=== PATIENT | male | born 1955 | race Caucasian/White ===

== ENCOUNTER → 2020-04-18 09:00 | Outpatient (BNVA) | payer MEDICARE, MEDICAID, SELFPAY | PROVIDERS: PCP Internal Medicine; Visit Provider Orthopaedic Surgery | DX: M75.41 Impingement syndrome of right shoulder (principal) | CPT/HCPCS: 20610; 99202; J1040 ==

== ENCOUNTER 2023-11-02 13:46 | Emergency (ER) | payer MEDICARE, MEDICAID, SELFPAY ==
--- NOTE | ~2023-11-02 | CT_ITS ---
EXAMINATION: CT CERVICAL SPINE WITHOUT CONTRAST CLINICAL INFORMATION: Fall COMPARISON: None available. TECHNIQUE: CT scan of cervical spine with reconstruction imaging performed at the acquisition workstation. This CT examination was performed using dose optimization techniques as appropriate, variously including the following: *Automated exposure control *Adjustment of mA and/or kV according to patient size (this includes techniques or standardized protocols for targeted exams where dose is matched to indication/reason for exam; i.e. extremities or head) *Use of iterative reconstruction technique DLP: 572 mGy-cm FINDINGS: Vertebral body height normal without fracture. Multilevel degenerative disc changes from C3-C4 through C7-T1 manifested by varying degrees of endplate osteophytes and disc space narrowing most prominent at the C5-C6 and C6-C7. There is multilevel facet arthrosis throughout the cervical spine severe at the right C3-C4 and right C5-C6 levels. There is fusion across this right C4-C5 facet These degenerative changes result in grade 1 anterolisthesis of C5 on C6. The surrounding soft tissues are normal. There is arterial calcification noted. CT/CT cervical spine wo IV con IMPRESSION: 1. No acute abnormality. 2. Multilevel spondylosis of the cervical spine. Fleischner guidelines were followed.
--- NOTE | ~2023-11-02 | CT_ITS ---
EXAMINATION: CT FACIAL BONES WITHOUT CONTRAST CLINICAL INFORMATION: Fall COMPARISON: None available. TECHNIQUE: CT scan facial bones is performed with reconstruction imaging performed at the acquisition workstation This CT examination was performed using dose optimization techniques as appropriate, variously including the following: *Automated exposure control *Adjustment of mA and/or kV according to patient size (this includes techniques or standardized protocols for targeted exams where dose is matched to indication/reason for exam; i.e. extremities or head) *Use of iterative reconstruction technique DLP: 577 mGy-cm FINDINGS: There is no fracture. There is mild mucosal thickening of the right maxillary sinus. Mastoid air cells clear. Arterial calcification noted. No lymphadenopathy. Spondylosis of the partially visualized cervical spine. See dedicated C-spine report for further description. Orbits normal. CT/CT facial bones wo IV con IMPRESSION: No acute intracranial process or discrete facial bone fracture.
--- NOTE | ~2023-11-02 | CT_ITS ---
EXAMINATION: CT HEAD WITHOUT CONTRAST CLINICAL INFORMATION: Fall COMPARISON: None available. TECHNIQUE: Contiguous axial imaging was performed from the skull base to vertex without intravenous administration of contrast. This CT examination was performed using dose optimization techniques as appropriate, variously including the following: *Automated exposure control *Adjustment of mA and/or kV according to patient size (this includes techniques or standardized protocols for targeted exams where dose is matched to indication/reason for exam; i.e. extremities or head) *Use of iterative reconstruction technique DLP: 896 mGy-cm FINDINGS: Soft tissue/scalp: Normal. Bone/skull: Normal. Sinuses: Minimal mucosal thickening of the right maxillary sinus. Mastoid air cells: Clear. There is no mass hemorrhage or cerebral edema. The ventricles and basal cisterns are normal. CT/CT head/brain wo IV con IMPRESSION: No acute intracranial pathology.
[2023-11-02 14:07] VITALS: BP 129/95; PULSE 91; RESP 20; TEMP 36.6; O2SAT 92; BMI 30.4
--- NOTE | 2023-11-02 14:12 | ED.GENADULT ---
HPI - General Adult General Chief complaint: Fall Stated complaint: Fall/Facial injuries takes aspirin Time Seen by Provider: 11/02/23 14:20 Source: patient Mode of arrival: ambulatory Limitations: no limitations History of Present Illness ED Provider: Jan MON narrative: Patient is a 68-year-old male with history of HTN, COPD, cardiac catheterization presenting to the emergency department with complaint of abrasions to forehead, scalp and bruising around right eye after fall on Friday night. States that he slipped on pasta sauce that was on the linoleum floor. Denies dizziness or lightheadedness. Denies loss of consciousness. Takes aspirin daily but is not anticoagulated. Reports baseline visual deficit to left eye, denies any blurred vision, double vision or other visual changes since the fall. Reports chronic neck pain, denies back pain. MD complaint: head injury Onset (ago): day(s) Location: head, face and eyes Severity: moderate Quality: aching Related Data Home Medications ?Medication ?Instructions ?Recorded ?Confirmed aspirin 81 mg tablet,delayed 81 mg PO DAILY 04/18/20 release budesonide-formoterol HFA 80 2 puff inhalation BID 04/18/20 mcg-4.5 mcg/actuation aerosol inhaler (Symbicort) fluticasone furoate 27.5 1 spray intranasal DAILY 04/18/20 mcg/actuation nasal spray,suspension (Flonase Sensimist) furosemide 10 mg/mL oral solution 20 mg PO QAM 04/18/20 ipratropium 20 mcg-albuterol 100 1 puff inhalation Q6H 04/18/20 mcg/actuation mist for inhalation (Combivent Respimat) lisinopril 5 mg tablet 5 mg PO DAILY 04/18/20 metformin 500 mg tablet 500 mg PO DAILY 04/18/20 sertraline 50 mg tablet (Zoloft) 50 mg PO DAILY 04/18/20 tizanidine 2 mg capsule 2 mg PO BEDTIME 04/18/20 Allergies Allergy/AdvReac Type Severity Reaction Status Date / Time No Known Allergies Allergy Verified 11/02/23 14:10 Review of Systems Review of Systems: As per HPI. Yes all other systems are reviewed and are negative Constitutional: Constitutional: Reports as per HPI [facility] Past Medical History Medical History (Updated 11/02/23 @ 16:21 by Tianna Montoya NP) History of umbilical hernia History of left heart catheterization COPD (chronic obstructive pulmonary disease) Surgical History (Updated 04/18/20 @ 09:13 by Frida Hardin PA-C) History of gastric bypass History of arthroscopy of knee H/O angioplasty Social History Social History (Updated 04/18/20 @ 09:14 by Frida Hardin PA-C) Alcohol intake: current Alcohol intake frequency: a few times a week Advance Directives: No Advance Directives Information Provided: Yes Current occupational status: retired Current occupation: rt handed Physical Exam ED Vital Signs: Vital Signs - 24 hr 11/02/23 14:07 11/02/23 16:34 Temperature 97.8 F 97.8 F Pulse Rate 91 91 Respiratory Rate 20 20 Blood Pressure 129/95 H 129/95 H Pulse Oximetry 92 92 Oxygen Delivery Method Room Air Room Air BMI result Body Mass Index 30.4 Vital signs have been reviewed and appear to be correct. Blood pressure normal. Heart rate normal. Respiratory rate normal. Temperature normal. Oxygen saturation normal. Const General: cooperative, healthy appearing and no acute distress Orientation/consciousness: oriented to person, oriented to place, oriented to time and patient oriented x3 Limitations: no limitations HENMT Other: Head: Yes No palpable skull fracture present, Yes normocephalic, Yes abrasion (multiple, see images), No Rosa's sign, Yes hematoma, No raccoon eyes and Yes periorbital ecchymosis (see photo) Ears: external ears normal, TM's normal bilaterally and EAC's normal General nose exam: Normal septum present and Abnormal external nose present nasal abrasion; no nasal deviation Face and sinus: Yes face symmetric Mouth: Normal oral and palatal mucosa present, lip normal, tongue normal, oropharynx normal and moist mucous membranes Teeth and gingiva: dentures Throat: Yes uvula midline Eyes Pupils: Equal, round and reactive pupils present EOM: EOMs intact bilaterally (no pain with EOMs) and No Nystagmus present Neck Neck: Yes normal visual inspection, Yes full ROM and Yes supple Chest Chest palpation & inspection: normal inspection of the chest and normal palpation of entire chest wall Resp Effort & Inspection: normal respiratory effort and able to speak in complete sentences Auscultation: clear to auscultation bilaterally Cardio Rate: regular rate Rhythm: regular rhythm Heart sounds: S1 normal heart sound present and S2 normal heart sound present GI Inspection: Yes normal to inspection and No abdominal wall ecchymosis Palpation (GI): Soft to palpation and nontender Auscultation: normoactive bowel sounds General: Yes no CVA tenderness Back/Spine/Pelvis Back: no CVA tenderness Cervical Spine: normal cervical lordosis, cervical ROM normal, No Cervical spine tenderness and No step off deformity Thoracic/Lumbar Spine: thoracic and lumbar spine normal to inspection, thoraco-lumbar ROM normal, No thoracic spinal tenderness and No lumbar spinal tenderness Pelvis: no pain with anterior-posterior compression and no pain with lateral compression Skin General skin exam: elasticity normal and turgor normal Neuro General: oriented to person, oriented to place, oriented to time, patient oriented x3, gait normal, tone normal, moves all extremities, Normal light touch and pain sensation, no focal motor deficits, CN's II-XI intact bilaterally and deep tendon reflexes 2+ bilaterally Cranial nerves: Yes Equal, round and reactive pupils present and No Nystagmus present Cognition (Neuro): normal cognition Motor exam (neuro): 5/5 motor strength present throughout, Pronator motor function not present, Normal motor muscle tone present throughout and Motor abnormalities not present Extrem General: Yes full ROM, Yes no pedal edema and Yes no calf tenderness Psych Mental Status: mental status grossly normal Affect: normal affect Thought process: Normal thought process present Course Course Course Narrative: RME: Done by MARCELLE Vasquez: 5-year-old male presents to ED for right facial ecchymosis and headache after fall on Friday while tripping in his kitchen. Patient denies any loss of consciousness. Physical exam positive for right orbital ecchymosis and frontal small hematoma. Patient is sent for imaging Medical Decision Making Medical Decision Making MDM Narrative: Patient is a 68-year-old male with history of HTN, COPD, cardiac catheterization presenting to the emergency department with complaint of abrasions to forehead, scalp and bruising around right eye after fall on Friday night. On exam patient is awake, A+Ox3, VS WNL, afebrile, normal neurological exam without focal deficits, physical exam findings as above. Given reported symptoms and physical exam findings, initial differential includes facial fractures versus contusions, orbital injury, ICH, skull fracture, cervical vertebral fracture or subluxation. IOPs 19OD, 19OS. CT head notable for no ICH or skull fracture. CT facial bones notable for no acute fracture. CT c-spine notable for no acute fracture or subluxation. My interpretation is in agreement with the radiologist's interpretation. Tdap is UTD. Wounds to face and scalp scabbed over. Discussed with patient to gently pat dry after showering, not rub. Can apply thin layer of Neosporin to abrasions. Follow up with PCP. Return precautions discussed at bedside. Patient verbalized understanding of and agreement with plan. Differential Diagnosis Differential Diagnoses: The differential diagnosis associated with the presentation includes As per MDM. Admission/Observation Consideration of admission/observation: Escalation of care including admission/observation considered Patient would have been admitted to the hospital had their work up had any findings where hospital admission was appropriate and their clinical presentation warranted hospital admission. Independent Interpretation I performed an independent interpretation of an: CT Scan Interpretation: CT head notable for no ICH or skull fracture. CT facial bones notable for no acute fracture. CT c-spine notable for no acute fracture or subluxation. Radiology Impression Discussion of test interpretation with radiology: I have reviewed the radiologist's reading. Radiologist Impression: CT/CT facial bones wo IV con IMPRESSION: No acute intracranial process or discrete facial bone fracture. CT/CT facial bones wo IV con IMPRESSION: No acute intracranial process or discrete facial bone fracture. CT/CT cervical spine wo IV con IMPRESSION: 1. No acute abnormality. 2. Multilevel spondylosis of the cervical spine. External Record Review External record reviewed: Inpatient record, Office record and Outpatient record Discharge Plan Discharge Clinical Impression: Contusion of eye, right, Abrasion of face, Abrasion of scalp, Fall Patient Disposition: Home, Self-Care Instructions: Fall Prevention for Older Adults (ED), Abrasion (ED) Additional Instructions: You have been evaluated in the emergency department today for injuries to your face and head after a fall. Your CT scans did not show signs of bleeding in your brain or fractures in your face or cervical spine. We recommend you take Tylenol 650 mg every 6 hours as needed for pain. You can apply a thin layer of Neopsporin or bacitracin to your abrasions. Please schedule an appointment with for follow-up with your primary care provider as soon as possible. Return to the emergency department if you experience worsening or uncontrolled pain, vision changes, recurrent vomiting, difficulty with normal activities, abnormal behavior, difficulty walking, numbness, weakness, or any other concerning symptoms. Interventions: ED Discharge Assessment Last Done: 11/02/23 16:34 Discharge Date/Time: 11/02/23 16:34 Print Language: Bahraini
[2023-11-02 16:34] VITALS: BP 129/95; PULSE 91; RESP 20; TEMP 36.6; O2SAT 92
== END 2023-11-02 16:34 | disposition home or self-care (01) ==
PROVIDERS: Emergency Provider Emergency Medicine; PCP Physician Assistant Medical
DX: S00.11XA Contusion of right eyelid and periocular area, initial encounter (principal); S00.01XA Abrasion of scalp, initial encounter; S00.81XA Abrasion of other part of head, initial encounter; R51.9 Headache, unspecified; X58.XXXA Exposure to other specified factors, initial encounter; W01.0XXA Fall on same level from slipping, tripping and stumbling without subsequent striking against object, initial encounter; Y93.89 Activity, other specified; Y92.89 Other specified places as the place of occurrence of the external cause; Y99.8 Other external cause status
CPT/HCPCS: 70450; 70486; 72125; 99283

== ENCOUNTER 2024-01-16 10:50 | Outpatient (AMB) | payer MEDICARE, MEDICAID, SELFPAY ==
--- NOTE | 2024-01-16 10:52 | A.SPINEOV_ITS ---
Intake Visit Reasons: spinal fracture Intake Note: Mr. Carr is here today c/o back pain making it difficult to walk. Debit Agent Required: No Allergies No Known Allergies Allergy (Verified 01/16/24 10:56) Assessment & Plan Assessment & Plan (1) Compression fracture of thoracic vertebra with routine healing: Code(s): S22.000D - Wedge compression fracture of unspecified thoracic vertebra, subsequent encounter for fracture with routine healing Category: Medical Plan Dear colleague Thank you for referring Best Carr to the office today with a chief complaint of improving thoracic pain. HPI: This 68-year-old male suffered a T9 compression fracture and transverse process fractures after a fall 5 months ago. Initially he had severe pain but over time the pain has significantly improved. Standing time is limited to 12- 15 minutes. He denies numbness weakness. It sounds like he was started on anti osteoporotic medication. He states he never had a bone density scan. PMH: COPD, hypertension, type 2 diabetes, right shoulder pain, vasculopathy Medications: Aspirin, Symbicort, furosemide, ipratropium, lisinopril, metformin, sertraline, tizanidine Allergies: NKDA Social history: 7 cigarettes a day Physical Exam: Pleasant male. He is not in obvious agony. There is no pain on palpation. Axial loading is negative. No neurological deficits Radiological Studies: MRI done at [place] shows a T9 compression fracture with approximately 20% height loss and transverse process fractures Impression/Plan: This patient suffered a traumatic T9 compression fracture and transverse process fractures with routine healing. It would be worthwhile to ge t a bone density scan although the trauma was pretty significant. The bone density scan should determine if he needs medication for osteoporosis. I discharged him from further follow-up. Thank you for allowing me to participate in your patients care. total time spent was forty-five minutes in counseling ,coordination of plan, personal review of imaging, surgical decision making and subsequent plan Raj Judge MD, PhD [facility] Trained Neurosurgeon Director, [facility] Coding Level of Care Code New Pt Level 4 (54472) Diagnoses Compression fracture of thoracic vertebra with routine healing S22.000D
== END 2024-01-16 11:48 | disposition home or self-care (01) ==
PROVIDERS: PCP Physician Assistant Medical; Visit Provider Neurological Surgery
DX: S22.000D Wedge compression fracture of unspecified thoracic vertebra, subsequent encounter for fracture with routine healing (principal)
CPT/HCPCS: 99204

== ENCOUNTER → 2024-01-16 10:50 | Outpatient (BNVA) | payer MEDICARE, MEDICAID, SELFPAY | PROVIDERS: PCP Physician Assistant Medical; Visit Provider Neurological Surgery | DX: S22.000D Wedge compression fracture of unspecified thoracic vertebra, subsequent encounter for fracture with routine healing (principal) | CPT/HCPCS: 99202 ==

== ENCOUNTER 2024-03-13 16:02 | Emergency (ER) | payer MEDICARE, MEDICAID, SELFPAY ==
[2024-03-13] VITALS (9 sets, daily range): BP systolic 140–174; BP diastolic 86–93; PULSE 93–122; RESP 16–20; TEMP 36.2–36.9; O2SAT 86–93; BMI 31.4
--- NOTE | ~2024-03-13 | CT_ITS ---
EXAMINATION: CT CERVICAL SPINE WITHOUT CONTRAST CLINICAL INFORMATION: Neck pain. Fall. COMPARISON: CT cervical spine dated November 02, 2023. TECHNIQUE: Noncontrast computed tomography of the cervical spine was performed. This CT examination was performed using dose optimization techniques as appropriate, variously including the following: *Automated exposure control *Adjustment of mA and/or kV according to patient size (this includes techniques or standardized protocols for targeted exams where dose is matched to indication/reason for exam; i.e. extremities or head) *Use of iterative reconstruction technique DLP: 541 mGy-cm FINDINGS: The prevertebral soft tissue is normal in appearance. There is grade 1 anterolisthesis of C2 in relation to C3. There is grade 1 anterolisthesis of C3 in relation to C4. There is grade 1 anterolisthesis of C4 in relation to C5. There is grade 1 retrolisthesis of C5 in relation to C6. Alignment is unchanged when compared with examination dated November 02, 2023. The posterior elements are anatomically aligned. There is significant facet arthropathy throughout the upper greater than lower cervical spine. The atlantooccipital articulations are intact. The C1-C2 relationship is anatomic. The dens is intact. Vertebral body heights are preserved. There is significant degenerative disc disease at C5-6 and to a lesser extent C6-7. There is no acute cervical spine fracture. Lung apices are clear. The thyroid gland is normal in appearance. CT/CT cervical spine wo IV con IMPRESSION: No acute osseous cervical spine abnormality. Multilevel spondylosis. Fleischner guidelines were followed. Electronically signed by: Chris López DO 03/13/2024 06:43 PM [facility] [place]
--- NOTE | ~2024-03-13 | XR_ITS ---
EXAMINATION: CHEST AND BILATERAL SHOULDERS CLINICAL INFORMATION: Cough, shortness of breath and bilateral shoulder pain after fall COMPARISON: None available. TECHNIQUE: PA and lateral chest, 4 views each shoulder FINDINGS: Chest: There is mild elevation of the right hemidiaphragm and a small right present. Heart size is normal. The question of a hiatal hernia. No evidence of CHF. There is bibasilar atelectasis. There is a wedge compression fracture of the lower thoracic vertebral body. The bony thorax otherwise is unremarkable. Right shoulder: Some minimal degenerative changes are seen at the glenohumeral joint. No fractures or dislocations. Left shoulder: Some minimal degenerative changes are seen at the glenohumeral joint. No fractures or dislocations. XR/XR chest 2V IMPRESSION: 1. No acute intrathoracic disease. 2. No acute osseous injury in either shoulder. 3. Incidental note made of a wedge compression fracture of the lower thoracic vertebral body. Electronically signed by: Chaka Menendez MD 03/13/2024 05:29 PM [facility]
--- NOTE | ~2024-03-13 | CT_ITS ---
EXAMINATION: CT FACIAL BONES WITHOUT CONTRAST CLINICAL INFORMATION: Fall. Head trauma. COMPARISON: CT facial bones dated November 02, 2023. TECHNIQUE: Noncontrast CT of the maxillofacial bones was performed. This CT examination was performed using dose optimization techniques as appropriate, variously including the following: *Automated exposure control *Adjustment of mA and/or kV according to patient size (this includes techniques or standardized protocols for targeted exams where dose is matched to indication/reason for exam; i.e. extremities or head) *Use of iterative reconstruction technique DLP: 467 mGy-cm FINDINGS: There is no facial bone fracture. There is a small mucosal retention cyst along the lateral wall of the right maxillary sinus. Remaining paranasal sinuses are well-aerated. The orbits are symmetric and within normal limits. The visualized brain demonstrates no acute abnormality. The visualized calvarium is intact. There is a small right frontal scalp hematoma. There is right periorbital soft tissue swelling. CT/CT facial bones wo IV con IMPRESSION: No acute facial bone fracture. Small right frontal scalp hematoma. Right periorbital soft tissue swelling. Electronically signed by: Chris López DO 03/13/2024 06:58 PM EST
--- NOTE | ~2024-03-13 | XR_ITS ---
EXAMINATION: CHEST AND BILATERAL SHOULDERS CLINICAL INFORMATION: Cough, shortness of breath and bilateral shoulder pain after fall COMPARISON: None available. TECHNIQUE: PA and lateral chest, 4 views each shoulder FINDINGS: Chest: There is mild elevation of the right hemidiaphragm and a small right present. Heart size is normal. The question of a hiatal hernia. No evidence of CHF. There is bibasilar atelectasis. There is a wedge compression fracture of the lower thoracic vertebral body. The bony thorax otherwise is unremarkable. Right shoulder: Some minimal degenerative changes are seen at the glenohumeral joint. No fractures or dislocations. Left shoulder: Some minimal degenerative changes are seen at the glenohumeral joint. No fractures or dislocations. XR/XR shoulder LT min 2V IMPRESSION: 1. No acute intrathoracic disease. 2. No acute osseous injury in either shoulder. 3. Incidental note made of a wedge compression fracture of the lower thoracic vertebral body. Electronically signed by: Chaka Menendez MD 03/13/2024 05:29 PM [facility]
--- NOTE | ~2024-03-13 | XR_ITS ---
EXAMINATION: CHEST AND BILATERAL SHOULDERS CLINICAL INFORMATION: Cough, shortness of breath and bilateral shoulder pain after fall COMPARISON: None available. TECHNIQUE: PA and lateral chest, 4 views each shoulder FINDINGS: Chest: There is mild elevation of the right hemidiaphragm and a small right present. Heart size is normal. The question of a hiatal hernia. No evidence of CHF. There is bibasilar atelectasis. There is a wedge compression fracture of the lower thoracic vertebral body. The bony thorax otherwise is unremarkable. Right shoulder: Some minimal degenerative changes are seen at the glenohumeral joint. No fractures or dislocations. Left shoulder: Some minimal degenerative changes are seen at the glenohumeral joint. No fractures or dislocations. XR/XR shoulder RT min 2V IMPRESSION: 1. No acute intrathoracic disease. 2. No acute osseous injury in either shoulder. 3. Incidental note made of a wedge compression fracture of the lower thoracic vertebral body. Electronically signed by: Chaka Menendez MD 03/13/2024 05:29 PM [facility]
--- NOTE | ~2024-03-13 | CT_ITS ---
EXAMINATION: CT HEAD WITHOUT CONTRAST CLINICAL INFORMATION: Fall. Head strike. COMPARISON: CT head dated November 02, 2023. TECHNIQUE: Contiguous axial imaging was performed from the skull base to vertex without intravenous administration of contrast. This CT examination was performed using dose optimization techniques as appropriate, variously including the following: *Automated exposure control *Adjustment of mA and/or kV according to patient size (this includes techniques or standardized protocols for targeted exams where dose is matched to indication/reason for exam; i.e. extremities or head) *Use of iterative reconstruction technique DLP: 836 mGy-cm FINDINGS: There is no acute intracranial hemorrhage. There is no evidence of acute/subacute cerebral or cerebellar infarction. There is no midline shift or mass effect. No extra-axial fluid collection. The ventricles are normal in size. The orbits are symmetric and within normal limits. The calvarium is intact. The visualized paranasal sinuses are well aerated. The mastoid air cells are clear. There is a right frontal scalp hematoma. There is right periorbital soft tissue swelling. CT/CT head/brain wo IV con IMPRESSION: No acute intracranial pathology. There is a right frontal scalp hematoma. There is right periorbital soft tissue swelling. Electronically signed by: Chris óLpez DO 03/13/2024 06:36 PM EST
--- NOTE | 2024-03-13 16:06 | ED_ITS ---
HPI - SOB/Dyspnea General Chief Complaint: Fall Stated Complaint: sob, o2 sat 85%, fell 03/10 left shoulder pain Time Seen by Provider: 03/13/24 17:14 Source: patient Mode of arrival: EMS Limitations: no limitations History of Present Illness ED Provider: atilio MON Narrative: Patient is 68 years old with your COPD on home oxygen went outside to mariah the youssef 4 days ago fell on the concrete steps hitting his forehead to the ground no loss of consciousness complaining of pain in bilateral shoulder patient does have rotator cuff tear on the right side had hard time in getting up comes here as still having the pain in the left shoulder moving his shoulder pretty well no nausea no vomiting Related Data Home Medications ?Medication ?Instructions ?Recorded ?Confirmed aspirin 81 mg tablet,delayed 81 mg PO DAILY 04/18/20 release budesonide-formoterol HFA 80 2 puff inhalation BID 04/18/20 mcg-4.5 mcg/actuation aerosol inhaler (Symbicort) fluticasone furoate 27.5 1 spray intranasal DAILY 04/18/20 mcg/actuation nasal spray,suspension (Flonase Sensimist) furosemide 10 mg/mL oral solution 20 mg PO QAM 04/18/20 ipratropium 20 mcg-albuterol 100 1 puff inhalation Q6H 04/18/20 mcg/actuation mist for inhalation (Combivent Respimat) lisinopril 5 mg tablet 5 mg PO DAILY 04/18/20 metformin 500 mg tablet 500 mg PO DAILY 04/18/20 sertraline 50 mg tablet (Zoloft) 50 mg PO DAILY 04/18/20 tizanidine 2 mg capsule 2 mg PO BEDTIME 04/18/20 Previous Rx's ?Medication ?Instructions ?Recorded prednisone 20 mg tablet 40 mg (2 x 20 mg) PO DAILY #10 tabs 03/13/24 Allergies Allergy/AdvReac Type Severity Reaction Status Date / Time No Known Allergies Allergy Verified 03/13/24 16:12 Review of Systems 2 Review of Systems: Yes all other systems are reviewed and are negative PMFSH Past Medical History Medical History History of umbilical hernia History of left heart catheterization COPD (chronic obstructive pulmonary disease) Surgical History History of gastric bypass History of arthroscopy of knee H/O angioplasty Social History Social History Alcohol intake: current Alcohol intake frequency: a few times a week Smoked in Last 30 Days: Yes Advance Directives: No Advance Directives Information Provided: No Do you have a plan to hurt others: No Plan Current occupational status: retired Current occupation: rt handed Physical Exam 2 Vital Signs: Vital Signs: Last Vital Signs Temp 98.4 F 03/13/24 20:39 Pulse 99 03/13/24 20:39 Resp 20 03/13/24 20:39 BP 140/86 H 03/13/24 20:39 Pulse Ox 90 L 03/13/24 20:39 O2 Del Method Room Air 03/13/24 20:39 O2 Flow Rate 2 03/13/24 19:14 BMI result Body Mass Index 31.4 Appearance: Alert. Oriented X3. No acute distress. Eyes: PERRLA, No Nystagmus ecchymosis right eye ENT: Pharynx normal. Oral Mucosa moist Neck: Normal inspection. Neck supple. CVS: Normal heart rate and rhythm. Pulses normal. Respiratory: No respiratory distress. Equal air entry bilateral, no wheezing/rales/rhonchi Abdomen: Soft and nontender. Bowel sounds are present, no mass palpable, no CVA tenderness Skin: Skin warm and dry. Normal skin color. Normal skin turgor. Extremities: No lower extremity edema. No calf tenderness left rotator cuff tendinitis Neuro: Oriented X 3. No motor deficit. No sensory deficit.No cerebellar signs , cranial nerves II-XII intact Course Course Course Narrative: This is a Rapid Medical Exam performed in triage by Jayleen Pena PA-C. Full HPI, ROS and PE to be performed by primary ED provider. 68yo M w/pmhx COPD, CAD, presenting to the ED c/o low O2 at home 85% on RA this morning w/ associated SOB. Also reports fall Friday around midnight on concrete steps (5 steps) due to thinking his animals were being attacked, mechanical fall, denies sx prior to fall, +head strike, No LOC. Takes 81 ASA. Admits to BARRY, neck & back pain & b/l shoulder pain. States has been having more frequent falls recently & increased stressors at home PE: HR bouncing ?A.fib, satting 90% on RA, + right periorbital ecchymosis and forehead abrasion. Bilateral shoulder tenderness. Plan: EKG, labs, CXR, CT , viral testing Medications Administered Discontinued Medications Generic Name Dose Route Start Last Admin Trade Name Vinay PRN Reason Stop Dose Admin Albuterol Sulfate 5 mg 03/13/24 19:25 03/13/24 20:13 Albuterol Sulfate (0.083%) 2.5 Mg/3 Ml Vial.Neb INHALE 03/13/24 19:26 5 mg ONCE ONE Administration Albuterol/Ipratropium 3 ml 03/13/24 16:41 03/13/24 16:44 Albuterol/Iprat 2.5/0.5mg 3 Ml Ampul.Neb INHALE 03/13/24 16:42 3 ml ONCE ONE Administration Dexamethasone Sodium Phosphate 10 mg 03/13/24 20:29 03/13/24 20:34 Dexamethasone Sod Phosphate 10 Mg/Ml Vial IVPUSH 03/13/24 20:30 10 mg ONCE ONE Administration Medical Decision Making Lab Data [facility] Lab Attestation statement: I reviewed the patient's lab results. 03/13/24 17:11 03/13/24 17:11 Labs: Lab Results 03/13/24 03/13/24 Range/Units 16:53 17:11 WBC 8.4 (4.8-10.8) X10*3/uL RBC 5.08 (4.60-5.80) X10*6/uL Hgb 17.0 (14.0-18.0) g/dl Hct 51.0 (42.0-52.0) % MCV 100.4 H (80.0-98.0) fL MCH 33.5 H (27.0-33.0) pg MCHC 33.3 (31.0-36.0) g/dl RDW 14.3 (11.0-16.0) % Plt Count 156 L (160-400) X10*3/uL MPV 9.9 (9.4-12.4) fL Immature Gran % (Auto) 0.4 (0.0-0.4) % Neut % (Auto) 67.2 (45-73) % Lymph % (Auto) 20.8 (20-40) % Sharp % (Auto) 7.7 (2-11) % Eos % (Auto) 3.1 (0-4) % Baso % (Auto) 0.8 (0-2) % Lymph # (Auto) 1.7 (1.2-4.9) X10*3/uL Sharp # (Auto) 0.6 (0.1-1.2) X10*3/uL Eos # (Auto) 0.3 (0.0-0.4) X10*3/uL Baso # (Auto) 0.1 (0.0-0.2) X10*3/uL Abs Immat Gran (auto) 0.03 (0.00-0.03) X10*3/uL Absolute Neuts (auto) 5.6 (2.0-8.3) x10*3/uL Absolute Nucleated RBC 0.000 (0.0-0.012) X10*3/uL Nucleated RBC % (auto) 0.0 (0.0-0.2) /100WBC PT 10.7 L (10.9-12.4) SEC INR 0.9 (0.9-1.1) Sodium 142 (135-145) mmol/L Potassium 4.2 (3.3-5.1) mmol/L Chloride 99 (96-108) mmol/L Carbon Dioxide 35 H (22-29) mmol/L Anion Gap 12 (12-20) BUN 8 L (9-16) mg/dL Creatinine 0.65 (0.5-1.4) mg/dL Estim Creat Clear Calc 124.9 Estimated GFR > 60 Random Glucose 145 H (60-115) mg/dL Calcium 9.2 (8.4-10.2) mg/dL Magnesium 1.9 (1.6-2.6) mg/dL Total Bilirubin 0.7 (0.0-1.0) mg/dL Direct Bilirubin 0.2 (0.0-0.5) mg/dL AST 20 (5-37) U/L ALT 14 (0-40) U/L Alkaline Phosphatase 88 (39-117) U/L Troponin I High Sens 6.3 (<3.5-35.0) ng/L B-Natriuretic Peptide 29 (<100) pg/mL Total Protein 6.2 L (6.5-8.0) g/dL Albumin 3.6 (3.5-5.0) g/dL Influenza Type A (PCR) NEGATIVE (Negative) Influenza Type B (PCR) NEGATIVE (Negative) RSV RNA Qual (PCR) NEGATIVE (Negative) SARS-CoV-2 RNA (RT-PCR) NEGATIVE (Negative) Independent Interpretation I performed an independent interpretation of an: CT Scan Radiology Impression Discussion of test interpretation with radiology: I have reviewed the radiologist's reading. Radiologist Impression: negative Discharge Plan Discharge Clinical Impression: Bilateral shoulder pain, Fall Patient Disposition: Home, Self-Care Instructions: Fall Prevention (ED), Shoulder Pain (ED) Additional Instructions: Continue your oxygen and breathing treatment as advised for COPD Your CT scan of the head and neck and face is negative for acute Follow with Orthopedics for rotator cuff pain Prescriptions: New prednisone 20 mg tablet 40 mg PO DAILY Qty: 10 0RF No Action lisinopril 5 mg tablet 5 mg PO DAILY metformin 500 mg tablet 500 mg PO DAILY sertraline [Zoloft] 50 mg tablet 50 mg PO DAILY Flonase Sensimist 27.5 mcg/actuation spray,suspension 1 spray intranasal DAILY Rx Instructions: into each nostril furosemide 10 mg/mL solution 20 mg PO QAM tizanidine 2 mg capsule 2 mg PO BEDTIME aspirin 81 mg tablet,delayed release (DR/EC) 81 mg PO DAILY budesonide-formoterol [Symbicort] 80-4.5 mcg/actuation HFA aerosol inhaler 2 puff inhalation BID Combivent Respimat 20-100 mcg/actuation mist 1 puff inhalation Q6H Interventions: ED Discharge Assessment Last Done: 03/13/24 20:39 Discharge Date/Time: 03/13/24 20:40 Print Language: Hong Konger
--- NOTE | 2024-03-13 16:10 | ECG_ITS ---
Test Reason : SOB Blood Pressure : / mmHG Vent. Rate : 101 BPM Atrial Rate : 101 BPM P-R Int : 166 ms QRS Dur : 096 ms QT Int : 350 ms P-R-T Axes : 049 059 056 degrees QTc Int : 453 ms Sinus tachycardia with Premature atrial complexes Otherwise normal ECG No previous ECGs available Referred By: Jayleen Pena Electronically Signed By:PHILIPP QUINN MD
[2024-03-13] MEDS: Albuterol/Iprat 2.5/0.5MG 3 ML AMPUL.NEB INHALE (16:44)
--- NOTE | 2024-03-13 16:59 | PC.NURSE ---
pt to ED from home. Reports that a few days ago he fell down about 5 steps at home bc a youssef was attacking his cat. He has ecchymosis to his right eye. Pt decided to come to the ED today bc of unbearable pain. He has a hx of shoulder surgery and has pain in bilat shoulders. Smoker- recently cut down from 40 cigarettes a day to 4. Hx of COPD. labs and ekg done, RT set up rx for pt.
[2024-03-13 17:17] LABS: MANUAL DIFF FLAG NO
[2024-03-13 17:18] LABS: Basophils Absolute Auto 0.1 X10*3/uL (0.0-0.2); Basophils Percent Auto 0.8 % (0-2); Eosinophils Absolute Auto 0.3 X10*3/uL (0.0-0.4); Eosinophils Percent Auto 3.1 % (0-4); Imm Gran Abs Auto 0.03 X10*3/uL (0.00-0.03); Imm Gran Pct Auto 0.4 % (0.0-0.4); Lymphocytes Absolute Auto 1.7 X10*3/uL (1.2-4.9); Lymphocytes Percent Auto 20.8 % (20-40); Mean Corpuscular HGB Conc 33.3 g/dl (31.0-36.0); Mean Corpuscular Hemoglobin 33.5 pg (27.0-33.0); Mean Corpuscular Volume 100.4 fL (80.0-98.0); Mean Platelet Volume 9.9 fL (9.4-12.4); Monocytes Absolute Auto 0.6 X10*3/uL (0.1-1.2); Monocytes Percent Auto 7.7 % (2-11); Neutrophils Absolute Auto 5.6 x10*3/uL (2.0-8.3); Neutrophils Percent Auto 67.2 % (45-73); Platelet Count 156 X10*3/uL (160-400); Red Blood Count 5.08 X10*6/uL (4.60-5.80); Red Cell Distribution Width 14.3 % (11.0-16.0); White Blood Count 8.4 X10*3/uL (4.8-10.8)
[2024-03-13 17:25] LABS: INTERNATIONAL NORM RATIO 0.9 (0.9-1.1); Prothrombin Time 10.7 SEC (10.9-12.4)
[2024-03-13 17:39] LABS: Alanine Aminotransferase 14 U/L (0-40); Albumin Level 3.6 g/dL (3.5-5.0); Alkaline Phosphatase 88 U/L (39-117); Anion Gap 12 (12-20); Aspartate Amino Transferase 20 U/L (5-37); Bilirubin Direct 0.2 mg/dL (0.0-0.5); Bilirubin Total 0.7 mg/dL (0.0-1.0); Blood Urea Nitrogen 8 mg/dL (9-16); Calcium 9.2 mg/dL (8.4-10.2); Carbon Dioxide 35 mmol/L (22-29); Chloride 99 mmol/L (96-108); Creatinine Clr Calc Pharmacy 124.9; Estimated Glomerular Filt Rate > 60; Glucose Random 145 mg/dL (60-115); Magnesium 1.9 mg/dL (1.6-2.6); Potassium 4.2 mmol/L (3.3-5.1); Sodium 142 mmol/L (135-145); Total Protein 6.2 g/dL (6.5-8.0)
[2024-03-13 17:41] LABS: B Type Natriuretic Peptide 29 pg/mL (<100)
[2024-03-13 17:42] LABS: Influenza A PCR NEGATIVE (Negative); Influenza B PCR NEGATIVE (Negative); Resp Syncy Virus RNA Qual PCR NEGATIVE (Negative); SARS COV2 PCR INHOUSE NEGATIVE (Negative)
[2024-03-13 17:46] LABS: Troponin-I High Sensitivity 6.3 ng/L (<3.5-35.0)
--- NOTE | 2024-03-13 19:01 | PC.NURSE ---
report received from Eun Us RN, assume care of pt at this time
--- NOTE | 2024-03-13 19:45 | PC.NURSE ---
Pt is 89-90% on room air, states he does not use O2 at home, only for his neb tx. He does have O2 at home.
[2024-03-13] MEDS: Albuterol Sulfate (0.083%) 2.5 MG/3 ML VIAL.NEB 5 MG INHALE (20:13)
[2024-03-13] MEDS: dexAMETHasone sod phosphate 10 MG/ML VIAL IVPUSH (20:34)
== END 2024-03-13 20:40 | disposition home or self-care (01) ==
PROVIDERS: Physician Assistant; Emergency Provider Internal Medicine; PCP Physician Assistant Medical
DX: M25.511 Pain in right shoulder (principal); M25.512 Pain in left shoulder; R06.02 Shortness of breath; S00.11XA Contusion of right eyelid and periocular area, initial encounter; S00.81XA Abrasion of other part of head, initial encounter; W10.8XXA Fall (on) (from) other stairs and steps, initial encounter; Z03.818 Encounter for observation for suspected exposure to other biological agents ruled out; J44.9 Chronic obstructive pulmonary disease, unspecified; Z99.81 Dependence on supplemental oxygen; Z91.81 History of falling; Y93.89 Activity, other specified; Y92.9 Unspecified place or not applicable; Y99.9 Unspecified external cause status
CPT/HCPCS: 0241U; 70450; 70486; 71046; 72125; 73030; 80048; 80076; 83735; 83880; 84484; 85025; 85610; 87040; 93005; 94640; 99284; 99285; J1100

== ENCOUNTER → 2024-03-13 16:10 | Outpatient (BNV) | payer MEDICARE, MEDICAID, SELFPAY | PROVIDERS: Emergency Provider Internal Medicine; PCP Physician Assistant Medical; Visit Provider Internal Medicine Cardiovascular Disease | DX: R06.02 Shortness of breath (principal); R00.0 Tachycardia, unspecified | CPT/HCPCS: 93010 ==

== ENCOUNTER 2024-04-22 13:18 | Outpatient (AMB) | payer MEDICARE, MEDICAID, SELFPAY ==
--- NOTE | 2024-04-22 13:15 | A.OFFVIS_ITS ---
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 Former patient at [facility]. Patient states he has pain all over his body. 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 He had been seen by [facility] in the past and was actually treated by my former partner Dr. Diane back in 2019. It appears that he was lost to follow-up by [facility] and due to some confusion is no longer allowed to return there. In addition there was some issues with his insurance as [employer] was no longer accepted by [facility]. It appears that he no longer has a primary care doctor or any medical care of any sort. He reports that he has been smoking for over 40 years and at the current time he is down to 2 cigarettes a day. He is a diabetic. In addition he does drink about 6 beers daily. He has a prior history of COPD and polycythemia. He endorses that he can walk about 3-4 blocks and shortness of breath is the biggest complaint that he has at that point. He does have occasional leg cramping but that is not until further distances and he reports it is left more so than right. He now p resents to us for vascular evaluation [facility] Medical History History of umbilical hernia History of left heart catheterization COPD (chronic obstructive pulmonary disease) Surgical History History of gastric bypass History of arthroscopy of knee H/O angioplasty Social History Alcohol intake: current Alcohol intake frequency: a few times a week Current occupational status: retired Current occupation: rt handed Review of Systems Const All systems reviewed & are unremarkable except as noted in HPI and below Reports no additional complaints ENT Reports Normal hearing present Card Denies chest pain, Denies chest pain at rest, Denies chest pain with activity and Denies pedal edema Resp Denies cough GI Denies abdominal pain Musc Denies abnormal gait, Denies muscle cramps and Denies radiating pain into limb Skin/Breast Denies skin ulcer and Denies wounds Neuro Reports Normal hearing present and Denies abnormal gait Psych Reports no additional complaints Physical Exam Const General: cooperative, healthy appearing and comfortable Orientation/consciousness: oriented to person, oriented to place and oriented to time HEENT Head: Yes normal to inspection Neck Neck: Yes normal visual inspection Carotids: no bruits Chest Chest palpation & inspection: normal inspection of the chest Resp Effort & Inspection: normal respiratory effort and able to speak in complete sentences Auscultation: clear to auscultation bilaterally, no crackles, no rales, no rhonchi and no wheezes Cardio Other: Bilateral DP signals Rate: regular rate Rhythm: regular rhythm Heart sounds: S1 normal heart sound present and S2 normal heart sound present Bruits: no carotid bruits Peripheral pulses: Peripheral pulses 2+ throughout GI Inspection: Yes normal to inspection Skin Wounds: no wounds Hair: normal Neuro General: oriented to person, oriented to place and oriented to time Cranial nerves: Yes CN's II-XII intact bilaterally and Yes Normal hearing present Cognition (Neuro): normal cognition Motor exam (neuro): 5/5 motor strength present throughout Extrem Other: venous exam: No significant superficial varicosities or spider telangiectasias, minimal edema General: No clubbing, No cyanosis and No edema Psych Appearance: grossly normal Mental Status: mental status grossly normal Speech and movement: Normal speech and movement present Results Reviewed Results Reviewed: Noninvasive arterial testing dated August of 2022 demonstrates ORI on the right of 0.85 and on the left of 0.7. Study demonstrates multilevel disease high-grade stenosis in left common femoral and right SFA moderate stenosis of left proximal SFA. There is concern of inflow disease as well. Written report reviewed only as this is a study from [facility] Assessment & Plan Assessment & Plan (1) PAD (peripheral artery disease): Comment: 2019 left common iliac and left SFA angioplasty and stenting. Code(s): I73.9 - Peripheral vascular disease, unspecified Category: Medical Plan: In short patient has an element of PA D. At the current time it does appear to be stable. I did review the pathophysiology of peripheral vascular disease with the patient. In addition we did discuss routine conservative measures including a healthy diet and the importance of exercise and ambulation. We did discuss risk factor modification. I have taken the liberty of ordering noninvasive arterial testing and the patient will follow up with us after testing. Thank you for allowing us to participate in this patient's care. If there are any questions or concerns please do not hesitate to contact us. (2) Diabetes: Code(s): E11.9 - Type 2 diabetes mellitus without complications Category: Medical Qualifiers: Diabetes mellitus type: type 2 Diabetes mellitus prison insulin use: unspecified prison insulin use status Diabetes mellitus complication status: with other specified complication Qualified Code(s): E11.69 - Type 2 diabetes mellitus with other specified complication Plan: Patient is a diabetic. It is unclear how well controlled this is as he does not have a primary care monitoring this right now. He does have medications but it appears that he is self medicating and adjusting dosages by himself. He is in the process of obtaining a new primary care doctor and does have some sort of intake meeting that he reports will happen in May. I did recommend that he remain compliant with his medications at the current time. We also did have an in-depth discussion about risk factor modification. Thank you for allowing us to assist in his care. 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
--- OUTSIDE RECORDS SUMMARY | 2024-04-22 14:24 | XMS_ITS ---
Author Organization [facility] Address [address] [facility] [address] [place] [address] Care Team Providers Care Mirror Finishing Machine Operator Name Role Phone Wilianteetee Connor Primary Care Provider Unavail able SHARMIN GALLOWAY Unavailable [phone] Allergies No Known Allergies REASON FOR VISIT diabetic check, callus Medications Medication SIG (Take, Route, Frequency, Duration) Notes Start Date End Date Status Lisinopril 5 MG 1 tablet Orally Once a day Active Albuterol Sulfate (5 MG/ML) 0.5% as directed Inhalation Activ e metFORMIN HCl 500 MG 1 tablet with a reg l Orally Once a day Active Furosemide 20 MG 1 tablet Orally Once a day prn Active Metoprolol Succinate ER 25 MG 1 tablet Orally Once a day Active oxyCODONE HCl 5 MG 1 tablet as needed Orally every 6 hrs Active ProAir HFA 108 (90 Base) MCG/ACT 2 puff as needed Inhalation every 6 hrs Not-Takin g Atorvastatin Calcium 40 MG 1 tablet Orally Once a day Active Ammonium Lactate 12 % 1 application Externally once a day for 90 days 08/16/2020 Not-Taking Diclofenac Sodium 1 % 1 gram as directed Externally Twice a day for 90 days 08/16/2020 Not-Taking Symbicort 160-4.5 MCG/ACT 2 puffs Inhala tion Twice a day Not-Taking Ammonium Lactate 12 % 1 application to e ach foot Externally once a day for 90 days 08/29/2021 Not-Taking Metoprolol Tartrate 25 MG 0.5 tablet wit h food Orally daily Not-Taking diazePAM 5 MG 1 tablet as needed Orally 1 tab every 8 hr prn prn Not-Taking Ammonium Lactate 12 % 1 application Externally daily Not-Taking Aspirin 81 MG 1 tablet Orally Once a day Active Vitamin D 25 MCG (1000 UT) 1 tablet Orally Once a day Not-Taking Iron 325 (65 Fe) MG 1 tablet Orally Once a day Not-Taking Viagra 100 MG 1 tablet as needed Orally prn Active Multivitamin - 1 tablet Orally Once a day Active Sertraline HCl 25 MG 1 tablet Orally Onc e a day Active Nasal [place] 0.05 % 2 sprays in each nostril as needed Nasally Twice a day Active tiZANidine HCl 2 MG 1 tablet as needed Orally Three times a day prn Active Combivent Respimat 20-100 MCG/ACT 1 puff as needed Inhalation every 4 hrs Active Umeclidinium [place] 62.5 MCG/INH 1 puff Inhalation Once a day Active Vital Signs Weight 221.5 lbs 08/08/2023 Height 5ft 10in in 08/08/2023 BMI 31.78 kg/m2 08/08/2023 Heart Rate 96 /min 08/08/2023 Temperature 97.4 degrees Fahrenheit 08/08/19 24 Respiratory Rate 20 /min 08/08/2023 Encounters Encounter Location Date Provider Diagnosis [facility] [address] [facility] [address] [place] [address] 08/08/2023 SHARMIN GALLOWAY Type 2 diabetes mellitus with other circulatory complications E11.59 ; Foreign body in left foot, initial encounter S90.852A and Type 2 diabetes mellitus with other diabetic neurological complication E11.49 Assessments Encounter Date Diagnosis (ICD Code) Assessment Notes Treatment Notes Treatment Clinical Notes Section Notes 08/08/2023 Type 2 diabetes mellitus with other circulatory complications (ICD-10 - E11.59) Discussed with patient regarding proper glucose control, exercise, and diet. Explained to patient proper shoe gear, and importance of daily foot checks. I reviewed neuropathy and why it occurs in diabetics. I educated the patient on proper blood sugar control and the importance of an HgBA1c of less than 7.0%. I reviewed the signs and symptoms of neuropathy with the patient. This patient is s/p bilateral angioplasties and follows with vascular surgery twice a year. 08/08/2023 Foreign body in left foot, initial encounter (ICD-10 - S90.852A) We discussed an incision and exploration in the area of the left foot sore . Patient agreed. As described above, an incision and removal of left foot foreign body was performed. Patient tolerated well. Post-procedure instructions were given to the patient.They are to remove the initial band-aid after the procedure. We discussed soft tissue injuries can take 4-6 weeks to heal. If he has continued pain, at that point I would recommend an ultrasound to determine if he has any more fragments. 08/08/2023 Type 2 diabetes mellitus with other diabetic neurological complication (ICD-10 - E11.49) Plan Of Treatment Treatment Notes Assessment Notes Foreign body in left foot, i nitial encounter We discussed an incision and exploration in the area of the left foot sore . Patient agreed. As described above, an incision and removal of left foot foreign body was performed. Patient tolerated well. Post-procedure instructions were given to the patient.They are to remove the initial band-aid after the procedure. We discussed soft tissue injuries can take 4-6 weeks to heal. If he has continued pain, at that point I would recommend an ultrasound to determine if he has any more fragments. Next Appt Details Follow Up: prn, Reason: Progress Notes * Best CARR PDOB:[birth year] (67 yo M)Acc No.[id number]:08/08/2023 Progress Notes Patient:?Jonathan CARRlisa Hicks Provider:?Sharmin Galloway DPM :1955???Age:67 Y???Sex:Male David e:08/08/2023 Phone: Address: [address], [place], [id number] Pcp:Connor Infante Subjective: * Chief Complaints: * ???Diabetic check, callus * HPI: ???Constitutional:? This 67 y/o male returns to my office for his diabetic foot exam and a concern about calluses on the left foot. He does not recall any injury that caused the sores. He admits that he does walk around barefoot, even when outside. He is concerned because his son had gangrene and ended up losing both of his feet. He states that his feet are sore. He also was seen by vascular surgery. They are recommending stents in both legs due to worsening blood flow. He states the right leg was 0.4 and the left leg was 0.2. He has no other foot complaints this visit. His last Hgba1c was 5.9. His last visit with his PCP care team for diabetes management was 06/24/23. * ROS:?GENERAL: Pt denies nausea, fever, vomiting, chills, or shortness of breath. Pt in NAD. ALLERGY: patient denies any new allergy HEME/ONC: patient denies any bleeding or clotting disorders CARDIOLOGY: pt denies chest pain, palpitations LUNGS: pt denies shortness of breath, has an occasional cough (smoker's cough) ABDOMEN: patient denies any bloating, abdominal pain, or swelling MUSCULOSKELETAL: See HPI, otherwise no joint pain or swelling, back pain, or muscle pain. SKIN: see HPI, otherwise no lesions, rash or itching NEURO: No persistent headache, weakness or numbness PSYCH: patient denies any current anxiety or depression The remainder of the review of systems is noncontributory. * Medical History:? * Surgical History:?gastric by pass colonoscopy cardiac catheterization right knee surgery left angioplasty right aneurysm repair behind the knee * Hospitalization/Major Diagno stic Procedure:?gastric bypass right knee surgery COPD Flare Up 10/05/2022 * Family History:?Father: dece ased 36 yrs, heart attack.?Mother: , alzheimer's.?Siblings: brother 50 y/o OD on Vioxx.?Children: son- diabetes both legs amputated.? * Social History:?Tobacco: yes Alcohol: yes, 18 beers a week and 200ml burbon. * Medications:?TakingoxyCODONE HCl 5 MG Tablet 1 tablet as needed Orally every 6 hrs Atorvastatin Calcium 40 MG Tablet 1 tablet Orally Once a day metFORMIN HCl 500 MG Tablet 1 tablet with a meal Orally Once a day Furosemide 20 MG Tablet 1 tablet Orally Once a day , Notes to Pharmacist: prnLisinopril 5 MG Tablet 1 tablet Orally Once a day Albuterol Sulfate (5 MG/ML) 0.5% Nebulization Solution as directed Inhalation Metoprolol Succinate ER 25 MG Tablet Extended Release 24 Hour 1 tablet Orally Once a day Umeclidinium [place] 62.5 MCG/INH Aerosol Powder Breath Activated 1 puff Inhalation Once a day tiZANidine HCl 2 MG Tablet 1 tablet as needed Orally Three times a day , Notes to Pharmacist: prnCombivent Respimat 20-100 MCG/ACT Aerosol Solution 1 puff as needed Inhalation every 4 hrs Sertraline HCl 25 MG Tablet 1 tablet Orally Once a day Nasal [place] 0.05 % Solution 2 sprays in each nostril as needed Nasally Twice a day Aspirin 81 MG Tablet Delayed Release 1 tablet Orally Once a day Viagra 100 MG Tablet 1 tablet as needed Orally prn Multivitamin - Tablet 1 tablet Orally Once a day Taking oxyCODONE HCl 5 MG Tablet 1 tablet as needed Orally every 6 hrs Taking Atorvastatin Calcium 40 MG Tablet 1 tablet Orally Once a day Taking metFORMIN HCl 500 MG Tablet 1 tablet with a meal Orally Once a day Taking Furosemide 20 MG Tablet 1 tablet Orally Once a day , Notes to Pharmacist: prnTaking Lisinopril 5 MG Tablet 1 tablet Orally Once a day Taking Albuterol Sulfate (5 MG/ML) 0.5% Nebulization Solution as directed Inhalation Taking Metoprolol Succinate ER 25 MG Tablet Extended Release 24 Hour 1 tablet Orally Once a day Taking Umeclidinium [place] 62.5 MCG/INH Aerosol Powder Breath Activated 1 puff Inhalation Once a day Taking tiZANidine HCl 2 MG Tablet 1 tablet as needed Orally Three times a day , Notes to Pharmacist: prnTaking Combivent Respimat 20-100 MCG/ACT Aerosol Solution 1 puff as needed Inhalation every 4 hrs Taking Sertraline HCl 25 MG Tablet 1 tablet Orally Once a day Taking Nasal [place] 0.05 % Solution 2 sprays in each nostril as needed Nasally Twice a day Taking Aspirin 81 MG Tablet Delayed Release 1 tablet Orally Once a day Taking Viagra 100 MG Tablet 1 tablet as needed Orally prn Taking Multivitamin - Tablet 1 tablet Orally Once a day Not-TakingVitamin D 25 MCG (1000 UT) Tablet 1 tablet Orally Once a day Iron 325 (65 Fe) MG Tablet 1 tablet Orally Once a day diazePAM 5 MG Tablet 1 tablet as needed Orally 1 tab every 8 hr prn , Notes to Pharmacist: prnAmmonium Lactate 12 % Lotion 1 application Externally daily Ammonium Lactate 12 % Cream 1 application to each foot Externally once a day Metoprolol Tartrate 25 MG Tablet 0.5 tablet with food Orally daily Symbicort 160-4.5 MCG/ACT Aerosol 2 puffs Inhalation Twice a day ProAir HFA 108 (90 Base) MCG/ACT Aerosol Solution 2 puff as needed Inhalation every 6 hrs Ammonium Lactate 12 % Cream 1 application Externally once a day Diclofenac Sodium 1 % Gel 1 gram as directed Externally Twice a day Medication List reviewed and reconciled with the patientNot-Taking Vitamin D 25 MCG (1000 UT) Tablet 1 tablet Orally Once a day Not-Taking Iron 325 (65 Fe) MG Tablet 1 tablet Orally Once a day Not-Taking diazePAM 5 MG Tablet 1 tablet as needed Orally 1 tab every 8 hr prn , Notes to Pharmacist: prnNot-Taking Ammonium Lactate 12 % Lotion 1 application Externally daily Not- Taking Ammonium Lactate 12 % Cream 1 application to each foot Externally once a day Not-Taking Metoprolol Tartrate 25 MG Tablet 0.5 tablet with food Orally daily Not-Taking Symbicort 160-4.5 MCG/ACT Aerosol 2 puffs Inhalation Twice a day Not-Taking ProAir HFA 108 (90 Base) MCG/ACT Aerosol Solution 2 puff as needed Inhalation every 6 hrs Not-Taking Ammonium Lactate 12 % Cream 1 application Externally once a day Not-Taking Diclofenac Sodium 1 % Gel 1 gram as directed Externally Twice a day Medication List reviewed and reconciled with the patient * Allergies:?N.K.D.A.no[Allerg ies Verified] Objective: * Vitals:?Wt:221.5lbs, Ht: 5ft 10in, BMI:31.78Index, HR:96/min, Temp:97.4F, RR:20/min, Ht-cm: 177.8, Wt-k.47 kg. * Examination: ???General Examination: ???GENERAL: Patient appears well nourished, with NAD. ?VASCULAR: Dorsalis pedis pulses are 0/4 bilaterally and Posterior tibial pulses are 1/4 right,0./4 monophasic on doppler left, biphasic on Doppler right. Capillary filling time within normal limits the digits. No pallor on elevation or rubor on dependency. No hair growth. Varicosities of the legs bilaterally with trace edema. Denies rest pain or claudication pain. Each foot temperature is within normal limits. ?NEUROLOGICAL: Sharp/dull sensation intact bilaterally, protective sensation diminished 7/10 with 5.07 Lerona Caitlin bilaterally, vibratory sensation with tuning fork diminished to the tibial tuberosity bilaterally, position sense intact bilaterally to the tibial tuberosity. ?ORTHOPEDIC: Good muscle strength 4+/5 of all flexors and extensors. Dorsi flexion of ankle ,0 degrees, plantar flexion WNL. No muscle atrophy. No pain on palpation of the anterior talofibular ligament and slight tenderness along the posterior fibular ligament, no tenderness of the distal peroneal tendons along the lateral malleolus, no pain on eversion of the foot. ?DERMATOLOGICAL: Hyperkeratotic lesion plantar left hallux and plantar submetatarsal 1 with hardened black center and tenderness on palpation. Hyperkeratotic skin of the plantar heels bilaterally. 4mm thickened elongated dystrophic discolored toenails of all ten toes with subungual debris and tenderness on palpation. ?BIOMECHANICS: STJ ROM WNL, MTJ ROM WNL, 1st MPJ ROM limited. On weight bearing, functional hallux limitus ?SHOES: sneakers. Assessment: * Assessment: 1.?Foreign body in left foot , initial encounter - S90.852A (Primary)?2.?Type 2 diabetes mellitus with other circulatory complications - E11.59?3.?Type 2 diabetes mellitus with other diabetic neurological complication - E11.49? Plan: * Treatment: 2.?Type 2 diabetes mellitus with other circulatory complications? Clinical Notes: Discussed with patient regarding proper glucose control, exercise, and diet. Explained to patient proper shoe gear, and importance of daily foot checks. I reviewed neuropathy and why it occurs in diabetics. I educated the patient on proper blood sugar control and the importance of an HgBA1c of less than 7.0%. I reviewed the signs and symptoms of neuropathy with the patient. This patient is s/p bilateral angioplasties and follows with vascular surgery twice a year.?? * Procedures:?Procedure: The patient's left foot was prepped with chlorhexadine solution and sterile draping was applied. Using a #15 blade, all hyperkeratotic skin was debrided from the areas. Then I made a 1.0cm incision directly overlying the plantar left hallux and a scant amount of pus was drained from the foot. The area was deepened to subcutaneous tissue, a piece of metal size 2mm x2 was found at this time. The area was irrigated with sterile saline, cleansed, all bleeding was controlled with pressure. Due to the scant purulent drainage, the area was left open to secondarily close. A dressing was applied to the left foot consisting of bacitracin, and a band-aid. Pt tolerated the procedure well. ? * Procedure Codes:? REMOV AL OF FOREIGN BODY, Modifiers: LT * Follow Up:?prn * Billing Information: * Visit Code:? 58446 Office Visit, Est Pt., Level 3. Modifiers: 25 * Procedure Codes:? REMOVAL OF FOREIGN BODY. Modifiers: LT * Sign off status: Completed true * Provider:?Sharmin Galloway DPM Date:? 08/08/2023 Generated for Yenny dawson/Singh/Chuckitting on:?04/22/2024 02:24 PM EST History and Physical Notes * HPI (History of Present Illness) Category Sub-Category Detail Notes Category Not es Constitutional This 67 y/o m kathrine returns to my office for his diabetic foot exam and a concern about calluses on the left foot. He does not recall any injury that caused the sores. He admits that he does walk around barefoot, even when outside. He is concerned because his son had gangrene and ended up losing both of his feet. He states that his feet are sore. He also was seen by vascular surgery. They are recommending stents in both legs due to worsening blood flow. He states the right leg was 0.4 and the left leg was 0.2. He has no other foot complaints this visit. His last Hgba1c was 5.9. His last visit with his PCP care team for diabetes management was 06/24/23. Examination Category Sub-Category Detail Notes Category Not es General Examination GENERAL: Patient appears well nourished, with NAD. VASCULAR: Dorsalis pedis pulses are 0/4 bilaterally and Posterior tibial pulses are 1/4 right,0./4 monophasic on doppler left, biphasic on Doppler right. Capillary filling time within normal limits the digits. No pallor on elevation or rubor on dependency. No hair growth. Varicosities of the legs bilaterally with trace edema. Denies rest pain or claudication pain. Each foot temperature is within normal limits. NEUROLOGICAL: Sharp/dull sensation intact bilaterally, protective sensation diminished 7/10 with 5.07 Lerona Caitlin bilaterally, vibratory sensation with tuning fork diminished to the tibial tuberosity bilaterally, position sense intact bilaterally to the tibial tuberosity. ORTHOPEDIC: Good muscle strength 4+/5 of all flexors and extensors. Dorsi flexion of ankle ,0 degrees, plantar flexion WNL. No muscle atrophy. No pain on palpation of the anterior talofibular ligament and slight tenderness along the posterior fibular ligament, no tenderness of the distal peroneal tendons along the lateral malleolus, no pain on eversion of the foot. DERMATOLOGICAL: Hyperkeratotic lesion plantar left hallux and plantar submetatarsal 1 with hardened black center and tenderness on palpation. Hyperkeratotic skin of the plantar heels bilaterally. 4mm thickened elongated dystrophic discolored toenails of all ten toes with subungual debris and tenderness on palpation. BIOMECHANICS: STJ ROM WNL, MTJ ROM WNL, 1st MPJ ROM limited. On weight bearing, functional hallux limitus SHOES: sneakers
--- OUTSIDE RECORDS SUMMARY | 2024-04-22 14:24 | XMS_ITS ---
Author Organization [facility] Address [address] [address] Care Team Providers Care Ophthalmologist Retina Specialist Name Role Phone WilianteeteeConnor Primary Care Provider Unavail able STAN ESCOBEDO Unavailable [phone] REASON FOR VISIT letter of medical necessity Encounters Encounter Location Date Provider Diagnosis [facility] [address] [address] 11/11/2022 STAN ESCOBEDO Plan Of Treatment No Information Progress Notes * Best CARR PDOB:[birth year] (67 yo M)Acc No.[id number]:11/11/2022 Patient:?Best Carr :1955???Age:67 Y???Sex:Male Phone: Address:[address] [place] [address] * true * Date:? Generated for Yenny dawson/Singh/eTransmitting on:?04/22/2024 02:24 PM EST
--- OUTSIDE RECORDS SUMMARY | 2024-04-22 14:24 | XMS_ITS ---
Author Organization [facility] Address [address] [facility] [address] [place] [address] Care Team Providers Care Knot Borer Name Role Phone WilianteeteeConnor Primary Care Provider Unavail able SHARMIN GALLOWAY Unavailable [phone] Allergies No Known Allergies REASON FOR VISIT diabetic check, also c/o 4-5 sores. Rt worst Medications Medication SIG (Take, Route, Frequency, Duration) Notes Start Date End Date Status Metoprolol Tartrate 25 MG 0.5 tablet wit h food Orally daily Not-Taking Symbicort 160-4.5 MCG/ACT 2 puffs Inhala tion Twice a day Not-Taking ProAir HFA 108 (90 Base) MCG/ACT 2 puff as needed Inhalation every 6 hrs Not-Takin g Ammonium Lactate 12 % 1 application Externally once a day for 90 days 08/16/2020 Not-Taking Diclofenac Sodium 1 % 1 gram as directed Externally Twice a day for 90 days 08/16/2020 Not-Taking Ammonium Lactate 12 % 1 application Externally daily Not-Taking Ammonium Lactate 12 % 1 application to e ach foot Externally once a day for 90 days 08/29/2021 Not-Taking diazePAM 5 MG 1 tablet as needed Orally 1 tab every 8 hr prn prn Not-Taking Multivitamin - 1 tablet Orally Once a day Active Iron 325 (65 Fe) MG 1 tablet Orally Once a day Not-Taking Combivent Respimat 20-100 MCG/ACT 1 puff as needed Inhalation every 4 hrs Active Sertraline HCl 25 MG 1 tablet Orally Onc e a day Active Nasal Nemacolin 0.05 % 2 sprays in each nostril as needed Nasally Twice a day Active Aspirin 81 MG 1 tablet Orally Once a day Active Viagra 100 MG 1 tablet as needed Orally prn Active Metoprolol Succinate ER 25 MG 1 tablet Orally Once a day Active Umeclidinium [place] 62.5 MCG/INH 1 puff Inhalation Once a day Active tiZANidine HCl 2 MG 1 tablet as needed Orally Three times a day prn Active Lisinopril 5 MG 1 tablet Orally Once a day Active Albuterol Sulfate (5 MG/ML) 0.5% as directed Inhalation Activ e Furosemide 20 MG 1 tablet Orally Once a day prn Active Vitamin D 25 MCG (1000 UT) 1 tablet Orally Once a day Not-Taking Atorvastatin Calcium 40 MG 1 tablet Orally Once a day Active metFORMIN HCl 500 MG 1 tablet with a reg l Orally Once a day Active Vital Signs Weight 223.7 lbs 03/07/2023 Height 5ft 10in in 03/07/2023 BMI 32.09 kg/m2 03/07/2023 Heart Rate 92 /min 03/07/2023 Temperature 96.7 degrees Fahrenheit 03/07/20 Respiratory Rate 20 /min 03/07/2023 Encounters Encounter Location Date Provider Diagnosis [facility] [address] [facility] [address] [place] [address] 03/07/2023 SHARMIN GALLOWAY Type 2 diabetes mellitus with other circulatory complications E11.59 ; Foreign body in left foot, initial encounter S90.852A and Type 2 diabetes mellitus with other diabetic neurological complication E11.49 Assessments Encounter Date Diagnosis (ICD Code) Assessment Notes Treatment Notes Treatment Clinical Notes Section Notes 03/07/2023 Type 2 diabetes mellitus with other circulatory [...] follows with vascular surgery twice a year. 03/07/2023 Foreign body in left foot, initial encounter [...] determine if he has any more fragments. 03/07/2023 Type 2 diabetes mellitus with other diabetic [...] Best CARR PDOB:[birth year] (67 yo M)Acc No.[id number]:03/07/2023 Progress Notes Patient:?CARR, Best Hicks Provider:?Sharmin Galloway DPM :1955???Age:67 Y???Sex:Male David e:03/07/2023 Phone: Address: [address], [place], [id number] Pcp:Connor Infante Subjective: * Chief Complaints: * ???diabetic check, also c/o 4-5 sores. Rt worst * HPI: ???Constitutional:? This 67 y/o male returns to my office for his diabetic foot exam and a concern about black sores on the left foot. He does not recall any injury that caused the sores. He admits that he does walk around barefoot, even when outside. He is concerned because his son had gangrene and ended up losing both of his feet. He states that his feet are sore. He has no other foot complaints this visit. His last Hgba1c was 6.3. His last visit with his PCP care team for diabetes management was 08/23/22. * ROS:?GENERAL: Pt denies nausea, fever, vomiting, [...] beers a week and 200ml burbon. * Medications:?TakingAtorvasta tin Calcium 40 MG Tablet 1 tablet Orally [...] 1 tablet Orally Once a day Umeclidinium [place] 62.5 MCG/INH Aerosol Powder Breath Activated 1 puff Inhalation Once a day tiZANidine HCl 2 MG Tablet 1 tablet as needed Orally Three times a day , Notes to Pharmacist: prnCombivent Respimat 20-100 MCG/ACT Aerosol Solution 1 puff as needed Inhalation every 4 hrs Sertraline HCl 25 MG Tablet 1 tablet Orally Once a day Nasal Nemacolin 0.05 % Solution 2 sprays in each nostril as needed Nasally Twice a day Aspirin 81 MG Tablet Delayed Release 1 tablet Orally Once a day Viagra 100 MG Tablet 1 tablet as needed Orally prn Multivitamin - Tablet 1 tablet Orally Once a day Taking Atorvastatin Calcium 40 MG Tablet 1 [...] tablet Orally Once a day Taking Umeclidinium [place] 62.5 MCG/INH Aerosol Powder Breath Activated 1 puff Inhalation Once a day Taking tiZANidine HCl 2 MG Tablet 1 tablet as needed Orally Three times a day , Notes to Pharmacist: prnTaking Combivent Respimat 20-100 MCG/ACT Aerosol Solution 1 puff as needed Inhalation every 4 hrs Taking Sertraline HCl 25 MG Tablet 1 tablet Orally Once a day Taking Nasal Nemacolin 0.05 % Solution 2 sprays in each [...] patient * Allergies:?N.K.D.A.no[Allerg ies Verified] Objective: * Vitals:?Wt:223.7lbs, Ht: 5ft 10in, BMI:32.09Index, HR:92/min, Temp:96.7F, RR:20/min, Ht-cm: 177.8, Wt-k.47 kg. * Examination: ???General Examination: ???GENERAL: Patient appears well nourished, with NAD. ?VASCULAR: Dorsalis pedis pulses are 0/4 bilaterally and Posterior tibial pulses are 1/4 bilaterally, biphasic on Doppler. Capillary filling time within normal limits the digits. No pallor on elevation or rubor on dependency. No hair growth. Varicosities of the legs bilaterally with trace edema. Denies rest pain or claudication pain. Each foot temperature is within normal limits. ?NEUROLOGICAL: Sharp/dull sensation intact bilaterally, protective sensation diminished 7/10 with 5.07 Lincoln Caitlin bilaterally, vibratory sensation with tuning fork [...] eversion of the foot. ?DERMATOLOGICAL: Hyperkeratotic lesion medial left hallux and plantar submetatarsal 1 with [...] made a 1.0cm incision directly overlying the area and a scant amount of pus was drained from the foot. The area was deepened to subcutaneous tissue, a piece of gravel size 2mm x2 was found at this [...] Up:?prn * Billing Information: * Visit Code:? 15478 Office Visit, Est Pt., Level 3. Modifiers: 25 * Procedure Codes:? REMOVAL OF FOREIGN BODY. Modifiers: LT * Sign off status: Completed true * Provider:Jose Galloway DPM Date:? 03/07/2023 Generated for Yenny dawson/Singh/Huong on:?04/22/2024 02:24 PM EST History and Physical Notes * HPI (History of Present Illness) Category Sub-Category Detail Notes Category Not es Constitutional This 67 y/o m kathrine returns to my office for his diabetic foot exam and a concern about black sores on the left foot. He does not recall any injury that caused the sores. He admits that he does walk around barefoot, even when outside. He is concerned because his son had gangrene and ended up losing both of his feet. He states that his feet are sore. He has no other foot complaints this visit. His last Hgba1c was 6.3. His last visit with his PCP care team for diabetes management was 08/23/22. Examination Category Sub-Category Detail Notes Category Not es General Examination GENERAL: Patient appears well nourished, with NAD. VASCULAR: Dorsalis pedis pulses are 0/4 bilaterally and Posterior tibial pulses are 1/4 bilaterally, biphasic on Doppler. Capillary filling time within normal limits the digits. No pallor on elevation or rubor on dependency. No hair growth. Varicosities of the legs bilaterally with trace edema. Denies rest pain or claudication pain. Each foot temperature is within normal limits. NEUROLOGICAL: Sharp/dull sensation intact bilaterally, protective sensation diminished 7/10 with 5.07 Lincoln Caitlin bilaterally, vibratory sensation with tuning fork [...] eversion of the foot. DERMATOLOGICAL: Hyperkeratotic lesion medial left hallux and plantar submetatarsal 1 with [...]
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
--- OUTSIDE RECORDS SUMMARY | 2024-04-22 14:25 | XMS_ITS | Patient Health Record ---
Author Organization [facility] Address [address] [facility] [address] [place] [address] Care Team Providers Care Dye Beck Reel Operator Name Role Phone Connor Infante Primary Care Provider Unavail able STAN ESCOBEDO Unavailable [phone] Allergies No Known Allergies Reason For Referral No Information Medications Medication SIG (Take, Route, Frequency, Duration) Notes Start Date End Date Status Nasal [place] 0.05 % 2 sprays in each nostril as needed Nasally Twice a day Active Aspirin 81 MG 1 tablet Orally Once a day Active Sertraline HCl 25 MG 1 tablet Orally Onc e a day Active Lisinopril 5 MG 1 tablet Orally Once a day Active Albuterol Sulfate (5 MG/ML) 0.5% as directed Inhalation Activ e metFORMIN HCl 500 MG 1 tablet with a reg l Orally Once a day Active Diclofenac Sodium 1 % 1 gram as directed Externally Twice a day for 90 days 08/16/2020 Not-Taking Furosemide 20 MG 1 tablet Orally Once a day prn Active tiZANidine HCl 2 MG 1 tablet as needed Orally Three times a day prn Active Combivent Respimat 20-100 MCG/ACT 1 puff as needed Inhalation every 4 hrs Active Metoprolol Succinate ER 25 MG 1 tablet Orally Once a day Active Umeclidinium [place] 62.5 MCG/INH 1 puff Inhalation Once a day Active ProAir HFA 108 (90 Base) MCG/ACT 2 puff as needed Inhalation every 6 hrs Not-Takin g Atorvastatin Calcium 40 MG 1 tablet Orally Once a day Active Ammonium Lactate 12 % 1 application Externally once a day for 90 days 08/16/2020 Not-Taking Symbicort 160-4.5 MCG/ACT 2 puffs Inhala tion Twice a day Not-Taking oxyCODONE HCl 5 MG 1 tablet as needed Orally every 6 hrs Active Vitamin D 25 MCG (1000 UT) 1 tablet Orally Once a day Not-Taking Iron 325 (65 Fe) MG 1 tablet Orally Once a day Not-Taking Viagra 100 MG 1 tablet as needed Orally prn Active Multivitamin - 1 tablet Orally Once a day Active Ammonium Lactate 12 % 1 application to e ach foot Externally once a day for 90 days 08/29/2021 Not-Taking Metoprolol Tartrate 25 MG 0.5 tablet wit h food Orally daily Not-Taking diazePAM 5 MG 1 tablet as needed Orally 1 tab every 8 hr prn prn Not-Taking Ammonium Lactate 12 % 1 application Externally daily Not-Taking Problems Problem Type SNOMED Code ICD Code Onset Dates Problem Status W/U Status Risk Notes Problem 45644043 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.49) Active confirmed Problem 11278089 Type 2 diabetes mellitus with other circulatory complications (E11.59) Active confirmed Problem Polyneuropathy due to type 2 diabetes mellitus (291416280) Type 2 diabetes mellitus with diabetic polyneuropathy, 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) Active confirmed Vital Signs Heart Rate 96 /min 08/08/2023 Temperature 97.4 degrees Fahrenheit 08/08/2023 Respiratory Rate 20 /min 08/08/2023 Height 5ft 10in in 08/08/2023 Weight 221.5 lbs 08/08/2023 BMI 31.78 kg/m2 08/08/2023 Encounters Encounter Location Date Provider Diagnosis [facility] [address] [address] [place] [address] 08/08/2023 STAN ESCOBEDO Type 2 diabetes mellitus with other circulatory [...] complication (ICD-10 - E11.49) Plan Of Treatment Pending Test Test Name Order Date X ray : Foot, left 3v 05/23/2022 Insurance Providers Payer Name Payer Address Payer Phone Subscriber Number Group Number Insured Name Patient Relationship to Insured Coverage Start Date Coverage End Date [employer] Medicare Adv-[id number] [address] [address] [place] [address] [id number] Best Carr Self - patient is the insured Medical (General) History Medical History History ICD Code CAD hypertension PVD hyperlipidemia obesity diabetes mellitus 2 with neurological co mplications diabetes mellitus 2 with renal manifesta tions hernia erythrocytosis emphysema COPD depression sleep apnea CKD Type 2 diabetes mellitus with other diab etic kidney complication E11.29 PVD (peripheral vascular disease) I73.9 Diaphragmatic hernia without obstruction or gangrene K44.9 Obstructive sleep apnea (adult) (pediatr ic) G47.33 Chronic obstructive pulmonary disease, u nspecified J44.9 Centrilobular emphysema J43.2 Chronic obstructive pulmonary disease, u nspecified J44.9 Other specified systemic involvement of connective tissue M35.8 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 J41.8 Obesity, unspecified E66.9 Nicotine dependence, unspecified, uncomp licated F17.200 Atelectasis J98.11 Contact with and (suspected) exposure to asbestos Z77.090 Atherosclerotic heart diseas e of [place] coronary artery without angina pectoris I25.10 Secondary polycythemia D75.1 Proteinuria, unspecified R80.9 Diabetes mellitus type 2 with neurologic al manifestations E11.49 Chronic kidney disease, stage 1 N18.1 Sebaceous cyst L72.3 Sleep apnea, unspecified G47.30 Umbilical hernia without obstruction or gangrene K42.9 Essential hypertension I10 Hyperlipidemia, unspecified E78.5 Major depressive disorder, single episod e, unspecified F32.9 Chronic obstructive pulmonary disease, u nspecified J44.9 Dorsalgia, unspecified M54.9 Other chronic pain G89.29 Polyp of colon K63.5 Type 2 diabetes mellitus without complic ations E11.9 left angioplasty COVID vaccinated X 2 ([place]) and 3 jaziel ters ([place]) Surgical History Surgery Date(Month/Year) gastric bypass colonoscopy cardiac catheterization right knee surgery left angioplasty right aneurysm repair behind the knee Hospitalization History Reason Date(Month/Year) right knee surgery gastric bypass COPD Flare Up 10/05/2022
== END 2024-04-22 13:57 | disposition home or self-care (01) ==
PROVIDERS: PCP Physician Assistant Medical; Visit Provider Surgery Vascular Surgery
DX: I73.9 Peripheral vascular disease, unspecified (principal); E11.69 Type 2 diabetes mellitus with other specified complication
CPT/HCPCS: 99214

== ENCOUNTER → 2024-04-22 13:18 | Outpatient (BNVA) | payer MEDICARE, MEDICAID, SELFPAY | PROVIDERS: PCP Physician Assistant Medical; Visit Provider Surgery Vascular Surgery | DX: E11.69 Type 2 diabetes mellitus with other specified complication (principal); E11.51 Type 2 diabetes mellitus with diabetic peripheral angiopathy without gangrene | CPT/HCPCS: 99212 ==

== ENCOUNTER 2024-05-03 11:22 | Outpatient (AMB) | payer MEDICARE, MEDICAID, SELFPAY ==
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
--- OUTSIDE RECORDS SUMMARY | 2024-05-03 13:25 | XMS_ITS ---
Author Organization [facility] Address [address] [place] [address] Care Team Providers Care Asbestos Hazard Abatement Worker Name Role Phone Connor Infante Primary Care Provider Unavail able STAN ESCOBEDO [phone] REASON FOR VISIT Rx Refill Medications Medication SIG (Take, Route, Frequency, Duration) Notes Start Date End Date Status Eucerin Intensive Repair - as directed E xternally once daily for 90 days 04/23/2024 Active Encounters Encounter Location Date Provider Diagnosis [facility] [address] [address] 04/22/2024 STAN ESCOBEDO Plan Of Treatment Medication Medication Name Sig Start Date Stop Date Notes Eucerin Intensive Repair - as directed E xternally once daily for 90 days 04/23/2024 Progress Notes * Best DICKERSON PDOB:[birth year] (68 yo M)Acc No.[id number]:04/22/2024 Patient:?Best DICKERSON :1955???Age:68 Y???Sex:Male Phone: Address:[address], [place] [address] * Refills? Start Eucerin Intensive Repair Ointment, -, Externally, 100, as directed, once daily, 90 days, Refills=1 * true * Date:? Generated for Yenny dawson/Singh/eTransmitting on:?05/03/2024 01:24 PM EST
--- OUTSIDE RECORDS SUMMARY | 2024-05-03 13:25 | XMS_ITS | Patient Health Record ---
Author Organization [facility] Address [address] [facility] [address] [place] [address] Care Team Providers Care Pasta Maker Name Role Phone Connor Infante Primary Care Provider Unavail able STAN ESCOBEDO Unavailable [phone] Allergies No Known Allergies Reason For Referral No Information Medications Medication SIG (Take, Route, Frequency, Duration) Notes Start Date End Date Status Nasal [place] 0.05 % 2 sprays in each nostril [...] tablet Orally Once a day Active Umeclidinium [place] 62.5 MCG/INH 1 puff Inhalation Once a day Active ProAir HFA 108 (90 Base) MCG/ACT 2 puff as needed Inhalation every 6 hrs Not-Takin g Atorvastatin Calcium 40 MG 1 tablet Orally Once a day Active Ammonium Lactate 12 % 1 application Externally once a day for 90 days 08/16/2020 Not-Taking Symbicort 160-4.5 MCG/ACT 2 puffs Inhala tion Twice a day Not-Taking Eucerin Intensive Repair - as directed Externally once daily for 90 days 04/23/2024 Active oxyCODONE HCl 5 MG 1 tablet [...] Problem Status W/U Status Risk Notes Problem 63112077 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.49) Active confirmed Problem 89436975 Type 2 diabetes mellitus with other circulatory complications (E11.59) Active confirmed Problem Polyneuropathy due to type 2 diabetes mellitus (292254829) Type 2 diabetes mellitus with diabetic polyneuropathy, 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) Active confirmed Vital Signs Heart Rate 96 /min 08/08/2023 Temperature 97.4 degrees Fahrenheit 08/08/2023 Respiratory Rate 20 /min 08/08/2023 Height 5ft 10in in 08/08/2023 Weight 221.5 lbs 08/08/2023 BMI 31.78 kg/m2 08/08/2023 Encounters Encounter Location Date Provider Diagnosis [facility] [address] [address] 08/08/2023 STAN ESCOBEDO Type 2 diabetes mellitus with other circulatory complications E11.59 ; Foreign body in left foot, initial encounter S90.852A and Type 2 diabetes mellitus with other diabetic neurological complication E11.49 [facility] [address] [address] 04/22/2024 STAN ESCOBEDO Assessments Encounter Date Diagnosis (ICD Code) Assessment [...] Date Coverage End Date [employer] Medicare Adv-[id number] [address] [address] [place] [phone] [id number] Best Carr Self - patient is the [...] asbestos 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
--- OUTSIDE RECORDS SUMMARY | 2024-05-03 13:25 | XMS_ITS ---
Author Organization [facility] Address [address] [facility] [address] [place] [address] Care Team Providers Care Corrugated Sheet Material Sheeter Name Role Phone WilianteeteeConnor Primary Care Provider Unavail able SHARMIN GALLOWAY Unavailable [phone] Allergies No Known Allergies REASON FOR VISIT [...] Orally Onc e a day Active Nasal [place] 0.05 % 2 sprays in each nostril as needed Nasally Twice a day Active Aspirin 81 MG 1 tablet Orally Once a day Active Viagra 100 MG 1 tablet as needed Orally prn Active Metoprolol Succinate ER 25 MG 1 tablet Orally Once a day Active Umeclidinium [place] 62.5 MCG/INH 1 puff Inhalation Once a [...] 03/07/2023 Encounters Encounter Location Date Provider Diagnosis [facility] [address] [facility] [address] [place] [address] 03/07/2023 SHARMIN GALLOWAY Type 2 diabetes mellitus [...] Y???Sex:Male David e:03/07/2025 Phone: Address: [address], [place], [id number] Pcp:Connor Infante Subjective: * Chief Complaints: * [...] 1 tablet Orally Once a day Umeclidinium [place] 62.5 MCG/INH Aerosol Powder Breath Activated 1 puff Inhalation Once a day tiZANidine HCl 2 MG Tablet 1 tablet as needed Orally Three times a day , Notes to Pharmacist: prnCombivent Respimat 20-100 MCG/ACT Aerosol Solution 1 puff as needed Inhalation every 4 hrs Sertraline HCl 25 MG Tablet 1 tablet Orally Once a day Nasal [place] 0.05 % Solution 2 sprays in each [...] tablet Orally Once a day Taking Umeclidinium [place] 62.5 MCG/INH Aerosol Powder Breath Activated 1 puff Inhalation Once a day Taking tiZANidine HCl 2 MG Tablet 1 tablet as needed Orally Three times a day , Notes to Pharmacist: prnTaking Combivent Respimat 20-100 MCG/ACT Aerosol Solution 1 puff as needed Inhalation every 4 hrs Taking Sertraline HCl 25 MG Tablet 1 tablet Orally Once a day Taking Nasal [place] 0.05 % Solution 2 sprays in each [...] bilaterally, protective sensation diminished 7/10 with 5.07 [place] Caitlin bilaterally, vibratory sensation with tuning fork [...] Up:?prn * Billing Information: * Visit Code:? 73612 Office Visit, Est Pt., Level 3. Modifiers: 25 * Procedure Codes:? REMOVAL OF FOREIGN BODY. Modifiers: LT * Sign off status: Completed true * Provider:Jose Galloway DPM Date:? 03/07/2023 Generated for Yenny dawson/Singh/Huong on:?05/03/2024 01:25 PM EST History and Physical Notes * [...] bilaterally, protective sensation diminished 7/10 with 5.07 [place] Caitlin bilaterally, vibratory sensation with tuning fork [...]
--- OUTSIDE RECORDS SUMMARY | 2024-05-03 13:25 | XMS_ITS ---
Author Organization [facility] Address [address] [facility] [address] [place] [address] Care Team Providers Care Supervisor Of Guidance And Testing Name Role Phone Wilianteetee Connor Primary Care Provider Unavail able SHARMIN GALLOWAY Unavailable [phone] Allergies No Known Allergies REASON FOR VISIT [...] Orally Onc e a day Active Nasal [place] 0.05 % 2 sprays in each nostril as needed Nasally Twice a day Active tiZANidine HCl 2 MG 1 tablet as needed Orally Three times a day prn Active Combivent Respimat 20-100 MCG/ACT 1 puff as needed Inhalation every 4 hrs Active Umeclidinium [place] 62.5 MCG/INH 1 puff Inhalation Once a day Active Vital Signs Weight 221.5 lbs 08/08/2023 Height 5ft 10in in 08/08/2023 BMI 31.78 kg/m2 08/08/2023 Heart Rate 96 /min 08/08/2023 Temperature 97.4 degrees Fahrenheit 08/08/19 24 Respiratory Rate 20 /min 08/08/2023 Encounters Encounter Location Date Provider Diagnosis [facility] [address] [facility] [address] [place] [address] 08/08/2023 SHARMIN GALLOWAY Type 2 diabetes mellitus [...] Y???Sex:Male David e:08/08/2023 Phone: Address: [address], [place], [id number] Pcp:Connor Infante Subjective: * Chief Complaints: [...] 1 tablet Orally Once a day Umeclidinium [place] 62.5 MCG/INH Aerosol Powder Breath Activated 1 puff Inhalation Once a day tiZANidine HCl 2 MG Tablet 1 tablet as needed Orally Three times a day , Notes to Pharmacist: prnCombivent Respimat 20-100 MCG/ACT Aerosol Solution 1 puff as needed Inhalation every 4 hrs Sertraline HCl 25 MG Tablet 1 tablet Orally Once a day Nasal [place] 0.05 % Solution 2 sprays in each [...] tablet Orally Once a day Taking Umeclidinium [place] 62.5 MCG/INH Aerosol Powder Breath Activated 1 puff Inhalation Once a day Taking tiZANidine HCl 2 MG Tablet 1 tablet as needed Orally Three times a day , Notes to Pharmacist: prnTaking Combivent Respimat 20-100 MCG/ACT Aerosol Solution 1 puff as needed Inhalation every 4 hrs Taking Sertraline HCl 25 MG Tablet 1 tablet Orally Once a day Taking Nasal [place] 0.05 % Solution 2 sprays in each [...] bilaterally, protective sensation diminished 7/10 with 5.07 [place] Caitlin bilaterally, vibratory sensation with tuning fork [...] Up:?prn * Billing Information: * Visit Code:? 39165 Office Visit, Est Pt., Level 3. Modifiers: 25 * Procedure Codes:? REMOVAL OF FOREIGN BODY. Modifiers: LT * Sign off status: Completed true * Provider:?Sharmin Galloway DPM Date:? 08/08/2023 Generated for Yenny dawson/Singh/Chuckitting on:?05/03/2024 01:25 PM EST History and Physical [...] bilaterally, protective sensation diminished 7/10 with 5.07 [place] Caitlin bilaterally, vibratory sensation with tuning fork [...]
== END 2024-05-03 12:10 | disposition home or self-care (01) ==
PROVIDERS: PCP Physician Assistant Medical; Visit Provider Physician Assistant
DX: S22.000D Wedge compression fracture of unspecified thoracic vertebra, subsequent encounter for fracture with routine healing (principal)
CPT/HCPCS: 99213

== ENCOUNTER → 2024-05-03 11:22 | Outpatient (BNVA) | payer MEDICARE, MEDICAID, SELFPAY | PROVIDERS: PCP Physician Assistant Medical; Visit Provider Physician Assistant | DX: S22.000D Wedge compression fracture of unspecified thoracic vertebra, subsequent encounter for fracture with routine healing (principal) | CPT/HCPCS: 99212 ==

== ENCOUNTER 2024-05-11 13:08 | Outpatient (REF) | payer MEDICARE, MEDICAID, SELFPAY ==
--- NOTE | ~2024-05-11 | US_ITS ---
CLINICAL HISTORY: I73.9 - Peripheral vascular disease, unspecified Bilateral lower extremity arterial duplex ultrasound with spectral waveform analysis: Bilateral lower extremity Segmental ankle-brachial indices and pressure volume recordings : Comparison: None. Pulsed Doppler Findings: Right leg: Right common femoral peak systolic velocity is 120 centimeters/second. Right profunda artery peak systolic velocity is 160 centimeters/second. Right proximal femoral artery 60 centimeters/second. Right mid femoral artery 38 centimeters/second. Right distal femoral artery 69 centimeters/second. Right popliteal artery 53 centimeters/second. Distal right popliteal artery 26 centimeters/second. Right posterior tibial peak systolic velocity is 26 centimeters/second. Right mid posterior tibial artery 37 centimeters/second. Right dorsal pedis artery 13 centimeters/second. Continuous wave Doppler pressure volume recordings of right lower leg above the ankle: Right posterior tibial ankle-brachial index 0.7. Right anterior tibial brachial index 0.6. Abnormal waveforms are suspicious for proximal occlusions or high-grade stenosis of both anterior and posterior tibial arteries. Left leg: Left common femoral artery 200 centimeters/second. Left profunda artery 34 centimeters/second. Left proximal femoral artery 173 centimeters/second. Left mid femoral artery 104 centimeters/second. Occlusion of distal left femoral artery. Collateral reconstitution of left popliteal artery with peak systolic velocity of 44 centimeters/second. Left posterior tibial artery 26 centimeters/second. Occlusion of left anterior tibial artery and collateral reconstitution of dorsal pedis artery, peak systolic velocity 11.0 centimeters/second. Continuous wave Doppler pressure volume recordings in the left lower leg: Left posterior tibial ankle-brachial index 0.73. Left anterior tibial ankle-brachial index 0.66. Abnormal waveforms are consistent with stenosis or high-grade occlusions of both anterior and posterior tibial arteries proximal to the ankle. Impression: 1. Complete occlusion of right distal superficial femoral adductor canal or popliteal artery with segmental collateral reconstitution of left lower leg arteries. These findings are consistent with claudication. 2. Complete occlusion or high-grade stenosis of distal popliteal or left distal femoral adductor canal with collateral reconstitution segmentally filling left lower leg. These findings are consistent with a clinical presentation of claudication. FYI for greater sensitivity and diagnostic information findings can be supplemented by performing the exam after exercise augmentation. This document has been electronically signed by: Eugenio Patton MD on 05/12/2024 15:53:15
--- OUTSIDE RECORDS SUMMARY | 2024-05-11 14:53 | XMS_ITS | Data Portability ---
Author Organization [place] [facility] Address [address] [address] Assessment Encounter Date Assessment Date Assessment LastModified [...] surgery if there is scarring or stenosis. [email or web address] Not available 12/10/2023 16:50:24 Plan of Treatment [...] Recorded Time Foreign body in right ear [id number] 36369 Active 2022 Foreign body in right ear, initial encounte r; Note: Date Diagnose d: 04/26/2022 1:47 PM (T16.1XX A) Not Available [employer] 02:28:14 Epidermal burn of nose 25504602 Active 2023 ARYA QUINTANILLA, PA-[address], [address] , [facility] - [facility] 4 16:28:50 Problem Notes None recorded. [...] ion aerosol inhaler active Medicatio n ID: [id number] Br and Name: albuterol sulfate S end [...] Updated DateTime 12/10/2023 177.8 cm 30.7 kg/m2 94170.77 g Lesly Segal [place] - [facility] 12/10/2023 15:17:17 Social History None recorded. Functional Status None recorded. Mental Status None recorded. Family History Nothing Reported. Medical History No medical history recorded. Past Encounters Encounter ID Performer Location Encounter Start Date Encounter Closed Date Diagnosis/Indication Diagnosis SNOMED-CT Code Diagnosis ICD10 Code Diagnosis Note [id number] MERRY IVEY MD [facility] [address] [address] 12/10/2023 15:08:38 12/15/2023 07:53:41 Epidermal burn of nose 23080019 T20.14XA Health Concerns Section Related Observation LastModified by Organization Detai ls LastModified Time None Recorded Concern Status LastModified by Organization Details LastModified Time None Recorded Advance Directives Directive None Recorded Payers Encounter Date Sequence Insurance Name Policy Number Policy Penaloza Covered Member ID Penaloza Member ID Guarantor Name 12/10/2023 1 [facility] (MEDICARE REPLACEMENT/A DVANTAGE - PPO) [id number] Best Carr [id number] Best Carr 12/10/2023 2 [place] [facility] Best Fabiola Carr [id number] Best Carr Notes Date Note Type Note [...] and uses oxygen daily. MERRY HILL MD [address] [place] [address], [address], [facility] - [facility] 12/10/2023 17:00:32
--- OUTSIDE RECORDS SUMMARY | 2024-05-11 14:54 | XMS_ITS ---
Author Organization [facility] Address [address] [facility] [address] [place] [address] Care Team Providers Care Milk Hauler Name Role Phone WilianteeteeConnor Primary Care Provider Unavail able SHARMIN GALLOWAY Unavailable [phone] Allergies No Known Allergies REASON FOR VISIT [...] Orally Onc e a day Active Nasal [place] 0.05 % 2 sprays in each nostril as needed Nasally Twice a day Active Aspirin 81 MG 1 tablet Orally Once a day Active Viagra 100 MG 1 tablet as needed Orally prn Active Metoprolol Succinate ER 25 MG 1 tablet Orally Once a day Active Umeclidinium [place] 62.5 MCG/INH 1 puff Inhalation Once a [...] 03/07/2023 Encounters Encounter Location Date Provider Diagnosis [facility] [address] [facility] [address] [place] [address] 03/07/2023 SHARMIN GALLOWAY Type 2 diabetes mellitus [...] Y???Sex:Male David e:03/07/2025 Phone: Address: [address], [place], [id number] Pcp:Connor Infante Subjective: * Chief Complaints: * [...] 1 tablet Orally Once a day Umeclidinium [place] 62.5 MCG/INH Aerosol Powder Breath Activated 1 puff Inhalation Once a day tiZANidine HCl 2 MG Tablet 1 tablet as needed Orally Three times a day , Notes to Pharmacist: prnCombivent Respimat 20-100 MCG/ACT Aerosol Solution 1 puff as needed Inhalation every 4 hrs Sertraline HCl 25 MG Tablet 1 tablet Orally Once a day Nasal [place] 0.05 % Solution 2 sprays in each [...] tablet Orally Once a day Taking Umeclidinium [place] 62.5 MCG/INH Aerosol Powder Breath Activated 1 puff Inhalation Once a day Taking tiZANidine HCl 2 MG Tablet 1 tablet as needed Orally Three times a day , Notes to Pharmacist: prnTaking Combivent Respimat 20-100 MCG/ACT Aerosol Solution 1 puff as needed Inhalation every 4 hrs Taking Sertraline HCl 25 MG Tablet 1 tablet Orally Once a day Taking Nasal [place] 0.05 % Solution 2 sprays in each [...] bilaterally, protective sensation diminished 7/10 with 5.07 [place] Caitlin bilaterally, vibratory sensation with tuning fork [...] Up:?prn * Billing Information: * Visit Code:? 09191 Office Visit, Est Pt., Level 3. Modifiers: 25 * Procedure Codes:? REMOVAL OF FOREIGN BODY. Modifiers: LT * Sign off status: Completed true * Provider:Jose Galloway DPM Date:? 03/07/2023 Generated for Yenny dawson/Singh/Huong on:?05/11/2024 02:53 PM EST History and Physical Notes * [...] bilaterally, protective sensation diminished 7/10 with 5.07 [place] Caitlin bilaterally, vibratory sensation with tuning fork [...]
--- OUTSIDE RECORDS SUMMARY | 2024-05-11 14:54 | XMS_ITS ---
Author Organization [facility] Address [address] [place] [address] Care Team Providers Care Tin Flopper Name Role Phone Connor Infante Primary Care Provider Unavail able STAN ESCOBEDO [phone] REASON FOR VISIT Rx Refill Medications Medication SIG (Take, Route, Frequency, Duration) Notes Start Date End Date Status Eucerin Intensive Repair - as directed E xternally once daily for 90 days 04/23/2024 Active Encounters Encounter Location Date Provider Diagnosis [facility] [address] [address] 04/22/2024 STAN ESCOBEDO Plan Of Treatment Medication Medication Name Sig Start Date Stop Date Notes Eucerin Intensive Repair - as directed E xternally once daily for 90 days 04/23/2024 Progress Notes * Best DICKERSON PDOB:[birth year] (68 yo M)Acc No.[id number]:04/22/2024 Patient:?Best DICKERSON :1955???Age:68 Y???Sex:Male Phone: Address:[address], [place] [address] * Refills? Start Eucerin Intensive Repair Ointment, -, Externally, 100, as directed, once daily, 90 days, Refills=1 * true * Date:? Generated for Yenny dawson/Singh/eTransmitting on:?05/11/2024 02:53 PM EST
--- OUTSIDE RECORDS SUMMARY | 2024-05-11 14:54 | XMS_ITS | Patient Health Record ---
Author Organization [facility] Address [address] [facility] [address] [place] [address] Care Team Providers Care Middle School Tutor Name Role Phone Connor Infante Primary Care Provider Unavail able STAN ESCOBEDO Unavailable [phone] Allergies No Known Allergies Reason For Referral No Information Medications Medication SIG (Take, Route, Frequency, Duration) Notes Start Date End Date Status Nasal [place] 0.05 % 2 sprays in each nostril [...] tablet Orally Once a day Active Umeclidinium [place] 62.5 MCG/INH 1 puff Inhalation Once a [...] Problem Status W/U Status Risk Notes Problem 69612054 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.49) Active confirmed Problem 71291486 Type 2 diabetes mellitus with other circulatory complications (E11.59) Active confirmed Problem Polyneuropathy due to type 2 diabetes mellitus (294891060) Type 2 diabetes mellitus with diabetic polyneuropathy, 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) Active confirmed Vital Signs Heart Rate 96 /min 08/08/2023 Temperature 97.4 degrees Fahrenheit 08/08/2023 Respiratory Rate 20 /min 08/08/2023 Height 5ft 10in in 08/08/2023 Weight 221.5 lbs 08/08/2023 BMI 31.78 kg/m2 08/08/2023 Encounters Encounter Location Date Provider Diagnosis [facility] [address] [address] 08/08/2023 STAN ESCOBEDO Type 2 diabetes mellitus with other circulatory complications E11.59 ; Foreign body in left foot, initial encounter S90.852A and Type 2 diabetes mellitus with other diabetic neurological complication E11.49 [facility] [address] [address] 04/22/2024 STAN ESCOBEDO Assessments Encounter Date Diagnosis [...] Date Coverage End Date [employer] Medicare Adv-[id number] [address] [address] [place] [address] [phone] [id number] Best Carr Self - patient is the [...] asbestos Z77.090 Atherosclerotic heart diseas e of [place] coronary artery without angina pectoris I25.10 Secondary [...] E11.9 left angioplasty COVID vaccinated X 2 ([employer]) and 3 jaziel ters ([employer]) Surgical History Surgery Date(Month/Year) gastric bypass colonoscopy cardiac catheterization right knee surgery left angioplasty right aneurysm repair behind the knee Hospitalization History Reason Date(Month/Year) right knee surgery gastric bypass COPD Flare Up 10/05/2022
--- OUTSIDE RECORDS SUMMARY | 2024-05-11 14:54 | XMS_ITS | Clinical Summary ---
Author Organization [facility] Address [address] [place] [address] Phone Care Team Providers Care Personal Lines Underwriter Name Role Phone Connor Fletcher Primary Care Provider [phone] Allergies No known active allergies Medications Medication Sig Dispensed Refills Start Date End Date Status albuterol HFA (PROAIR HFA ; PROVENTIL HFA ; VENTOLIN HFA) 90 mcg/actuation inhaler INHALE 2 PUFFS INTO THE LUNGS EVERY 4 HOURS NEEDED FOR COUGH OR WHEEZING 07/17/2022 Active aspirin 81 mg EC tablet Take 1 Tablet by mouth daily. 5 days a week Active azithromycin (ZITHROMAX) 250 mg tablet TAKE 1 TABLET BY MOUTH 3 TIMES A WEEK. 11/24/2023 Active calcitonin salmon (MIACALCIN) 200 unit/actuation nasal spray USE 1 SPRAY ALTERNATING NOSTILS ONCE DAILY 12/29/2023 Active clotrimazole (LOTRIMIN) 1 % cream Apply to affected area twice daily as needed 10/29/2022 Active ipratropium-alb uteroL (Combivent Respimat) 20-100 mcg/actuation inhaler INHALE 1 PUFF INTO THE LUNGS FOUR TIMES A DAY 11/24/2023 Active ferrous sulfate (IRON ORAL) Take by mouth. Active fluticasone propionate (FLONASE) 50 mcg/actuation nasal spray 2 Sprays by Nasal route daily. 02/17/2023 Active furosemide (LASIX) 20 mg tablet Take 1 Tablet by mouth daily. 05/02/2023 Active ipratropium-alb uteroL (DUONEB) 0.5-2.5 mg/3 mL nebulizer solution INHALE 3 ML INTO THE LUNGS FOUR TIMES A DAY NEEDED FOR SHORTNESS OF BREATH OR WHEEZING 07/16/2023 Active lisinopriL (PRINIVIL,ZESTR IL) 2.5 mg tablet Take 1 Tablet by mouth daily. 05/02/2023 Active metFORMIN (GLUCOPHAGE) 500 mg tablet TAKE ONE TABLET BY MOUTH TWICE A DAY WITH MEALS 12/04/2023 Active metoprolol succinate (TOPROL-XL) 25 mg 24 hr tablet Take 2 Tablets by mouth daily. 11/12/2023 Active nicotine (NICODERM CQ) 14 mg/[address] 1 Patch onto the skin every 24 hours. 05/02/2023 Active MEN'S MULTI-VITAMIN ORAL Take 1 Tab by mouth daily. 07/26/2015 Active ONETOUCH DELICA LANCETS [facility] [place] USE 1 LANCET TWICE DAILY TO TEST BLOOD SUGAR 04/09/2012 Active Oxygen Therapy, Adult Inhale into the lungs. 3 liters at HS and PRN with activity. Active sertraline (ZOLOFT) 25 mg tablet TAKE ONE TABLET BY MOUTH EVERY DAY 01/06/2024 Active sildenafiL (VIAGRA) 100 mg tablet TAKE ONE TABLET BY MOUTH NEEDED 60 MINUTES BEFORE INTERCOURSE. MAX 100 MGS IN 24 HOURS 08/25/2023 Active tiZANidine (ZANAFLEX) 2 mg tablet TAKE ONE TABLET BY MOUTH EVERY 8 HOURS NEEDED 11/20/2022 Active triamcinolone (NASACORT) 55 mcg nasal inhaler INHALE ONE PUFF VIA NASAL ROUTE DAILY 07/24/2022 Active fluticasone-ume clidinium-vilan terol (Trelegy Ellipta) 100-62.5-25 mcg inhaler INHALE 1 PUFF INTO THE LUNGS DAILY AT THE SAME TIME EACH DAY. RINSE MOUTH AFTER ADMINISTRATION TO AVOID FUNGAL INFECTION DUE TO USE OF INHALED STEROID 07/10/2023 Active blood-glucose meter (OneTouch Ultra2 Meter) [facility] [place] Other route 4 (four) times a day. DX E11.9 1 each 02/26/2024 Active OneTouch Ultra Test test strip USE A NEW STRIP 4 TIMES A DAY TO TEST BLOOD SUGAR 400 strip 1 04/07/2024 Active predniSONE (DELTASONE) 10 mg tablet TAKE 4 TABLETS BY MOUTH DAILY FOR 3 DAYS,THEN 2 TABLETS DAILY FOR 4 DAYS. 20 tablet 04/06/2024 Active atorvastatin (LIPITOR) 40 mg tablet TAKE ONE TABLET BY MOUTH EVERY DAY 90 tablet 3 04/07/2024 Active diazePAM (VALIUM) 5 mg tablet TAKE ONE TABLET BY MOUTH EVERY 8 HOURS NEEDED FOR ANXIETY. 60 tablet 04/27/2024 Active oxyCODONE (ROXICODONE) 5 mg immediate release tablet 1 TO 2 TABLETS BY MOUTH EVERY 6 HOURS NEEDED FOR PAIN 56 tablet 04/27/2024 Active diazePAM (VALIUM) 5 mg tablet Take 1 Tablet by mouth every 8 hours as needed for Anxiety. 11/17/2023 04/27/19 25 Discontinued oxyCODONE (ROXICODONE) 5 mg immediate release tablet Take 1-2 Tablets by mouth every 6 hours as needed for Pain. 11/17/2023 04/27/19 25 Discontinued Active Problems Problem Noted Date Diagnosed Date Shortness of breath 09/29/2023 Overview (02/10/2024): Last Assessment & Plan: Mostly from a COPD. Lungs sounds quite crackling at the lower third of the lung field. Will check BNP. Will repeat echocardiogram. 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 Smoker 12/11/2016 Overview (02/10/2024): Reformed approx 2017 CAD (coronary artery disease) 01/24/2016 Overview (02/10/2024): Cath in 2016 Erythrocytosis 10/20/2015 Microalbuminuria 04/26/2015 Diabetes mellitus type 2 with neurological manif estations 03/20/2015 CKD (chronic kidney disease) stage 1, GFR 90 ml/min or greater 05/10/2014 Type 2 diabetes, controlled, with renal manifest ation 12/14/2012 Overview (02/10/2024): Microalbumin 218 on 09/30/2012 Sebaceous cyst 07/31/2012 Sleep apnea 01/06/2012 Overview (02/10/2024): Did not want to use CPAP so ended up with oxygen concentrator at night , usually 3 liter Umbilical hernia 11/12/2011 Chronic back pain 02/13/2010 Colonic polyp 02/13/2010 Depression 02/13/2010 COPD (chronic obstructive pulmonary disease) Overview (02/10/2024): Uses oxygen prn with exertion Hyperlipidemia 02/13/2010 Hypertension 02/13/2010 Encounters Date Type Department Care Team Description 05/04/2024 Telephone Thoracic Surgery - [place] [address] [facility] [address] [place] [phone] Rosie Metz PA 03/30/2024 Telephone [facility] Hematology Oncology [address] [place] [address] Maribeth Negron MD 03/23/2024 Telephone Orthopedic Surgery - [place] [address] [facility] [address] [place] [phone] Berta Duran MA Surgery 03/23/2024 Telephone [facility] Hematology Oncology [address] [place] [address] Maribeth Negron MD 03/05/2024 Telephone Lung Screening Program - [place] [address] [facility] [address] [place] [phone] Tiki Momin MA Results (Annual Lung Screening- LR0) 03/02/2024 3:00 PM EST - 03/02/2024 11:59 PM EST Hospital Encounter [facility] CT Scan [address] [place] [address] Screening for lung cancer Discharge Disposition: Home or Self Care from Last 3 Months Immunizations Name Administration Dates Next Due COVID-19 (Pfizer/Comirnaty) 12yo and older 01/09/2024,03/17/2023 Influenza trivalent, 0.5mL ( Fluad) 65yo and older 01/09/2024,01/28/2023,12/30/2021,02/02,01/30/2020,12/02/2018 Influenza trivalent, 0.5mL, preservative free (Fluarix; FluLaval; Fluzone) ages 6mo and older (Afluria) 3 years and older 12/24/2017,12/30/2016,01/03/2016,01/09,12/31/2012,01/20/2012,01/21/2011 Influenza, Unspecified 02/02/2021,2019,01/30/2020,12/02,12/24/2017,12/30/2016,02/04/2014 Pfizer (ages 12 & older) Biv alent, COVID-19 02/23/2022 Pfizer SARS-CoV-2 COVID-19, mRNA, LNP-S, preservative free 03/03/2021 Pneumococcal conjugate 13 va lent (Prevnar 13, PCV13) 2mo and older 12/14/2018,12/02/2018 Pneumococcal polysaccharide 23 valent (Pneumovax 23) 2yo and older 01/13/2020,08/09/2016,02/06/2012,01/19 RSV, bivalent, protein subun it RSVpreF, 0.5mL, Preservative Free (ABRYSVO) 60yo and older or 32 through 36 wks of 12/27/2022 RSV, bivalent, protein subun it RSVpreF, 0.5mL, Preservative Free (Arexvy) 60yo and older 12/27/2022 Td Tetanus diptheria (Tdvax) 7yo and older 10/29/2022 Tdap Tetanus diptheria acell ular pertussis (Boostrix; Adacel) 7yo and older 07/01/2012 Zoster Live 01/27/2014 Zoster recombinant (Shingrix ) 19yo and older 04/02/2022,02/02/2020 Surgical History Surgery Date Site/Laterality Comments COLONOSCOPY 2010 PROCEDURE: HISTORICAL COLONOSCOPY; COMMENT: couple of polyps removed KNEE SURGERY PROCEDURE: HISTORICAL KNEE SURGERY; COMMENT: medial meniscus CARDIAC CATHETERIZATION PROCEDURE: HISTORICAL CARDIAC CATH OTHER SURGICAL HISTORY 08/08/2016 PROCEDURE: ME GASTRIC RSTCV W/O BYP VERTICAL-BANDED GASTROPLY; COMMENT: Sleeve gastrectomy; Dr. Franco COLONOSCOPY 2012 PROCEDURE: HISTORICAL COLONOSCOPY; COMMENT: hospital based colonoscopy, normal ESOPHAGOGASTRODUODENOSCOPY 2012 PROCEDURE: ME EGD TRANSORAL BIOPSY SINGLE/MULTIPLE; COMMENT: normal COLONOSCOPY 01/23/2018 PROCEDURE: HISTORICAL COLONOSCOPY; COMMENT: 2x tubular adenoma, 3 year follow-up recommended COLONOSCOPY 06/19/2021 PROCEDURE: HISTORICAL COLONOSCOPY; COMMENT: dr. swan, normal ANGIOPLASTY PROCEDURE: HISTORICAL ANGIOPLASTY; COMMENT: b/l legs popliteal artery - homero borja OTHER SURGICAL HISTORY PROCEDURE: SKIN CYST; COMMENT: right shoulder dr. hernández Medical History Medical History Date Comments Heart disease, unspecified DX:He art disease, unspecified Unspecified essential hypertension DX:Unspecified essential hypertension Morbid obesity ([facility]) DX:Morb id obesity ([facility]) Diabetes mellitus ([facility]) 11/14/2011 DX:D iabetes mellitus (HCC) Diabetes mellitus ([facility]) DX:D iabetes mellitus ([facility]); COMMENT: new dx 10/30 COPD (chronic obstructive pu lmonary disease) ([facility]/HCC) 02/13/2010 DX:COPD (chronic obstructive pulmonary disease) ([facility]) Type 2 diabetes, controlled, with renal manifestation ([facility]) 12/14/2012 DX:Type 2 diabetes, cont rolled, with renal manifestation ([facility]); COMMENT: Microalbumin 218 on 09/30/2012 Hypertension 02/13/2010 DX:Hypertension Diabetes mellitus type 2 wit h neurological manifestations ([facility]) 03/20/2015 DX:Diabetes uriha itus type 2 with neurological manifestations ([facility]) Hyperlipidemia DX:Hyperlipidemi a Family History Medical History Relation Name Comments Arthritis Mother Blindness Neg Hx Cataracts Neg Hx Glaucoma Neg Hx Macular degeneration Neg Hx Strabismus Neg Hx Relation Name Status Comments Brother 1 cad Brother 2 Alive crohns diease Brother 3 Alive htn, hyperlipid emia Father 36 (Age 36) mi Mother Alive alzheimers Social History Tobacco Use Types Packs/Day Years Used Date Smoking Tobacco: Some Days Cigarettes Last attempted to quit: 05/20/2016 Smokeless Tobacco: Never Alcohol Use Standard Drinks/Week Comments Yes 1.7 (1 standard drink = 0.6 oz p ure alcohol) Sex and Gender Information Value Date Recorded Sex Assigned at Not on file Gender Identity Not on file Sexual Orientation Not on file Job Start Date Occupation Industry Not on file Not on file Not on file Obstetrics History Last Filed Vital Signs Vital Sign Reading Time Taken Comments Blood Pressure 129/78 02/11/2024 12:57 PM EDT Pulse 69 02/11/2024 12:57 PM EDT Temperature - - Respiratory Rate - - Oxygen Saturation - - Inhaled Oxygen Concentration - - Weight 96.2 kg (212 lb) 02/11/2024 12:56 PM EDT Height 177.8 cm (5' 10 ) 02/11/2024 12:56 PM EDT Body Mass Index 30.42 02/11/2024 12:56 PM EDT Plan of Treatment Upcoming Encounters Date Type Department Care Team (Late st Contact Info) Description 05/19/2024 2:15 PM EST [facility] [address] [phone] Courtney Anna MD [address] [address] 06/07/2024 11:30 AM EST Appointment [facility] CT Scan [address] [place] [address] 08/11/2024 12:30 PM EDT Office Visit Adult Medicine [address] [phone] Connor Fletcher PA [address] [place] [address] Health Maintenance Due Date Last Done Comments Diabetes: Annual Retina Eye Exam 10/20/1965 Depression Screening 03/30/2022 Falls Risk Assessment 03/30/2022 Medicare Annual Wellness Visit 03/30/2022 Social Influencers of Health Screening 03/30/2022 Diabetes: Annual Foot Exam 08/07/2024 08/08/2023 Diabetes: Blood Sugar Control Test (HGBA1C) 08/10/2024 02/10/2024, 08/14/2023, 08/14/2023 Diabetes: Annual Urine Albumin-Creatinine Ratio (uACR) 08/13/2024 08/14/2023 Diabetes: Annual GFR (Glomerular Filtration Rate) 02/09/2025 02/10/2024, 08/14/2023, 08/14/2023, Additional history exists Hypertension/CHF/CAD Annual BMP Blood Test 02/09/2025 02/10/2024, 08/14/2023, 08/14/2023, Additional history exists Colorectal Cancer Screening: Colonoscopy 06/19/2026 06/19/2021 Cholesterol Screening (Lipid Panel) 02/09/2029 02/10/2024, 08/14/2023, 08/14/2023 DTaP,Tdap,and Td Vaccines (3 - Td or Tdap) 10/29/2032 10/29/2022, 07/01/2012 Hepatitis C Screening Completed 01/03/2013 Pneumococcal Vaccine: 65+ Years Completed 01/13/2020, 12/14/2018, 12/02/2018, Additional history exists Zoster Vaccines Completed 04/02/2022, 01/19, 01/27/2014 RSV Immunization Patients 60+ Years Old Completed 12/27/2022, 12/27/2022 Abdominal Aortic Aneurysm (AAA) Screen Completed 07/02/2023, 12/07/2018 COVID-19 Vaccine Completed 01/09/2024, , 02/23/2022, Additional history exists Influenza Vaccine Completed 01/09/2024, , 12/30/2021, Additional history exists HIB Vaccines Aged Out No longer eligi ble based on patient's age to complete this topic HPV Vaccines Aged Out No longer eligi ble based on patient's age to complete this topic Hepatitis A Vaccines Aged Out No long er eligible based on patient's age to complete this topic Hepatitis B Vaccines Aged Out No long er eligible based on patient's age to complete this topic IPV Vaccines Aged Out No longer eligi ble based on patient's age to complete this topic MMR Vaccines Aged Out No longer eligi ble based on patient's age to complete this topic Meningococcal ACWY Vaccine Aged Out N o longer eligible based on patient's age to complete this topic RSV Immunization Patients Under 20 months Aged Out No longer eligible based on patient's age to complete this topic Varicella Vaccines Aged Out No longer eligible based on patient's age to complete this topic Procedures Procedure Name Priority Date/Time Associated Diagnosis Comments CT LUNG SCREENING Routine 03/02/2024 4:1 0 PM EST Screening for lung cancer URINE ALBUMIN CREATININE RATIO Routine 08/14/2023 ANNUAL BMP BLOOD TEST Routine 08/14/2023 HEMOGLOBIN A1C Routine 08/14/2023 LIPID PANEL Routine 08/14/2023 DIABETES FOOT EXAM Routine 08/08/2023 ABDOMINAL AORTIC ANEURYSM SCRREN Routine 07/02/2023 COLONOSCOPY Routine 06/19/2021 HEPATITIS C SCREENING Routine 01/03/2013 from Last 3 Months or Most Recently Relevant to Health Maintenance Results * CT Lung Screening (03/02/2024 4:10 PM EST) Anatomical Region Laterality Modality Chest Computed Tomogra phy 03/03/2024 1:54 PM EST Impressions 03/03/2024 2:27 PM EST Basilar predominant nodular and consolidative opacities with upstream mucous plugging compatible with an infectious/inflammatory process. ??New compared to prior. ??Lung RADS 0-incomplete, findings suggest inflammation or infection. ??Recommend repeat exam in 1-3 months. New T10 compression fracture resulting in approximately 40% height loss. Severe coronary artery calcifications. -------- FINAL REPORT -------- Dictated By: LFOR SABA Dictated Date: 03/03/2024 13:54 ET Assigned Physician: FLOR SABA Reviewed and Electronically Signed By: FLOR SABA Signed Date: 03/03/2024 14:27 ET Workstation ID: [id number] Transcribed By: Self Edit Transcribed Date: 03/03/2024 13:54 ET Narrative 03/03/2024 2:27 PM EST PROCEDURE: Chest CT INDICATION: Lung cancer screening, former smoker, 110 pack year smoking history TECHNIQUE: Chest CT without contrast. Multi planar reformats were created and interpreted. The examination was performed utilizing dose reduction techniques. ??Total DLP 159 COMPARISON: ??02/27/2023 and 10/07/2023 FINDINGS: LUNGS/PLEURA: Central airways are patent. ??Emphysema. ??Diffuse bronchial wall thickening with regions of nodular consolidation in the lower lobes bilaterally with upstream mucous plugging. ??Patchy groundglass and consolidative opacities are seen throughout the lung bases, likely infectious/inflammatory. ??No pleural effusion or pneumothorax. MEDIASTINUM: Thyroid gland is normal. ??No mediastinal or hilar lymphadenopathy. ??Small hiatal hernia. ??Cardiac chambers are normal in size. ??Trace pericardial effusion. ??Severe coronary artery calcifications. CHEST WALL: No axillary lymphadenopathy or superficial hematoma. UPPER ABDOMEN:Sleeve gastrectomy. BONES: T10 compression fracture resulting in approximately 40% height loss, new compared to prior exams. ??No retropulsion of bone towards the spinal canal. ??Degenerative changes seen throughout the bones. Ciera Cerda MD IMG CT PROCEDURES * Urine Albumin Creatinine Ratio (08/14/2023) [facility] Urine Albumin Creatinine Ratio Abstracted Historical Provider [facility] Annual BMP Blood Test (08/14/2023) [facility] Annual BMP Blood Test Abstracted Historical Provider [facility] E * Hemoglobin A1c (08/14/2023) [facility] Hemoglobin A1C 6.1 6.5 % Blood Venous blood specimen / Unknown Historical Provider LAB BLOOD ORDERAB LES * (ABNORMAL) Lipid panel (08/14/2023) [facility] LDL/HDL Ratio 2 0 - 4 Triglycerides 204(A) 0 - 150 mg/dL Cholesterol 175 0 - 200 mg/dL HDL 74 40 mg/dL LDL Cholesterol 61 0 - 100 mg/dL Blood Venous blood specimen / Unknown Historical Provider LAB BLOOD ORDERAB LES * Diabetes Foot Exam (08/08/2023) Pathologist [facility] Diabetes: Annual Foot Exam Abstracted Historical Provider [facility] E * Abdominal Aortic Aneurysm Screen (07/02/2023) Pathologist [facility] Abdominal Aortic Aneurysm (AAA) Screening Abstracted Anatomical Region Laterality Modality Other Historical Provider [facility] * Colonoscopy (06/19/2021) Pathologist [facility] Colonoscopy Abstracted, no interpretation Anatomical Region Laterality Modality Other Historical Provider [facility] * Hepatitis C Screening (01/03/2013) Pathologist [facility] Hepatitis C Screening Abstracted Historical Provider [facility] from Last 3 Months or Most Recently Relevant to Health Maintenance Care Teams Personal Lines Underwriter Relationship Specialty Start Date End Date Connor Fletcher PA [address] [place] [id number] PCP - General Internal Medicine 12/13/19
--- OUTSIDE RECORDS SUMMARY | 2024-05-11 14:54 | XMS_ITS | Encounter Summary ---
Author Organization [facility] Address [address] [place] [address] Care Team Providers Care Rodding Machine Tender Name Role Phone Connor Fletcher Primary Care Provider [phone] Reason for Visit * Reason Onset Date Comments Surgery 03/23/2024 Encounter Details Date Type Department Care Team (Late st Contact Info) Description 03/23/2024 Telephone Orthopedic Surgery - [place] [address] [facility] [address] [place] [phone] Berta Duran MA Surgery Social History Tobacco Use Types Packs/Day Years [...] file Not on file Not on file documented as of this encounter Progress Notes * Berta Duran MA - 03/23/2024 12:22 PM EST Hello- Patient called me stating he received an email or a text saying that we have openings/cancellation for surgery, that patient would need to call to schedule. Patient went on to try and tell me the story and situation surrounding a no trespass that was issued regarding a statement that he made to someone in this office, as he was angry he stated Aletha from security spoke with him. I asked the patient several times, to NOT tell me the story, I do not want to be involved. Patient continued to try to go on to tell me, the situation surrounding the No Trespass, than asked how he could obtain medical records from his MRI/CT Scans. I advised patient to call medical records at the [facility] to request those records. Patient would like to know status as to him scheduling surgery with us. I advised patient I would notify leadership of his telephone call, but until I am advised differently, surgery cannot be scheduled with us. This call was placed on speaker with other co-workers in my office witnessing this call Thank You- Berta documented in this encounter Plan of Treatment Upcoming Encounters Date Type Department Care Team (Late st Contact Info) Description 05/19/2024 2:15 PM EST [facility] [address] [phone] Courtney Anna MD [address] [address] 06/07/2024 11:30 AM EST Appointment [facility] CT Scan [address] [place] [address] 08/11/2024 12:30 PM EDT Office Visit Adult Medicine [address] [phone] Connor Fletcher PA [address] [place] [phone] documented as of this encounter Visit Diagnoses Not on filedocumented in this encounter Care Teams Rodding Machine Tender Relationship Specialty Start Date End Date Connor Fletcher PA [address] [place] [phone] PCP - General Internal Medicine 12/13/19 documented as of this encounter
--- OUTSIDE RECORDS SUMMARY | 2024-05-11 14:54 | XMS_ITS | Encounter Summary ---
Author Organization [facility] Address [address] [place] [address] Care Team Providers Care Geothermal System Installer Name Role Phone Connor Fletcher Primary Care Provider [phone] Reason for Referral * Consultation (Routine) - Pending Review Specialty Diagnoses / Procedures Referred By Alissa dave Referred To Contact Thoracic Surgery Diagnoses Smoker Rosie Metz PA 299 [facility], [address] [address] Ciera Cerda MD [address] [address] Referral ID Status Reason Start Date Expiration Date Visits Requested Visits Authorized [id number] Pending Review Specialty Services Required 05/04/2024 05/04/2025 1 1 Encounter Details Date Type Department Care Team ([facility] st Contact Info) Description 05/04/2024 Telephone Thoracic Surgery - [place] [address] [address] Rosie Metz PA 299 [facility], [address] [address] Social History Tobacco Use Types Packs/Day Years [...] as of this encounter Progress Notes * MARCELLE Christian - 05/04/2024 1:15 PM EST Images from the original note were not included. Patient called the office and spoke to Max. Calderon note as below: Patient was discharged and trespassed from [facility]. You had ordered a [address] based off his lastCT scan. The patient would like a referral to [place] to get his CT scan done there if you can callthe patient and straighten everything out that'll be perfect Will send a referral to [facility] Lung Screening Program per patient request with LDCT due in May 2024. documented in this encounter Plan of Treatment Upcoming Encounters Date Type Department Care Team (Late st Contact Info) Description 05/19/2024 2:15 PM EST Office Visit Pulmonol - [place] 175 [facility] [address] [place] [id number] Courtney Anna MD 175 [facility] [address] [place] [address] 06/07/2024 11:30 AM EST Appointment [facility] CT Scan [address] [place] [address] 08/11/2024 12:30 PM EDT Office Visit Adult Medicine [facility] [address] [place] [address] Connor Fletcher PA [address] [place] [address] Scheduled Referrals Name Type Priority Associated Diagnoses Order Schedule Ambulatory referral to Lung Screening Program Outpatient Referral Routine Smoker 1 Occurrences starting 05/04/2024 until 05/04/2025 documented as of this encounter Visit Diagnoses Diagnosis Smoker- Primary Tobacco use disorder documented in this encounter Care Teams Geothermal System Installer Relationship Specialty Start Date End Date Connor Fletcher PA [address] [place] [address] PCP - General Internal Medicine 12/13/19 documented as of this encounter
--- OUTSIDE RECORDS SUMMARY | 2024-05-11 14:54 | XMS_ITS ---
Author Organization [facility] Address [address] [facility] [address] [place] [address] Care Team Providers Care Back Stayer Name Role Phone Wilianteetee Connor Primary Care Provider Unavail able SHARMIN GALLOWAY Unavailable [phone] Allergies No Known Allergies REASON FOR VISIT [...] Orally Onc e a day Active Nasal [place] 0.05 % 2 sprays in each nostril as needed Nasally Twice a day Active tiZANidine HCl 2 MG 1 tablet as needed Orally Three times a day prn Active Combivent Respimat 20-100 MCG/ACT 1 puff as needed Inhalation every 4 hrs Active Umeclidinium [place] 62.5 MCG/INH 1 puff Inhalation Once a day Active Vital Signs Weight 221.5 lbs 08/08/2023 Height 5ft 10in in 08/08/2023 BMI 31.78 kg/m2 08/08/2023 Heart Rate 96 /min 08/08/2023 Temperature 97.4 degrees Fahrenheit 08/08/19 24 Respiratory Rate 20 /min 08/08/2023 Encounters Encounter Location Date Provider Diagnosis [facility] [address] [facility] [address] [place] [address] 08/08/2023 SHARMIN GALLOWAY Type 2 diabetes mellitus [...] Y???Sex:Male David e:[birth year]08/2025 Phone: Address: [address], [place], [place] Pcp:Connor Infante Subjective: * Chief Complaints: [...] 1 tablet Orally Once a day Umeclidinium [place] 62.5 MCG/INH Aerosol Powder Breath Activated 1 puff Inhalation Once a day tiZANidine HCl 2 MG Tablet 1 tablet as needed Orally Three times a day , Notes to Pharmacist: prnCombivent Respimat 20-100 MCG/ACT Aerosol Solution 1 puff as needed Inhalation every 4 hrs Sertraline HCl 25 MG Tablet 1 tablet Orally Once a day Nasal [place] 0.05 % Solution 2 sprays in each [...] tablet Orally Once a day Taking Umeclidinium [place] 62.5 MCG/INH Aerosol Powder Breath Activated 1 puff Inhalation Once a day Taking tiZANidine HCl 2 MG Tablet 1 tablet as needed Orally Three times a day , Notes to Pharmacist: prnTaking Combivent Respimat 20-100 MCG/ACT Aerosol Solution 1 puff as needed Inhalation every 4 hrs Taking Sertraline HCl 25 MG Tablet 1 tablet Orally Once a day Taking Nasal [place] 0.05 % Solution 2 sprays in each [...] bilaterally, protective sensation diminished 7/10 with 5.07 [place] Caitlin bilaterally, vibratory sensation with tuning fork [...] Up:?prn * Billing Information: * Visit Code:? 70628 Office Visit, Est Pt., Level 3. Modifiers: 25 * Procedure Codes:? REMOVAL OF FOREIGN BODY. Modifiers: LT * Sign off status: Completed true * Provider:?Sharmin Galloway DPM Date:? 08/08/2023 Generated for Yenny dawson/Singh/Chuckitting on:?05/11/2024 02:53 PM EST History and Physical [...] bilaterally, protective sensation diminished 7/10 with 5.07 [place] Caitlin bilaterally, vibratory sensation with tuning fork [...]
== END 2024-05-11 13:09 | disposition home or self-care (01) ==
LOC: HO.US 13:08
PROVIDERS: Visit Provider Surgery Vascular Surgery
DX: I73.9 Peripheral vascular disease, unspecified (principal); I70.92 Chronic total occlusion of artery of the extremities
CPT/HCPCS: 76706; 93922; 93925

== ENCOUNTER → 2024-05-11 13:11 | Outpatient (BNV) | payer MEDICARE, MEDICAID, SELFPAY | PROVIDERS: Visit Provider Radiology Diagnostic Radiology | DX: I73.9 Peripheral vascular disease, unspecified (principal) | CPT/HCPCS: 76706 ==

== ENCOUNTER 2024-05-20 15:13 | Outpatient (AMB) | payer MEDICARE, MEDICAID, SELFPAY ==
--- NOTE | 2024-05-20 15:12 | A.OFFVIS_ITS ---
Intake Visit Reasons: follow up Arterial US 05/12/2024 Intake Note: follow up Arterial US 05/11/24, pt states Left LE is worse than the Right LE. Accompanied by: Self / Same As Patient Allergies No Known Allergies Allergy (Verified 05/20/24 15:20) HPI HPI follow up Arterial US 05/12/2024: Details: Very pleasant 68-year-old gentleman presents for 4 follow-up regarding peripheral vascular disease. He has undergone noninvasive arterial testing. He has had prior endovascular intervention back in 2019. He reports he is smoking about 2 cigarettes a day and is a diabetic. In addition he does drink about 6 beers daily. Has a known history of COPD and polycythemia. He now presents for follow-up with noninvasive arterial testing. [facility] Medical History History of umbilical hernia History of left heart catheterization COPD (chronic obstructive pulmonary disease) Surgical History History of gastric bypass History of arthroscopy of knee H/O angioplasty Social History Alcohol intake: current Alcohol intake frequency: a few times a week Current occupational status: retired Current occupation: rt handed Review of Systems Const All systems reviewed & are unremarkable except as noted in HPI and below Reports no additional complaints ENT Reports Normal hearing present Card Denies chest pain, Denies chest pain at rest, Denies chest pain with activity and Denies pedal edema Resp Denies cough GI Denies abdominal pain Musc Denies abnormal gait, Denies muscle cramps and Denies radiating pain into limb Skin/Breast Denies skin ulcer and Denies wounds Neuro Reports Normal hearing present and Denies abnormal gait Psych Reports no additional complaints Physical Exam Const General: cooperative, healthy appearing and comfortable Orientation/consciousness: oriented to person, oriented to place and oriented to time HEENT Head: Yes normal to inspection Neck Neck: Yes normal visual inspection Carotids: no bruits Chest Chest palpation & inspection: normal inspection of the chest Resp Effort & Inspection: normal respiratory effort and able to speak in complete sentences Auscultation: clear to auscultation bilaterally, no crackles, no rales, no rhonchi and no wheezes Cardio Other: Bilateral DP signals Rate: regular rate Rhythm: regular rhythm Heart sounds: S1 normal heart sound present and S2 normal heart sound present Bruits: no carotid bruits GI Inspection: Yes normal to inspection Skin Wounds: no wounds Hair: normal Neuro General: oriented to person, oriented to place and oriented to time Cranial nerves: Yes CN's II-XII intact bilaterally and Yes Normal hearing present Cognition (Neuro): normal cognition Motor exam (neuro): 5/5 motor strength present throughout Extrem Other: venous exam: No significant superficial varicosities or spider telangiectasias, minimal edema General: No clubbing, No cyanosis and No edema Psych Appearance: grossly normal Mental Status: mental status grossly normal Speech and movement: Normal speech and movement present Results Reviewed Results Reviewed: Noninvasive arterial testing dated 05/11/2024 demonstrates bilateral SFA occlusion right ORI of 0.6 left of 0.66. Written report and images were reviewed. Assessment & Plan Assessment & Plan (1) PAD (peripheral artery disease): Comment: 2019 left common iliac and left SFA angioplasty and stenting. Code(s): I73.9 - Peripheral vascular disease, unspecified Category: Medical Plan: Patient notes leg pain when walking distances. I have discussed the pathophysiology of peripheral vascular disease with the patient. I have also discussed risk factor modification. I have reviewed the patient's arterial testing which reveals left SFA disease with an ORI of 0.66. the patient would benefit from a left leg endovascular peripheral angiogram with possible angioplasty, stent, and/or atherectomy. This has been discussed in detail with the patient along with risks, benefits, and complications. This includes but is not limited to bleeding, infection, heart attack, need for emergent surgical repair, limb ischemia, blood vessel damage, bleeding, puncture, kidney injury, bruising, allergic reaction, and skin reaction. The patient demonstrates a clear understanding. We will schedule for the next appropriate time. Thank you for allowing us to assist in this patient's care. Coding Level of Care Code Est Pt Level 4 (22100) Complex EM visit Add On G2211 Diagnoses PAD (peripheral artery disease) I73.9
--- OUTSIDE RECORDS SUMMARY | 2024-05-20 19:02 | XMS_ITS ---
Author Organization [facility] Address [address] [place] [address] Care Team Providers Care Plate Developer Name Role Phone Connor Infante Primary Care Provider Unavail able STAN ESCOBEDO [phone] REASON FOR VISIT Rx Refill Medications Medication SIG (Take, Route, Frequency, Duration) Notes Start Date End Date Status Eucerin Intensive Repair - as directed E xternally once daily for 90 days 04/23/2024 Active Encounters Encounter Location Date Provider Diagnosis [facility] [address] [address] 04/22/2024 STAN ESCOBEDO Plan Of Treatment Medication Medication Name Sig Start Date Stop Date Notes Eucerin Intensive Repair - as directed E xternally once daily for 90 days 04/23/2024 Progress Notes * Best DICKERSON PDOB:[birth year] (68 yo M)Acc No.[id number]:04/22/2024 Patient:?Best DICKERSON :1955???Age:68 Y???Sex:Male Phone: Address:[address], [place] [address] * Refills? Start Eucerin Intensive Repair Ointment, -, Externally, 100, as directed, once daily, 90 days, Refills=1 * true * Date:? Generated for Yenny dawson/Singh/eTransmitting on:?05/20/2024 07:02 PM EST
--- OUTSIDE RECORDS SUMMARY | 2024-05-20 19:02 | XMS_ITS ---
Author Organization [facility] Address [address] [facility] [address] [place] [address] Care Team Providers Care Knitting Machine Fixer Name Role Phone Wilianteetee Connor Primary Care Provider Unavail able SHARMIN GALLOWAY Unavailable [phone] Allergies No Known Allergies REASON FOR VISIT [...] Orally Onc e a day Active Nasal [place] 0.05 % 2 sprays in each nostril as needed Nasally Twice a day Active tiZANidine HCl 2 MG 1 tablet as needed Orally Three times a day prn Active Combivent Respimat 20-100 MCG/ACT 1 puff as needed Inhalation every 4 hrs Active Umeclidinium [place] 62.5 MCG/INH 1 puff Inhalation Once a day Active Vital Signs Weight 221.5 lbs 08/08/2023 Height 5ft 10in in 08/08/2023 BMI 31.78 kg/m2 08/08/2023 Heart Rate 96 /min 08/08/2023 Temperature 97.4 degrees Fahrenheit 08/08/19 24 Respiratory Rate 20 /min 08/08/2023 Encounters Encounter Location Date Provider Diagnosis [facility] [address] [facility] [address] [place] [address] 08/08/2023 SHARMIN GALLOWAY Type 2 diabetes mellitus [...] Y???Sex:Male David e:08/08/2025 Phone: Address: [address], [place], [place] Pcp:Connor Infante Subjective: * Chief Complaints: [...] 1 tablet Orally Once a day Umeclidinium [place] 62.5 MCG/INH Aerosol Powder Breath Activated 1 puff Inhalation Once a day tiZANidine HCl 2 MG Tablet 1 tablet as needed Orally Three times a day , Notes to Pharmacist: prnCombivent Respimat 20-100 MCG/ACT Aerosol Solution 1 puff as needed Inhalation every 4 hrs Sertraline HCl 25 MG Tablet 1 tablet Orally Once a day Nasal [place] 0.05 % Solution 2 sprays in each [...] tablet Orally Once a day Taking Umeclidinium [place] 62.5 MCG/INH Aerosol Powder Breath Activated 1 puff Inhalation Once a day Taking tiZANidine HCl 2 MG Tablet 1 tablet as needed Orally Three times a day , Notes to Pharmacist: prnTaking Combivent Respimat 20-100 MCG/ACT Aerosol Solution 1 puff as needed Inhalation every 4 hrs Taking Sertraline HCl 25 MG Tablet 1 tablet Orally Once a day Taking Nasal [place] 0.05 % Solution 2 sprays in each [...] bilaterally, protective sensation diminished 7/10 with 5.07 [place] Caitlin bilaterally, vibratory sensation with tuning fork [...] Up:?prn * Billing Information: * Visit Code:? 95128 Office Visit, Est Pt., Level 3. Modifiers: 25 * Procedure Codes:? REMOVAL OF FOREIGN BODY. Modifiers: LT * Sign off status: Completed true * Provider:?Sharmin Galloway DPM Date:? 08/08/2023 Generated for Yenny dawson/Singh/Chuckitting on:?05/20/2024 07:02 PM EST History and Physical Notes * [...] bilaterally, protective sensation diminished 7/10 with 5.07 [place] Caitlin bilaterally, vibratory sensation with tuning fork [...]
--- OUTSIDE RECORDS SUMMARY | 2024-05-20 19:02 | XMS_ITS ---
Author Organization [facility] Address [address] [facility] [address] [place] [address] Care Team Providers Care Sap Bw Developer Name Role Phone WilianteeteeConnor Primary Care Provider Unavail able SHARMIN GALLOWAY Unavailable [phone] Allergies No Known Allergies REASON FOR VISIT [...] Orally Onc e a day Active Nasal [place] 0.05 % 2 sprays in each nostril as needed Nasally Twice a day Active Aspirin 81 MG 1 tablet Orally Once a day Active Viagra 100 MG 1 tablet as needed Orally prn Active Metoprolol Succinate ER 25 MG 1 tablet Orally Once a day Active Umeclidinium [place] 62.5 MCG/INH 1 puff Inhalation Once a [...] 03/07/2023 Encounters Encounter Location Date Provider Diagnosis [facility] [address] [facility] [address] [place] [address] 03/07/2023 SHARMIN GALLOWAY Type 2 diabetes mellitus [...] Y???Sex:Male David e:03/07/2025 Phone: Address: [address], [place], [phone] Pcp:Connor Infante Subjective: * Chief Complaints: * [...] 1 tablet Orally Once a day Umeclidinium [place] 62.5 MCG/INH Aerosol Powder Breath Activated 1 puff Inhalation Once a day tiZANidine HCl 2 MG Tablet 1 tablet as needed Orally Three times a day , Notes to Pharmacist: prnCombivent Respimat 20-100 MCG/ACT Aerosol Solution 1 puff as needed Inhalation every 4 hrs Sertraline HCl 25 MG Tablet 1 tablet Orally Once a day Nasal [place] 0.05 % Solution 2 sprays in each [...] tablet Orally Once a day Taking Umeclidinium [place] 62.5 MCG/INH Aerosol Powder Breath Activated 1 puff Inhalation Once a day Taking tiZANidine HCl 2 MG Tablet 1 tablet as needed Orally Three times a day , Notes to Pharmacist: prnTaking Combivent Respimat 20-100 MCG/ACT Aerosol Solution 1 puff as needed Inhalation every 4 hrs Taking Sertraline HCl 25 MG Tablet 1 tablet Orally Once a day Taking Nasal [place] 0.05 % Solution 2 sprays in each [...] bilaterally, protective sensation diminished 7/10 with 5.07 [place] Caitlin bilaterally, vibratory sensation with tuning fork [...] Up:?prn * Billing Information: * Visit Code:? 56266 Office Visit, Est Pt., Level 3. Modifiers: 25 * Procedure Codes:? REMOVAL OF FOREIGN BODY. Modifiers: LT * Sign off status: Completed true * Provider:Jose Galloway DPM Date:? 03/07/2023 Generated for Yenny dawson/Singh/Huong on:?05/20/2024 07:01 PM EST History and Physical Notes * [...] bilaterally, protective sensation diminished 7/10 with 5.07 [place] Caitlin bilaterally, vibratory sensation with tuning fork [...]
--- OUTSIDE RECORDS SUMMARY | 2024-05-20 19:02 | XMS_ITS | Data Portability ---
Author Organization [place] [facility] Address [address] [address] Assessment Encounter Date Assessment Date Assessment LastModified [...] surgery if there is scarring or stenosis. [email or web address] Not available 12/10/2023 16:50:24 Plan of Treatment [...] Recorded Time Foreign body in right ear [id number] 87453 Active 2022 Foreign body in right ear, initial encounte r; Note: Date Diagnose d: 04/26/2022 1:47 PM (T16.1XX A) Not Available [employer] 02:28:14 Epidermal burn of nose [id number] Active 2023 ARYA QUINTANILLA, PA-[address], [address] , [facility] - [facility] 4 16:28:50 Problem Notes None recorded. [...] ion aerosol inhaler active Medicatio n ID: [id number] Br and Name: albuterol sulfate S end [...] Updated DateTime 12/10/2023 177.8 cm 30.7 kg/m2 78285.77 g Lesly Segal [place] - [facility] 12/10/2023 15:17:17 Social History None recorded. Functional Status None recorded. Mental Status None recorded. Family History Nothing Reported. Medical History No medical history recorded. Past Encounters Encounter ID Performer Location Encounter Start Date Encounter Closed Date Diagnosis/Indication Diagnosis SNOMED-CT Code Diagnosis ICD10 Code Diagnosis Note [id number] MERRY IVEY MD [facility] [address] [address] 12/10/2023 15:08:38 12/15/2023 07:53:41 Epidermal burn of nose 20267741 T20.14XA Health Concerns Section Related Observation LastModified by Organization Detai ls LastModified Time None Recorded Concern Status LastModified by Organization Details LastModified Time None Recorded Advance Directives Directive None Recorded Payers Encounter Date Sequence Insurance Name Policy Number Policy Penaloza Covered Member ID Penaloza Member ID Guarantor Name 12/10/2023 1 [facility] (MEDICARE REPLACEMENT/A DVANTAGE - PPO) [id number] Best Carr [id number] Best Carr 12/10/2023 2 [place] [facility] Best Fabiola Carr [id number] Best Carr Notes Date Note Type Note [...] and uses oxygen daily. MERRY HILL MD [address] [place] [address], [address], [facility] - [facility] 12/10/2023 17:00:32
--- OUTSIDE RECORDS SUMMARY | 2024-05-20 19:03 | XMS_ITS | Encounter Summary ---
Author Organization [facility] Address [address] [place] [address] Care Team Providers Care Farm Manager Name Role Phone Connor Fletcher Primary Care Provider [phone] Reason for Visit * Reason Onset Date Comments Appointment 05/20/2024 1st Notification Encounter Details Date Type Department Care Team ([facility] st Contact Info) Description 05/20/2024 Telephone Lung Screening Program - [place] [address] [place] [address] Chloé Singh MA Appointment (1st Notification) Social History Tobacco Use Types Packs/Day Years [...] as of this encounter Progress Notes * Chloé Singh MA - 05/20/2024 12:09 PM EST Best Carr was contacted by the Lung Cancer Screening Program today to confirm the appointmentof their Lung Cancer Screening. The patient is currently scheduled to have their screening on FridayJune 072024, at [facility]. Patient has severed all connection with the hospital. And is going to [facility]. Will cancel the the CT . And with draw from the LCSP program For all screenings scheduled during the week, the patient will check in at Patient Registration on the first floor of the [facility]. For screenings that take place on the weekend or after 5pm, check-in directly in Radiology. The patient was given the Lung Cancer Screening Program phone number, , to contact if they have any additional questions, concerns or need to reschedule. Patients are encouraged to call our office and reschedule if they are exhibiting any cold-like symptoms, have recently been treated for Pneumonia or Influenza (the flu) or have had another CT of their Chest since their last screening. * Chloé Singh MA - 05/20/2024 11:57 AM EST Best Carr was contacted by the Lung Cancer Screening Program today to confirm the appointmentof their Lung Cancer Screening. The patient is currently scheduled to have their screening on , Friday at at [facility]. For all screenings scheduled during the week, the patient will check in at Patient Registration on the first floor of the [facility]. For screenings that take place on the weekend or after 5pm, check-in directly in Radiology. The patient was given the Lung Cancer Screening Program phone number, , to contact if they have any additional questions, concerns or need to reschedule. Patients are encouraged to call our office and reschedule if they are exhibiting any cold-like symptoms, have recently been treated for Pneumonia or Influenza (the flu) or have had another CT of their Chest since their last screening. documented in this encounter Plan of Treatment Upcoming Encounters Date Type Department Care Team (Late st Contact Info) Description 08/11/2024 12:30 PM EDT Office Visit Adult Medicine [facility] [address] [place] [address] Connor Fletcher PA [address] [place] [address] documented as of this encounter Visit Diagnoses Not on filedocumented in this encounter Care Teams Farm Manager Relationship Specialty Start Date End Date Connor Fletcher PA [address] [place] [address] PCP - General Internal Medicine 12/13/19 documented as of this encounter
--- OUTSIDE RECORDS SUMMARY | 2024-05-20 19:03 | XMS_ITS | Clinical Summary ---
Author Organization [facility] Address [address] [place] [address] Phone Care Team Providers Care Bar Tender Name Role Phone Connor Fletcher Primary Care Provider [phone] [phone] Allergies No known active allergies Medications Medication Sig Dispensed Refills Start Date End Date Status albuterol HFA (PROAIR HFA ; PROVENTIL HFA ; VENTOLIN HFA) 90 mcg/actuation inhaler INHALE 2 PUFFS INTO THE LUNGS EVERY 4 HOURS NEEDED FOR COUGH OR WHEEZING 07/17/2022 Active aspirin 81 mg EC tablet Take 1 Tablet by mouth daily. 5 days a week Active calcitonin salmon (MIACALCIN) 200 unit/actuation nasal [...] mouth daily. 07/26/2015 Active ONETOUCH [place] LANCETS [facility] [place] 1 LANCET TWICE DAILY TO TEST [...] PUFF VIA NASAL ROUTE DAILY 07/24/2022 Active blood-glucose meter (LIKECHARITYTouch Ultra2 Meter) [facility] [place] Other route 4 (four) times a day. DX E11.9 1 each 02/26/2024 Active LIKECHARITYTouch Ultra Test test strip USE A NEW [...] NEEDED FOR PAIN 56 tablet 04/27/2024 Active azithromycin (ZITHROMAX) 250 mg tablet TAKE 1 TABLET BY MOUTH 3 TIMES A WEEK. 12 tablet 3 05/14/2024 Active Trelegy Ellipta 100-62.5-25 mcg inhaler INHALE 1 PUFF INTO THE LUNGS DAILY AT THE SAME TIME EACH DAY. RINSE MOUTH AFTER ADMINISTRATION TO AVOID FUNGAL INFECTION DUE TO USE OF INHALED STEROID 180 each 3 05/17/2024 Active azithromycin (ZITHROMAX) 250 mg tablet TAKE 1 TABLET BY MOUTH 3 TIMES A WEEK. 11/24/2023 05/14/19 25 Discontinued diazePAM (VALIUM) 5 mg tablet Take 1 Tablet by mouth every 8 hours as needed for Anxiety. 11/17/2023 04/27/19 25 Discontinued oxyCODONE (ROXICODONE) 5 mg immediate release tablet Take 1-2 Tablets by mouth every 6 hours as needed for Pain. 11/17/2023 04/27/19 25 Discontinued fluticasone-ume clidinium-vilan terol (Trelegy Ellipta) 100-62.5-25 mcg inhaler INHALE 1 PUFF INTO THE LUNGS DAILY AT THE SAME TIME EACH DAY. RINSE MOUTH AFTER ADMINISTRATION TO AVOID FUNGAL INFECTION DUE TO USE OF INHALED STEROID 07/10/2023 05/17/19 25 Discontinued Active Problems Problem Noted Date [...] Encounters Date Type Department Care Team Description 05/20/2024 Telephone Lung Screening Program - [place] [address] [phone] Chloé Singh MA Appointment (1st Notification) 05/19/2024 Telephone Pulmonology - [place] [address] [address] Keon Borja MA 05/04/2024 Telephone Thoracic Surgery [facility] 299 [facility] [address] [place] [address] Rosie Metz PA 03/30/2024 Telephone [facility] Hematology Oncology [address] [place] [address] Maribeth Negron MD 03/23/2024 Telephone Orthopedic Surgery [facility] [address] [facility] [address] [place] [phone] Berta Duran MA Surgery 03/23/2024 Telephone [facility] Hematology Oncology [address] [place] [address] Maribeth Negron MD 03/05/2024 Telephone Lung Screening Program - [place] 299 [facility] [address] [place] [phone] Tiki Momin MA Results (Annual Lung Screening- LR0) 03/02/2024 3:00 PM EST - 03/02/2024 11:59 PM EST Hospital Encounter [facility] CT Scan [address] [place] [address] Screening for lung cancer Discharge Disposition: Home [...] Surgical History Surgery Date Site/Laterality Comments COLONOSCOPY 2009 PROCEDURE: HISTORICAL COLONOSCOPY; COMMENT: couple of polyps removed KNEE SURGERY PROCEDURE: HISTORICAL KNEE SURGERY; COMMENT: medial meniscus CARDIAC CATHETERIZATION PROCEDURE: HISTORICAL CARDIAC CATH OTHER SURGICAL HISTORY 08/08/2016 PROCEDURE: NH GASTRIC RSTCV W/O BYP VERTICAL-BANDED GASTROPLY; COMMENT: Sleeve gastrectomy; Dr. Franco COLONOSCOPY 2012 PROCEDURE: HISTORICAL COLONOSCOPY; COMMENT: hospital based colonoscopy, normal ESOPHAGOGASTRODUODENOSCOPY 2012 PROCEDURE: NH EGD TRANSORAL BIOPSY SINGLE/MULTIPLE; COMMENT: normal COLONOSCOPY [...] essential hypertension DX:Unspecified essential hypertension Morbid obesity (CMS/HCC) DX:Morb id obesity (HCC) Diabetes mellitus (CMS/HCC) 11/14/2011 DX:D iabetes mellitus (HCC) Diabetes mellitus (CMS/HCC) DX:D iabetes mellitus (HCC); COMMENT: new dx 10/30 COPD (chronic obstructive pu lmonary disease) (CMS/HCC) 02/13/2010 DX:COPD (chronic obstructive pulmonary disease) ([facility]) Type 2 diabetes, controlled, with renal manifestation (CMS/[facility]) 12/14/2012 DX:Type 2 diabetes, cont rolled, with renal manifestation (HCC); COMMENT: Microalbumin 218 on 09/30/2012 Hypertension 02/13/2010 DX:Hypertension Diabetes mellitus type 2 wit h neurological manifestations (CMS/HCC) 03/20/2015 DX:Diabetes uriah itus type 2 with neurological manifestations (HCC) Hyperlipidemia DX:Hyperlipidemi a Family History Medical History [...] 12:30 PM EDT Office Visit Adult Medicine [facility] [address] [place] [address] Connor Fletcher PA [address] [place] [address] Health Maintenance Due Date Last Done Comments [...] calcifications. -------- FINAL REPORT -------- Dictated By: FLOR SABA Dictated Date: 03/03/2024 13:54 ET Assigned Physician: FLOR SABA Reviewed and Electronically Signed By: FLOR SABA Signed Date: 03/03/2024 14:27 ET Workstation ID: [id number] Transcribed By: Self Edit Transcribed Date: 03/03/2024 [...] Urine Albumin Creatinine Ratio (08/14/2023) [facility] Urine Albumin Creatinine Ratio Abstracted Historical Provider [facility] HALLEY E * Annual BMP Blood Test (08/14/2023) [facility] Annual BMP Blood Test Abstracted Historical Provider MD RUDY ROWLEY E * Hemoglobin A1c (08/14/2023) [facility] [...] ORDERAB LES * Diabetes Foot Exam (08/08/2023) [facility] Diabetes: Annual Foot Exam Abstracted Historical Provider [facility] * Abdominal Aortic Aneurysm Screen (07/02/2023) [facility] Abdominal Aortic Aneurysm (AAA) Screening Abstracted Anatomical Region Laterality Modality Other Historical Provider [facility] * Colonoscopy (06/19/2021) [facility] Colonoscopy Abstracted, no interpretation Anatomical Region Laterality Modality Other [facility] Provider [facility] * Hepatitis C Screening (01/03/2013) [facility] Hepatitis C Screening Abstracted [facility] Provider [facility] from Last 3 Months or Most Recently Relevant to Health Maintenance Care Teams Bar Tender Relationship Specialty Start Date End Date Connor Fletcher PA [address] [place] [address] PCP - General Internal Medicine 12/13/19
--- OUTSIDE RECORDS SUMMARY | 2024-05-20 19:03 | XMS_ITS | Patient Health Record ---
Author Organization [facility] Address [address] [facility] [address] [place] [address] Care Team Providers Care Fish Bailer Name Role Phone Connor Infante Primary Care Provider Unavail able STAN ESCOBEDO Unavailable [phone] Allergies No Known Allergies Reason For Referral No Information Medications Medication SIG (Take, Route, Frequency, Duration) Notes Start Date End Date Status Nasal [place] 0.05 % 2 sprays in each nostril [...] tablet Orally Once a day Active Umeclidinium [place] 62.5 MCG/INH 1 puff Inhalation Once a [...] Problem Status W/U Status Risk Notes Problem 13830848 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.49) Active confirmed Problem 44612613 Type 2 diabetes mellitus with other circulatory complications (E11.59) Active confirmed Problem Polyneuropathy due to type 2 diabetes mellitus (801688262) Type 2 diabetes mellitus with diabetic polyneuropathy, 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) Active confirmed Vital Signs Heart Rate 96 /min 08/08/2023 Temperature 97.4 degrees Fahrenheit 08/08/2023 Respiratory Rate 20 /min 08/08/2023 Height 5ft 10in in 08/08/2023 Weight 221.5 lbs 08/08/2023 BMI 31.78 kg/m2 08/08/2023 Encounters Encounter Location Date Provider Diagnosis [facility] [address] [address] 08/08/2023 STAN ESCOBEDO Type 2 diabetes mellitus with other circulatory complications E11.59 ; Foreign body in left foot, initial encounter S90.852A and Type 2 diabetes mellitus with other diabetic neurological complication E11.49 [facility] [address] [address] 04/22/2024 STAN ESCOBEDO Assessments Encounter Date Diagnosis [...] Date Coverage End Date [employer] Medicare Adv-[id number] [address] [address] [place] [address] [id number] Best Carr Self - patient is the [...] asbestos Z77.090 Atherosclerotic heart diseas e of [place] coronary artery without angina pectoris I25.10 Secondary [...] E11.9 left angioplasty COVID vaccinated X 2 ([employer]) and 3 jaziel ters ([employer]) Surgical History Surgery Date(Month/Year) gastric bypass colonoscopy cardiac catheterization right knee surgery left angioplasty right aneurysm repair behind the knee Hospitalization History Reason Date(Month/Year) right knee surgery gastric bypass COPD Flare Up 10/05/2022
--- OUTSIDE RECORDS SUMMARY | 2024-05-20 19:03 | XMS_ITS | Encounter Summary ---
Author Organization [facility] Address [address] [place] [address] Care Team Providers Care Laborer Syrup Machine Name Role Phone Connor Fletcher Primary Care Provider [phone] [phone] Reason for Referral * Consultation (Routine) - Pending Review Specialty Diagnoses / Procedures Referred By Alissa dave Referred To Contact Thoracic Surgery Diagnoses Smoker Rosie Metz PA 299 [facility], [address] [address] Ciera Cerda MD [address] [address] Referral ID Status Reason Start Date Expiration Date Visits Requested Visits Authorized [id number] Pending Review Specialty Services Required 05/04/2024 05/04/2025 1 1 Encounter Details Date Type Department Care Team ([facility] Contact Info) Description 05/04/2024 Telephone Thoracic Surgery - [place] [address] [address] Rosie Metz PA 299 [facility], [address] [address] Social History Tobacco Use Types Packs/Day Years [...] below: Patient was discharged and trespassed from [place]. You had ordered a [address] based off his lastCT scan. The patient would like a referral to [place] to get his CT scan done there if you can callthe patient and straighten everything out that'll be perfect Will send a referral to [facility] Lung Scre[place] Program per patient request with LDCT due in May 2024. documented in this encounter Plan of Treatment Upcoming Encounters Date Type Department Care Team (Late st Contact Info) Description 08/11/2024 12:30 PM EDT Office Visit Adult Medicine [address] [address] Connor Fletcher PA [address] [place] [address] Scheduled Referrals Name Type Priority Associated Diagnoses Order Schedule Ambulatory referral to Lung Screening Program Outpatient Referral Routine Smoker 1 Occurrences starting 05/04/2024 until 05/04/2025 documented as of this encounter Visit Diagnoses Diagnosis Smoker- Primary Tobacco use disorder documented in this encounter Care Teams Laborer Syrup Machine Relationship Specialty Start Date End Date Connor Fletcher PA [address] [place] [address] PCP - General Internal Medicine 12/13/19 documented as of this encounter
--- OUTSIDE RECORDS SUMMARY | 2024-05-20 19:03 | XMS_ITS | Encounter Summary ---
Author Organization [facility] [place] [address] Care Team Providers Care Prefabricator Name Role Phone Connor Fletcher Primary Care Provider [phone] -[phone] Encounter Details Date Type Department Care Team (Late Contact Info) Description 05/19/2024 Telephone Pulmonology - [place] 299 [facility] [address] [place] [phone] Keon Diane MA Social History Tobacco Use Types Packs/Day Years [...] as of this encounter Progress Notes * Keon Diane MA - 05/19/2024 10:30 AM EST Rx Authorization Request for Trelegy faxed to [facility]. documented in this encounter Plan of Treatment Upcoming Encounters Date Type Department Care Team (Late Contact Info) Description 08/11/2024 12:30 PM EDT Office Visit Adult Medicine [address] [phone] Connor Fletcher PA [address] [place] [address] documented as of this encounter Visit Diagnoses Not on filedocumented in this encounter Care Teams Prefabricator Relationship Specialty Start Date End Date Connor Fletcher PA [address] [place] [address] PCP - General Internal Medicine 12/13/19 documented as of this encounter
== END 2024-05-20 15:47 | disposition home or self-care (01) ==
PROVIDERS: Visit Provider Surgery Vascular Surgery
DX: I73.9 Peripheral vascular disease, unspecified (principal)
CPT/HCPCS: 99214; G2211

== ENCOUNTER → 2024-05-20 15:13 | Outpatient (BNVA) | payer MEDICARE, MEDICAID, SELFPAY | PROVIDERS: Visit Provider Surgery Vascular Surgery | DX: E11.51 Type 2 diabetes mellitus with diabetic peripheral angiopathy without gangrene (principal); F17.210 Nicotine dependence, cigarettes, uncomplicated | CPT/HCPCS: 99212 ==

== ENCOUNTER 2024-05-24 08:05 | Day surgery (SDC) | payer MEDICARE, MEDICAID, SELFPAY ==
[2024-05-24] VITALS (18 sets, daily range): BP systolic 133–194; BP diastolic 69–107; PULSE 75–102; RESP 13–27; TEMP 36.2–36.5; O2SAT 88–95; BMI 29.4
--- OUTSIDE RECORDS SUMMARY | 2024-05-24 08:08 | XMS_ITS | Encounter Summary ---
Author Organization [facility] Address [address] [place] [address] Care Team Providers Care Kiln Tender Name Role Phone Connor Fletcher Primary Care Provider [phone] Reason for Referral * Consultation (Routine) - Pending Review Specialty Diagnoses / Procedures Referred By Alissa dave Referred To Contact Thoracic Surgery Diagnoses Smoker Rosie Metz PA 299 [facility], [address] [address] Ciera Cerda MD [address] [address] Referral ID Status Reason Start Date Expiration Date Visits Requested Visits Authorized [id number] Pending Review Specialty Services Required 05/04/2024 05/04/2025 1 1 Encounter Details Date Type Department Care Team ([facility] Contact Info) Description 05/04/2024 Telephone Thoracic Surgery - [place] [address] [address] Rosie Metz PA 299 [facility], [address] [address] Social History Tobacco Use Types Packs/Day Years [...] below: Patient was discharged and trespassed from [place] [facility]. You had ordered a [address] based off his lastCT scan. The patient would like a referral to [place] to get his CT scan done there if you can callthe patient and straighten everything out that'll be perfect Will send a referral to [facility] Lung Screening Program per patient request with LDCT due in May 2024. documented in this encounter Plan of Treatment Upcoming Encounters Date Type Department Care Team (Late st Contact Info) Description 08/11/2024 12:30 PM EDT Office Visit Adult Medicine [address] [address] Connor Fletcher PA [address] [place] [address] Scheduled Referrals Name Type Priority Associated Diagnoses Order Schedule Ambulatory referral to Lung Screening Program Outpatient Referral Routine Smoker 1 Occurrences starting 05/04/2024 until 05/04/2025 documented as of this encounter Visit Diagnoses Diagnosis Smoker- Primary Tobacco use disorder documented in this encounter Care Teams Kiln Tender Relationship Specialty Start Date End Date Connor Fletcher PA [address] [place] [address] PCP - General Internal Medicine 12/13/19 documented as of this encounter
--- OUTSIDE RECORDS SUMMARY | 2024-05-24 08:08 | XMS_ITS | Encounter Summary ---
Author Organization [facility] Address [address] [place] [address] Care Team Providers Care Mottler Machine Feeder Name Role Phone Connor Fletcher Primary Care Provider [phone] [phone] Reason for Visit * Reason Onset Date Comments Appointment 05/20/2024 1st Notification Encounter Details Date Type Department Care Team ([facility] st Contact Info) Description 05/20/2024 Telephone Lung Screening Program - [place] [address] [facility] [address] [place] [address] Chloé Singh MA Appointment (1st Notification) Social [...] have their screening on FridayJune 072024, at [facility]. Patient has severed all connection with the hospital. And is going to [facility]. Will cancel the the CT . And with draw from the LCSP program For all screenings scheduled during the week, the patient will check in at [facility]. For screenings that take place on [...] their screening on , Friday at at [facility]. For all screenings scheduled during the week, the patient will check in at [facility] Registration [facility]. For screenings that take place on [...] 12:30 PM EDT Office Visit Adult Medicine [facility] [address] [place] [address] Connor Fletcher PA [address] [place] [address] documented as of this encounter Visit Diagnoses Not on filedocumented in this encounter Care Teams Mottler Machine Feeder Relationship Specialty Start Date End Date Connor Fletcher PA [address] [place] [address] PCP - General Internal Medicine 12/13/19 documented as of this encounter
--- OUTSIDE RECORDS SUMMARY | 2024-05-24 08:08 | XMS_ITS | Clinical Summary ---
Author Organization [facility] Address [address] [place] [address] Phone Care Team Providers Care Director Of Clinical Applications Name Role Phone Connor Fletcher Primary Care Provider [phone] Allergies No known active allergies Medications Medication [...] mouth daily. 07/26/2015 Active ONETOUCH [place]ICA LANCETS [facility] [place] 1 LANCET TWICE DAILY TO TEST [...] NASAL ROUTE DAILY 07/24/2022 Active blood-glucose meter ([employer] BiomedicalTouch Ultra2 Meter) [facility] by Other route 4 (four) times a day. DX E11.9 1 each 02/26/2024 Active [employer] Ultra Test test strip USE A NEW [...] Description 05/20/2024 Telephone Lung Screening Program - [place] [address] [phone] Chloé Singh [place] Appointment (1st Notification) 05/19/2024 Telephone Pulmonology - [place] [address] [phone] Keon Borja MA 05/04/2024 Telephone Thoracic Surgery [facility] 299 [facility] [address] [place] [address] Rosie Metz PA 03/30/2024 Telephone [facility] Hematology Oncology [address] [place] [phone] Maribeth Negron MD 03/23/2024 Telephone Orthopedic Surgery [facility] [address] [facility] [address] [place] [phone] Berta Duran MA Surgery 03/23/2024 Telephone [facility] Hematology Oncology [address] [place] [address] Maribeth Negron MD 03/05/2024 Telephone Lung Screening Program - [place] 299 [facility] [address] [place] [phone] Tiki Momin MA Results (Annual Lung Screening- LR0) 03/02/2024 3:00 PM EST - 03/02/2024 11:59 PM EST Hospital Encounter [facility] CT Scan [address] [place] [address] Screening for lung cancer Discharge [...] CARDIAC CATH OTHER SURGICAL HISTORY 08/08/2016 PROCEDURE: MO GASTRIC RSTCV W/O BYP VERTICAL-BANDED GASTROPLY; COMMENT: Sleeve gastrectomy; Dr. Franco COLONOSCOPY 2012 PROCEDURE: HISTORICAL COLONOSCOPY; COMMENT: hospital based colonoscopy, normal ESOPHAGOGASTRODUODENOSCOPY 2012 PROCEDURE: MO EGD TRANSORAL BIOPSY SINGLE/MULTIPLE; COMMENT: normal COLONOSCOPY [...] (CMS/HCC) 02/13/2010 DX:COPD (chronic obstructive pulmonary disease) ([facility]) Type 2 diabetes, controlled, with renal manifestation (CMS/[facility]) 12/14/2012 DX:Type 2 diabetes, cont rolled, [...] 12:30 PM EDT Office Visit Adult Medicine [facility] [address] [place] [address] Connor Fletcher PA [address] [place] [address] Health Maintenance Due Date Last Done Comments [...] Signed Date: 03/03/2024 14:27 ET Workstation ID: [id number] Transcribed By: Self Edit Transcribed Date: 03/03/2024 [...] PROCEDURES * Urine Albumin Creatinine Ratio (08/14/2023) [facility] Urine Albumin Creatinine Ratio Abstracted Historical Provider [facility] HALLEY E * Annual BMP Blood Test (08/14/2023) [facility] Annual BMP Blood Test Abstracted Historical Provider MD RUDY ROWLEY E * Hemoglobin A1c (08/14/2023) [facility] Hemoglobin A1C 6.1 6.5 % Blood Venous blood specimen / Unknown Historical Provider LAB BLOOD ORDERAB LES * (ABNORMAL) Lipid panel (08/14/2023) [facility] LDL/HDL Ratio 2 0 - 4 Triglycerides 204(A) 0 - 150 mg/dL Cholesterol 175 0 - 200 mg/dL HDL 74 40 mg/dL LDL Cholesterol 61 0 - 100 mg/dL Blood Venous blood specimen / Unknown Historical Provider LAB BLOOD ORDERAB LES * Diabetes Foot Exam (08/08/2023) [facility] Diabetes: Annual Foot Exam Abstracted Historical Provider [facility] * Abdominal Aortic Aneurysm Screen (07/02/2023) [facility] Abdominal Aortic Aneurysm (AAA) Screening Abstracted Anatomical Region Laterality Modality Other Historical Provider [facility] * Colonoscopy (06/19/2021) [facility] Colonoscopy Abstracted, no interpretation Anatomical Region Laterality Modality Other [facility] Provider [facility] * Hepatitis C Screening (01/03/2013) [facility] Hepatitis C Screening Abstracted [facility] Provider [facility] from Last 3 Months or Most Recently Relevant to Health Maintenance Care Teams Director Of Clinical Applications Relationship Specialty Start Date End Date Connor Fletcher PA [address] [place] [id number] PCP - General Internal Medicine 12/13/19
--- OUTSIDE RECORDS SUMMARY | 2024-05-24 08:08 | XMS_ITS | Encounter Summary ---
Author Organization [facility] [place] [address] Care Team Providers Care Call Or Contact Centre Operator Name Role Phone Connor Fletcher Primary Care Provider [phone] Encounter Details Date Type Department Care Team (Late Contact Info) Description 05/19/2024 Telephone Pulmonology - [place] 299 [facility] [address] [place] [phone] Keon Diane MA Social History Tobacco Use [...] 12:30 PM EDT Office Visit Adult Medicine [address] [phone] Connor Fletcher PA [address] [place] [address] documented as of this encounter Visit Diagnoses Not on filedocumented in this encounter Care Teams Call Or Contact Centre Operator Relationship Specialty Start Date End Date Connor Fletcher PA [address] [place] [address] PCP - General Internal Medicine 12/13/19 documented as of this encounter
[2024-05-24 08:42] LABS: MANUAL DIFF FLAG NO
[2024-05-24] MEDS: 0.9 % Sodium Chloride 1,000 ML 100 ML IVCONT (08:44)
[2024-05-24 08:45] LABS: Basophils Absolute Auto 0.1 X10*3/uL (0.0-0.2); Basophils Percent Auto 0.6 % (0-2); Eosinophils Absolute Auto 0.1 X10*3/uL (0.0-0.4); Eosinophils Percent Auto 1.8 % (0-4); Hematocrit 54.5 % (42.0-52.0); Hemoglobin 18.4 g/dl (14.0-18.0); Imm Gran Abs Auto 0.02 X10*3/uL (0.00-0.03); Imm Gran Pct Auto 0.3 % (0.0-0.4); Lymphocytes Absolute Auto 1.9 X10*3/uL (1.2-4.9); Lymphocytes Percent Auto 24.2 % (20-40); Mean Corpuscular HGB Conc 33.8 g/dl (31.0-36.0); Mean Corpuscular Hemoglobin 32.7 pg (27.0-33.0); Mean Corpuscular Volume 96.8 fL (80.0-98.0); Mean Platelet Volume 10.3 fL (9.4-12.4); Monocytes Absolute Auto 0.6 X10*3/uL (0.1-1.2); Monocytes Percent Auto 7.6 % (2-11); Neutrophils Absolute Auto 5.2 x10*3/uL (2.0-8.3); Neutrophils Percent Auto 65.5 % (45-73); Platelet Count 121 X10*3/uL (160-400); Red Blood Count 5.63 X10*6/uL (4.60-5.80); Red Cell Distribution Width 14.9 % (11.0-16.0); White Blood Count 7.9 X10*3/uL (4.8-10.8)
[2024-05-24 08:45] LABS: Glucose, Whole Blood 114 mg/dL (60-115)
[2024-05-24 08:57] LABS: Anion Gap 16 (12-20); Blood Urea Nitrogen 10 mg/dL (9-16); Calcium 8.8 mg/dL (8.4-10.2); Carbon Dioxide 29 mmol/L (22-29); Chloride 100 mmol/L (96-108); Creatinine Clr Calc Pharmacy 129.1; Estimated Glomerular Filt Rate > 60; Glucose Random 108 mg/dL (60-115); Potassium 3.7 mmol/L (3.3-5.1); Sodium 141 mmol/L (135-145)
--- NOTE | 2024-05-24 10:05 | PC.NURSE ---
Elida Alvarez RN to verify that Dr. Canas has marked patient on left side
[2024-05-24] MEDS: Midazolam HCl 2 MG/2 ML VIAL 0.5 MG IVPUSH (10:30)
[2024-05-24] MEDS: fentaNYL citrate/PF 100 MCG/2 ML VIAL 25 MCG IVPUSH (10:32)
[2024-05-24] MEDS: Heparin Sodium,Porcine 10,000 UNIT/10 ML VIAL 5000 UNIT IVPUSH (10:43)
--- NOTE | 2024-05-24 11:19 | P.OP_ITS ---
Operative Note Operative Note Date of Service: 05/24/24 Narrative: Angiogram report from [facility] Preoperative diagnosis: Atherosclerosis of left lower extremity with activity limiting claudication Postoperative diagnosis: Same Procedure: 1. Ultrasound-guided right common femoral access 2. Aortogram with left lower extremity runoff 3. Right common iliac plasty Surgeon:Reyes Canas M.D., FACS, RPVI [employer]aker Ship:None Anesthesia: Local with moderate conscious sedation. Total intraservice moderate sedation time was 45 minutes. I monitored the patient's level of consciousness and physiologic status continuously throughout the procedure. Specimens:none Drains:none Estimated blood loss: Less than 10 ml Implant: None Indications: 73-year-old gentleman with history of peripheral vascular disease and prior endovascular intervention in 2019 presents for severe activity limiting claudication left greater than right. He now presents for endovascular intervention. The patient has signed the informed consent after reviewing risks, complications, benefits, and alternatives previously discussed with the patient. The patient was given the opportunity to ask any additional questions or voice any concerns. All questions were answered to the patient's sa tisfaction. Procedure in detail: Patient was brought to the angiography suite prior to which a time-out was called for patient identification and site verification. Bilateral groins were prepped and draped in the standard surgical fashion. Under ultrasound guidance right common femoral was punctured with micro puncture needle and wire. Subsequently a precision 5 [place] sheath was then placed. Bentson wire was advanced to the level of the aorta. 5 [place] Flush catheter was brought up and parked at the level of the renal arteries. Aortogram was then undertaken. Catheter was brought down to the level of the iliac bifurcation. Iliacs were subsequently imaged. It was difficult to traverse to the contralateral side. We had to place a Glidewire Advantage in through the 5 [place] sheath we had to plasty the common iliac with a 4 x 20 balloon. Two subsequent insufflations had to be undertaken of this. Of note prior to plasty we administered 5000 units of systemic heparin. In the plasty was undertaken after 5 minutes of circulation time. Once this was accomplished we brought the catheter over to the contralateral side and we were able to advance a Glidewire Advantage. We then used a Navicross in the contralateral common femoral to do the runoff. It was recognized he had a total occlusion at the common femoral. We then just performed a runoff study. Catheter wire sheath was brought back to the ipsilateral side. Right common femoral was then imaged. StarClose closure device was then deployed. Patient tolerated the procedure well returned to recovery with stable vitals. Interpretation of films: 1. Ultrasound demonstrates appropriate femoral access site. Vessel was patent with minimal stenosis. Needle entry was visualized. Image of ultrasound was saved. 2. Aortogram demonstrates appropriate caliber aorta. Minimal disease. Appropriate take-off of the renals. 3. Iliac images demonstrate significant disease at the bifurcation in particular the right common femoral had a high-grade stenosis. 4. Left Leg Common femoral artery: Total occlusion at the common femoral Profundus Femoris: No significant disease Superficial femoral artery: Moderate disease with 2 focal areas of significant stenosis Popliteal artery (p1,p2,p3): No significant disease Anterior tibial artery: Patent to foot Peroneal artery: Patent to foot Posterior tibial artery: Patent to foot Dorsalis pedis/plantar arch: Incomplete arch difficult to visualize Conclusion: 1. Successful diagnostic angiogram. Successful right common iliac plasty. Should intervention be indicated he will require left common femoral endarterectomy. 2. Anticoagulation status: Aspirin and Plavix for 6 months This note is constructed using voice recognition software. While every effort has been made to ensure accuracy, receiving clerk errors may have been included. Thank you for allowing me to participate in the care of your patient. Yours sincerely, Reyes Canas MD, FACS, R.P.V.I.
[2024-05-24] MEDS: oxyCODONE HCl Immed Release 5 MG TABLET PO (12:28)
[2024-05-24] MEDS: Acetaminophen 325 MG TABLET 650 MG PO (12:28)
[2024-05-25 14:38] LABS: ACT 186 Celite s (79-173)
== END 2024-05-24 13:50 | disposition home or self-care (01) ==
PROVIDERS: Visit Provider Surgery Vascular Surgery
DX: E11.51 Type 2 diabetes mellitus with diabetic peripheral angiopathy without gangrene (principal); I70.219 Atherosclerosis of native arteries of extremities with intermittent claudication, unspecified extremity; J44.9 Chronic obstructive pulmonary disease, unspecified; D75.1 Secondary polycythemia; Z79.84 Long term (current) use of oral hypoglycemic drugs; Z98.890 Other specified postprocedural states; F10.90 Alcohol use, unspecified, uncomplicated; F17.210 Nicotine dependence, cigarettes, uncomplicated; Z98.84 Bariatric surgery status
CPT/HCPCS: 36415; 37220; 76937; 80048; 82947; 85025; 85347; 99152; 99153; C1760; C1769; C1887; C1894; J1644; J2250; J3010; Q9967

== ENCOUNTER 2024-05-31 13:32 | Outpatient (AMB) | payer MEDICARE, MEDICAID, SELFPAY ==
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
[2024-05-31 13:40] VITALS: BP 142/90; PULSE 102; TEMP 36.3; O2SAT 90; BMI 29.4
== END 2024-05-31 14:46 | disposition home or self-care (01) ==
PROVIDERS: PCP Physician Assistant Medical; Visit Provider Physician Assistant
DX: J43.9 Emphysema, unspecified (principal); E11.69 Type 2 diabetes mellitus with other specified complication; F10.90 Alcohol use, unspecified, uncomplicated; I73.9 Peripheral vascular disease, unspecified; H47.20 Unspecified optic atrophy; M19.011 Primary osteoarthritis, right shoulder

== ENCOUNTER → 2024-05-31 13:32 | Outpatient (BNVA) | payer MEDICARE, MEDICAID, SELFPAY | PROVIDERS: PCP Physician Assistant Medical; Visit Provider Physician Assistant | DX: J43.9 Emphysema, unspecified (principal); E11.69 Type 2 diabetes mellitus with other specified complication; F10.90 Alcohol use, unspecified, uncomplicated; I73.9 Peripheral vascular disease, unspecified; H47.20 Unspecified optic atrophy | CPT/HCPCS: 83036; 90471; 96127; 99202 ==

== ENCOUNTER 2024-06-14 12:29 | Emergency (ER) | payer MEDICARE, MEDICAID, SELFPAY ==
--- NOTE | ~2024-06-14 | XR_ITS ---
EXAMINATION: XR CHEST CLINICAL INFORMATION: dyspnea COMPARISON: 03/13/2024. TECHNIQUE: 2 views of the chest were obtained. FINDINGS: The cardiac, hilar, and mediastinal contours are normal. Aorta is tortuous and calcified. The lungs are diffusely hyperaerated, however grossly clear bilaterally. There is no pneumothorax or pleural effusion. There is no focal osseous or soft tissue abnormality. There is mild chronic wedging of a lower thoracic vertebral body. XR/XR chest 2V IMPRESSION: COPD. No superimposed active disease. Electronically signed by: Chandler James MD 06/14/2024 01:50 PM EST
[2024-06-14 12:39] VITALS: BP 147/93; PULSE 98; RESP 18; TEMP 36.9; O2SAT 90; BMI 29.4
--- NOTE | 2024-06-14 12:40 | ECG_ITS ---
Test Reason : DYSPNEA Blood Pressure : */* mmHG Vent. Rate : 106 BPM Atrial Rate : 106 BPM P-R Int : 146 ms QRS Dur : 84 ms QT Int : 344 ms P-R-T Axes : 65 69 63 degrees QTcB Int : 456 ms Artifact in tracing n Sinus tachycardia with occasional Premature ventricular complexes Otherwise normal ECG When compared with ECG of 13-Mar-2024 16:41, Premature ventricular complexes are now Present Referred By: Shruthi Ferguson Electronically Signed By: WILFREDO BRUNSON
--- NOTE | 2024-06-14 12:42 | ED.SOB ---
HPI - SOB/Dyspnea General Chief Complaint: Dyspnea Stated Complaint: low oxgen diff breathing Time Seen by Provider: 06/14/24 14:33 Related Data Home Medications ?Medication ?Instructions ?Recorded ?Confirmed aspirin 81 mg tablet,delayed 81 mg PO DAILY 04/18/20 05/31/24 release budesonide-formoterol HFA 80 2 puff inhalation BID 04/18/20 05/31/24 mcg-4.5 mcg/actuation aerosol inhaler (Symbicort) fluticasone furoate 27.5 1 spray intranasal DAILY 04/18/20 05/31/24 mcg/actuation nasal spray,suspension (Flonase Sensimist) furosemide 10 mg/mL oral solution 20 mg PO QAM 04/18/20 05/31/24 ipratropium 20 mcg-albuterol 100 1 puff inhalation Q6H 04/18/20 05/31/24 mcg/actuation mist for inhalation (Combivent Respimat) metformin 500 mg tablet 500 mg PO DAILY 04/18/20 05/31/24 atorvastatin 40 mg tablet 40 mg PO DAILY 04/22/24 05/31/24 blood sugar diagnostic (OneTouch 04/22/24 05/31/24 Ultra Test strips) calcitonin (salmon) 200 1 spray intranasal (ALT) DAILY 04/22/24 05/31/24 unit/actuation nasal spray clotrimazole 1 % topical cream 1 appl topical BID 04/22/24 05/31/24 (Lotrimin AF (clotrimazole)) fluticasone fur. 100 mcg-umeclid 1 inh inhalation DAILY 04/22/24 05/31/24 62.5 mcg-vilant 25 mcg inhalat.powder (Trelegy Ellipta) ipratropium 0.5 mg-albuterol 3 mg 3 ml inhalation Q4H PRN Shortness 04/22/24 05/31/24 (2.5 mg base)/3 mL nebulization Of Breath soln lisinopril 5 mg tablet 2.5 mg PO DAILY 04/22/24 05/31/24 nicotine 14 mg/24 hr daily 1 patch transdermal Q24H 04/22/24 05/31/24 transdermal patch sertraline 50 mg tablet (Zoloft) 25 mg PO DAILY 01/02/25 02/10/25 sildenafil 100 mg tablet 100 mg PO DAILY PRN Erectile 04/22/24 05/31/24 Dysfunction tizanidine 2 mg capsule 2 mg PO Q8H 04/22/24 05/31/24 triamcinolone acetonide 55 mcg 1 spray intranasal DAILY 04/22/24 05/31/24 nasal spray aerosol metoprolol succinate 25 mg 50 mg PO DAILY 05/20/24 05/31/24 tablet,extended release 24 hr Previous Rx's ?Medication ?Instructions ?Recorded clopidogrel 75 mg tablet 75 mg PO DAILY #90 tabs 05/24/24 diazepam 5 mg tablet 5 mg PO BID PRN Anxiety 30 days 05/31/24 #60 tabs oxycodone 5 mg tablet 5 mg PO Q4H PRN pain 7 days #42 05/31/24 tabs azithromycin 250 mg tablet 250 mg PO DAILY 4 days #4 tabs 06/14/24 prednisone 20 mg tablet 60 mg (3 x 20 mg) PO DAILY #12 tabs 06/14/24 Allergies Allergy/AdvReac Type Severity Reaction Status Date / Time No Known Allergies Allergy Verified 06/14/24 12:45 [facility] Past Medical History Medical History Erectile dysfunction Diabetes Hypertension History of umbilical hernia History of left heart catheterization COPD (chronic obstructive pulmonary disease) Surgical History History of gastric bypass History of arthroscopy of knee H/O angioplasty Social History Social History Housing: Apartment Are you a primary physician primary care sports medicine to a significant other at home: No Do you presently have visiting nurse or other home services: No Alcohol intake: current Alcohol intake frequency: a few times a week Patient Tobacco Use Status: Current everyday Tobacco user Tobacco use type: Cigarette e-Cigarette/Vaping Use: Never Used Advance Directives: No Advance Directives Information Provided: Yes service: No Current occupational status: retired Current occupation: rt handed Cognitive needs: No Hearing needs: No Vision needs: No Physical Exam Vital Signs: Vital Signs: Last Vital Signs Temp 98.3 F 06/14/24 16:04 Pulse 95 06/14/24 16:04 Resp 18 06/14/24 16:04 BP 148/69 H 06/14/24 16:04 Pulse Ox 93 06/14/24 16:04 O2 Del Method Room Air 06/14/24 16:04 O2 Flow Rate 3 06/14/24 14:47 BMI result Body Mass Index 29.4 Course Course Course Narrative: This is a Rapid Medical Examination (RME) performed by Lane Ferguson PA-C in triage. Full HPI, ROS, assessment and treatment plan per primary provider in the Main ED. 68 yo male hx of COPD, PAD, etoh use disorder, OA here for eval of dyspnea/ SOB x5-7 days. took suafed around 0300 this morning. using nebulizer at home. no known sick contacts. also endorses 7lb wt loss in the last week. +no increased effort of breathing, no tripoding, lung sounds diminished w/ scattered wheezes. patient placed on 2L NC in waiting room Plan: labs, ekg, cxr, viral swabs Medications Administered Discontinued Medications Generic Name Dose Route Start Last Admin Trade Name Freq PRN Reason Stop Dose Admin Azithromycin 500 mg 06/14/24 15:31 06/14/24 15:41 Azithromycin 500 Mg Tablet PO 06/14/24 15:32 500 mg ONCE ONE Administration Albuterol Sulfate 2.5 mg/ 0 mg 06/14/24 14:45 06/14/24 15:04 Albuterol/Ipratropium 3 ml INHALE 06/14/24 14:46 5 dose ONCE ONE Administration Methylprednisolone Sodium Succinate 125 mg 06/14/24 14:59 06/14/24 15:00 Methylprednisolone Sod Succ 125 Mg/2 Ml Vial IVPUSH 06/14/24 15:00 125 mg ONCE ONE Administration Medical Decision Making Lab Data 06/14/24 13:06 06/14/24 13:06 Labs: Lab Results 06/14/24 06/14/24 06/14/24 Range/Units 13:00 13:06 13:19 WBC 5.8 (4.8-10.8) X10*3/uL RBC 5.57 (4.60-5.80) X10*6/uL Hgb 18.2 H (14.0-18.0) g/dl Hct 55.5 H (42.0-52.0) % MCV 99.6 H (80.0-98.0) fL MCH 32.7 (27.0-33.0) pg MCHC 32.8 (31.0-36.0) g/dl RDW 15.5 (11.0-16.0) % Plt Count 103 L (160-400) X10*3/uL MPV 10.5 (9.4-12.4) fL Immature Gran % (Auto) 0.3 (0.0-0.4) % Neut % (Auto) 75.0 H (45-73) % Lymph % (Auto) 13.6 L (20-40) % [place] % (Auto) 10.0 (2-11) % Eos % (Auto) 0.9 (0-4) % Baso % (Auto) 0.2 (0-2) % Lymph # (Auto) 0.8 L (1.2-4.9) X10*3/uL [place] # (Auto) 0.6 (0.1-1.2) X10*3/uL Eos # (Auto) 0.1 (0.0-0.4) X10*3/uL Baso # (Auto) 0.0 (0.0-0.2) X10*3/uL Abs Immat Gran (auto) 0.02 (0.00-0.03) X10*3/uL Absolute Neuts (auto) 4.3 (2.0-8.3) x10*3/uL Absolute Nucleated RBC 0.000 (0.0-0.012) X10*3/uL Nucleated RBC % (auto) 0.0 (0.0-0.2) /100WBC PT 11.2 (10.9-12.4) SEC INR 1.0 (0.9-1.1) VBG pH 7.41 (7.32-7.43) VBG pCO2 55 mmHg VBG pO2 39 mmHg VBG HCO3 36 H (22-26) mmol/L VBG O2 Saturation 62.0 % VBG Base Excess 9.1 mmol/L Sodium 141 (135-145) mmol/L Potassium 4.0 (3.3-5.1) mmol/L Chloride 99 (96-108) mmol/L Carbon Dioxide 31 H (22-29) mmol/L Anion Gap 15 (12-20) BUN 8 L (9-16) mg/dL Creatinine 0.68 (0.5-1.4) mg/dL Estim Creat Clear Calc 115.8 Estimated GFR > 60 Random Glucose 124 H (60-115) mg/dL Calcium 9.0 (8.4-10.2) mg/dL Magnesium 1.9 (1.6-2.6) mg/dL Total Bilirubin 0.8 (0.0-1.0) mg/dL AST 23 (5-37) U/L ALT 12 (0-40) U/L Alkaline Phosphatase 90 (39-117) U/L Troponin I High Sens 5.7 (<3.5-35.0) ng/L B-Natriuretic Peptide 33 (<100) pg/mL Total Protein 7.0 (6.5-8.0) g/dL Albumin 3.8 (3.5-5.0) g/dL Influenza Type A (PCR) NEGATIVE (Negative) Influenza Type B (PCR) NEGATIVE (Negative) RSV RNA Qual (PCR) NEGATIVE (Negative) SARS-CoV-2 RNA (RT-PCR) NEGATIVE (Negative) Discharge Plan Discharge Clinical Impression: Acute exacerbation of chronic obstructive airways disease Patient Disposition: Home, Self-Care Instructions: COPD (Chronic Obstructive Pulmonary Disease) (ED) Additional Instructions: Follow-up with your primary care physician, we sent a prescription for you prednisone and azithromycin to the pharmacy. Try not to smoke. Return if you worse. You could start the azithromycin and tomorrow we already gave you 1 dose in the emergency department Prescriptions: New prednisone 20 mg tablet 60 mg PO DAILY Qty: 12 0RF azithromycin 250 mg tablet 250 mg PO DAILY 4 Days Qty: 4 0RF Rx Instructions: start on day 2 of therapy No Action clopidogrel 75 mg tablet 75 mg PO DAILY Qty: 90 1RF metformin 500 mg tablet 500 mg PO DAILY Flonase Sensimist 27.5 mcg/actuation spray,suspension 1 spray intranasal DAILY Rx Instructions: into each nostril furosemide 10 mg/mL solution 20 mg PO QAM aspirin 81 mg tablet,delayed release (DR/EC) 81 mg PO DAILY budesonide-formoterol [Symbicort] 80-4.5 mcg/actuation HFA aerosol inhaler 2 puff inhalation BID Combivent Respimat 20-100 mcg/actuation mist 1 puff inhalation Q6H lisinopril 5 mg tablet 2.5 mg PO DAILY tizanidine 2 mg capsule 2 mg PO Q8H sertraline [Zoloft] 50 mg tablet 25 mg PO DAILY oxycodone 5 mg tablet 5 mg PO Q4H PRN (Reason: pain) 7 Days Qty: 42 0RF Rx Instructions: Partial Fill upon patient request. diazepam 5 mg tablet 5 mg PO BID PRN (Reason: Anxiety) 30 Days Qty: 60 1RF nicotine 14 mg/24 hr patch 24 hour 1 patch transdermal Q24H clotrimazole [Lotrimin AF (clotrimazole)] 1 % cream 1 appl topical BID triamcinolone acetonide 55 mcg aerosol,spray 1 spray intranasal DAILY Rx Instructions: administer into each nostril sildenafil 100 mg tablet 100 mg PO DAILY PRN (Reason: Erectile Dysfunction) Rx Instructions: administer 30 minutes to 4 hours before activity ipratropium-albuterol 0.5 mg-3 mg(2.5 mg base)/3 mL solution for nebulization 3 ml inhalation Q4H PRN (Reason: Shortness Of Breath) Trelegy Ellipta 100-62.5-25 mcg blister with device 1 inh inhalation DAILY atorvastatin 40 mg tablet 40 mg PO DAILY calcitonin (salmon) 200 unit/actuation spray,non-aerosol 1 spray intranasal (ALT) DAILY (DME) OneTouch Ultra Test Strip See Rx Instructions .Route Rx Instructions: As directed metoprolol succinate 25 mg tablet extended release 24 hr 50 mg PO DAILY Referrals: Wyatt Alejandre PA-C [Primary Care Provider] - 2 days Interventions: ED Discharge Assessment Last Done: 06/14/24 16:04 Discharge Date/Time: 06/14/24 16:04 Print Language: Mongolian
[2024-06-14 13:14] LABS: MANUAL DIFF FLAG NO
[2024-06-14 13:18] LABS: Basophils Percent Auto 0.2 % (0-2); Eosinophils Absolute Auto 0.1 X10*3/uL (0.0-0.4); Eosinophils Percent Auto 0.9 % (0-4); Hemoglobin 18.2 g/dl (14.0-18.0); Imm Gran Abs Auto 0.02 X10*3/uL (0.00-0.03); Imm Gran Pct Auto 0.3 % (0.0-0.4); Lymphocytes Absolute Auto 0.8 X10*3/uL (1.2-4.9); Lymphocytes Percent Auto 13.6 % (20-40); Mean Corpuscular HGB Conc 32.8 g/dl (31.0-36.0); Mean Corpuscular Hemoglobin 32.7 pg (27.0-33.0); Mean Corpuscular Volume 99.6 fL (80.0-98.0); Mean Platelet Volume 10.5 fL (9.4-12.4); Monocytes Absolute Auto 0.6 X10*3/uL (0.1-1.2); Neutrophils Absolute Auto 4.3 x10*3/uL (2.0-8.3); Platelet Count 103 X10*3/uL (160-400); Red Blood Count 5.57 X10*6/uL (4.60-5.80); Red Cell Distribution Width 15.5 % (11.0-16.0); White Blood Count 5.8 X10*3/uL (4.8-10.8)
[2024-06-14 13:19] LABS: Hematocrit 55.5 % (42.0-52.0)
[2024-06-14 13:22] LABS: Venous Blood Gas Refer to POC result
[2024-06-14 13:23] LABS: VBG Base Excess 9.1 mmol/L; VBG HCO3 36 mmol/L (22-26); VBG pCO2 55 mmHg; VBG pH 7.41 (7.32-7.43); VBG pO2 39 mmHg
[2024-06-14 13:27] LABS: Prothrombin Time 11.2 SEC (10.9-12.4)
[2024-06-14 13:32] LABS: Alanine Aminotransferase 12 U/L (0-40); Albumin Level 3.8 g/dL (3.5-5.0); Alkaline Phosphatase 90 U/L (39-117); Anion Gap 15 (12-20); Aspartate Amino Transferase 23 U/L (5-37); Bilirubin Total 0.8 mg/dL (0.0-1.0); Blood Urea Nitrogen 8 mg/dL (9-16); Carbon Dioxide 31 mmol/L (22-29); Chloride 99 mmol/L (96-108); Creatinine Clr Calc Pharmacy 115.8; Estimated Glomerular Filt Rate > 60; Glucose Random 124 mg/dL (60-115); Magnesium 1.9 mg/dL (1.6-2.6); Sodium 141 mmol/L (135-145)
[2024-06-14 13:37] LABS: B Type Natriuretic Peptide 33 pg/mL (<100); Troponin-I High Sensitivity 5.7 ng/L (<3.5-35.0)
[2024-06-14 14:28] LABS: Influenza A PCR NEGATIVE (Negative); Influenza B PCR NEGATIVE (Negative); Resp Syncy Virus RNA Qual PCR NEGATIVE (Negative); SARS COV2 PCR INHOUSE NEGATIVE (Negative)
--- NOTE | 2024-06-14 14:39 | ED_ITS ---
HPI - SOB/Dyspnea General Chief Complaint: Dyspnea Stated Complaint: low oxgen diff breathing Time Seen by Provider: 06/14/24 14:33 Source: patient Mode of arrival: ambulatory Limitations: no limitations History of Present Illness HPI Narrative: This is a 68 years old male with a history of COPD presented to emergency department complaining of shortness of breath, his oxygen saturation was about 88% at home this morning. He has as history of heavy smoking right now is down to 2 cigarettes a day. Denies any fever or chills. MD elicited complaint: shortness of breath and cough Pertinent past history: COPD Onset (ago): day(s) (2) Context: recent illness Timing: constant Severity: moderate Exacerbating factors: exertion Relieving factors: oxygen Known history of: COPD Associated symptoms: denies other symptoms Treatment prior to arrival: none Related Data Home Medications ?Medication ?Instructions ?Recorded ?Confirmed aspirin 81 mg tablet,delayed 81 mg PO DAILY 04/18/20 05/31/24 release budesonide-formoterol HFA 80 2 puff inhalation BID 04/18/20 05/31/24 mcg-4.5 mcg/actuation aerosol inhaler (Symbicort) fluticasone furoate 27.5 1 spray intranasal DAILY 04/18/20 05/31/24 mcg/actuation nasal spray,suspension (Flonase Sensimist) furosemide 10 mg/mL oral solution 20 mg PO QAM 04/18/20 05/31/24 ipratropium 20 mcg-albuterol 100 1 puff inhalation Q6H 04/18/20 05/31/24 mcg/actuation mist for inhalation (Combivent Respimat) metformin 500 mg tablet 500 mg PO DAILY 04/18/20 05/31/24 atorvastatin 40 mg tablet 40 mg PO DAILY 04/22/24 05/31/24 blood sugar diagnostic (OneTouch 04/22/24 05/31/24 Ultra Test strips) calcitonin (salmon) 200 1 spray intranasal (ALT) DAILY 04/22/24 05/31/24 unit/actuation nasal spray clotrimazole 1 % topical cream 1 appl topical BID 04/22/24 05/31/24 (Lotrimin AF (clotrimazole)) fluticasone fur. 100 mcg-umeclid 1 inh inhalation DAILY 04/22/24 05/31/24 62.5 mcg-vilant 25 mcg inhalat.powder (Trelegy Ellipta) ipratropium 0.5 mg-albuterol 3 mg 3 ml inhalation Q4H PRN Shortness 04/22/24 05/31/24 (2.5 mg base)/3 mL nebulization Of Breath soln lisinopril 5 mg tablet 2.5 mg PO DAILY 04/22/24 05/31/24 nicotine 14 mg/24 hr daily 1 patch transdermal Q24H 04/22/24 05/31/24 transdermal patch sertraline 50 mg tablet (Zoloft) 25 mg PO DAILY 04/22/24 05/31/24 sildenafil 100 mg tablet 100 mg PO DAILY PRN Erectile 04/22/24 05/31/24 Dysfunction tizanidine 2 mg capsule 2 mg PO Q8H 04/22/24 05/31/24 triamcinolone acetonide 55 mcg 1 spray intranasal DAILY 04/22/24 05/31/24 nasal spray aerosol metoprolol succinate 25 mg 50 mg PO DAILY 05/20/24 05/31/24 tablet,extended release 24 hr Previous Rx's ?Medication ?Instructions ?Recorded clopidogrel 75 mg tablet 75 mg PO DAILY #90 tabs 05/24/24 diazepam 5 mg tablet 5 mg PO BID PRN Anxiety 30 days 05/31/24 #60 tabs oxycodone 5 mg tablet 5 mg PO Q4H PRN pain 7 days #42 05/31/24 tabs azithromycin 250 mg tablet 250 mg PO DAILY 4 days #4 tabs 06/14/24 prednisone 20 mg tablet 60 mg (3 x 20 mg) PO DAILY #12 tabs 06/14/24 Allergies Allergy/AdvReac Type Severity Reaction Status Date / Time No Known Allergies Allergy Verified 06/14/24 12:45 Review of Systems 2 Cardiovascular: Cardiovascular: Reports no additional cardiovascular complaints and Reports dyspnea Respiratory: Respiratory: Reports dyspnea [facility] Past Medical History Attestation statement: The following information was validated with the patient. [facility] Narrative: COPD diabetes which he has been well controlled Medical History Erectile dysfunction Diabetes Hypertension History of umbilical hernia History of left heart catheterization COPD (chronic obstructive pulmonary disease) Surgical History History of gastric bypass History of arthroscopy of knee H/O angioplasty Social History Social History Housing: Apartment Are you a primary child care centre director to a significant other at home: No Do you presently have visiting nurse or other home services: No Alcohol intake: current Alcohol intake frequency: a few times a week Patient Tobacco Use Status: Current everyday Tobacco user Tobacco use type: Cigarette e-Cigarette/Vaping Use: Never Used Advance Directives: No Advance Directives Information Provided: Yes service: No Current occupational status: retired Current occupation: rt handed Cognitive needs: No Hearing needs: No Vision needs: No Physical Exam 2 Vital Signs: Vital Signs: Last Vital Signs Temp 98.8 F 06/14/24 14:47 Pulse 95 06/14/24 15:04 Resp 18 06/14/24 15:04 BP 153/98 H 06/14/24 14:47 Pulse Ox 95 06/14/24 14:47 O2 Del Method Nasal Cannula 06/14/24 14:47 O2 Flow Rate 3 06/14/24 14:47 BMI result Body Mass Index 29.4 Not acute distress Const: General: cooperative Nutritional Appearance: well nourished O rientation/consciousness: patient oriented x3 Limitations: no limitations HEENT: Head: Yes normal to inspection General nose exam: Normal external nose present Face and sinus: Yes normal facial exam Mouth: Normal oral and palatal mucosa present Neck: Neck: Yes normal visual inspection Chest: Chest palpation & inspection: normal inspection of the chest Resp: Auscultation: rhonchi and wheezes Cardio: Palpation: normal PMI Rate: regular rate Rhythm: regular rhythm GI: Inspection: Yes normal to inspection Auscultation: normal bowel sounds Neuro: General: patient oriented x3 Course Reevaluation(s) Reevaluation #1: He is feeling much better now, he wants to go home, he does have oxygen at home that he use as needed. We will discharge home on prednisone also we will give him azithromycin which he has been shown by the literature to have anti inflammatory activity in the patient with a COPD exacerbation and helping the COPD exacerbation Time: 15:33 Medications Administered Discontinued Medications Generic Name Dose Route Start Last Admin Trade Name Freq PRN Reason Stop Dose Admin Azithromycin 500 mg 06/14/24 15:31 06/14/24 15:41 Azithromycin 500 Mg Tablet PO 06/14/24 15:32 500 mg ONCE ONE Administration Albuterol Sulfate 2.5 mg/ 0 mg 06/14/24 14:45 06/14/24 15:04 Albuterol/Ipratropium 3 ml INHALE 06/14/24 14:46 5 dose ONCE ONE Administration Methylprednisolone Sodium Succinate 125 mg 06/14/24 14:59 06/14/24 15:00 Methylprednisolone Sod Succ 125 Mg/2 Ml Vial IVPUSH 06/14/24 15:00 125 mg ONCE ONE Administration Medical Decision Making Medical Decision Making MDM Narrative: Patient presented with shortness of breath history of COPD we will obtain chest x-ray labs administer IV Solu-Medrol @3:45 PM feels better requesting discharge ,has 02 at home Differential Diagnosis Differential Diagnoses: The differential diagnosis associated with the presentation includes COPD exacerbation/pneumonia Lab Data [facility] Lab Attestation statement: I reviewed the patient's lab results. 06/14/24 13:06 06/14/24 13:06 Labs: Lab Results 06/14/24 06/14/24 06/14/24 Range/Units 13:00 13:06 13:19 WBC 5.8 (4.8-10.8) X10*3/uL RBC 5.57 (4.60-5.80) X10*6/uL Hgb 18.2 H (14.0-18.0) g/dl Hct 55.5 H (42.0-52.0) % MCV 99.6 H (80.0-98.0) fL MCH 32.7 (27.0-33.0) pg MCHC 32.8 (31.0-36.0) g/dl RDW 15.5 (11.0-16.0) % Plt Count 103 L (160-400) X10*3/uL MPV 10.5 (9.4-12.4) fL Immature Gran % (Auto) 0.3 (0.0-0.4) % Neut % (Auto) 75.0 H (45-73) % Lymph % (Auto) 13.6 L (20-40) % [place] % (Auto) 10.0 (2-11) % Eos % (Auto) 0.9 (0-4) % Baso % (Auto) 0.2 (0-2) % Lymph # (Auto) 0.8 L (1.2-4.9) X10*3/uL [place] # (Auto) 0.6 (0.1-1.2) X10*3/uL Eos # (Auto) 0.1 (0.0-0.4) X10*3/uL Baso # (Auto) 0.0 (0.0-0.2) X10*3/uL Abs Immat Gran (auto) 0.02 (0.00-0.03) X10*3/uL Absolute Neuts (auto) 4.3 (2.0-8.3) x10*3/uL Absolute Nucleated RBC 0.000 (0.0-0.012) X10*3/uL Nucleated RBC % (auto) 0.0 (0.0-0.2) /100WBC PT 11.2 (10.9-12.4) SEC INR 1.0 (0.9-1.1) VBG pH 7.41 (7.32-7.43) VBG pCO2 55 mmHg VBG pO2 39 mmHg VBG HCO3 36 H (22-26) mmol/L VBG O2 Saturation 62.0 % VBG Base Excess 9.1 mmol/L Sodium 141 (135-145) mmol/L Potassium 4.0 (3.3-5.1) mmol/L Chloride 99 (96-108) mmol/L Carbon Dioxide 31 H (22-29) mmol/L Anion Gap 15 (12-20) BUN 8 L (9-16) mg/dL Creatinine 0.68 (0.5-1.4) mg/dL Estim Creat Clear Calc 115.8 Estimated GFR > 60 Random Glucose 124 H (60-115) mg/dL Calcium 9.0 (8.4-10.2) mg/dL Magnesium 1.9 (1.6-2.6) mg/dL Total Bilirubin 0.8 (0.0-1.0) mg/dL AST 23 (5-37) U/L ALT 12 (0-40) U/L Alkaline Phosphatase 90 (39-117) U/L Troponin I High Sens 5.7 (<3.5-35.0) ng/L B-Natriuretic Peptide 33 (<100) pg/mL Total Protein 7.0 (6.5-8.0) g/dL Albumin 3.8 (3.5-5.0) g/dL Influenza Type A (PCR) NEGATIVE (Negative) Influenza Type B (PCR) NEGATIVE (Negative) RSV RNA Qual (PCR) NEGATIVE (Negative) SARS-CoV-2 RNA (RT-PCR) NEGATIVE (Negative) Independent Interpretation I performed an independent interpretation of an: Plain X-Ray Radiology Impression Discussion of test interpretation with radiology: I have reviewed the radiologist's reading. Radiologist Impression: FINDINGS: The cardiac, hilar, and mediastinal contours are normal. Aorta is tortuous and calcified. The lungs are diffusely hyperaerated, however grossly clear bilaterally. There is no pneumothorax or pleural effusion. There is no focal osseous or soft tissue abnormality. There is mild chronic wedging of a lower thoracic vertebral body. XR/XR chest 2V IMPRESSION: COPD. No superimposed active disease. Electronically signed by: Chandler James MD 06/14/2024 01:50 PM [facility] [place], [place] Prescription Management I considered prescription management with: Antibiotic and Other (prednisone) Chronic Conditions Patient?s care impacted by: Other (COPD) Discharge Plan Discharge Clinical Impression: Acute exacerbation of chronic obstructive airways disease Patient Disposition: Home, Self-Care Instructions: COPD (Chronic Obstructive Pulmonary Disease) (ED) Additional Instructions: Follow-up with your primary care physician, we sent a prescription for you prednisone and azithromycin to the pharmacy. Try not to smoke. Return if you worse. You could start the azithromycin and tomorrow we already gave you 1 dose in the emergency department Prescriptions: New prednisone 20 mg tablet 60 mg PO DAILY Qty: 12 0RF azithromycin 250 mg tablet 250 mg PO DAILY 4 Days Qty: 4 0RF Rx Instructions: start on day 2 of therapy No Action clopidogrel 75 mg tablet 75 mg PO DAILY Qty: 90 1RF metformin 500 mg tablet 500 mg PO DAILY Flonase Sensimist 27.5 mcg/actuation spray,suspension 1 spray intranasal DAILY Rx Instructions: into each nostril furosemide 10 mg/mL solution 20 mg PO QAM aspirin 81 mg tablet,delayed release (DR/EC) 81 mg PO DAILY budesonide-formoterol [Symbicort] 80-4.5 mcg/actuation HFA aerosol inhaler 2 puff inhalation BID Combivent Respimat 20-100 mcg/actuation mist 1 puff inhalation Q6H lisinopril 5 mg tablet 2.5 mg PO DAILY tizanidine 2 mg capsule 2 mg PO Q8H sertraline [Zoloft] 50 mg tablet 25 mg PO DAILY oxycodone 5 mg tablet 5 mg PO Q4H PRN (Reason: pain) 7 Days Qty: 42 0RF Rx Instructions: Partial Fill upon patient request. diazepam 5 mg tablet 5 mg PO BID PRN (Reason: Anxiety) 30 Days Qty: 60 1RF nicotine 14 mg/24 hr patch 24 hour 1 patch transdermal Q24H clotrimazole [Lotrimin AF (clotrimazole)] 1 % cream 1 appl topical BID triamcinolone acetonide 55 mcg aerosol,spray 1 spray intranasal DAILY Rx Instructions: administer into each nostril sildenafil 100 mg tablet 100 mg PO DAILY PRN (Reason: Erectile Dysfunction) Rx Instructions: administer 30 minutes to 4 hours before activity ipratropium-albuterol 0.5 mg-3 mg(2.5 mg base)/3 mL solution for nebulization 3 ml inhalation Q4H PRN (Reason: Shortness Of Breath) Trelegy Ellipta 100-62.5-25 mcg blister with device 1 inh inhalation DAILY atorvastatin 40 mg tablet 40 mg PO DAILY calcitonin (salmon) 200 unit/actuation spray,non-aerosol 1 spray intranasal (ALT) DAILY (DME) OneTouch Ultra Test Strip See Rx Instructions .Route Rx Instructions: As directed metoprolol succinate 25 mg tablet extended release 24 hr 50 mg PO DAILY Referrals: Wyatt Alejandre PA-C [Primary Care Provider] - 2 days Print Language: Ethiopian
[2024-06-14 14:47] VITALS: BP 153/98; PULSE 95; RESP 17; TEMP 37.1; O2SAT 95
[2024-06-14] MEDS: methylPREDNISolone Sod Succ 125 MG/2 ML VIAL IVPUSH (15:00)
[2024-06-14 15:04] VITALS: PULSE 95; RESP 18; O2SAT 95
[2024-06-14] MEDS: Albuterol Sulfate 2.5 MG, Albuterol/Iprat 2.5/0.5MG 3 ML 3 ML INHALE (15:04)
[2024-06-14] MEDS: Azithromycin 500 MG TABLET PO (15:41)
--- NOTE | 2024-06-14 15:50 | PC.NURSE ---
Patient stated I need to leave before 4:50pm today because I do not drive at night. I cannot drive in the dark. I feel better, so I'd like to go home . notified, plan to give oral antibiotics and discharge. 92-93% on room air.
[2024-06-14 16:04] VITALS: BP 148/69; PULSE 95; RESP 18; TEMP 36.8; O2SAT 93
--- OUTSIDE RECORDS SUMMARY | 2024-06-14 16:48 | XMS_ITS | Data Portability ---
Author Organization [place] - [facility], Allergy Address [address] [address] Assessment Encounter Date Assessment Date Assessment LastModified [...] surgery if there is scarring or stenosis. [id number] Not available 12/10/2023 16:50:24 Plan of Treatment [...] Recorded Time Foreign body in right ear [id number] Active 2022 Foreign body in right ear, initial encounte r; Note: Date Diagnose d: 04/26/2022 1:47 PM (T16.1XX A) Not Available [employer] 02:28:14 Epidermal burn of nose [id number] Active 2023 ARYA QUINTANILLA, PA-[address], [address] , [facility] - Ear Nose Throat [...] ion aerosol inhaler active Medicatio n ID: [id number] Br and Name: albuterol sulfate S end [...] Updated DateTime 12/10/2023 177.8 cm 30.7 kg/m2 63027.77 g Lesly Segal [place] - [facility] 12/10/2023 15:17:17 Social History None recorded. Functional Status None recorded. Mental Status None recorded. Family History Nothing Reported. Medical History No medical history recorded. Past Encounters Encounter ID Performer Location Encounter Start Date Encounter Closed Date Diagnosis/Indication Diagnosis SNOMED-CT Code Diagnosis ICD10 Code Diagnosis Note [id number] MERRY IVEY MD [facility] [address] [address] 12/10/2023 15:08:38 12/15/2023 07:53:41 Epidermal burn of nose 80710953 T20.14XA Health Concerns Section Related Observation LastModified by Organization Detai ls LastModified Time None Recorded Concern Status LastModified by Organization Details LastModified Time None Recorded Advance Directives Directive None Recorded Payers Encounter Date Sequence Insurance Name Policy Number Policy Penaloza Covered Member ID Penaloza Member ID Guarantor Name 12/10/2023 1 [facility] (MEDICARE REPLACEMENT/A DVANTAGE - PPO) [id number] Best Carr [id number] Best Carr 12/10/2023 2 [place]ICAID-[place]: [facility] Best Fabiola Carr [id number] Best Carr Notes Date Note Type Note [...] and uses oxygen daily. MERRY HILL MD [address] [place] [address], [id number], [facility] - [facility] 12/10/2023 17:00:32
--- OUTSIDE RECORDS SUMMARY | 2024-06-14 16:48 | XMS_ITS ---
Author Organization [facility] Address [address] [facility] [address] [place] [address] Care Team Providers Care Print Developer Name Role Phone WilianteeteeConnor Primary Care Provider Unavail able SHARMIN GALLOWAY Unavailable [phone] Allergies No Known Allergies REASON FOR VISIT [...] Orally Onc e a day Active Nasal Comfrey 0.05 % 2 sprays in each nostril as needed Nasally Twice a day Active Aspirin 81 MG 1 tablet Orally Once a day Active Viagra 100 MG 1 tablet as needed Orally prn Active Metoprolol Succinate ER 25 MG 1 tablet Orally Once a day Active Umeclidinium Cameron 62.5 MCG/INH 1 puff Inhalation Once a [...] Orally Once a day Active Vital Signs Temperature 96.7 degrees Fahrenheit 03/07/20 Heart Rate 92 /min 03/07/2023 Respiratory Rate 20 /min 03/07/2023 Height 5ft 10in in 03/07/2023 Weight 223.7 lbs 03/07/2023 BMI 32.09 kg/m2 03/07/2023 Encounters Encounter Location Date Provider Diagnosis [facility] [address] [facility] [address] [place] [address] 03/07/2023 SHARMIN GALLOWAY Type 2 diabetes mellitus [...] Y???Sex:Male David e:03/07/2025 Phone: Address: [address], [place], [id number] Pcp:Connor Infante Subjective: * Chief Complaints: * [...] 1 tablet Orally Once a day Umeclidinium Cameron 62.5 MCG/INH Aerosol Powder Breath Activated 1 puff Inhalation Once a day tiZANidine HCl 2 MG Tablet 1 tablet as needed Orally Three times a day , Notes to Pharmacist: prnCombivent Respimat 20-100 MCG/ACT Aerosol Solution 1 puff as needed Inhalation every 4 hrs Sertraline HCl 25 MG Tablet 1 tablet Orally Once a day Nasal Comfrey 0.05 % Solution 2 sprays in each [...] tablet Orally Once a day Taking Umeclidinium Cameron 62.5 MCG/INH Aerosol Powder Breath Activated 1 puff Inhalation Once a day Taking tiZANidine HCl 2 MG Tablet 1 tablet as needed Orally Three times a day , Notes to Pharmacist: prnTaking Combivent Respimat 20-100 MCG/ACT Aerosol Solution 1 puff as needed Inhalation every 4 hrs Taking Sertraline HCl 25 MG Tablet 1 tablet Orally Once a day Taking Nasal Comfrey 0.05 % Solution 2 sprays in each [...] bilaterally, protective sensation diminished 7/10 with 5.07 Roz[place] Caitlin bilaterally, vibratory sensation with tuning fork [...] Up:?prn * Billing Information: * Visit Code:? 27151 Office Visit, Est Pt., Level 3. Modifiers: 25 * Procedure Codes:? REMOVAL OF FOREIGN BODY. Modifiers: LT * Sign off status: Completed true * Provider:Jose Galloway DPM Date:? 03/07/2023 Generated for Yenny dawson/Singh/Huong on:?06/14/2024 04:48 PM EST History and Physical Notes * [...] bilaterally, protective sensation diminished 7/10 with 5.07 Rozet Caitlin bilaterally, vibratory sensation with tuning fork [...]
--- OUTSIDE RECORDS SUMMARY | 2024-06-14 16:49 | XMS_ITS ---
Author Organization [facility] Address [address] [place] [address] Care Team Providers Care Rice Milling Supervisor Name Role Phone Connor Infante Primary Care Provider Unavail able STAN ESCOBEDO [phone] REASON FOR VISIT Rx Refill Medications Medication SIG (Take, Route, Frequency, Duration) Notes Start Date End Date Status Eucerin Intensive Repair - as directed E xternally once daily for 90 days 04/23/2024 Active Encounters Encounter Location Date Provider Diagnosis [facility] [address] [address] 04/22/2024 STAN ESCOBEDO Plan Of Treatment Medication Medication Name Sig Start Date Stop Date Notes Eucerin Intensive Repair - as directed E xternally once daily for 90 days 04/23/2024 Progress Notes * Best DICKERSON PDOB:[birth year] (68 yo M)Acc No.[id number]:04/22/2024 Patient:?Best DICKERSON :1955???Age:68 Y???Sex:Male Phone: Address:[address], [place] [address] * Refills? Start Eucerin Intensive Repair Ointment, -, Externally, 100, as directed, once daily, 90 days, Refills=1 * true * Date:? Generated for Yenny dawson/Singh/eTransmitting on:?06/14/2024 04:48 PM EST
--- OUTSIDE RECORDS SUMMARY | 2024-06-14 16:49 | XMS_ITS ---
Author Organization [facility] Address [address] [place] [address] Care Team Providers Care Sales Branch Manager Name Role Phone Wilianteetee Connor Primary Care Provider Unavail able SHARMIN GALLOWAY Unavailable [phone] Allergies No Known Allergies REASON FOR VISIT [...] Orally Onc e a day Active Nasal [place] 0.05 % 2 sprays in each nostril as needed Nasally Twice a day Active tiZANidine HCl 2 MG 1 tablet as needed Orally Three times a day prn Active Combivent Respimat 20-100 MCG/ACT 1 puff as needed Inhalation every 4 hrs Active Umeclidinium [place] 62.5 MCG/INH 1 puff Inhalation Once a day Active Vital Signs Temperature 97.4 degrees Fahrenheit 08/08/19 Heart Rate 96 /min 08/08/2023 Respiratory Rate 20 /min 08/08/2023 Height 5ft 10in in 08/08/2023 Weight 221.5 lbs 08/08/2023 BMI 31.78 kg/m2 08/08/2023 Encounters Encounter Location Date Provider Diagnosis [facility] [address] [facility] [address] [place] [address] 08/08/2023 SHARMIN GALLOWAY Type 2 diabetes mellitus [...] Y???Sex:Male David e:08/08/2023 Phone: Address: [address], [place], [id number] Pcp:Connor Infante Subjective: * Chief Complaints: [...] 1 tablet Orally Once a day Umeclidinium [place] 62.5 MCG/INH Aerosol Powder Breath Activated 1 puff Inhalation Once a day tiZANidine HCl 2 MG Tablet 1 tablet as needed Orally Three times a day , Notes to Pharmacist: prnCombivent Respimat 20-100 MCG/ACT Aerosol Solution 1 puff as needed Inhalation every 4 hrs Sertraline HCl 25 MG Tablet 1 tablet Orally Once a day Nasal [place] 0.05 % Solution 2 sprays in each [...] tablet Orally Once a day Taking Umeclidinium [place] 62.5 MCG/INH Aerosol Powder Breath Activated 1 puff Inhalation Once a day Taking tiZANidine HCl 2 MG Tablet 1 tablet as needed Orally Three times a day , Notes to Pharmacist: prnTaking Combivent Respimat 20-100 MCG/ACT Aerosol Solution 1 puff as needed Inhalation every 4 hrs Taking Sertraline HCl 25 MG Tablet 1 tablet Orally Once a day Taking Nasal [place] 0.05 % Solution 2 sprays in each [...] bilaterally, protective sensation diminished 7/10 with 5.07 [place] Caitlin bilaterally, vibratory sensation with tuning fork [...] Up:?prn * Billing Information: * Visit Code:? 67166 Office Visit, Est Pt., Level 3. Modifiers: 25 * Procedure Codes:? REMOVAL OF FOREIGN BODY. Modifiers: LT * Sign off status: Completed true * Provider:?Sharmin Galloway DPM Date:? 08/08/2023 Generated for Yenny dawson/Singh/Chuckitting on:?06/14/2024 04:49 PM EST History and Physical Notes * [...] bilaterally, protective sensation diminished 7/10 with 5.07 [place] Caitlin bilaterally, vibratory sensation with tuning fork [...]
--- OUTSIDE RECORDS SUMMARY | 2024-06-14 16:50 | XMS_ITS | Encounter Summary ---
Author Organization [facility] Address [address] [place] [address] Care Team Providers Care Manufacturing Advisor Name Role Phone Connor Fletcher Primary Care Provider [phone] Reason for Visit * Reason Onset Date Comments Appointment 05/20/2024 1st Notification Encounter Details Date Type Department Care Team (Late st Contact Info) Description 05/20/2024 Telephone Lung Screening Program - [place] [address] [place] [address] Chloé Singh MA Appointment (1st Notification) Social History Tobacco Use Types Packs/Day Years Used Date Smoking Tobacco: Some Days Cigarettes Last attempted to quit: 05/20/2016 Smokeless Tobacco: Never Alcohol Use Standard Drinks/Week Comments Yes 1.7 (1 standard drink = 0.6 oz p ure alcohol) Sex and Gender Information Value Date Recorded Sex Assigned at Not on file Legal Sex Male 1:20 PM EST Gender Identity Not on file Sexual Orientation Not on file documented as of this encounter Progress Notes * Chloé Singh MA - 05/20/2024 12:09 PM EST Best Carr was contacted by the Lung Cancer Screening Program today to confirm the appointmentof their Lung Cancer Screening. The patient is currently scheduled to have their screening on FridayJune 072024, at [facility]. Patient has severed all connection with the hospital. And is going to [facility]. Will cancel the the CT . And with draw from the [facility] program For all screenings scheduled during the week, the patient will check in [facility]. For screenings that take place on [...] their screening on , Friday at at [facility]. For all screenings scheduled during the week, the patient will check in at [facility] For screenings that take place on [...] Team (Late st Contact Info) Description 08/11/2024 1:30 PM EDT Office Visit Adult Medicine [facility] [address] [place] [address] Cononr Fletcher PA [address] [place] [address] documented as of this encounter Visit Diagnoses Not on filedocumented in this encounter Care Teams Manufacturing Advisor Relationship Specialty Start Date End Date Connor Fletcher PA [address] [place] [address] PCP - General Internal Medicine 12/13/19 documented as of this encounter
--- OUTSIDE RECORDS SUMMARY | 2024-06-14 16:50 | XMS_ITS | Encounter Summary ---
Author Organization [facility] [place] [address] Care Team Providers Care It Project Lead Name Role Phone Connor Fletcher Primary Care Provider [phone] Reason for Visit * Reason Onset Date Comments Fitting for DME 06/01/2024 Faxed form from [employer] Encounter Details Date Type Department Care Team (Late st Contact Info) Description 06/01/2024 Telephone Adult Medicine [address] [phone] Pratibha Shore LPN Fitting for DME (Faxed form from [employer]) Social History Tobacco Use Types Packs/Day Years [...] as of this encounter Progress Notes * Pratibha Shore LPN - 06/03/2024 8:18 AM EST Forms signed and faxed to [employer] @ [phone] * Pratibha Shore LPN - 06/01/2024 1:13 PM EST For diabetic shoes Form to Dr Waters to sign documented in this encounter Plan of Treatment Upcoming Encounters Date Type Department Care Team (Late st Contact Info) Description 08/11/2024 1:30 PM EDT Office Visit Adult Medicine [facility] [address] [place] [address] Connor Fletcher PA [address] [place] [address] documented as of this encounter Visit Diagnoses Not on filedocumented in this encounter Care Teams It Project Lead Relationship Specialty Start Date End Date Connor Fletcher PA [address] [place] [address] PCP - General Internal Medicine 12/13/19 documented as of this encounter
--- OUTSIDE RECORDS SUMMARY | 2024-06-14 16:50 | XMS_ITS | Clinical Summary ---
Author Organization [facility] Address [address] [place] [address] Phone Care Team Providers Care Staff Cytotechnologist Name Role Phone Connor Fletcher Primary Care Provider [phone] [phone] Allergies No known active allergies Medications albuterol HFA (PROAIR HFA ; PROVENTIL HFA ; VENTOLIN HFA) 90 mcg/actuation inhaler INHALE 2 PUFFS INTO THE LUNGS EVERY 4 HOURS NEEDED FOR COUGH OR WHEEZING 07/18/19 23 Active aspirin 81 mg EC tablet Take 1 Tablet by mouth daily. 5 days a week Active calcitonin salmon (MIACALCIN) 200 unit/actuatio n nasal spray USE 1 SPRAY ALTERNATING NOSTILS ONCE DAILY 12/29/19 24 Active clotrimazole (LOTRIMIN) 1 % cream Apply to affected area twice daily as needed 10/30/19 23 Active ipratropium-a lbuteroL (Combivent Respimat) 20-100 mcg/actuation inhaler INHALE 1 PUFF INTO THE LUNGS FOUR TIMES A DAY 11/24/19 24 Active ferrous sulfate (IRON ORAL) Take by mouth. Activ e fluticasone propionate (FLONASE) 50 mcg/actuation nasal spray 2 Sprays by Nasal route daily. 02/18/20 23 Active furosemide (LASIX) 20 mg tablet Take 1 Tablet by mouth daily. 05/02/19 24 Active ipratropium-a lbuteroL (DUONEB) 0.5-2.5 mg/3 mL nebulizer solution INHALE 3 ML INTO THE LUNGS FOUR TIMES A DAY NEEDED FOR SHORTNESS OF BREATH OR WHEEZING 07/16/19 24 Active lisinopriL (PRINIVIL,ZES TRIL) 2.5 mg tablet Take 1 Tablet by mouth daily. 05/02/19 24 Active metFORMIN (GLUCOPHAGE) 500 mg tablet TAKE ONE TABLET BY MOUTH TWICE A DAY WITH MEALS 12/04/19 24 Active metoprolol succinate (TOPROL-XL) 25 mg 24 hr tablet Take 2 Tablets by mouth daily. 11/12/19 24 Active nicotine (NICODERM CQ) 14 mg/[address] 1 Patch onto the skin every 24 hours. 05/02/19 24 Active MEN'S MULTI-VITAMIN ORAL Take 1 Tab by mouth daily. 07/26/19 16 Active ONETOUCH DELICA LANCETS [facility] USE 1 LANCET TWICE DAILY TO TEST BLOOD SUGAR 04/09/20 12 Active Oxygen Therapy, Adult Inhale into the lungs. 3 liters at HS and PRN with activity. Active sertraline (ZOLOFT) 25 mg tablet TAKE ONE TABLET BY MOUTH EVERY DAY 01/06/20 24 Active sildenafiL (VIAGRA) 100 mg tablet TAKE ONE TABLET BY MOUTH NEEDED 60 MINUTES BEFORE INTERCOURSE. MAX 100 MGS IN 24 HOURS 08/25/19 24 Active tiZANidine (ZANAFLEX) 2 mg tablet TAKE ONE TABLET BY MOUTH EVERY 8 HOURS NEEDED 11/21/19 23 Active triamcinolone (NASACORT) 55 mcg nasal inhaler INHALE ONE PUFF VIA NASAL ROUTE DAILY 07/25/19 23 Active blood-glucose meter (OneTouch Ultra2 Meter) [facility] by Other route 4 (four) times a day. DX E11.9 1 each 02/26/20 24 Active OneTouch Ultra Test test strip USE A NEW STRIP 4 TIMES A DAY TO TEST BLOOD SUGAR 400 strip 1 04/07/20 24 Active predniSONE (DELTASONE) 10 mg tablet TAKE 4 TABLETS BY MOUTH DAILY FOR 3 DAYS,THEN 2 TABLETS DAILY FOR 4 DAYS. 20 tablet 04/06/20 24 Active atorvastatin (LIPITOR) 40 mg tablet TAKE ONE TABLET BY MOUTH EVERY DAY 90 tablet 3 04/07/20 24 Active diazePAM (VALIUM) 5 mg tablet TAKE ONE TABLET BY MOUTH EVERY 8 HOURS NEEDED FOR ANXIETY. 60 tablet 04/27/19 25 Active oxyCODONE (ROXICODONE) 5 mg immediate release tablet 1 TO 2 TABLETS BY MOUTH EVERY 6 HOURS NEEDED FOR PAIN 56 tablet 04/27/19 25 Active azithromycin (ZITHROMAX) 250 mg tablet TAKE 1 TABLET BY MOUTH 3 TIMES A WEEK. 12 tablet 3 05/14/19 25 Active Trelegy Ellipta 100-62.5-25 mcg inhaler INHALE 1 PUFF INTO THE LUNGS DAILY AT THE SAME TIME EACH DAY. RINSE MOUTH AFTER ADMINISTRATION TO AVOID FUNGAL INFECTION DUE TO USE OF INHALED STEROID 180 each 3 05/17/19 25 Active fluticasone-u meclidinium-v ilanterol (Trelegy Ellipta) 100-62.5-25 mcg inhaler INHALE 1 PUFF INTO THE LUNGS DAILY AT THE SAME TIME EACH DAY. RINSE MOUTH AFTER ADMINISTRATION TO AVOID FUNGAL INFECTION DUE TO USE OF INHALED STEROID 07/10/19 24 2024 Discontinued Active Problems Problem Noted Date Diagnosed [...] Encounters Date Type Department Care Team Description 06/01/2024 Telephone Adult Medicine [address] [address] Pratibha Shore LPN Fitting for DME (Faxed form from [employer]) 05/20/2024 Telephone Lung Screening Program - [place] [address] [address] Chloé Singh MA Appointment (1st Notification) 05/19/2024 Telephone Pulmonology [facility] [address] [address] Keon Borja MA 05/04/2024 Telephone Thoracic Surgery [facility] [address] [facility] [address] [place] [address] Rosie Metz PA 03/30/2024 Telephone [facility] Hematology Oncology [address] [place] [phone] Maribeth Negron MD 03/23/2024 Telephone Orthopedic Surgery [facility] [address] [facility] [address] [place] [phone] Berta Duran MA Surgery 03/23/2024 Telephone [facility] Hematology Oncology [address] [place] [address] Maribeth Negron MD from Last 3 Months Immunizations Name Administration [...] CARDIAC CATH OTHER SURGICAL HISTORY 08/08/2016 PROCEDURE: ND GASTRIC RSTCV W/O BYP VERTICAL-BANDED GASTROPLY; COMMENT: Sleeve gastrectomy; Dr. Franco COLONOSCOPY 2012 PROCEDURE: HISTORICAL COLONOSCOPY; COMMENT: hospital based colonoscopy, normal ESOPHAGOGASTRODUODENOSCOPY 2012 PROCEDURE: ND EGD TRANSORAL BIOPSY SINGLE/MULTIPLE; COMMENT: normal COLONOSCOPY [...] essential hypertension DX:Unspecified essential hypertension Morbid obesity ([facility]) DX:Morb id obesity ([facility]) Diabetes mellitus ([facility]) 11/14/2011 DX:D iabetes mellitus ([facility]) Diabetes mellitus ([facility]) DX:D iabetes mellitus ([facility]); COMMENT: new dx 10/30 COPD (chronic obstructive pu lmonary disease) ([facility]) 02/13/2010 DX:COPD (chronic obstructive pulmonary disease) ([facility]) Type 2 diabetes, controlled, with renal manifestation ([facility]) 12/14/2012 DX:Type 2 diabetes, cont rolled, with renal manifestation ([facility]); COMMENT: Microalbumin 218 on 09/30/2012 Hypertension 02/13/2010 DX:Hypertension Diabetes mellitus type 2 wit h neurological manifestations ([facility]) 03/20/2015 DX:Diabetes uriah itus type 2 with neurological manifestations ([facility]) Hyperlipidemia DX:Hyperlipidemi a Family History Medical History [...] on file Sexual Orientation Not on file Obstetrics History Last Filed [...] 1:30 PM EDT Office Visit Adult Medicine [facility] [address] [place] [address] Connor Fletcher PA [address] [place] [address] Health Maintenance Due Date Last Done Comments [...] Hepatitis C Screening Completed 01/03/2013 Pneumococcal Vaccine: 50+ Years Completed 01/13/2020, 12/14/2018, 12/02/2018, Additional history [...] patient's age to complete this topic Meningococcal B Vacine Aged Out No lo nger eligible based on patient's age to complete this topic RSV Immunization Patients Under 20 months Aged Out No longer eligible based on patient's age to complete this topic Varicella Vaccines Aged Out No longer eligible based on patient's age to complete this topic Procedures Procedure Name Priority Date/Time Associated Diagnosis Comments HM URINE ALBUMIN CREATININE RATIO Routine 08/14/2023 ANNUAL BMP BLOOD TEST Routine 08/14/2023 HEMOGLOBIN A1C Routine 08/14/2023 LIPID PANEL Routine 08/14/2023 DIABETES FOOT EXAM Routine 08/08/2023 ABDOMINAL AORTIC ANEURYSM SCRREN Routine 07/02/2023 COLONOSCOPY Routine 06/19/2021 HEPATITIS C SCREENING Routine 01/03/2013 from Last 3 Months or Most Recently Relevant to Health Maintenance Results * Urine Albumin Creatinine Ratio (08/14/2023) [facility] Urine Albumin Creatinine Ratio Abstracted Result [facility] HEALTH MAINTENANCE Final Result * Annual BMP Blood Test (08/14/2023) [facility] Annual BMP Blood Test Abstracted Result [facility] HEALTH MAINTENANCE Final Result * Hemoglobin A1c (08/14/2023) [facility] Hemoglobin A1C 6.1 <=6.5 % Blood Venous blood specimen / Unknown Result [facility] LAB BLOOD ORDERABLES Diamante l Result * (ABNORMAL) Lipid panel (08/14/2023) [facility] LDL/HDL Ratio 2 0 - 4 Triglycerides 204(A) 0 - 150 mg/dL Cholesterol 175 0 - 200 mg/dL HDL 74 >=40 mg/dL LDL Cholesterol 61 0 - 100 mg/dL Blood Venous blood specimen / Unknown Result [facility] Provider LAB BLOOD ORDERABLES Diamante l Result * Diabetes Foot Exam (08/08/2023) [facility] Diabetes: Annual Foot Exam Abstracted Result [facility] HEALTH MAINTENANCE Final Result * Abdominal Aortic Aneurysm Screen (07/02/2023) Abdominal Aortic Aneurysm (AAA) Screening Abstracted Anatomical Region Laterality Modality Other Historical Provider HEALTH MAINTENANCE Final Result * Colonoscopy (06/19/2021) Colonoscopy Abstracted, no interpretation Anatomical Region Laterality Modality Other [facility] Provider HEALTH MAINTENANCE Final Result * Hepatitis C Screening (01/03/2013) Hepatitis C Screening Abstracted [facility] Provider HEALTH MAINTENANCE Final Result from Last 3 Months or Most Recently Relevant to Health Maintenance Insurance MEDICAID - [place] [employer] MEDICARE Care Teams Staff Cytotechnologist Relationship Specialty Start Date End Date Connor Fletcher PA [address] [place] [address] PCP - General Internal Medicine 12/13/19
--- OUTSIDE RECORDS SUMMARY | 2024-06-14 16:50 | XMS_ITS | Encounter Summary ---
Author Organization [facility] Address [address] [place] [address] Care Team Providers Care Coater Operator Name Role Phone Connor Fletcher Primary Care Provider [phone] Encounter Details Date Type Department Care Team (Late Contact Info) Description 05/19/2024 Telephone Pulmonology - [place] [address] [facility] [address] [place] [phone] Keon Diane MA Social History Tobacco Use [...] Care Team (Late Contact Info) Description 08/11/2024 1:30 PM EDT Office Visit Adult Medicine [address] [phone] Connor Fletcher PA [address] [place] [address] documented as of this encounter Visit Diagnoses Not on filedocumented in this encounter Care Teams Coater Operator Relationship Specialty Start Date End Date Connor Fletcher PA [address] [place] [address] PCP - General Internal Medicine 12/13/19 documented as of this encounter
== END 2024-06-14 16:04 | disposition home or self-care (01) ==
PROVIDERS: Physician Assistant Medical; Emergency Provider Emergency Medicine; PCP Physician Assistant
DX: J44.1 Chronic obstructive pulmonary disease with (acute) exacerbation (principal); R06.02 Shortness of breath; R00.0 Tachycardia, unspecified; Z87.891 Personal history of nicotine dependence; Z79.899 Other long term (current) drug therapy; Z03.818 Encounter for observation for suspected exposure to other biological agents ruled out
CPT/HCPCS: 0241U; 71046; 80053; 82803; 83735; 83880; 84484; 85025; 85610; 93005; 94640; 96374; 99284; J2919

== ENCOUNTER → 2024-06-14 12:40 | Outpatient (BNV) | payer MEDICARE, MEDICAID, SELFPAY | PROVIDERS: PCP Physician Assistant; Visit Provider Radiology Diagnostic Radiology | DX: R06.09 Other forms of dyspnea (principal) | CPT/HCPCS: 71046 ==

== ENCOUNTER → 2024-06-14 12:40 | Outpatient (BNV) | payer MEDICARE, MEDICAID, SELFPAY | PROVIDERS: Emergency Provider Emergency Medicine; PCP Physician Assistant; Visit Provider Internal Medicine | DX: R00.0 Tachycardia, unspecified (principal); R06.09 Other forms of dyspnea | CPT/HCPCS: 93010 ==

== ENCOUNTER 2024-06-17 10:32 | Outpatient (AMB) | payer MEDICARE, MEDICAID, SELFPAY ==
--- NOTE | 2024-06-17 10:33 | A.OFFVIS_ITS ---
Vital Signs 06/17/24 10:35 Height 5 ft 10 in Weight 205 lb BMI 29.4 Intake Visit Reasons: 2 week follow up angio Intake Note: 2 week follow up Left Angio 05/24/24, diagnosic angio Accompanied by: Self / Same As Patient Allergies No Known Allergies Allergy (Verified 06/17/24 10:38) HPI HPI 2 week follow up angio: Details: Very pleasant 68-year-old gentleman presents for follow-up status post angiogram with endovascular intervention. On 05/24/2024 he underwent right common iliac plasty. He reports he is doing fairly well from that. He now presents for routine postprocedure follow-up. He does state that he is ambulating somewhat better. He is being maintained on aspirin Plavix and statin REPLACED BY [facility] Medical History (Updated 06/17/24 @ 16:05 by Reyes Canas MD) PAD (peripheral artery disease) Nicotine dependence, cigarettes, uncomplicated Erectile dysfunction Diabetes Hypertension History of umbilical hernia History of left heart catheterization COPD (chronic obstructive pulmonary disease) Surgical History (Updated 06/17/24 @ 14:10 by Maggy Gardner PA-C) History of gastric bypass (~2016) History of arthroscopy of knee H/O angioplasty Social History Housing: Apartment Are you a primary director of managed care to a significant other at home: No Do you presently have visiting nurse or other home services: No Alcohol intake: current Alcohol intake frequency: a few times a week Patient Tobacco Use Status: Current everyday Tobacco user Tobacco use type: Cigarette e-Cigarette/Vaping Use: Never Used service: No Current occupational status: retired Current occupation: rt handed Cognitive needs: No Hearing needs: No Vision needs: No Review of Systems Const All systems reviewed & are unremarkable except as noted in HPI and below Reports no additional complaints ENT Reports Normal hearing present Card Denies chest pain, Denies chest pain at rest, Denies chest pain with activity and Denies pedal edema Resp Denies cough GI Denies abdominal pain Musc Denies abnormal gait, Denies muscle cramps and Denies radiating pain into limb Skin/Breast Denies skin ulcer and Denies wounds Neuro Reports Normal hearing present and Denies abnormal gait Psych Reports no additional complaints Physical Exam Vital Signs: BMI result Body Mass Index 29.4 Const General: cooperative, healthy appearing and comfortable Orientation/consciousness: oriented to person, oriented to place and oriented to time HEENT Head: Yes normal to inspection Neck Neck: Yes normal visual inspection Carotids: no bruits Chest Chest palpation & inspection: normal inspection of the chest Resp Effort & Inspection: normal respiratory effort and able to speak in complete sentences Auscultation: clear to auscultation bilaterally, no crackles, no rales, no rhonchi and no wheezes Cardio Other: Bilateral DP signals Rate: regular rate Rhythm: regular rhythm Heart sounds: S1 normal heart sound present and S2 normal heart sound present Bruits: no carotid bruits Peripheral pulses: Peripheral pulses 2+ throughout GI Inspection: Yes normal to inspection Skin Wounds: no wounds Hair: normal Neuro General: oriented to person, oriented to place and oriented to time Cranial nerves: Yes CN's II-XII intact bilaterally and Yes Normal hearing present Cognition (Neuro): normal cognition Motor exam (neuro): 5/5 motor strength present throughout Extrem Other: venous exam: No significant superficial varicosities or spider telangiectasias, minimal edema General: No clubbing, No cyanosis and No edema Psych Appearance: grossly normal Mental Status: mental status grossly normal Speech and movement: Normal speech and movement present Assessment & Plan Assessment & Plan (1) PAD (peripheral artery disease): Comment: 2019 left common iliac and left SFA angioplasty and stenting.- [facility] 05/24/2024 - right common iliac plasty Code(s): I73.9 - Peripheral vascular disease, unspecified Category: Medical Plan: In short patient has done well with endovascular intervention. Should further treatment be required he will require left common femoral endarterectomy. At the current time we will manage this conservatively and see how he is doing in 3 months.. I did review the pathophysiology of peripheral vascular disease with the patient. In addition we did discuss routine conservative measures including a healthy diet and the importance of exercise and ambulation. We did discuss risk factor modification. The patient will continue to to follow-up with surveillance follow-up in approximately 3 months. Thank you for allowing us to participate in this patient's care. If there are any questions or concerns please do not hesitate to contact us. Orders: Orders US arterial duplex LE BI 3 Months I73.9 - Peripheral vascular disease, unspecified Coding Level of Care Code Est Pt Level 4 (97662) Complex EM visit Add On G2211 Diagnoses PAD (peripheral artery disease) I73.9
[2024-06-17 10:35] VITALS: BMI 29.4
--- OUTSIDE RECORDS SUMMARY | 2024-06-17 12:24 | XMS_ITS | Encounter Summary ---
Author Organization [facility] [place] [address] Care Team Providers Care Private Watchman Name Role Phone Connor Fletcher Primary Care Provider [phone] [phone] Encounter Details Date Type Department Care Team (Late Contact Info) Description 05/19/2024 Telephone Pulmonology - [place] [address] [facility] [address] [place] [phone] Keon Diane MA Social History Tobacco Use [...] 1:30 PM EDT Office Visit Adult Medicine [address] [phone] Connor Fletcher PA [address] [place] [address] documented as of this encounter Visit Diagnoses Not on filedocumented in this encounter Care Teams Private Watchman Relationship Specialty Start Date End Date Connor Fletcher PA [address] [place] [address] PCP - General Internal Medicine 12/13/19 documented as of this encounter
--- OUTSIDE RECORDS SUMMARY | 2024-06-17 12:24 | XMS_ITS ---
Author Organization [facility] Address [address] [place] [address] Care Team Providers Care Radiology Scheduler Name Role Phone Connor Infante Primary Care Provider Unavail able STAN ESCOBEDO [phone] REASON FOR VISIT Rx Refill Medications Medication SIG (Take, Route, Frequency, Duration) Notes Start Date End Date Status Eucerin Intensive Repair - as directed E xternally once daily for 90 days 04/23/2024 Active Encounters Encounter Location Date Provider Diagnosis [facility] [address] [address] 04/22/2024 STAN ESCOBEDO Plan Of Treatment Medication Medication Name Sig Start Date Stop Date Notes Eucerin Intensive Repair - as directed E xternally once daily for 90 days 04/23/2024 Progress Notes * Best DICKERSON PDOB:[birth year] (68 yo M)Acc No.[id number]:04/22/2024 Patient:?Best DICKERSON :1955???Age:68 Y???Sex:Male Phone: Address:[address], [place] [address] * Refills? Start Eucerin Intensive Repair Ointment, -, Externally, 100, as directed, once daily, 90 days, Refills=1 * true * Date:? Generated for Yenny dawson/Singh/eTransmitting on:?06/17/2024 12:23 PM EST
--- OUTSIDE RECORDS SUMMARY | 2024-06-17 12:24 | XMS_ITS ---
Author Organization [facility] Address [address] [facility] [address] [place] [address] Care Team Providers Care Event Sales Manager Name Role Phone WilianteeteeConnor Primary Care Provider Unavail able SHARMIN GALLOWAY Unavailable [phone] Allergies No Known Allergies REASON FOR VISIT [...] Orally Onc e a day Active Nasal Sidney 0.05 % 2 sprays in each nostril as needed Nasally Twice a day Active Aspirin 81 MG 1 tablet Orally Once a day Active Viagra 100 MG 1 tablet as needed Orally prn Active Metoprolol Succinate ER 25 MG 1 tablet Orally Once a day Active Umeclidinium [place] 62.5 MCG/INH 1 puff Inhalation Once a [...] 03/07/2023 Encounters Encounter Location Date Provider Diagnosis [facility] [address] [facility] [address] [place] [address] 03/07/2023 SHARMIN GALLOWAY Type 2 diabetes mellitus [...] Y???Sex:Male David e:03/07/2023 Phone: Address: [address], [place], [id number] Pcp:Connor Infante Subjective: * Chief Complaints: * [...] 1 tablet Orally Once a day Umeclidinium [place] 62.5 MCG/INH Aerosol Powder Breath Activated 1 puff Inhalation Once a day tiZANidine HCl 2 MG Tablet 1 tablet as needed Orally Three times a day , Notes to Pharmacist: prnCombivent Respimat 20-100 MCG/ACT Aerosol Solution 1 puff as needed Inhalation every 4 hrs Sertraline HCl 25 MG Tablet 1 tablet Orally Once a day Nasal Sidney 0.05 % Solution 2 sprays in each [...] tablet Orally Once a day Taking Umeclidinium [place] 62.5 MCG/INH Aerosol Powder Breath Activated 1 puff Inhalation Once a day Taking tiZANidine HCl 2 MG Tablet 1 tablet as needed Orally Three times a day , Notes to Pharmacist: prnTaking Combivent Respimat 20-100 MCG/ACT Aerosol Solution 1 puff as needed Inhalation every 4 hrs Taking Sertraline HCl 25 MG Tablet 1 tablet Orally Once a day Taking Nasal Sidney 0.05 % Solution 2 sprays in each [...] bilaterally, protective sensation diminished 7/10 with 5.07 [place] Caitlin bilaterally, vibratory sensation with tuning fork [...] Up:?prn * Billing Information: * Visit Code:? 79065 Office Visit, Est Pt., Level 3. Modifiers: 25 * Procedure Codes:? REMOVAL OF FOREIGN BODY. Modifiers: LT * Sign off status: Completed true * Provider:Jose Galloway DPM Date:? 03/07/2023 Generated for Yenny dawson/Singh/Huong on:?06/17/2024 12:23 PM EST History and Physical Notes * [...] bilaterally, protective sensation diminished 7/10 with 5.07 [place] Caitlin bilaterally, vibratory sensation with tuning fork [...]
--- OUTSIDE RECORDS SUMMARY | 2024-06-17 12:24 | XMS_ITS | Encounter Summary ---
Author Organization [facility] [place] [address] Care Team Providers Care Manager Privacy Name Role Phone Connor Fletcher Primary Care Provider [phone] Reason for Visit * Reason Onset Date Comments Fitting for DME 06/01/2024 Faxed form from [employer] Encounter Details Date Type Department Care Team (Late st Contact Info) Description 06/01/2024 Telephone Adult Medicine [address] [phone] Pratibha Shore LPN Fitting for DME (Faxed form from [employer]) Social History Tobacco Use Types Packs/Day Years [...] AM EST Forms signed and faxed to [employer] @ [phone] * Pratibha Shore LPN - 06/01/2024 1:13 PM EST For diabetic shoes Form to Dr Waters to sign documented in this encounter Plan of Treatment Upcoming Encounters Date Type Department Care Team (Late st Contact Info) Description 08/11/2024 1:30 PM EDT Office Visit Adult Medicine [facility] [address] [place] [address] Connor Fletcher PA [address] [place] [address] documented as of this encounter Visit Diagnoses Not on filedocumented in this encounter Care Teams Manager Privacy Relationship Specialty Start Date End Date Connor Fletcher PA [address] [place] [address] PCP - General Internal Medicine 12/13/19 documented as of this encounter
--- OUTSIDE RECORDS SUMMARY | 2024-06-17 12:24 | XMS_ITS | Encounter Summary ---
Author Organization [facility] Address [address] [place] [address] Care Team Providers Care Storeroom Keeper Name Role Phone Connor Fletcher Primary Care Provider [phone] Reason for Visit * Reason Onset Date Comments Appointment 05/20/2024 1st Notification Encounter Details Date Type Department Care Team (Late st Contact Info) Description 05/20/2024 Telephone Lung Screening Program - [place] [address] [place] [address] Chloé Singh MA Appointment (1st Notification) Social [...] have their screening on FridayJune 072024, at [facility]. Patient has severed all connection with the hospital. And is going to [facility]. Will cancel the the CT . And with draw from the [facility] program For all screenings scheduled during the week, the patient will check in at Patient Registration on the first floor of the [facility]. For screenings that take place on [...] their screening on , Friday at at [facility]. For all screenings scheduled during the week, the patient will check in at Patient Registration on the first floor of the [facility]. For screenings that take place on [...] 1:30 PM EDT Office Visit Adult Medicine [facility] [address] [place] [address] Connor Fletcher PA [address] [place] [address] documented as of this encounter Visit Diagnoses Not on filedocumented in this encounter Care Teams Storeroom Keeper Relationship Specialty Start Date End Date Connor Fletcher PA [address] [place] [address] PCP - General Internal Medicine 12/13/19 documented as of this encounter
--- OUTSIDE RECORDS SUMMARY | 2024-06-17 12:24 | XMS_ITS | Clinical Summary ---
Author Organization [facility] Address [address] [place] [address] Phone Care Team Providers Care Director Of Consumer Marketing Name Role Phone Connor Fletcher Primary Care Provider [phone] [phone] Allergies No known active allergies Medications albuterol [...] daily. 07/26/19 16 Active ONETOUCH DELICA LANCETS [facility] USE 1 LANCET TWICE DAILY TO TEST [...] 23 Active blood-glucose meter (OneTouch Ultra2 Meter) [facility] by Other route 4 (four) times a day. DX E11.9 1 each 02/26/20 24 Active OneTouch Ultra Test test strip USE A NEW STRIP 4 TIMES A DAY TO TEST BLOOD SUGAR 400 strip 1 04/07/20 24 Active atorvastatin (LIPITOR) 40 mg tablet [...] STEROID 180 each 3 05/17/19 25 Active predniSONE (DELTASONE) 10 mg tablet TAKE 4 TABLETS BY MOUTH DAILY FOR 3 DAYS,THEN 2 TABLETS DAILY FOR 4 DAYS. 20 tablet 06/16/19 25 Active predniSONE (DELTASONE) 10 mg tablet TAKE 4 TABLETS BY MOUTH DAILY FOR 3 DAYS,THEN 2 TABLETS DAILY FOR 4 DAYS. 20 tablet 04/06/20 24 2024 Discontinued Active Problems Problem Noted [...] Care Team Description 06/01/2024 Telephone Adult Medicine [address] [address] Pratibha Shore LPN Fitting for DME (Faxed form from [employer]) 05/20/2024 Telephone Lung Screening Program - [place] [address] [phone] Chloé Singh [place] Appointment (1st Notification) 05/19/2024 Telephone Pulmonology [facility] [address] [address] Keon Borja MA 05/04/2024 Telephone Thoracic Surgery [facility] [address] [facility] [address] [place] [address] Rosie Metz PA 03/30/2024 Telephone [facility] Hematology Oncology [address] [place] [address] Maribeth Negron MD 03/23/2024 Telephone Orthopedic Surgery [facility] [address] [facility] [address] [place] [phone] Berta Duran MA Surgery 03/23/2024 Telephone [facility] Hematology Oncology [address] [place] [address] Maribeth Negron MD from Last 3 Months [...] CARDIAC CATH OTHER SURGICAL HISTORY 08/08/2016 PROCEDURE: [facility] GASTRIC RSTCV W/O BYP VERTICAL-BANDED GASTROPLY; COMMENT: Sleeve gastrectomy; Dr. Franco COLONOSCOPY 2012 PROCEDURE: HISTORICAL COLONOSCOPY; COMMENT: hospital based colonoscopy, normal ESOPHAGOGASTRODUODENOSCOPY 2012 PROCEDURE: [facility] EGD TRANSORAL BIOPSY SINGLE/MULTIPLE; COMMENT: normal COLONOSCOPY [...] essential hypertension DX:Unspecified essential hypertension Morbid obesity ([facility]/HCC) DX:Morb id obesity (HCC) Diabetes mellitus ([facility]/HCC) 11/14/2011 DX:D iabetes mellitus (HCC) Diabetes mellitus ([facility]) DX:D iabetes mellitus ([facility]); COMMENT: new dx 10/30 COPD (chronic obstructive pu lmonary disease) ([facility]/HCC) 02/13/2010 DX:COPD (chronic obstructive pulmonary disease) ([facility]) Type 2 diabetes, controlled, with renal manifestation ([facility]/HCC) 12/14/2012 DX:Type 2 diabetes, cont rolled, with renal manifestation ([facility]); COMMENT: Microalbumin 218 on 09/30/2012 Hypertension 02/13/2010 DX:Hypertension Diabetes mellitus type 2 wit h neurological manifestations ([facility]) 03/20/2015 DX:Diabetes uriah itus type 2 with neurological manifestations ([facility]) Hyperlipidemia DX:Hyperlipidemi a Family History Medical History [...] 1:30 PM EDT Office Visit Adult Medicine [facility] [address] [place] [address] Connor Fletcher PA [address] [place] [address] Health Maintenance Due Date Last Done Comments [...] HM URINE ALBUMIN CREATININE RATIO Routine 08/14/2023 HM ANNUAL BMP BLOOD TEST Routine 08/14/2023 HEMOGLOBIN A1C Routine 08/14/2023 LIPID PANEL Routine 08/14/2023 DIABETES FOOT EXAM Routine 08/08/2023 ABDOMINAL AORTIC ANEURYSM SCRREN Routine 07/02/2023 COLONOSCOPY Routine 06/19/2021 HEPATITIS C SCREENING Routine 01/03/2013 from Last 3 Months or Most Recently Relevant to Health Maintenance Results * Urine Albumin Creatinine Ratio (08/14/2023) [facility] Urine Albumin Creatinine Ratio Abstracted Result [facility] HEALTH MAINTENANCE Final Result * Annual BMP Blood Test (08/14/2023) [facility] Annual BMP Blood Test Abstracted Result [facility] HEALTH MAINTENANCE Final Result * Hemoglobin A1c (08/14/2023) [facility] Hemoglobin A1C 6.1 <=6.5 % Blood Venous blood specimen / Unknown Result [facility] Provider LAB BLOOD ORDERABLES Diamante l Result * (ABNORMAL) Lipid panel (08/14/2023) [facility] LDL/HDL Ratio 2 0 - 4 Triglycerides 204(A) 0 - 150 mg/dL Cholesterol 175 0 - 200 mg/dL HDL 74 >=40 mg/dL LDL Cholesterol 61 0 - 100 mg/dL Blood Venous blood specimen / Unknown Result [facility] Provider LAB BLOOD ORDERABLES Diamante l Result * Diabetes Foot Exam (08/08/2023) [facility] Diabetes: Annual Foot Exam Abstracted [facility] Provider HEALTH MAINTENANCE Final Result * Abdominal Aortic Aneurysm Screen (07/02/2023) [facility] Abdominal Aortic Aneurysm (AAA) Screening Abstracted Anatomical Region Laterality Modality Other Historical Provider HEALTH MAINTENANCE Final Result * Colonoscopy (06/19/2021) Colonoscopy Abstracted, no interpretation Anatomical Region Laterality Modality Other Historical Provider HEALTH MAINTENANCE Final Result * Hepatitis C Screening (01/03/2013) Hepatitis C Screening Abstracted Historical Provider HEALTH MAINTENANCE Final Result from Last 3 Months or Most Recently Relevant to Health Maintenance Insurance MEDICAID - [place] [employer] MEDICARE Care Teams Director Of Consumer Marketing Relationship Specialty Start Date End Date Connor Fletcher PA [address] [place] [address] PCP - General Internal Medicine 12/13/19
== END 2024-06-17 10:55 | disposition home or self-care (01) ==
PROVIDERS: Visit Provider Surgery Vascular Surgery
DX: I73.9 Peripheral vascular disease, unspecified (principal)
CPT/HCPCS: 99214; G2211

== ENCOUNTER → 2024-06-17 10:32 | Outpatient (BNVA) | payer MEDICARE, MEDICAID, SELFPAY | PROVIDERS: Visit Provider Surgery Vascular Surgery | DX: I73.9 Peripheral vascular disease, unspecified (principal) | CPT/HCPCS: 99212 ==

== ENCOUNTER 2024-06-29 09:48 | Outpatient (AMB) | payer MEDICARE, MEDICAID, SELFPAY ==
--- NOTE | 2024-06-29 09:52 | A.OFFPC_ITS ---
Vital Signs 06/29/24 09:54 Height 5 ft 10 in Weight 203 lb 4.259 oz BMI 29.2 BP 140/80 H Blood Pressure Location Lt brachial Position Sitting Pulse 85 Pulse Source Pulse Oximeter Pulse Oximetry (%) 94 Oxygen Delivery Method Room Air Intake Visit Reasons: Cataract Surgery LT. Eye Intake Note: Patient is a new patient here to establish care for DMII, HTN. Transferring care from [facility]. Medical records have been requested today. Radiological Equipment Specialist Required: No Accompanied by: Self / Same As Patient Allergies No Known Allergies Allergy (Verified 06/29/24 10:04) Medication List - Last Reconciled 06/29/24 by Wyatt Alejandre PA-C aspirin 81 mg PO DAILY atorvastatin 40 mg PO DAILY azithromycin 250 mg PO DAILY 4 days blood sugar diagnostic (Virtual Computer Ultra Test strips) As directed budesonide-formoterol 80-4.5 mcg/actuation (Symbicort) 2 puffs inhalation BID calcitonin (salmon) 200 unit/actuation 1 spray intranasal (ALT) DAILY clopidogrel 75 mg PO DAILY clotrimazole 1% (Lotrimin AF (clotrimazole)) 1 appl topical BID diazepam 5 mg PO BID PRN 30 days fluticasone furoate 27.5 mcg/actuation (Flonase Sensimist) 1 spray intranasal DAILY reglnxxypbw-uusmwqmxz-crejnjfp 100-62.5-25 mcg (Trelegy Ellipta) 1 inh inhalation DAILY furosemide 20 mg PO QAM ipratropium-albuterol 0.5 mg-3 mg(2.5 mg base)/3 mL 3 mL inhalation Q4H PRN ipratropium-albuterol 20-100 mcg/actuation (Combivent Respimat) 1 puff inhalation Q6H lisinopril 2.5 mg PO DAILY metformin 500 mg PO DAILY metoprolol succinate ER 50 mg PO DAILY nicotine 1 patch transdermal Q24H oxycodone 5 mg PO Q4H PRN 7 days prednisone 60 mg (3 x 20 mg) PO DAILY sertraline (Zoloft) 25 mg PO DAILY sildenafil 100 mg PO DAILY PRN tizanidine 2 mg PO Q8H triamcinolone acetonide 1 spray intranasal DAILY Tobacco use date assessed: 05/31/24 Fall risk assessment: 2 + Falls in past year Last assessed Fall Risk: 06/29/24 Dental Screening Dental Screen Date: 05/31/24 Did you have a dental visit in the last 12 months?: No Did you have a dental problem in the last 6 months where you did not have access to dental care?: No Was dental information given to patient?: Patient has dentist HPI Cataract Surgery LT. Eye HPI Details Patient is a 68-year-old male here today for a preop visit. He is due for left eye cataract removal surgery at [facility] ( Dr. Reyna) Patient has a past medical history significant for COPD, tobacco use disorder, type 2 diabetes, hypertension, hyperlipidemia. Patient does not a past medical history of MT, Congestive heart failure or CVA. Patient is currently on aspirin though does not take any anticoagulation therapy. Most recent labs appear stable and EKG showing PVCs though otherwise normal. COPD: Continues with maintenance inhalers , still has rhonchi on pulmonary exam today. He reports he feels fine without any fevers or chills. He will use his Mucinex and anti histamine to try to bring up mucus. Unfortunately continues to smoke and has struggled with smoking cessation. [facility] Medical History (Updated 06/29/24 @ 10:07 by Wyatt Alejandre PA-C) PAD (peripheral artery disease) Nicotine dependence, cigarettes, uncomplicated Erectile dysfunction Diabetes Hypertension History of umbilical hernia History of left heart catheterization COPD (chronic obstructive pulmonary disease) Surgical History History of gastric bypass (~2017) History of arthroscopy of knee H/O angioplasty Social History Housing: Apartment Are you a primary intensive care specialist to a significant other at home: No Do you presently have visiting nurse or other home services: No Alcohol intake: current Alcohol intake frequency: a few times a week Patient Tobacco Use Status: Current everyday Tobacco user Tobacco use type: Cigarette Cigarettes Per Day: 2 e-Cigarette/Vaping Use: Never Used Second Hand Smoke Exposure: No service: No Current occupational status: retired Current occupation: rt handed Cognitive needs: No Hearing needs: No Vision needs: No Questionnaire Thrive Questionnaire Date Thrive assessed: 05/31/24 I am a: Patient What is your living situation today?: I have a steady place to live Within the past 12 months, did the food you bought not last and you didn't have the money to get more?: Sometimes True Within the past 12 months, did you worry whether your food would run out before you got money to buy more?: Never true Do you have trouble paying for medicines?: No Do you have trouble getting transportation to medical appointments?: No Do you have trouble paying your heating and electricity bill?: I choose not to answer this question Do you have trouble taking care of your child, family member or friend?: No Do you have trouble with day-to-day activities such as bathing, preparing meals, shopping, managing finances, etc.?: No Are you currently unemployed and looking for a job?: No Are you interested in more education?: No Please select the resources that you would like help with: Care for elder or disabled Currently or been in a relationship where the following occur: I choose not to answer THRIVE Score: 1 ASHTYN-7 AMB Questionnaire ASHTYN-7 Date ASHTYN - 7 assessed: 05/31/24 Source: Developed by Drs. Doug Hernandez, Liss Singh, Quan Murray and colleagues, with an educational heidy from [employer]. Review of Systems Const Denies headache(s) Eyes Denies loss of vision ENT Denies vertigo, Denies dizziness, Denies headache(s) and Denies sore throat Card Denies chest pain, Denies leg edema and Denies lightheadedness Resp Reports chest congestion, Reports cough, Denies hemoptysis and Denies wheezing GI Denies abdominal pain, Denies melena, Denies constipation, Denies diarrhea and Denies vomiting Denies dysuria, Denies urinary frequency and Denies urinary urgency Musc Denies arthralgias, Denies joint swelling, Denies numbness and Denies tingling Neuro Denies Abnormal speech present, Denies behavioral changes, Denies vertigo, Denies dizziness, Denies headache(s), Denies loss of vision, Denies memory loss, Denies numbness and Denies tingling Psych Denies anxiety, Denies behavioral changes, Denies depression, Denies memory loss and Denies panic attacks Bharathi/Lymph Denies easy bleeding and Denies easy bruising Aller/Immun Denies wheezing Physical exam (Primary Care) Vital Signs: Last Vital Signs Pulse 85 06/29/24 09:54 BP 140/80 H 06/29/24 09:54 Pulse Ox 94 06/29/24 09:54 Oxygen Delivery Method Room Air 06/29/24 09:54 BMI result Body Mass Index 29.2 Tobacco/Smoking Status: Tobacco use Status Tobacco use date assessed 05/31/24 06/29/24 09:54 Patient Tobacco Use Status Current everyday Tobacco 06/29/24 09:54 Tobacco use type Cigarette 06/29/24 09:54 e-Cigarette/Vaping Use Never Used 06/29/24 09:54 Thrive Assessment: Date of Thrive Assessment Date Thrive assessed 05/31/24 06/29/24 09:54 Currently or been in a relationship where the following occur: I choose not to answer Const General: healthy appearing, no acute distress, alert and awake Nutritional Appearance: well nourished Orientation/consciousness: oriented to person, oriented to place and oriented to time HENMT Ears: TM's normal bilaterally General nose exam: Normal nasal mucous membranes and turbinates present Eyes Conjunctivae: conjunctivae normal Sclerae: sclerae normal Pupils: Equal, round and reactive pupils present Neck Neck: Yes no lymphadenopathy and Yes no JVD Thyroid: Thyroid normal Carotids: no bruits Resp Effort & Inspection: normal respiratory effort and not tachypneic Auscultation: no crackles, rales, rhonchi and no wheezes Cardio Rate: regular rate Rhythm: regular rhythm Heart sounds: no murmurs and normal S1 and S2 GI Palpation (GI): Soft to palpation, nontender, no hepatomegaly and no splenomegaly Auscultation: normal bowel sounds Skin General skin exam: no rashes or lesions noted and dry skin Neuro General: oriented to person, oriented to place and oriented to time Cranial nerves: Yes Equal, round and reactive pupils present Speech: No Abnormal speech present Gait exam (Neuro): Normal gait present Motor exam (neuro): no tremor noted Extrem Right upper extremity: full ROM Left upper extremity: full ROM Right lower extremity: full ROM; no edema Left lower extremity: full ROM; no edema Psych Mental Status: mental status grossly normal Speech and movement: Normal speech and movement present Affect: normal affect Attitude: cooperative Thought process: Normal thought process present Coding Level of Care Code Est Pt Level 4 (33218) Diagnoses Pre-op evaluation Z01.818 Senile cataract of left eye, unspecified age-related cataract type H25.9 Cataract type: age-related Age-related cataract type: unspecified Pulmonary emphysema, unspecified emphysema type J43.9 COPD type: emphysema Emphysema type: unspecified Nicotine dependence, cigarettes, uncomplicated F17.210 Assessment & Plan Assessment & Plan (1) Pre-op evaluation: Code(s): Z01.818 - Encounter for other preprocedural examination Category: Medical Plan: Patient's most recent labs, vitals and recent EKG stable. Patient is medically clear for elective cataract removal. (2) Left cataract: Code(s): H26.9 - Unspecified cataract Category: Medical Qualifiers: Cataract type: age-related Age-related cataract type: unspecified Qualified Code(s): H25.9 - Unspecified age-related cataract Plan: As above (3) COPD (chronic obstructive pulmonary disease): Code(s): J44.9 - Chronic obstructive pulmonary disease, unspecified Category: Medical Qualifiers: COPD type: emphysema Emphysema type: unspecified Qualified Code(s): J43.9 - Emphysema, unspecified Plan: Patient continues his maintenance inhalers and rescue inhalers. Does have a bit of rhonchi today in office though reports he feels okay. Did get chest x-ray last month which was clear. Unfortunately still smokes a few cigarettes per day and has struggled with completely quitting smoking. (4) Nicotine dependence, cigarettes, uncomplicated: Code(s): F17.210 - Nicotine dependence, cigarettes, uncomplicated Category: Medical Plan: As above. Patient offered nicotine replacement though declines my offers. He continues to smoke 1 or 2 cigarettes per day. Medications: New albuterol sulfate 90 mcg/actuation 1 inh inhalation QID 90 days 3 ea 3RF shortness of breath or wheezing J43.9 - Emphysema, unspecified
[2024-06-29 09:54] VITALS: BP 140/80; PULSE 85; O2SAT 94; BMI 29.2
--- OUTSIDE RECORDS SUMMARY | 2024-06-29 11:11 | XMS_ITS ---
Author Organization [facility] Address [address] [place] [address] Care Team Providers Care It Corporate Recruiter Name Role Phone W[place]etee Connor Primary Care Provider Unavail able SHARMIN GALLOWAY Unavailable [phone] Allergies No Known Allergies REASON FOR VISIT callus on left foot and diabetic check Medications Medication SIG (Take, Route, Frequency, Duration) Notes Start Date End Date Status Metoprolol Succinate ER 25 MG 1 tablet Orally Once a day Active Umeclidinium [place] 62.5 MCG/INH 1 puff Inhalation Once a day Active Furosemide 20 MG 1 tablet Orally Once a day prn Active Lisinopril 5 MG 1 tablet Orally Once a day Active Albuterol Sulfate (5 MG/ML) 0.5% as directed Inhalation Activ e oxyCODONE HCl 5 MG 1 tablet as needed Orally every 6 hrs Active Atorvastatin Calcium 40 MG 1 tablet Orally Once a day Active metFORMIN HCl 500 MG 1 tablet with a reg l Orally Once a day Active Ammonium Lactate 12 % 1 application Externally once a day for 90 days 08/16/2020 Not-Taking Diclofenac Sodium 1 % 1 gram as directed Externally Twice a day for 90 days 08/16/2020 Not-Taking ProAir HFA 108 (90 Base) MCG/ACT 2 puff as needed Inhalation every 6 hrs Not-Takin g Metoprolol Tartrate 25 MG 0.5 tablet wit h food Orally daily Not-Taking Symbicort 160-4.5 MCG/ACT 2 puffs Inhala tion Twice a day Not-Taking Ammonium Lactate 12 % 1 application Externally daily Not-Taking Ammonium Lactate 12 % 1 application to e ach foot Externally once a day for 90 days 08/29/2021 Not-Taking Iron 325 (65 Fe) MG 1 tablet Orally Once a day Not-Taking diazePAM 5 MG 1 tablet as needed Orally 1 tab every 8 hr prn prn Not-Taking Multivitamin - 1 tablet Orally Once a day Active Eucerin Intensive Repair - as directed Externally once daily for 90 days 04/23/2024 Active Vitamin D 25 MCG (1000 UT) 1 tablet Orally Once a day Not-Taking Sertraline HCl 25 MG 1 tablet Orally Onc e a day Active Nasal [place] 0.05 % 2 sprays in each nostril as needed Nasally Twice a day Active Aspirin 81 MG 1 tablet Orally Once a day Active Combivent Respimat 20-100 MCG/ACT 1 puff as needed Inhalation every 4 hrs Active Viagra 100 MG 1 tablet as needed Orally prn Active tiZANidine HCl 2 MG 1 tablet as needed Orally Three times a day prn Active Vital Signs Height 5ft 10in in 06/23/2024 Weight 204.6 lbs 06/23/2024 BMI 29.35 kg/m2 06/23/2024 Encounters Encounter Location Date Provider Diagnosis [facility] [address] [facility] [place] [address] 06/23/2024 SHARMIN GALLOWAY Type 2 diabetes mellitus with other circulatory complications E11.59 ; Type 2 diabetes mellitus with other diabetic neurological complication E11.49 and Foot callus L84 Assessments Encounter Date Diagnosis (ICD Code) Assessment Notes Treatment Notes Treatment Clinical Notes Section Notes 06/23/2024 Type 2 diabetes mellitus with other circulatory [...] follows with vascular surgery twice a year. 06/23/2024 Type 2 diabetes mellitus with other diabetic neurological complication (ICD-10 - E11.49) 06/23/2024 Foot callus (ICD-10 - L84) We discussed he has calluses on the left foot and bilateral heel fissures. We discussed the blood flow will contribute to the dry skin on the feet. He states the left side seems to be improving since the last angioplasty. I stressed the importance of keeping his skin moisturized. He states he recently started applying lotion to his feet again. I recommended he apply lotion daily, especially in the winter months. He has no open lesions of the feet today. Plan Of Treatment Treatment Notes Assessment Notes Foot callus We discussed he has calluses on the left foot and bilateral heel fissures. We discussed the blood flow will contribute to the dry skin on the feet. He states the left side seems to be improving since the last angioplasty. I stressed the importance of keeping his skin moisturized. He states he recently started applying lotion to his feet again. I recommended he apply lotion daily, especially in the winter months. He has no open lesions of the feet today. Progress Notes * Best CARR PDOB:[birth year] (68 yo M)Acc No.[id number]:06/23/2024 Progress Note Patient:?Best CARR Provider:?Sharmin Galloway DPM :1955???Age:68 Y???Sex:Male David e:06/23/2024 Phone: Address: [address], [place], [phone] Pcp:Connor Infante Subjective: * Chief Complaints: * ???Callus on left foot and d iabetic check * HPI: ???Constitutional:?This 68 y/o male returns to my office for his diabetic foot exam and a concern about calluses on the left foot. He does not recall any injury that caused the sores. He admits that he does walk around barefoot, even when outside. He had a left leg angioplasty last week. He is concerned because his son had gangrene and ended up losing both of his feet. He states that his feet are sore. They are recommending stents in both legs due to worsening blood flow. He also is being worked up for lung cancer. He has no other foot complaints this visit. His last Hgba1c was 5.9. His last visit with his PCP care team for diabetes management was two months ago. * ROS:?GENERAL: Pt denies nausea, fever, vomiting, [...] bypass right knee surgery COPD Flare Up 10/05/2022ngioplasty 05/2024 * Family History:?Father: dece ased 36 yrs, [...] 1 tablet Orally Once a day Umeclidinium Montverde 62.5 MCG/INH Aerosol Powder Breath Activated 1 puff Inhalation Once a day tiZANidine HCl 2 MG Tablet 1 tablet as needed Orally Three times a day , Notes to Pharmacist: prnCombivent Respimat 20-100 MCG/ACT Aerosol Solution 1 puff as needed Inhalation every 4 hrs Sertraline HCl 25 MG Tablet 1 tablet Orally Once a day Nasal [place] 0.05 % Solution 2 sprays in each nostril as needed Nasally Twice a day Aspirin 81 MG Tablet Delayed Release 1 tablet Orally Once a day Viagra 100 MG Tablet 1 tablet as needed Orally prn Multivitamin - Tablet 1 tablet Orally Once a day Eucerin Intensive Repair - Ointment as directed Externally once daily Taking oxyCODONE HCl 5 MG Tablet 1 [...] tablet Orally Once a day Taking Umeclidinium Montverde 62.5 MCG/INH Aerosol Powder Breath Activated 1 puff Inhalation Once a day Taking tiZANidine HCl 2 MG Tablet 1 tablet as needed Orally Three times a day , Notes to Pharmacist: prnTaking Combivent Respimat 20-100 MCG/ACT Aerosol Solution 1 puff as needed Inhalation every 4 hrs Taking Sertraline HCl 25 MG Tablet 1 tablet Orally Once a day Taking Nasal [place] 0.05 % Solution 2 sprays in each nostril as needed Nasally Twice a day Taking Aspirin 81 MG Tablet Delayed Release 1 tablet Orally Once a day Taking Viagra 100 MG Tablet 1 tablet as needed Orally prn Taking Multivitamin - Tablet 1 tablet Orally Once a day Taking Eucerin Intensive Repair - Ointment as directed Externally once daily Not-TakingVitamin D 25 MCG (1000 UT) Tablet [...] 12 % Lotion 1 application Externally daily Not-Taking Ammonium Lactate 12 % Cream 1 [...] patient * Allergies:?N.K.D.A.no[Allerg ies Verified] Objective: * Vitals:?Wt:204.6lbs, Ht: 5ft 10in, BMI:29.35Index, Ht-cm: 177.8, Wt-k.81 kg. * Examination: ???General Examination: ???GENERAL: Patient appears well nourished, with NAD. VASCULAR: Dorsalis pedis pulses are 0/4 bilaterally and Posterior tibial pulses are 0/4 right,0/4 monophasic on doppler left, biphasic on Doppler right. Capillary filling time within normal limits the digits. No pallor on elevation or rubor on dependency. No hair growth. Varicosities of the legs bilaterally with trace edema. Denies rest pain or claudication pain. Each foot temperature is within normal limits. NEUROLOGICAL: Sharp/dull sensation intact bilaterally, protective sensation diminished 7/10 with 5.07 [place] Caitlin bilaterally, vibratory sensation with tuning fork [...] Hyperkeratotic lesion plantar left hallux and plantar lateral left foot. tenderness on palpation. Hyperkeratotic skin of the plantar heels bilaterally. 4mm thickened elongated dystrophic discolored toenails of all ten toes with subungual debris and tenderness on palpation. BIOMECHANICS: STJ ROM WNL, MTJ ROM WNL, 1st MPJ ROM limited. On weight bearing, functional hallux limitus SHOES: diabetic sneakers. Assessment: * Assessment: 1.?Type 2 diabetes mellitus with other circulatory complications - E11.59???2.?Type 2 diabetes mellitus with other diabetic neurological complication - E11.49???3.?Foot callus - L84??? Plan: * Treatment: 2.?Foot callus? Notes: We discussed he has calluses on the left foot and bilateral heel fissures. We discussed the blood flow will contribute to the dry skin on the feet. He states the left side seems to be improving since the last angioplasty. I stressed the importance of keeping his skin moisturized. He states he recently started applying lotion to his feet again. I recommended he apply lotion daily, especially in the winter months. He has no open lesions of the feet today. ?? * Procedure Codes:? * Billing Information: * Visit Code:? 15090 Office Visit, Est Pt., Level 3. * Procedure Codes:? * Sign off status: Completed true * Provider:?Sharmin Galloway DPM Date:? 06/23/2024 Generated for Yenny dawson/Singh/Chuckitting on:?06/29/2024 11:11 AM EDT History and Physical Notes * HPI (History of Present Illness) Category Sub-Category Detail Notes Category Not es Constitutional This 68 y/o m kathrine returns to my office for his diabetic foot exam and a concern about calluses on the left foot. He does not recall any injury that caused the sores. He admits that he does walk around barefoot, even when outside. He had a left leg angioplasty last week. He is concerned because his son had gangrene and ended up losing both of his feet. He states that his feet are sore. They are recommending stents in both legs due to worsening blood flow. He also is being worked up for lung cancer. He has no other foot complaints this visit. His last Hgba1c was 5.9. His last visit with his PCP care team for diabetes management was two months ago. Examination Category Sub-Category Detail Notes Category Not es General Examination GENERAL: Patient appears well nourished, with NAD. VASCULAR: Dorsalis pedis pulses are 0/4 bilaterally and Posterior tibial pulses are 0/4 right,0/4 monophasic on doppler left, biphasic on Doppler right. Capillary filling time within normal limits the digits. No pallor on elevation or rubor on dependency. No hair growth. Varicosities of the legs bilaterally with trace edema. Denies rest pain or claudication pain. Each foot temperature is within normal limits. NEUROLOGICAL: Sharp/dull sensation intact bilaterally, protective sensation diminished 7/10 with 5.07 [place] Caitlin bilaterally, vibratory sensation with tuning fork [...] Hyperkeratotic lesion plantar left hallux and plantar lateral left foot. tenderness on palpation. Hyperkeratotic skin of the plantar heels bilaterally. 4mm thickened elongated dystrophic discolored toenails of all ten toes with subungual debris and tenderness on palpation. BIOMECHANICS: STJ ROM WNL, MTJ ROM WNL, 1st MPJ ROM limited. On weight bearing, functional hallux limitus SHOES: diabetic sneakers
--- OUTSIDE RECORDS SUMMARY | 2024-06-29 11:11 | XMS_ITS | Encounter Summary ---
Author Organization [facility] Address [address] [place] [address] Care Team Providers Care Armature Bander Name Role Phone Connor Fletcher Primary Care Provider [phone] Reason for Visit * Reason Onset Date Comments PREDNISONE 06/18/2024 Encounter Details Date Type Department Care Team ([facility] st Contact Info) Description 06/18/2024 Telephone Pulmonolgy - [place] [address] [place] [phone] Courtney Anna MD [address] [place], [place] [phone] PREDNISONE Social History Tobacco Use Types Packs/Day Years [...] on file documented as of this encounter Ordered Prescriptions Prescription Sig Dispense Quantity Refills Last Filled Start Date End Date predniSONE (DELTASONE) 10 mg tablet 4 tab po qd x 3 days and 2 tab po qd x 4 days prn for copd exacerbation 20 each 06/21/2024 documented in this encounter Progress Notes * Keon Diane MA - 06/21/2024 11:55 AM EST Please send prednisone * Navya Zamora - 06/18/2024 4:12 PM EST Patient called to request any updates on Provider sending patient a Rx for prednisone 10 mg. Pleasecall patient at earliest convenient. Please advice as patient stated that he has been feeling worst. Please call patient at [phone] documented in this encounter Plan of Treatment Upcoming Encounters Date Type Department Care Team (Late st Contact Info) Description 08/11/2024 1:30 PM EDT Office Visit Adult Medicine [facility] [address] [place] [phone] Connor Fletcher PA [address] [place] [phone] documented as of this encounter Visit Diagnoses Diagnosis Centrilobular emphysema (CMS/HCC)- Primary documented in this encounter Care Teams Armature Bander Relationship Specialty Start Date End Date Connor Fletcher PA [address] [place] [phone] PCP - General Internal Medicine 12/13/19 documented as of this encounter
--- OUTSIDE RECORDS SUMMARY | 2024-06-29 11:11 | XMS_ITS | Patient Health Record ---
Author Organization [facility] Address [address] [facility] [address] [place] [address] Care Team Providers Care Pathology Specialist Name Role Phone Connor Infante Primary Care Provider Unavail able STAN ESCOBEDO Unavailable [phone] Allergies No Known Allergies Reason For Referral No Information Medications Medication SIG (Take, Route, Frequency, Duration) Notes Start Date End Date Status Metoprolol Tartrate 25 MG 0.5 tablet wit h food Orally daily Not-Taking oxyCODONE HCl 5 MG 1 tablet as needed Orally every 6 hrs Active Symbicort 160-4.5 MCG/ACT 2 puffs Inhala tion Twice a day Not-Taking Atorvastatin Calcium 40 MG 1 tablet Orally Once a day Active metFORMIN HCl 500 MG 1 tablet with a reg l Orally Once a day Active Iron 325 (65 Fe) MG 1 tablet Orally Once a day Not-Taking diazePAM 5 MG 1 tablet as needed Orally 1 tab every 8 hr prn prn Not-Taking Ammonium Lactate 12 % 1 application Externally daily Not-Taking Ammonium Lactate 12 % 1 application to e ach foot Externally once a day for 90 days 08/29/2021 Not-Taking Viagra 100 MG 1 tablet as needed Orally prn Active Multivitamin - 1 tablet Orally Once a day Active Eucerin Intensive Repair - as directed Externally once daily for 90 days 04/23/2024 Active Vitamin D 25 MCG (1000 UT) 1 tablet Orally Once a day Not-Taking ProAir HFA 108 (90 Base) MCG/ACT 2 puff as needed Inhalation every 6 hrs Not-Takin g Sertraline HCl 25 MG 1 tablet Orally Onc e a day Active Nasal [place] 0.05 % 2 sprays in each nostril as needed Nasally Twice a day Active Aspirin 81 MG 1 tablet Orally Once a day Active Metoprolol Succinate ER 25 MG 1 tablet Orally Once a day Active Umeclidinium [place] 62.5 MCG/INH 1 puff Inhalation Once a day Active tiZANidine HCl 2 MG 1 tablet as needed Orally Three times a day prn Active Combivent Respimat 20-100 MCG/ACT 1 puff as needed Inhalation every 4 hrs Active Ammonium Lactate 12 % 1 application Externally once a day for 90 days 08/16/2020 Not-Taking Furosemide 20 MG 1 tablet Orally Once a day prn Active Diclofenac Sodium 1 % 1 gram as directed Externally Twice a day for 90 days 08/16/2020 Not-Taking Lisinopril 5 MG 1 tablet Orally Once a day Active Albuterol Sulfate (5 MG/ML) 0.5% as directed Inhalation Activ e Problems Problem Type SNOMED Code ICD Code Onset Dates Problem Status W/U Status Risk Notes Problem 08111331 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.49) Active confirmed Problem 74663099 Type 2 diabetes mellitus with other circulatory complications (E11.59) Active confirmed Problem Polyneuropathy due to type 2 diabetes mellitus (248730087) Type 2 diabetes mellitus with diabetic polyneuropathy, 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) Active confirmed Vital Signs Heart Rate 96 /min 08/08/2023 Temperature 97.4 degrees Fahrenheit 08/08/2023 Respiratory Rate 20 /min 08/08/2023 Height 5ft 10in in 06/23/2024 Weight 204.6 lbs 06/23/2024 BMI 29.35 kg/m2 06/23/2024 Encounters Encounter Location Date Provider Diagnosis [facility] [address] [address] 08/08/2023 STAN ESCOBEDO Type 2 diabetes mellitus with other circulatory complications E11.59 ; Foreign body in left foot, initial encounter S90.852A and Type 2 diabetes mellitus with other diabetic neurological complication E11.49 [facility] [address] [address] 06/23/2024 STAN ESCOBEDO Type 2 diabetes mellitus with other circulatory complications E11.59 ; Type 2 diabetes mellitus with other diabetic neurological complication E11.49 and Foot callus L84 [facility] [address] [address] 04/22/2024 STAN ESCOBEDO Assessments Encounter Date Diagnosis [...] determine if he has any more fragments. 06/23/2024 Type 2 diabetes mellitus with other diabetic neurological complication (ICD-10 - E11.49) 08/08/2023 Type 2 diabetes mellitus with other [...] of the feet today. Plan Of Treatment Pending Test Test Name Order Date X ray : Foot, left 3v 05/23/2022 Insurance Providers Payer Name Payer Address Payer Phone Subscriber Number Group Number Insured Name Patient Relationship to Insured Coverage Start Date Coverage End Date [employer] Medicare Adv-[id number] [address] [address] [place] [address] [id number] Carr Best Self - patient is the insured Medical [...] asbestos Z77.090 Atherosclerotic heart diseas e of [place] coronary artery without angina pectoris I25.10 Secondary [...] E11.9 left angioplasty COVID vaccinated X 2 ([place]) and 3 jaziel ters (Pfizer) Surgical History Surgery Date(Month/Year) gastric bypass colonoscopy cardiac catheterization right knee surgery left angioplasty right aneurysm repair behind the knee Hospitalization History Reason Date(Month/Year) angioplasty 05/2024 COPD Flare Up 10/05/2022 gastric bypass right knee surgery
--- OUTSIDE RECORDS SUMMARY | 2024-06-29 11:11 | XMS_ITS | Encounter Summary ---
Author Organization [facility] [place] [address] Care Team Providers Care Reshipping Clerk Name Role Phone Connor Fletcher Primary Care Provider [phone] Reason for Visit * Reason Onset Date Comments Fitting for DME 06/01/2024 Faxed form from [employer] Encounter Details Date Type Department Care Team (Late st Contact Info) Description 06/01/2024 Telephone Adult Medicine [address] [phone] Pratibha Shore LPN Fitting for DME (Faxed form from [employer]) Social History Tobacco Use Types Packs/Day Years [...] AM EST Forms signed and faxed to [employer] @ [phone] * Pratibha Shore LPN - 06/01/2024 1:13 PM EST For diabetic shoes Form to Dr Waters to sign documented in this encounter Plan of Treatment Upcoming Encounters Date Type Department Care Team (Late st Contact Info) Description 08/11/2024 1:30 PM EDT Office Visit Adult Medicine [facility] [address] [place] [address] Connor Fletcher PA [address] [place] [address] documented as of this encounter Visit Diagnoses Not on filedocumented in this encounter Care Teams Reshipping Clerk Relationship Specialty Start Date End Date Connor Fletcher PA [address] [place] [address] PCP - General Internal Medicine 12/13/19 documented as of this encounter
--- OUTSIDE RECORDS SUMMARY | 2024-06-29 11:11 | XMS_ITS ---
Author Organization [facility] Address [address] [facility] [address] [place] [address] Care Team Providers Care Mortgage Loan Interviewer Name Role Phone [place] Connor Primary Care Provider Unavail able SHARMIN GALLOWAY Unavailable [phone] Allergies No Known Allergies REASON FOR VISIT [...] Orally Onc e a day Active Nasal [place] 0.05 % 2 sprays in each nostril as needed Nasally Twice a day Active tiZANidine HCl 2 MG 1 tablet as needed Orally Three times a day prn Active Combivent Respimat 20-100 MCG/ACT 1 puff as needed Inhalation every 4 hrs Active Umeclidinium [place] 62.5 MCG/INH 1 puff Inhalation Once a day Active Vital Signs Temperature 97.4 degrees Fahrenheit 08/08/19 Heart Rate 96 /min 08/08/2023 Respiratory Rate 20 /min 08/08/2023 Height 5ft 10in in 08/08/2023 Weight 221.5 lbs 08/08/2023 BMI 31.78 kg/m2 08/08/2023 Encounters Encounter Location Date Provider Diagnosis [facility] [address] [facility] [address] [place] [address] 08/08/2023 SHARMIN GALLOWAY Type 2 diabetes mellitus [...] No.[id number]:08/08/2023 Progress Notes Patient:?Jonathan CARRlisa Hicks Provider:?Sharmin aGlloway DPM :1955???Age:67 Y???Sex:Male David e:08/08/2023 Phone: Address: [address], [place], [place]-[address] Pcp:Connor Infante Subjective: * Chief [...] 1 tablet Orally Once a day Umeclidinium [place] 62.5 MCG/INH Aerosol Powder Breath Activated 1 puff Inhalation Once a day tiZANidine HCl 2 MG Tablet 1 tablet as needed Orally Three times a day , Notes to Pharmacist: prnCombivent Respimat 20-100 MCG/ACT Aerosol Solution 1 puff as needed Inhalation every 4 hrs Sertraline HCl 25 MG Tablet 1 tablet Orally Once a day Nasal [place] 0.05 % Solution 2 sprays in each [...] tablet Orally Once a day Taking Umeclidinium [place] 62.5 MCG/INH Aerosol Powder Breath Activated 1 puff Inhalation Once a day Taking tiZANidine HCl 2 MG Tablet 1 tablet as needed Orally Three times a day , Notes to Pharmacist: prnTaking Combivent Respimat 20-100 MCG/ACT Aerosol Solution 1 puff as needed Inhalation every 4 hrs Taking Sertraline HCl 25 MG Tablet 1 tablet Orally Once a day Taking Nasal [place] 0.05 % Solution 2 sprays in each [...] bilaterally, protective sensation diminished 7/10 with 5.07 Bosque Caitlin bilaterally, vibratory sensation with tuning fork [...] Up:?prn * Billing Information: * Visit Code:? 20338 Office Visit, Est Pt., Level 3. Modifiers: 25 * Procedure Codes:? REMOVAL OF FOREIGN BODY. Modifiers: LT * Sign off status: Completed true * Provider:?Sharmin Galloway DPM Date:? 08/08/2023 Generated for Yenny dawson/Singh/Chuckitting on:?06/29/2024 11:11 AM [...] bilaterally, protective sensation diminished 7/10 with 5.07 Bosque Caitlin bilaterally, vibratory sensation with tuning fork [...]
--- OUTSIDE RECORDS SUMMARY | 2024-06-29 11:11 | XMS_ITS | Clinical Summary ---
Author Organization [facility] Address [address] [place] [address] Phone Care Team Providers Care Senior Power Scheduler Name Role Phone Connor Fletcher Primary Care Provider [phone] Allergies No known active allergies Medications albuterol [...] daily. 07/26/19 16 Active ONETOUCH DELICA LANCETS [facility] USE 1 LANCET TWICE DAILY TO TEST [...] 23 Active blood-glucose meter (OneTouch Ultra2 Meter) [facility] Other route 4 (four) times a [...] 25 Active predniSONE (DELTASONE) 10 mg tablet 4 tab po qd x 3 days and 2 tab po qd x 4 days prn for copd exacerbation 20 each 06/22/19 25 Active predniSONE (DELTASONE) 10 mg tablet [...] Encounters Date Type Department Care Team Description 06/18/2024 Telephone Pulmonolgy - [place] [address] [facility] [address] [place] [phone] Courtney Anna MD PREDNISONE 06/01/2024 Telephone Adult Medicine [address] [address] Pratibha Shore LPN Fitting for DME (Faxed form from [facility]) 05/20/2024 Telephone Lung Screening Program - [place] [address] [facility] [address] [place] [phone] Chloé Singh [place] Appointment (1st Notification) 05/19/2024 Telephone Pulmonology - [place] [address] [facility] [address] [place] [address] Keon Borja MA 05/04/2024 Telephone Thoracic Surgery - [place] [address] [facility] [address] [place] [phone] Rosie Metz PA from Last 3 Months Immunizations Name Administration [...] CARDIAC CATH OTHER SURGICAL HISTORY 08/08/2016 PROCEDURE: OK GASTRIC RSTCV W/O BYP VERTICAL-BANDED GASTROPLY; COMMENT: Sleeve gastrectomy; Dr. Franco COLONOSCOPY 2012 PROCEDURE: HISTORICAL COLONOSCOPY; COMMENT: hospital based colonoscopy, normal ESOPHAGOGASTRODUODENOSCOPY 2012 PROCEDURE: OK EGD TRANSORAL BIOPSY SINGLE/MULTIPLE; COMMENT: normal COLONOSCOPY [...] essential hypertension DX:Unspecified essential hypertension Morbid obesity ([facility]) DX:Morb id obesity ([facility]) Diabetes mellitus ([facility]) 11/14/2011 DX:D iabetes mellitus ([facility]) Diabetes mellitus ([facility]) DX:D iabetes mellitus ([facility]); COMMENT: new dx 10/30 COPD (chronic obstructive pu lmonary disease) ([facility]) 02/13/2010 DX:COPD (chronic obstructive pulmonary disease) ([facility]) Type 2 diabetes, controlled, with renal manifestation ([facility]) 12/14/2012 DX:Type 2 diabetes, cont rolled, with renal manifestation ([facility]); COMMENT: Microalbumin 218 on 09/30/2012 Hypertension 02/13/2010 DX:Hypertension Diabetes mellitus type 2 wit h neurological manifestations ([facility]) 03/20/2015 DX:Diabetes uriah itus type 2 with neurological manifestations ([facility]) Hyperlipidemia DX:Hyperlipidemi a Family History Medical History [...] PM EDT Office Visit Adult Medicine [facility] [address] [place] [address] Connor Fletcher PA [address] [place] [address] Health Maintenance Due Date Last Done Comments [...] Procedure Name Priority Date/Time Associated Diagnosis Comments URINE ALBUMIN CREATININE RATIO Routine 08/14/2023 ANNUAL BMP BLOOD TEST Routine 08/14/2023 HEMOGLOBIN A1C Routine 08/14/2023 LIPID PANEL Routine 08/14/2023 DIABETES FOOT EXAM Routine 08/08/2023 ABDOMINAL AORTIC ANEURYSM SCRREN Routine 07/02/2023 COLONOSCOPY Routine 06/19/2021 HEPATITIS C SCREENING Routine 01/03/2013 from Last 3 Months or Most Recently Relevant to Health Maintenance Results * Urine Albumin Creatinine Ratio (08/14/2023) [facility] Urine Albumin Creatinine Ratio Abstracted Result [facility] HEALTH MAINTENANCE Final Result * Annual BMP Blood Test (08/14/2023) [facility] Annual BMP Blood Test Abstracted Result [facility] HEALTH MAINTENANCE Final Result * Hemoglobin A1c (08/14/2023) [facility] Hemoglobin A1C 6.1 <=6.5 % Blood Venous blood specimen / Unknown Result [facility] LAB BLOOD ORDERABLES Diamante l Result * (ABNORMAL) Lipid panel (08/14/2023) [facility] LDL/HDL Ratio 2 0 - 4 Triglycerides 204(A) 0 - 150 mg/dL Cholesterol 175 0 - 200 mg/dL HDL 74 >=40 mg/dL LDL Cholesterol 61 0 - 100 mg/dL Blood Venous blood specimen / Unknown Result [facility] LAB BLOOD ORDERABLES Diamante l Result * Diabetes Foot Exam (08/08/2023) [facility] Diabetes: Annual Foot Exam Abstracted Result [facility] HEALTH MAINTENANCE Final Result * Abdominal Aortic Aneurysm Screen (07/02/2023) [facility] Abdominal Aortic Aneurysm (AAA) Screening Abstracted Anatomical Region Laterality Modality Other Result [facility] HEALTH MAINTENANCE Final Result * Colonoscopy (06/19/2021) [facility] Colonoscopy Abstracted, no interpretation Anatomical Region Laterality Modality Other Historical Provider HEALTH MAINTENANCE Final Result * Hepatitis C Screening (01/03/2013) Hepatitis C Screening Abstracted Historical Provider HEALTH MAINTENANCE Final Result from Last 3 Months or Most Recently Relevant to Health Maintenance Insurance MEDICAID - [place] [employer] MEDICARE Care Teams Senior Power Scheduler Relationship Specialty Start Date End Date Connor Fletcher PA [address] [place] [address] PCP - General Internal Medicine 12/13/19
--- OUTSIDE RECORDS SUMMARY | 2024-06-29 11:11 | XMS_ITS ---
Author Organization [facility] Address [address] [place] [address] Care Team Providers Care Automotive Accessory Installer Name Role Phone Connor Infante Primary Care Provider Unavail able STAN ESCOBEDO [phone] REASON FOR VISIT Rx Refill Medications Medication SIG (Take, Route, Frequency, Duration) Notes Start Date End Date Status Eucerin Intensive Repair - as directed E xternally once daily for 90 days 04/23/2024 Active Encounters Encounter Location Date Provider Diagnosis [facility] [address] [address] 04/22/2024 STAN ESCOBEDO Plan Of Treatment Medication Medication Name Sig Start Date Stop Date Notes Eucerin Intensive Repair - as directed E xternally once daily for 90 days 04/23/2024 Progress Notes * Best DICKERSON PDOB:[birth year] (68 yo M)Acc No.[id number]:04/22/2024 Patient:?Best DICKERSON :1955???Age:68 Y???Sex:Male Phone: Address:[address] [place] [address] * Refills? Start Eucerin Intensive Repair Ointment, -, Externally, 100, as directed, once daily, 90 days, Refills=1 * true * Date:? Generated for Yenny dawson/Singh/eTransmitting on:?06/29/2024 11:10 AM EDT
== END 2024-06-29 10:26 | disposition home or self-care (01) ==
LOC: HO.HMCH 09:49
PROVIDERS: Visit Provider Physician Assistant
DX: Z01.818 Encounter for other preprocedural examination (principal); H25.9 Unspecified age-related cataract; J43.9 Emphysema, unspecified; F17.210 Nicotine dependence, cigarettes, uncomplicated

== ENCOUNTER → 2024-06-29 09:48 | Outpatient (BNVA) | payer MEDICARE, MEDICAID, SELFPAY | PROVIDERS: Visit Provider Physician Assistant | DX: Z01.818 Encounter for other preprocedural examination (principal); H25.9 Unspecified age-related cataract; J43.9 Emphysema, unspecified; F17.210 Nicotine dependence, cigarettes, uncomplicated; Z71.6 Tobacco abuse counseling | CPT/HCPCS: 99212 ==

== ENCOUNTER 2024-07-09 10:54 | Outpatient (AMB) | payer MEDICARE, MEDICAID, SELFPAY ==
--- NOTE | 2024-07-09 07:46 | MHC.OFFVIS ---
Intake Visit Reasons: Current Smoker Allergies No Known Allergies Allergy (Verified 06/29/24 10:04) HPI HPI Current Smoker: Details: Initial visit for this 68yo smoker with a 100PYH. Patient started smoking at age 14 for 54 years at 2ppd. Now at 2 cig/day. . Denies marijuana use. Denies second hand smoke exposure. Reports exposure to asbestos and diesel fumes. . Denies known family history of lung cancer. Denies personal history of cancers. . Previously in [facility]'s LDCT program. 03/02/24 LDCT at [facility] noted Lung RADS 0 - basilar predominant nodular and consolidative opacities with upstream mucous plugging compatible with infectious/ inflammatory process. Recommended repeat in 1-3 months . Denies recent travel outside the [place]. Denies recent respiratory illness or recent hospitalization for respiratory issues. Denies testing positive for COVID. Admits receiving COVID Vaccine. . Denies fever, chills, new/worsening cough, hemoptysis, hoarseness or dysphagia. Denies significant chest pain, significant dyspnea or unintentional weight loss. Patient Lung Cancer Screening Questionnaire reviewed with patient by provider. . Shared Decision Making Completed. Patient meets criteria. Discussed in detail with patient, the risk vs benefit of LDCT screening. Patient consents to proceed with scan. Discussed smoking cessation. [facility] Medical History (Updated 07/09/24 @ 11:15 by Maggy Gardner PA-C) PAD (peripheral artery disease) Nicotine dependence, cigarettes, uncomplicated Erectile dysfunction Diabetes Hypertension History of umbilical hernia History of left heart catheterization COPD (chronic obstructive pulmonary disease) Surgical History History of gastric bypass (~2017) History of arthroscopy of knee H/O angioplasty Social History (Updated 07/09/24 @ 11:15 by Maggy Gardner PA-C) Housing: Apartment Are you a primary nurse wound care to a significant other at home: No Do you presently have visiting nurse or other home services: No Alcohol intake: current Alcohol intake frequency: a few times a week Patient Tobacco Use Status: Current everyday Tobacco user Tobacco use type: Cigarette Cigarettes Per Day: 2 Years Smoked: (onset 14yo, 2ppd x 52yrs, now 2cig/day - 100pyh) e-Cigarette/Vaping Use: Never Used Second Hand Smoke Exposure: No service: No Current occupational status: retired Current occupation: rt handed Cognitive needs: No Hearing needs: No Vision needs: No Assessment & Plan Assessment & Plan (1) Nicotine dependence, cigarettes, uncomplicated: Comment: (onset 14yo, 2ppd x 52yrs, now 2cig/day - 100pyh) Code(s): F17.210 - Nicotine dependence, cigarettes, uncomplicated Category: Medical Plan: - SDM visit completed today in office. - Patient meets criteria for LDCT for lung cancer screening purposes and is asymptomatic. - Smoking cessation counseling offered. Patients can always call [phone]. - Will arrange for a LDCT scan of the chest for screening purposes at [facility]. - Risks, benefits, and alternatives were discussed in detail and the patient agrees to proceed. - Risks discussed include but are not limited to: radiation exposure, anxiety during testing and while awaiting results, false negatives, false positives and possibility of additional intervention such as further imaging or surgical procedures for benign disease. - Benefits are obviously detection of lung cancer at an early stage which can lead to improved outcomes. - Discussed the importance of screening program compliance with adherence to yearly LDCT scan as scheduled - or sooner interval scans for personalized screening regimen. - Discussed follow up plan. Our office will send a letter discussing results and if needed set up phone call and office visit based on CT findings. - Patient educated on results categorization and the management decisions for suspicious findings potentially found on the screening LDCT scan. Any patient with a Lung RADS score of 3 or 4 will be reviewed by a multidisciplinary team at [facility] to form a plan of action in regards to scan findings. - If further work up is warranted for a suspicious lung finding this will be followed by the Lung Cancer Screening program in conjunction with the Thoracic Surgery Department at [facility]. - A copy of the office note and LDCT will be sent to the patient's PCP - as well as documentation on any associated further plans of care. - Incidental findings on LDCT are the PCP's responsibility. These findings are indicated with an S finding on the LDCT Assessment. A note discussing the findings will be sent to the PCP who is then responsible for further management. - All questions answered.? Coding Level of Care Code Lung Cancer Screening G0296 Diagnoses Nicotine dependence, cigarettes, uncomplicated F17.210
--- OUTSIDE RECORDS SUMMARY | 2024-07-09 13:17 | XMS_ITS | Data Portability ---
Author Organization [place] - [facility], [facility] Address [address] [address] Assessment Encounter Date Assessment Date Assessment LastModified [...] surgery if there is scarring or stenosis. [email or web address] Not available 12/10/2023 16:50:24 Plan of Treatment [...] Recorded Time Foreign body in right ear [id number] 69567 Active 2022 Foreign body in right ear, initial encounte r; Note: Date Diagnose d: 04/26/2022 1:47 PM (T16.1XX A) Not Available [employer] 02:28:14 Epidermal burn of nose 09585780 Active 2023 ARYA QUINTANILLA, PA-[address], [address] , [facility] - [facility] 4 16:28:50 Problem Notes None recorded. Medical [...] ion aerosol inhaler active Medicatio n ID: [id number] Br and Name: albuterol sulfate S end [...] Updated DateTime 12/10/2023 177.8 cm 30.7 kg/m2 15940.77 g Lesly Segal [place] - [facility] 12/10/2023 15:17:17 Social History None recorded. Functional Status None recorded. Mental Status None recorded. Family History Nothing Reported. Medical History No medical history recorded. Past Encounters Encounter ID Performer Location Encounter Start Date Encounter Closed Date Diagnosis/Indication Diagnosis SNOMED-CT Code Diagnosis ICD10 Code Diagnosis Note [id number] MERRY IVEY MD [facility] [address] [address] 12/10/2023 15:08:38 12/15/2023 07:53:41 Epidermal burn of nose 42160439 T20.14XA Health Concerns Section Related Observation LastModified by Organization Detai ls LastModified Time None Recorded Concern Status LastModified by Organization Details LastModified Time None Recorded Advance Directives Directive None Recorded Payers Encounter Date Sequence Insurance Name Policy Number Policy Penaloza Covered Member ID Penaloza Member ID Guarantor Name 12/10/2023 1 [facility] (MEDICARE REPLACEMENT/A DVANTAGE - PPO) [id number] Best Carr [id number] Best Carr 12/10/2023 2 [place] [facility] Best Fabiola Carr [id number] Best Carr Notes Date Note Type Note [...] and uses oxygen daily. MERRY HILL MD [address] [place] [address], [phone], [facility] - [facility] 12/10/2023 17:00:32
--- OUTSIDE RECORDS SUMMARY | 2024-07-09 13:18 | XMS_ITS | Clinical Summary ---
Author Organization [facility] Address [address] [place] [address] Phone Care Team Providers Care Metal Stud Framer Name Role Phone Connor Fletcher Primary Care Provider [phone] [phone] Allergies No known active allergies Medications albuterol [...] OF BREATH OR WHEEZING 07/16/19 24 Active metFORMIN (GLUCOPHAGE) 500 mg tablet TAKE ONE TABLET BY MOUTH TWICE A DAY WITH MEALS 12/04/19 24 Active nicotine (NICODERM CQ) 14 mg/[address] 1 Patch onto the skin every 24 hours. 05/02/19 24 Active MEN'S MULTI-VITAMIN ORAL Take 1 Tab by mouth daily. 07/26/19 16 Active ONETOUCH DELICA LANCETS [facility] USE 1 LANCET TWICE DAILY TO TEST BLOOD SUGAR 04/09/20 12 Active Oxygen Therapy, Adult Inhale into the lungs. 3 liters at HS and PRN with activity. Active sildenafiL (VIAGRA) 100 mg tablet TAKE ONE TABLET BY MOUTH NEEDED 60 MINUTES BEFORE INTERCOURSE. MAX 100 MGS IN 24 HOURS 08/25/19 24 Active tiZANidine (ZANAFLEX) 2 mg tablet TAKE ONE TABLET BY MOUTH EVERY 8 HOURS NEEDED 11/21/19 23 Active triamcinolone (NASACORT) 55 mcg nasal inhaler INHALE ONE PUFF VIA NASAL ROUTE DAILY 07/25/19 23 Active blood-glucose meter (OneTouch Ultra2 Meter) [facility] by Other route 4 (four) times [...] USE OF INHALED STEROID 180 each 3 01/27/20 25 Active predniSONE (DELTASONE) 10 mg tablet TAKE 4 TABLETS BY MOUTH DAILY FOR 3 DAYS,THEN 2 TABLETS DAILY FOR 4 DAYS. 20 tablet 06/16/19 25 Active predniSONE (DELTASONE) 10 mg tablet 4 tab po qd x 3 days and 2 tab po qd x 4 days prn for copd exacerbation 20 each 06/22/19 25 Active lisinopriL (PRINIVIL,ZES TRIL) 2.5 mg tablet TAKE ONE TABLET BY MOUTH EVERY DAY 90 tablet 3 07/07/19 25 Active sertraline (ZOLOFT) 25 mg tablet TAKE ONE TABLET BY MOUTH EVERY DAY 90 tablet 1 07/07/19 25 Active metoprolol succinate (TOPROL-XL) 25 mg 24 hr tablet TAKE TWO TABLETS BY MOUTH EVERY DAY 180 tablet 1 07/10/19 25 Active lisinopriL (PRINIVIL,ZES TRIL) 2.5 mg tablet Take 1 Tablet by mouth daily. 05/02/19 24 2024 Discontinued metoprolol succinate (TOPROL-XL) 25 mg 24 hr tablet Take 2 Tablets by mouth daily. 11/12/19 24 2024 Discontinued sertraline (ZOLOFT) 25 mg tablet TAKE ONE TABLET BY MOUTH EVERY DAY 01/06/20 24 2024 Discontinued predniSONE (DELTASONE) 10 mg tablet TAKE 4 [...] Care Team Description 06/18/2024 Telephone Pulmonolgy - [place] 175 [facility] [address] [place] [phone] Courtney Anna MD PREDNISONE 06/01/2024 Telephone Adult Medicine [address] [address] Pratibha Shore LPN Fitting for DME (Faxed form from [employer]) 05/20/2024 Telephone Lung Screening Program - [place] 299 [facility] [address] [place] [phone] Chloé Singh MA Appointment (1st Notification) 05/19/2024 Telephone Pulmonology - [place] 299 [facility] [address] [place] [address] Keon Borja MA 05/04/2024 Telephone Thoracic Surgery - [address] [place] [address] Rosie Metz PA from Last 3 Months [...] essential hypertension DX:Unspecified essential hypertension Morbid obesity ([facility]) DX:Morb id obesity ([facility]) Diabetes mellitus ([facility]) 11/14/2011 DX:D iabetes mellitus (HCC) Diabetes mellitus ([facility]) DX:D iabetes mellitus ([facility]); COMMENT: new dx 10/30 COPD (chronic obstructive pu lmonary disease) ([facility]) 02/13/2010 DX:COPD (chronic obstructive pulmonary disease) ([facility]) Type 2 diabetes, controlled, with renal manifestation ([facility]) 12/14/2012 DX:Type 2 diabetes, cont rolled, with renal manifestation ([facility]); COMMENT: Microalbumin 218 on 09/30/2012 Hypertension 02/13/2010 DX:Hypertension Diabetes mellitus type 2 wit h neurological manifestations ([facility]) 03/20/2015 DX:Diabetes uriah itus type 2 with neurological manifestations ([facility]) Hyperlipidemia DX:Hyperlipidemi a Family History [...] 1:30 PM EDT Office Visit Adult Medicine [facility] [address] [place] [address] Connor Fletcher PA [address] [place] [address] Health Maintenance Due Date Last Done Comments [...] Results * Urine Albumin Creatinine Ratio (08/14/2023) Urine Albumin Creatinine Ratio Abstracted Result [facility] Provider HEALTH MAINTENANCE Final Result * Annual BMP Blood Test (08/14/2023) Annual BMP Blood Test Abstracted Result [facility] Provider HEALTH MAINTENANCE Final Result * Hemoglobin A1c (08/14/2023) Pathologist [facility] Hemoglobin A1C 6.1 <=6.5 % Blood Venous blood specimen / Unknown Result [facility] Provider LAB BLOOD ORDERABLES Diamante l Result * (ABNORMAL) Lipid panel (08/14/2023) Pathologist [facility] LDL/HDL Ratio 2 0 - 4 Triglycerides 204(A) 0 - 150 mg/dL Cholesterol 175 0 - 200 mg/dL HDL 74 >=40 mg/dL LDL Cholesterol 61 0 - 100 mg/dL Blood Venous blood specimen / Unknown Result [facility] Provider LAB BLOOD ORDERABLES Diamante l Result * Diabetes Foot Exam (08/08/2023) Pathologist [facility] Diabetes: Annual Foot Exam Abstracted Historical Provider HEALTH MAINTENANCE Final Result * Abdominal Aortic Aneurysm Screen (07/02/2023) Pathologist [facility] Abdominal Aortic Aneurysm (AAA) Screening Abstracted Anatomical Region Laterality Modality Other [facility] Provider HEALTH MAINTENANCE Final Result * Colonoscopy (06/19/2021) Pathologist [facility] Colonoscopy Abstracted, no interpretation Anatomical Region Laterality Modality Other Historical Provider HEALTH MAINTENANCE Final Result * Hepatitis C Screening (01/03/2013) Pathologist [facility] Hepatitis C Screening Abstracted [facility] Provider HEALTH MAINTENANCE Final Result from Last 3 Months or Most Recently Relevant to Health Maintenance Insurance [place]ICAID - [place] [employer] MEDICARE Care Teams Metal Stud Framer Relationship Specialty Start Date End Date Connor Fletcher PA [address] [place] [phone] PCP - General Internal Medicine 12/13/19
--- OUTSIDE RECORDS SUMMARY | 2024-07-09 13:18 | XMS_ITS | Encounter Summary ---
Author Organization [facility] Address [address] [place] [address] Care Team Providers Care Woodworker Name Role Phone Connor Fletcher Primary Care Provider [phone] [phone] Reason for Visit * Reason Onset Date Comments PREDNISONE 06/18/2024 Encounter Details Date Type Department Care Team ([facility] st Contact Info) Description 06/18/2024 Telephone Pulmonolgy - [place] 175 [facility] [address] [place] [phone] Courtney Anna MD [address] [facility] [address] [place], [place] [phone] PREDNISONE Social History Tobacco Use Types Packs/Day [...] been feeling worst. Please call patient at [phone] documented in this encounter Plan of Treatment Upcoming Encounters Date Type Department Care Team (Late st Contact Info) Description 08/11/2024 1:30 PM EDT Office Visit Adult Medicine [facility] [address] [place] [phone] Connor Fletcher PA [address] [place] [phone] documented as of this encounter Visit Diagnoses Diagnosis Centrilobular emphysema (CMS/HCC)- Primary documented in this encounter Care Teams Woodworker Relationship Specialty Start Date End Date Connor Fletcher PA [address] [place] [phone] PCP - General Internal Medicine 12/13/19 documented as of this encounter
--- OUTSIDE RECORDS SUMMARY | 2024-07-09 13:18 | XMS_ITS ---
Author Organization [facility] Address [address] [facility] [address] [place] [address] Care Team Providers Care Vat Operator Name Role Phone Wilianteetee Connor Primary Care Provider Unavail able SHARMIN GALLOWAY Unavailable [phone] Allergies No Known Allergies REASON FOR VISIT callus on left foot and diabetic check Medications Medication SIG (Take, Route, Frequency, Duration) Notes Start Date End Date Status Metoprolol Succinate ER 25 MG 1 tablet Orally Once a day Active Umeclidinium [place] 62.5 MCG/INH 1 puff Inhalation Once a [...] Orally Onc e a day Active Nasal [place] 0.05 % 2 sprays in each nostril [...] 06/23/2024 Encounters Encounter Location Date Provider Diagnosis [facility] [address] [facility] [address] [place] [address] 06/23/2024 SHARMIN GALLOWAY Type 2 diabetes mellitus [...] Y???Sex:Male David e:06/23/2024 Phone: Address: [address], [place], [place]-[address] Pcp:Connor Infante Subjective: * Chief Complaints: [...] 1 tablet Orally Once a day Umeclidinium [place] 62.5 MCG/INH Aerosol Powder Breath Activated 1 puff Inhalation Once a day tiZANidine HCl 2 MG Tablet 1 tablet as needed Orally Three times a day , Notes to Pharmacist: prnCombivent Respimat 20-100 MCG/ACT Aerosol Solution 1 puff as needed Inhalation every 4 hrs Sertraline HCl 25 MG Tablet 1 tablet Orally Once a day Nasal [place] 0.05 % Solution 2 sprays in each [...] tablet Orally Once a day Taking Umeclidinium [place] 62.5 MCG/INH Aerosol Powder Breath Activated 1 puff Inhalation Once a day Taking tiZANidine HCl 2 MG Tablet 1 tablet as needed Orally Three times a day , Notes to Pharmacist: prnTaking Combivent Respimat 20-100 MCG/ACT Aerosol Solution 1 puff as needed Inhalation every 4 hrs Taking Sertraline HCl 25 MG Tablet 1 tablet Orally Once a day Taking Nasal [place] 0.05 % Solution 2 sprays in each [...] bilaterally, protective sensation diminished 7/10 with 5.07 [place] Ciatlin bilaterally, vibratory sensation with tuning fork diminished [...] Codes:? * Billing Information: * Visit Code:? 35727 Office Visit, Est Pt., Level 3. * Procedure Codes:? * Sign off status: Completed true * Provider:?Sharmin Galloway DPM Date:? 06/23/2024 Generated for Yenny dawson/Singh/Chuckitting on:?07/09/2024 11:02 AM EDT History and Physical Notes * [...] bilaterally, protective sensation diminished 7/10 with 5.07 [place] Caitlin bilaterally, vibratory sensation with tuning fork [...]
--- OUTSIDE RECORDS SUMMARY | 2024-07-09 13:18 | XMS_ITS ---
Author Organization [facility] Address [address] [facility] [address] [place] [address] Care Team Providers Care Profiler Name Role Phone Wilianteetee Connor Primary Care Provider Unavail able SHARMIN GALLOWAY Unavailable [phone] Allergies No Known Allergies REASON FOR VISIT [...] Orally Onc e a day Active Nasal [place] 0.05 % 2 sprays in each nostril as needed Nasally Twice a day Active tiZANidine HCl 2 MG 1 tablet as needed Orally Three times a day prn Active Combivent Respimat 20-100 MCG/ACT 1 puff as needed Inhalation every 4 hrs Active Umeclidinium [place] 62.5 MCG/INH 1 puff Inhalation Once a day Active Vital Signs Temperature 97.4 degrees Fahrenheit 08/08/19 Heart Rate 96 /min 08/08/2023 Respiratory Rate 20 /min 08/08/2023 Height 5ft 10in in 08/08/2023 Weight 221.5 lbs 08/08/2023 BMI 31.78 kg/m2 08/08/2023 Encounters Encounter Location Date Provider Diagnosis [facility] [address] [facility] [address] [place] [address] 08/08/2023 SHARMIN GALLOWAY Type 2 diabetes mellitus [...] Y???Sex:Male David e:08/08/2023 Phone: Address: [address], [place], [place] Pcp:Connor Infante Subjective: * Chief Complaints: [...] 1 tablet Orally Once a day Umeclidinium [place] 62.5 MCG/INH Aerosol Powder Breath Activated 1 puff Inhalation Once a day tiZANidine HCl 2 MG Tablet 1 tablet as needed Orally Three times a day , Notes to Pharmacist: prnCombivent Respimat 20-100 MCG/ACT Aerosol Solution 1 puff as needed Inhalation every 4 hrs Sertraline HCl 25 MG Tablet 1 tablet Orally Once a day Nasal [place] 0.05 % Solution 2 sprays in each [...] tablet Orally Once a day Taking Umeclidinium [place] 62.5 MCG/INH Aerosol Powder Breath Activated 1 puff Inhalation Once a day Taking tiZANidine HCl 2 MG Tablet 1 tablet as needed Orally Three times a day , Notes to Pharmacist: prnTaking Combivent Respimat 20-100 MCG/ACT Aerosol Solution 1 puff as needed Inhalation every 4 hrs Taking Sertraline HCl 25 MG Tablet 1 tablet Orally Once a day Taking Nasal [place] 0.05 % Solution 2 sprays in each [...] bilaterally, protective sensation diminished 7/10 with 5.07 [place] Caitlin bilaterally, vibratory sensation with tuning fork [...] Up:?prn * Billing Information: * Visit Code:? 01538 Office Visit, Est Pt., Level 3. Modifiers: 25 * Procedure Codes:? REMOVAL OF FOREIGN BODY. Modifiers: LT * Sign off status: Completed true * Provider:?Sharmin Galloway DPM Date:? 08/08/2023 Generated for Yenny dawson/Singh/Chuckitting on:?07/09/2024 11:02 AM [...] bilaterally, protective sensation diminished 7/10 with 5.07 [place] Caitlin bilaterally, vibratory sensation with tuning fork [...]
--- OUTSIDE RECORDS SUMMARY | 2024-07-09 13:18 | XMS_ITS ---
Author Organization [facility] Address [address] [place] [address] Care Team Providers Care Fruit Grower Name Role Phone Connor Infante Primary Care Provider Unavail able STAN ESCOBEDO [phone] REASON FOR VISIT Rx Refill Medications Medication SIG (Take, Route, Frequency, Duration) Notes Start Date End Date Status Eucerin Intensive Repair - as directed E xternally once daily for 90 days 04/23/2024 Active Encounters Encounter Location Date Provider Diagnosis [facility] [address] [address] 04/22/2024 STAN ESCOBEDO Plan Of Treatment Medication Medication Name Sig Start Date Stop Date Notes Eucerin Intensive Repair - as directed E xternally once daily for 90 days 04/23/2024 Progress Notes * Best DICKERSON PDOB:[birth year] (68 yo M)Acc No.[id number]:04/22/2024 Patient:?Best DICKERSON :1955???Age:68 Y???Sex:Male Phone: Address:[address], [place] [address] * Refills? Start Eucerin Intensive Repair Ointment, -, Externally, 100, as directed, once daily, 90 days, Refills=1 * true * Date:? Generated for Yenny dawson/Singh/eTransmitting on:?07/09/2024 01:17 PM EDT
--- OUTSIDE RECORDS SUMMARY | 2024-07-09 13:18 | XMS_ITS | Patient Health Record ---
Author Organization [facility] Address [address] [facility] [address] [place] [address] Care Team Providers Care Exhaust Worker Name Role Phone Connor Infante Primary Care Provider Unavail able STAN ESCOBEDO Unavailable [phone] Allergies No Known Allergies Reason For Referral [...] Orally Onc e a day Active Nasal [place] 0.05 % 2 sprays in each nostril as needed Nasally Twice a day Active Aspirin 81 MG 1 tablet Orally Once a day Active Metoprolol Succinate ER 25 MG 1 tablet Orally Once a day Active Umeclidinium [place] 62.5 MCG/INH 1 puff Inhalation Once a [...] Problem Status W/U Status Risk Notes Problem 05237642 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.49) Active confirmed Problem 10640063 Type 2 diabetes mellitus with other circulatory complications (E11.59) Active confirmed Problem Polyneuropathy due to type 2 diabetes mellitus (248260115) Type 2 diabetes mellitus with diabetic polyneuropathy, 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) Active confirmed Vital Signs Heart Rate 96 /min 08/08/2023 Temperature 97.4 degrees Fahrenheit 08/08/2023 Respiratory Rate 20 /min 08/08/2023 Height 5ft 10in in 06/23/2024 Weight 204.6 lbs 06/23/2024 BMI 29.35 kg/m2 06/23/2024 Encounters Encounter Location Date Provider Diagnosis [facility] [address] [address] 08/08/2023 STAN ESCOBEDO Type 2 diabetes mellitus with other circulatory complications E11.59 ; Foreign body in left foot, initial encounter S90.852A and Type 2 diabetes mellitus with other diabetic neurological complication E11.49 [facility] [address] [address] 06/23/2024 STAN ESCOBEDO Type 2 diabetes mellitus with other circulatory complications E11.59 ; Type 2 diabetes mellitus with other diabetic neurological complication E11.49 and Foot callus L84 [facility] [address] [address] 04/22/2024 STAN ESCOBEDO Assessments Encounter Date Diagnosis [...] Date Coverage End Date [employer] Medicare [id number] [address] [address] [place] [address] [phone] [id number] Carr Best Self - patient is the [...] asbestos Z77.090 Atherosclerotic heart diseas e of [place] coronary artery without angina pectoris I25.10 Secondary [...] E11.9 left angioplasty COVID vaccinated X 2 ([employer]) and 3 jaziel ters (Pfizer) Surgical History Surgery Date(Month/Year) gastric bypass colonoscopy cardiac catheterization right knee surgery left angioplasty right aneurysm repair behind the knee Hospitalization History Reason Date(Month/Year) angioplasty 05/2024 COPD Flare Up 10/05/2022 gastric bypass right knee surgery
== END 2024-07-09 13:21 | disposition home or self-care (01) ==
LOC: HO.HPS 10:54
PROVIDERS: PCP Physician Assistant; Referring Provider Physician Assistant; Visit Provider Physician Assistant Medical
DX: F17.210 Nicotine dependence, cigarettes, uncomplicated (principal)
CPT/HCPCS: G0296

== ENCOUNTER 2024-07-09 11:17 | Outpatient (REF) | payer MEDICARE, MEDICAID, SELFPAY ==
--- NOTE | ~2024-07-09 | CT_ITS ---
CLINICAL HISTORY: F17.210 - Nicotine dependence, cigarettes, uncomplicated CT lung cancer screening (LDCT) Comparison: CT/KO/AR - CT OUTSIDE IMAGES - 03/02/24 16:09 EST Technique: Axial CT images of the chest using low-dose technique. Referring provider counseled the patient on shared decision-making for LDCT screening. Additional counseling was provided on smoking cessation. Effective radiation dose total: DLP 55.4 mGycm, CTDIvol 1.7 mGy. Findings: There is mild paraseptal emphysema. Previously seen basilar opacities have resolved. No pulmonary nodules are noted. There is severe coronary artery disease. Limited upper abdomen: Unremarkable Other: None Impression: LungRADS 1: Negative exam. Continue annual screening with low dose Chest CT in 12 months. ##L1# Category 1: Normal; continue annual screening Category 2: Benign appearance or behavior, continue annual screening Category 3: Probably benign, [address] recommended Category 4A: Suspicious, [address] recommended; may consider PET/CT Category 4B: Suspicious, Additional diagnostics and/or tissue sampling recommended Category 4X: Suspicious, Additional diagnostics and/or tissue sampling recommended Category 0: Recalls (incomplete screen due to Incomplete coverage, Noise, Respiratory motion, Expiration, Obscured by acute abnormality) This document has been electronically signed by: Ramiro Lamar MD on 07/12/2024 11:59:13
--- OUTSIDE RECORDS SUMMARY | 2024-07-09 13:47 | XMS_ITS | Clinical Summary ---
Author Organization [facility] Address [address] [place] [address] Phone Care Team Providers Care Federal Appellate Law Clerk Name Role Phone Connor Fletcher Primary Care Provider [phone] [phone] Allergies No known active allergies Medications albuterol [...] daily. 07/26/19 16 Active ONETOUCH DELICA LANCETS [facility] USE 1 LANCET TWICE DAILY TO TEST [...] 23 Active blood-glucose meter (OneTouch Ultra2 Meter) [facility] by Other route 4 (four) times a [...] Care Team Description 06/18/2024 Telephone Pulmonolgy - [place] 175 [facility] [address] [place] [phone] Courtney Anna MD PREDNISONE 06/01/2024 Telephone Adult Medicine [address] [address] Pratibha Shore LPN Fitting for DME (Faxed form from [employer]) 05/20/2024 Telephone Lung Screening Program - [place] 299 [facility] [address] [place] [phone] Chloé Singh [place] Appointment (1st Notification) 05/19/2024 Telephone Pulmonology - [place] 299 [facility] [address] [place] [address] Keon Borja MA 05/04/2024 Telephone Thoracic Surgery - [address] [place] [address] Rosie Metz PA from Last [...] CARDIAC CATH OTHER SURGICAL HISTORY 08/08/2016 PROCEDURE: UT GASTRIC RSTCV W/O BYP VERTICAL-BANDED GASTROPLY; COMMENT: Sleeve gastrectomy; Dr. Franco COLONOSCOPY 2012 PROCEDURE: HISTORICAL COLONOSCOPY; COMMENT: hospital based colonoscopy, normal ESOPHAGOGASTRODUODENOSCOPY 2012 PROCEDURE: UT EGD TRANSORAL BIOPSY SINGLE/MULTIPLE; COMMENT: normal COLONOSCOPY [...] essential hypertension DX:Unspecified essential hypertension Morbid obesity ([facility] DX:Morb id obesity ([facility]) Diabetes mellitus ([facility]) 11/14/2011 DX:D iabetes mellitus (HCC) Diabetes mellitus ([facility]) DX:D iabetes mellitus ([facility]); COMMENT: new dx 10/30 COPD (chronic obstructive pu lmonary disease) ([facility]) 02/13/2010 DX:COPD (chronic obstructive pulmonary disease) ([facility]) Type 2 diabetes, controlled, with renal manifestation ([facility]) 12/14/2012 DX:Type 2 diabetes, cont rolled, with renal manifestation ([facility]); COMMENT: Microalbumin 218 on 09/30/2012 Hypertension 02/13/2010 DX:Hypertension Diabetes mellitus type 2 wit h neurological manifestations ([facility]) 03/20/2015 DX:Diabetes uriah itus type 2 with neurological manifestations ([facility]) Hyperlipidemia DX:Hyperlipidemi a Family History Medical History [...] 1:30 PM EDT Office Visit Adult Medicine [facility] [address] [place] [address] Connor Fletcher PA [address] [place] [address] Health Maintenance Due Date Last Done Comments [...] (08/14/2023) Urine Albumin Creatinine Ratio Abstracted Result [facility] Provider HEALTH MAINTENANCE Final Result * Annual BMP Blood Test (08/14/2023) Annual BMP Blood Test Abstracted Result [facility] Provider HEALTH MAINTENANCE Final Result * Hemoglobin A1c (08/14/2023) Pathologist [facility] Hemoglobin A1C 6.1 <=6.5 % Blood Venous blood specimen / Unknown Result [facility] Provider LAB BLOOD ORDERABLES Diamante l Result * (ABNORMAL) Lipid panel (08/14/2023) Pathologist [facility] LDL/HDL Ratio 2 0 - 4 Triglycerides 204(A) 0 - 150 mg/dL Cholesterol 175 0 - 200 mg/dL HDL 74 >=40 mg/dL LDL Cholesterol 61 0 - 100 mg/dL Blood Venous blood specimen / Unknown Result [facility] Provider LAB BLOOD ORDERABLES Diamante l Result * Diabetes Foot Exam (08/08/2023) Pathologist [facility] Diabetes: Annual Foot Exam Abstracted Historical Provider HEALTH MAINTENANCE Final Result * Abdominal Aortic Aneurysm Screen (07/02/2023) Pathologist [facility] Abdominal Aortic Aneurysm (AAA) Screening Abstracted Anatomical Region Laterality Modality Other [facility] Provider HEALTH MAINTENANCE Final Result * Colonoscopy (06/19/2021) Pathologist [facility] Colonoscopy Abstracted, no interpretation Anatomical Region Laterality Modality Other Historical Provider HEALTH MAINTENANCE Final Result * Hepatitis C Screening (01/03/2013) Pathologist [facility] Hepatitis C Screening Abstracted [facility] Provider HEALTH MAINTENANCE Final Result from Last 3 Months or Most Recently Relevant to Health Maintenance Insurance [place]ICAID - [place] [employer] MEDICARE Care Teams Federal Appellate Law Clerk Relationship Specialty Start Date End Date Connor Fletcher PA [address] [place] [phone] PCP - General Internal Medicine 12/13/19
--- OUTSIDE RECORDS SUMMARY | 2024-07-09 13:47 | XMS_ITS | Encounter Summary ---
Author Organization [facility] Address [address] [place] [address] Care Team Providers Care Broom Worker Name Role Phone Connor Fletcher Primary Care Provider [phone] Reason for Visit * Reason Onset Date Comments PREDNISONE 06/18/2024 Encounter Details Date Type Department Care Team ([facility] st Contact Info) Description 06/18/2024 Telephone Pulmonolgy - [place] 175 [facility] [address] [place] [phone] Courtney Anna MD 175 [facility] [address] [place], [place] [phone] PREDNISONE Social History Tobacco Use Types Packs/Day [...] been feeling worst. Please call patient at [phone] documented in this encounter Plan of Treatment Upcoming Encounters Date Type Department Care Team (Late st Contact Info) Description 08/11/2024 1:30 PM EDT Office Visit Adult Medicine [facility] [address] [place] [phone] Connor Fletcher PA [address] [place] [phone] documented as of this encounter Visit Diagnoses Diagnosis Centrilobular emphysema (CMS/HCC)- Primary documented in this encounter Care Teams Broom Worker Relationship Specialty Start Date End Date Connor Fletcher PA [address] [place] [phone] PCP - General Internal Medicine 12/13/19 documented as of this encounter
== END 2024-07-09 11:18 | disposition home or self-care (01) ==
LOC: HO.CT 11:17
PROVIDERS: PCP Physician Assistant; Visit Provider Physician Assistant Medical
DX: Z12.2 Encounter for screening for malignant neoplasm of respiratory organs (principal); F17.210 Nicotine dependence, cigarettes, uncomplicated
CPT/HCPCS: 71250; G0296

== ENCOUNTER → 2024-07-09 11:19 | Outpatient (BNV) | payer MEDICARE, MEDICAID, SELFPAY | PROVIDERS: PCP Physician Assistant; Visit Provider Radiology Diagnostic Radiology | DX: Z12.2 Encounter for screening for malignant neoplasm of respiratory organs (principal); F17.210 Nicotine dependence, cigarettes, uncomplicated | CPT/HCPCS: 71250 ==

== ENCOUNTER 2024-09-01 13:54 | Outpatient (AMB) | payer MEDICARE, MEDICAID, SELFPAY ==
--- OUTSIDE RECORDS SUMMARY | 2024-09-01 13:58 | XMS_ITS | Clinical Summary ---
Author Organization [facility] Address [address] [place] [address] Phone Care Team Providers Care Director Of Product Marketing Name Role Phone Connor Fletcher Primary Care Provider [phone] Allergies No known active allergies Medications albuterol [...] (IRON ORAL) Take by mouth. Activ e furosemide (LASIX) 20 mg tablet Take 1 [...] 07/26/19 16 Active ONETOUCH DELICA LANCETS [facility] USE 1 LANCET TWICE DAILY [...] 23 Active blood-glucose meter (OneTouch Ultra2 Meter) [facility] by Other route 4 (four) times a day. DX E11.9 1 each 02/26/20 24 Active atorvastatin (LIPITOR) 40 mg tablet [...] 4 DAYS. 20 tablet 06/16/19 25 Active lisinopriL (PRINIVIL,ZES TRIL) 2.5 mg tablet TAKE ONE TABLET BY MOUTH EVERY DAY 90 tablet 3 07/07/19 25 Active sertraline (ZOLOFT) 25 mg tablet TAKE ONE TABLET BY MOUTH EVERY DAY 90 tablet 1 07/07/19 25 Active metoprolol succinate (TOPROL-XL) 25 mg 24 hr tablet TAKE TWO TABLETS BY MOUTH EVERY DAY 180 tablet 1 07/10/19 25 Active fluticasone propionate (FLONASE) 50 mcg/actuation nasal spray APPLY TWO SPRAYS IN EACH NOSTRIL EVERY DAY 48 g 1 08/11/19 25 Active OneTouch Ultra Test test strip USE A NEW STRIP 4 TIMES A DAY TO TEST BLOOD SUGAR 400 strip 1 08/11/19 25 Active predniSONE (DELTASONE) 10 mg tablet TAKE 4 TABLETS BY MOUTH DAILY FOR 3 DAYS,THEN 2 TABLETS BY MOUTH DAILY FOR 4 DAYS NEEDED FOR COPD 20 tablet 08/26/19 25 Active fluticasone propionate (FLONASE) 50 mcg/actuation nasal spray 2 Sprays by Nasal route daily. 02/18/20 23 2024 Discontinued OneTouch Ultra Test test strip USE A NEW STRIP 4 TIMES A DAY TO TEST BLOOD SUGAR 400 strip 1 04/07/20 24 2024 Discontinued predniSONE (DELTASONE) 10 mg tablet 4 tab po qd x 3 days and 2 tab po qd x 4 days prn for copd exacerbation 20 each 06/22/19 25 2024 Discontinued Active Problems Problem Noted Date Diagnosed Date Shortness of breath 09/29/2023 Overview (02/10/2024): Last Assessment & Plan: Mostly from a COPD. Lungs sounds quite crackling at the lower third of the lung field. Will check BNP. Will repeat echocardiogram. Iron deficiency anemia 12/04/2021 PVD (peripheral vascular disease) ([facility] V24) 09/16/2018 Hiatal hernia 07/13/2018 Centrilobular emphysema ([facility] V24, [facility] V2 8) 06/11/2017 Nocturnal hypoxia 06/11/2017 KHADRA and COPD overlap syndrome ([facility] V24, [facility] V28) 06/11/2017 Stage 3 severe COPD by GOLD classification ([facility] V24, [facility] V28) 06/11/2017 Asbestos exposure 12/11/2016 Atelectasis 12/11/2016 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 ([facility] V24, [facility] V28) 12/11/2016 Obesity (BMI 30-39.9) 12/11/2016 Overlap syndrome ([facility] V24) 12/11/2016 Smoker 12/11/2016 Overview (02/10/2024): Reformed approx 2017 CAD (coronary artery disease) 01/24/2016 Overview (02/10/2024): Cath in 2016 Erythrocytosis 10/20/2015 Microalbuminuria 04/26/2015 Diabetes mellitus type 2 wit h neurological manifestations ([facility] V24, [facility] V28) 03/20/2015 CKD (chronic kidney disease) stage 1, GFR 90 ml/min or greater 05/10/2014 Type 2 diabetes, controlled, with renal manifestation ([facility] V24, [facility] V28) 12/14/2012 Overview (02/10/2024): Microalbumin 218 on 09/30/2012 Sebaceous cyst 07/31/2012 Sleep apnea 01/06/2012 Overview (02/10/2024): Did not want to use CPAP so ended up with oxygen concentrator at night , usually 3 liter Umbilical hernia 11/12/2011 Chronic back pain 02/13/2010 Colonic polyp 02/13/2010 Depression 02/13/2010 COPD (chronic obstructive pu lmonary disease) ([facility] V24, [facility] V28) 02/13/2010 Overview (02/10/2024): Uses oxygen prn with exertion Hyperlipidemia 02/13/2010 Hypertension 02/13/2010 Encounters Date Type Department Care Team Description 07/14/2024 Telephone [facility] [address] [facility] [address] [place] [address] Soledad Sullivan MD medical records 07/09/2024 Telephone [facility] [address] [place] [address] Soledad Sullivan MD Med Refill 06/18/[address] [place] [address] Courtney Anna MD PREDNISONE from Last 3 Months Immunizations Name Administration [...] CARDIAC CATH OTHER SURGICAL HISTORY 08/08/2016 PROCEDURE: TN GASTRIC RSTCV W/O BYP VERTICAL-BANDED GASTROPLY; COMMENT: Sleeve gastrectomy; Dr. Franco COLONOSCOPY 2012 PROCEDURE: HISTORICAL COLONOSCOPY; COMMENT: hospital based colonoscopy, normal ESOPHAGOGASTRODUODENOSCOPY 2012 PROCEDURE: TN EGD TRANSORAL BIOPSY SINGLE/MULTIPLE; COMMENT: normal COLONOSCOPY [...] essential hypertension DX:Unspecified essential hypertension Morbid obesity ([facility]/HCC V24, [facility]/HCC V28) DX:Morbid obesity (HCC) Diabetes mellitus ([facility] V 24, [facility]/HCC V28) 11/14/2011 DX:Diabetes mellitus (HCC) Diabetes mellitus ([facility] V 24, CMS/HCC V28) DX:Diabetes mellitus (HCC); COMMENT: new dx 10/30 COPD (chronic obstructive pu lmonary disease) (CMS/HCC V24, CMS/HCC V28) 02/13/2010 DX:COPD (chronic o bstructive pulmonary disease) ([facility]) Type 2 diabetes, controlled, with renal manifestation (CMS/HCC V24, CMS/HCC V28) 12/14/2012 DX:Type 2 diabetes, controll ed, with renal manifestation ([facility]); COMMENT: Microalbumin 218 on 09/30/2012 Hypertension 02/13/2010 DX:Hypertension Diabetes mellitus type 2 wit h neurological manifestations (CMS/HCC V24, CMS/HCC V28) 03/20/2015 DX:Diabetes mellitus type 2 with neurological manifestations (HCC) Hyperlipidemia [...] 02/11/2024 12:56 PM EDT Plan of Treatment Health Maintenance Due Date Last Done Comments Diabetes: Annual Retina Eye Exam 10/20/1965 Depression Screening 03/30/2022 Falls Risk Assessment 03/30/2022 Medicare Annual Wellness Visit 03/30/2022 Social Influencers of Health Screening 03/30/2022 COVID-19 Vaccine (8 - Pfizer risk ) 07/08/2024 01/09/2024, 03/17/2023, 02/23/2022, Additional history exists Diabetes: Annual Foot Exam 08/07/2024 08/08/2023 Diabetes: [...] Vaccines Completed 04/02/2022, 01/19, 01/27/2014 RSV Immunization Adult Patients Completed 12/27/2022, 12/27/2022 Abdominal Aortic Aneurysm (AAA) Screen Completed 07/02/2023, 12/07/2018 Influenza Vaccine Completed 01/09/2024, , 12/30/2021, Additional [...] age to complete this topic Meningococcal B Vaccine Aged Out No l onger eligible based on patient's age to complete [...] Results * Urine Albumin Creatinine Ratio (08/14/2023) [facility] Urine Albumin Creatinine Ratio Abstracted Result [facility] HEALTH MAINTENANCE Final Result * Annual BMP Blood Test (08/14/2023) [facility] Annual BMP Blood Test Abstracted Result [facility] HEALTH MAINTENANCE Final Result * Hemoglobin A1c (08/14/2023) [facility] Hemoglobin A1C 6.1 <=6.5 % Blood Venous blood specimen / Unknown Result [facility] LAB BLOOD ORDERABLES Diamante l Result * (ABNORMAL) Lipid panel (08/14/2023) [facility] LDL/HDL Ratio 2 0 - 4 Triglycerides 204(A) 0 - 150 mg/dL Cholesterol 175 0 - 200 mg/dL HDL 74 >=40 mg/dL LDL Cholesterol 61 0 - 100 mg/dL Blood Venous blood specimen / Unknown Result [facility] Provider LAB BLOOD ORDERABLES Diamante l Result * Diabetes Foot Exam (08/08/2023) [facility] Diabetes: Annual Foot Exam Abstracted Result [facility] HEALTH MAINTENANCE Final Result * Abdominal Aortic Aneurysm Screen (07/02/2023) Abdominal Aortic Aneurysm (AAA) Screening Abstracted Anatomical Region Laterality Modality Other Historical Provider HEALTH MAINTENANCE Final Result * Colonoscopy (06/19/2021) Pathologist [facility] Colonoscopy Abstracted, no interpretation Anatomical Region Laterality Modality Other Historical Provider HEALTH MAINTENANCE Final Result * Hepatitis C Screening (01/03/2013) Pathologist [facility] Hepatitis C Screening Abstracted Historical Provider HEALTH MAINTENANCE Final Result from Last 3 Months or Most Recently Relevant to Health Maintenance Insurance [place] Member Subscriber Plan / Payer (Ef fective 2024-Present) Name:Best Carr Relation to Subscriber:Self Name:Best Carr Payer ID:[id number] Group ID:Not on file Type:Not on file Address: [facility] [employer] [place] ATTN:CLAIMS [address] [place] [id number] [employer] MEDICARE Care Teams Director Of Product Marketing Relationship Specialty Start Date End Date Connor Fletcher PA [address] [place] [address] PCP - General Internal Medicine 12/13/19
--- OUTSIDE RECORDS SUMMARY | 2024-09-01 13:58 | XMS_ITS | Patient Health Record ---
Author Organization [facility] Address [address] [facility] [address] [place] [address] Care Team Providers Care Medical Imaging Technician Name Role Phone Connor Infante Primary Care Provider Unavail able STAN ESCOBEDO Unavailable [phone] Allergies No Known Allergies Reason For Referral [...] Orally Onc e a day Active Nasal [place] 0.05 % 2 sprays in each nostril as needed Nasally Twice a day Active Aspirin 81 MG 1 tablet Orally Once a day Active Metoprolol Succinate ER 25 MG 1 tablet Orally Once a day Active Umeclidinium [place] 62.5 MCG/INH 1 puff Inhalation Once a [...] Problem Status W/U Status Risk Notes Problem [id number] 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.49) Active confirmed Problem 15706424 Type 2 diabetes mellitus with other circulatory complications (E11.59) Active confirmed Problem Type 2 diabetes mellitus with diabetic polyneuropathy, 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) Active confirmed Vital Signs Height 5ft 10in in 06/23/2024 Weight 204.6 lbs 06/23/2024 BMI 29.35 kg/m2 06/23/2024 Encounters Encounter Location Date Provider Diagnosis [facility] [address] [address] 06/23/2024 STAN ESCOBEDO Type 2 diabetes mellitus with other circulatory complications E11.59 ; Type 2 diabetes mellitus with other diabetic neurological complication E11.49 and Foot callus L84 [facility] [address] [address] 04/22/2024 STAN ESCOBEDO [facility] [address] [address] 07/16/2024 STAN ESCOBEDO Assessments Encounter Date Diagnosis (ICD [...] Date Coverage End Date [employer] Medicare Adv-27677 [address] [address] [place] [address] [id number] Carr Best Self - patient is the [...] asbestos Z77.090 Atherosclerotic heart diseas e of [place] coronary artery without angina pectoris I25.10 Secondary [...] E11.9 left angioplasty COVID vaccinated X 2 (SPEEDELO) and 3 jaziel ters (SPEED[place]O) Surgical History Surgery Date(Month/Year) gastric bypass colonoscopy cardiac catheterization right knee surgery left angioplasty right aneurysm repair behind the knee Hospitalization History Reason Date(Month/Year) angioplasty 05/2024 COPD Flare Up 10/05/2022 gastric bypass right knee surgery
--- OUTSIDE RECORDS SUMMARY | 2024-09-01 13:58 | XMS_ITS ---
Author Organization [facility] Address [address] [facility] [address] [place] [address] Care Team Providers Care Vertica Architect Name Role Phone Wilianteetee Connor Primary Care Provider Unavail able SHARMIN GALLOWAY Unavailable [phone] Allergies No Known Allergies REASON FOR VISIT callus on left foot and diabetic check Medications Medication SIG (Take, Route, Frequency, Duration) Notes Start Date End Date Status Metoprolol Succinate ER 25 MG 1 tablet Orally Once a day Active Umeclidinium [place] 62.5 MCG/INH 1 puff Inhalation Once [...] Orally Onc e a day Active Nasal [place] 0.05 % 2 sprays in each nostril [...] 06/23/2024 Encounters Encounter Location Date Provider Diagnosis [facility] [address] [facility] [address] [place] [address] 06/23/2024 SHARMIN GALLOWAY Type 2 diabetes mellitus [...] Y???Sex:Male David e:06/23/2024 Phone: Address: [address], [place], [place]-[address] Pcp:Connor Infante Subjective: * Chief Complaints: [...] 1 tablet Orally Once a day Umeclidinium [place] 62.5 MCG/INH Aerosol Powder Breath Activated 1 puff Inhalation Once a day tiZANidine HCl 2 MG Tablet 1 tablet as needed Orally Three times a day , Notes to Pharmacist: prnCombivent Respimat 20-100 MCG/ACT Aerosol Solution 1 puff as needed Inhalation every 4 hrs Sertraline HCl 25 MG Tablet 1 tablet Orally Once a day Nasal [place] 0.05 % Solution 2 sprays in each [...] tablet Orally Once a day Taking Umeclidinium [place] 62.5 MCG/INH Aerosol Powder Breath Activated 1 puff Inhalation Once a day Taking tiZANidine HCl 2 MG Tablet 1 tablet as needed Orally Three times a day , Notes to Pharmacist: prnTaking Combivent Respimat 20-100 MCG/ACT Aerosol Solution 1 puff as needed Inhalation every 4 hrs Taking Sertraline HCl 25 MG Tablet 1 tablet Orally Once a day Taking Nasal [place] 0.05 % Solution 2 sprays in each [...] bilaterally, protective sensation diminished 7/10 with 5.07 [place] bilaterally, vibratory sensation with tuning fork [...] Codes:? * Billing Information: * Visit Code:? 68602 Office Visit, Est Pt., Level 3. * Procedure Codes:? * Sign off status: Completed true * Provider:?Sharmin Galloway DPM Date:? 06/23/2024 Generated for Yenny dawson/Singh/Chuckitting on:?09/01/2024 01:58 PM EDT History and Physical Notes * HPI [...] bilaterally, protective sensation diminished 7/10 with 5.07 [place] bilaterally, vibratory sensation with tuning fork [...]
--- OUTSIDE RECORDS SUMMARY | 2024-09-01 13:58 | XMS_ITS ---
Author Organization [facility] Address [address] [place] [address] Care Team Providers Care Shield Installer Name Role Phone Connor Infante Primary Care Provider Unavail able STAN ESCOBEDO [phone] REASON FOR VISIT Rx Refill Medications Medication SIG (Take, Route, Frequency, Duration) Notes Start Date End Date Status Eucerin Intensive Repair - as directed E xternally once daily for 90 days 04/23/2024 Active Encounters Encounter Location Date Provider Diagnosis [facility] [address] [address] 04/22/2024 STAN ESCOBEDO Plan Of Treatment Medication Medication Name Sig Start Date Stop Date Notes Eucerin Intensive Repair - as directed E xternally once daily for 90 days 04/23/2024 Progress Notes * Best DICKERSON PDOB:[birth year] (68 yo M)Acc No.[id number]:04/22/2024 Patient:?Best DICKERSON :1955???Age:68 Y???Sex:Male Phone: Address:[address], [place] [address] * Refills? Start Eucerin Intensive Repair Ointment, -, Externally, 100, as directed, once daily, 90 days, Refills=1 * true * Date:? Generated for Yenny dawson/Singh/eTransmitting on:?09/01/2024 01:58 PM EDT
--- OUTSIDE RECORDS SUMMARY | 2024-09-01 13:58 | XMS_ITS ---
Author Organization [facility] Address [address] [address] Care Team Providers Care Director Government Name Role Phone WilianteeteeConnor Primary Care Provider Unavail able STAN ESCOBEDO Unavailable [phone] REASON FOR VISIT Rt great toe injury Encounters Encounter Location Date Provider Diagnosis [facility] [address] [address] 07/16/2024 STAN ESCOBEDO Plan Of Treatment No Information Progress Notes * Best CARR PDOB:[birth year] (68 yo M)Acc No.[id number]:07/16/2024 Patient:?Best CARR :1955???Age:68 Y???Sex:Male Phone: Address:[address] [place] [address] * true * Date:? Generated for Yenny dawson/Singh/eTransmitting on:?09/01/2024 01:57 PM EDT
--- OUTSIDE RECORDS SUMMARY | 2024-09-01 13:58 | XMS_ITS | Data Portability ---
Author Organization [place] - [facility] Address [address] [address] Assessment Encounter Date Assessment Date Assessment LastModified [...] surgery if there is scarring or stenosis. [email or web address] Not available 12/10/2023 16:50:24 Plan of Treatment [...] Recorded Time Foreign body in right ear [id number] Active 2022 Foreign body in right ear, initial encounte r; Note: Date Diagnose d: 04/26/2022 1:47 PM (T16.1XX A) Not Available [employer] 02:28:14 Epidermal burn of nose 68051534 Active 2023 ARYA QUINTANILLA, PA-[address], [address] , [facility] [...] ion aerosol inhaler active Medicatio n ID: [id number] Br and Name: albuterol sulfate S end [...] Updated DateTime 12/10/2023 177.8 cm 30.7 kg/m2 58028.77 g Lesly Segal [place] - [facility] 12/10/2023 15:17:17 Social History None recorded. Functional Status None recorded. Mental Status None recorded. Family History Nothing Reported. Medical History No medical history recorded. Past Encounters Encounter ID Performer Location Encounter Start Date Encounter Closed Date Diagnosis/Indication Diagnosis SNOMED-CT Code Diagnosis ICD10 Code Diagnosis Note [id number] ARYA QUINTANILLA PA-C [facility] [address] [address] 12/10/2023 15:08:38 12/15/2023 07:53:41 Epidermal burn of nose [id number] T20.14XA Health Concerns Section Related Observation LastModified by Organization Detai ls LastModified Time None Recorded Concern Status LastModified by Organization Details LastModified Time None Recorded Advance Directives Directive None Recorded Payers Insurance Date Sequence Insurance Name Policy Number Policy Penaloza Covered Member ID Penaloza Member ID Guarantor Name 12/10/2023 1 [facility] (MEDICARE REPLACEMENT/A DVANTAGE - PPO) [id number] Best Carr [id number] Best Carr 05/04/2024 2 [place]: [facility] Best Carr [id number] Best Carr Notes Date Note Type Note [...] and uses oxygen daily. MERRY HILL MD [address] [place] [address], [address], [facility] - [facility] 12/10/2023 17:00:32
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
[2024-09-01 14:24] VITALS: BP 122/70; PULSE 95; TEMP 36.3; O2SAT 95; BMI 29.4
== END 2024-09-01 15:11 | disposition home or self-care (01) ==
LOC: HO.HMCH 13:55
PROVIDERS: PCP Physician Assistant; Visit Provider Physician Assistant
DX: J43.9 Emphysema, unspecified (principal); F17.210 Nicotine dependence, cigarettes, uncomplicated; M19.011 Primary osteoarthritis, right shoulder; M67.912 Unspecified disorder of synovium and tendon, left shoulder; B37.0 Candidal stomatitis

== ENCOUNTER → 2024-09-01 13:54 | Outpatient (BNVA) | payer MEDICARE, MEDICAID, SELFPAY | PROVIDERS: PCP Physician Assistant; Visit Provider Physician Assistant | DX: J43.9 Emphysema, unspecified (principal); M19.011 Primary osteoarthritis, right shoulder; E11.69 Type 2 diabetes mellitus with other specified complication; M67.912 Unspecified disorder of synovium and tendon, left shoulder; B37.0 Candidal stomatitis; F17.210 Nicotine dependence, cigarettes, uncomplicated; Z71.6 Tobacco abuse counseling | CPT/HCPCS: 83036; 99212 ==

== ENCOUNTER 2024-10-14 13:49 | Outpatient (REF) | payer MEDICARE, MEDICAID, SELFPAY ==
--- NOTE | ~2024-10-14 | US_ITS ---
EXAMINATION: Noninvasive assessment of the bilateral lower extremities with ARTERIAL DUPLEX, ANKLE BRACHIAL INDICES (ABIs), and PULSE VOLUME RECORDINGS (PVRs). CLINICAL INFORMATION: Peripheral vascular disease, unspecified. Status post angioplasty and stenting left common iliac artery/left superficial femoral artery and angioplasty, right common iliac artery.. TECHNIQUE: Duplex Doppler techniques with waveform analysis and measurement of velocities in the bilateral common femoral, profunda femoris, superficial femoral, popliteal and tibial arteries were performed. Additionally, ankle pulse volume recordings, ankle pressure measurements and ankle brachial indices were obtained of the lower extremity arterial system bilaterally. The study was performed only at rest. Duplex Doppler techniques with spectral analysis of the abdominal aorta and iliac arteries. COMPARISON: May 11, 2024 demonstrated occlusion right distal superficial femoral and popliteal arteries and high-grade stenosis/occluded distal left popliteal artery FINDINGS: Arrhythmia episodes. Calcified plaques throughout the interrogated arteries. Stent on the left artery system is not identified. DIRECT DUPLEX DOPPLER FINDINGS: RIGHT LEG: Common femoral artery: 132 cm/s, phasicity: Monophasic. Profunda femoris artery: 159 cm/s, phasicity: Monophasic. Superficial femoral artery (proximal): 58 cm/s, phasicity: Monophasic. Superficial femoral artery (mid): 35 cm/s, phasicity: Monophasic. Superficial femoral artery (distal): 39 cm/s, phasicity: Monophasic. Popliteal artery: 40 cm/s, phasicity: Monophasic. Posterior tibial artery: 32 cm/s, phasicity: Monophasic. Peroneal artery: 17 cm/s, phasicity: Monophasic. Anterior tibial artery: 25 cm/s, phasicity: Monophasic. Dorsalis pedis artery: 8 cm/s, phasicity:Monophasic. LEFT LEG: Common femoral artery: 140 cm/s, phasicity: Monophasic. Profunda femoris artery: 37 cm/s, phasicity: Monophasic. Superficial femoral artery (proximal): 43 cm/s, phasicity: Monophasic. Superficial femoral artery (mid): 48 cm/s, phasicity: Monophasic. Superficial femoral artery (distal): 32 cm/s, phasicity: Monophasic. Popliteal artery: 28 cm/s, phasicity: Monophasic. Posterior tibial artery: 21 cm/s, phasicity: Biphasic. Peroneal artery: No color Doppler flow. Anterior tibial artery: 11 cm/s, phasicity: Monophasic. Dorsalis pedis artery: 7 cm/s, phasicity: Monophasic. BRACHIAL PRESSURES: Right: 106 Left: 113 ANKLE PRESSURES: Right: PT not quantified., DP not quantified. Left: PT not quantified., DP not quantified. ANKLE-BRACHIAL INDEX: Right: 0.96 Left: not quantified. ANKLE PVR WAVEFORMS: Right: Abnormal Left: Abnormal ABDOMINAL AORTA PEAK SYSTOLIC VELOCITIES IN DIAMETER FOLLOW: Proximal segment: 49 cm/s and 2.6 cm in maximum diameter. Midsegment: 32 cm/s and 1.7 cm maximal diameter. Distal segment: Not identified. RIGHT AND LEFT ILIAC ARTERIES ARE NOT IDENTIFIED DUE TO PATIENT'S BODY HABITUS. US/US arterial duplex BI w/ ORI IMPRESSION: Right leg: Severe inflow disease throughout the interrogated arteries. Left leg: Severe inflow disease throughout the interrogated arteries. Probable occluded left peroneal artery. Limited evaluation of the abdominal aorta and iliac arteries due to patient's body habitus demonstrated no gross aneurysm in the proximal to mid segments of the abdominal aorta. ORI Reference: - >1.4 = calcified vessels - 0.9 - 1.4 = normal - no significant arterial disease - 0.7 - 0.89 = mild peripheral arterial disease - 0.51 - 0.69 = moderate peripheral arterial disease - 0.50 = severe peripheral arterial disease - < .30 = critical arterial disease Electronically signed by: Aniceto Lewis MD 10/15/2024 08:00 AM EDT
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
== END 2024-10-14 13:50 | disposition home or self-care (01) ==
LOC: HO.US 13:49
PROVIDERS: PCP Physician Assistant; Visit Provider Surgery Vascular Surgery
DX: I73.9 Peripheral vascular disease, unspecified (principal); R94.39 Abnormal result of other cardiovascular function study; Z98.62 Peripheral vascular angioplasty status; Z13.6 Encounter for screening for cardiovascular disorders
CPT/HCPCS: 76706; 93922; 93925

== ENCOUNTER → 2024-10-14 13:51 | Outpatient (BNV) | payer MEDICARE, MEDICAID, SELFPAY | PROVIDERS: PCP Physician Assistant; Visit Provider Radiology Diagnostic Radiology | DX: I49.9 Cardiac arrhythmia, unspecified (principal); I70.203 Unspecified atherosclerosis of native arteries of extremities, bilateral legs | CPT/HCPCS: 76706; 93922; 93925 ==

== ENCOUNTER 2024-10-28 10:11 | Outpatient (AMB) | payer MEDICARE, MEDICAID, SELFPAY ==
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
--- OUTSIDE RECORDS SUMMARY | 2024-10-28 10:50 | XMS_ITS | Data Portability ---
Author Organization [place] - [facility], Allergy Address [address] [facility] [address] [place] [id number] Assessment Encounter Date Assessment Date Assessment LastModified [...] surgery if there is scarring or stenosis. [email or web address] Not available 12/10/2023 16:50:24 Plan of Treatment [...] Recorded Time Foreign body in right ear [id number] Active 2022 Foreign body in right ear, initial encounte r; Note: Date Diagnose d: 04/26/2022 1:47 PM (T16.1XX A) Not Available [facility] 02:28:14 Epidermal burn of nose [id number] Active 2023 ARYA QUINTANILLA PA-C [address] [place] [address], [place], [address] , [facility] - [facility] 4 16:28:50 Problem Notes None recorded. Medical [...] ion aerosol inhaler active Medicatio n ID: [id number] Br and Name: albuterol sulfate S end [...] Updated DateTime 12/10/2023 177.8 cm 30.7 kg/m2 21770.77 g Lesly Segal [place] - [facility] 12/10/2023 15:17:17 Social History None recorded. Functional Status None recorded. Mental Status None recorded. Family History Nothing Reported. Medical History No medical history recorded. Past Encounters Encounter ID Performer Location Encounter Start Date Encounter Closed Date Diagnosis/Indication Diagnosis SNOMED-CT Code Diagnosis ICD10 Code Diagnosis Note [id number] ARYA QUINTANILLA PA-C [facility] [address] [address] 12/10/2023 15:08:38 12/15/2023 07:53:41 Epidermal burn of nose 01118626 T20.14XA Health Concerns Section Related Observation LastModified by Organization Detai ls LastModified Time None Recorded Concern Status LastModified by Organization Details LastModified Time None Recorded Advance Directives Directive None Recorded Payers Insurance Date Sequence Insurance Name Policy Number Policy Penaloza Covered Member ID Penaloza Member ID Guarantor Name 12/10/2023 1 [facility] (MEDICARE REPLACEMENT/A DVANTAGE - PPO) [id number] Best Carr [id number] Best Carr 05/04/2024 2 [place] [facility] Best Fabiola Carr [id number] Best Carr Notes Date Note Type Note [...] and uses oxygen daily. MERRY HILL MD [address] [place] [address], [phone], [facility] - [facility] 12/10/2023 17:00:32
--- OUTSIDE RECORDS SUMMARY | 2024-10-28 10:50 | XMS_ITS | Patient Health Record ---
Author Organization [facility] Address [address] [facility] [address] [place] [address] Care Team Providers Care College Football Coach Name Role Phone Connor Infante Primary Care Provider Unavail able STAN ESCOBEDO Unavailable [phone] Allergies No Known Allergies Reason For Referral [...] Orally Onc e a day Active Nasal [place] 0.05 % 2 sprays in each nostril as needed Nasally Twice a day Active Aspirin 81 MG 1 tablet Orally Once a day Active Metoprolol Succinate ER 25 MG 1 tablet Orally Once a day Active Umeclidinium [place] 62.5 MCG/INH 1 puff Inhalation Once a [...] Problem Status W/U Status Risk Notes Problem [id number] 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.49) Active confirmed Problem [id number] Type 2 diabetes mellitus with other circulatory complications (E11.59) Active confirmed Problem Type 2 diabetes mellitus with diabetic polyneuropathy, 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) Active confirmed Vital Signs Height 5ft 10in in 06/23/2024 Weight 204.6 lbs 06/23/2024 BMI 29.35 kg/m2 06/23/2024 Encounters Encounter Location Date Provider Diagnosis [facility] [address] [address] 06/23/2024 STAN ESCOBEDO Type 2 diabetes mellitus with other circulatory complications E11.59 ; Type 2 diabetes mellitus with other diabetic neurological complication E11.49 and Foot callus L84 [facility] [address] [address] 04/22/2024 STAN ESCOBEDO [facility] [address] [address] 07/16/2024 STAN ESCOBEDO Assessments Encounter Date Diagnosis [...] Date Coverage End Date [employer] Medicare Adv-[id number] [address] [address] [place] [address] [id number] Carr Best Self - patient is the [...] asbestos Z77.090 Atherosclerotic heart diseas e of [place] coronary artery without angina pectoris I25.10 Secondary [...] E11.9 left angioplasty COVID vaccinated X 2 (Swapdom) and 3 jaziel ters (Swapdom) Surgical History Surgery Date(Month/Year) gastric bypass colonoscopy cardiac catheterization right knee surgery left angioplasty right aneurysm repair behind the knee Hospitalization History Reason Date(Month/Year) angioplasty 05/2024 COPD Flare Up 10/05/2022 gastric bypass right knee surgery
--- OUTSIDE RECORDS SUMMARY | 2024-10-28 10:51 | XMS_ITS | Clinical Summary ---
Author Organization [facility] Address [address] [place] [address] Phone Care Team Providers Care Business Process Expert Name Role Phone Connor Fletcher Primary Care Provider [phone] Allergies No known active allergies Medications albuterol [...] OF BREATH OR WHEEZING 07/16/19 24 Active nicotine (NICODERM CQ) 14 mg/[address] 1 Patch onto the skin every 24 hours. 05/02/19 24 Active MEN'S MULTI-VITAMIN ORAL Take 1 Tab by mouth daily. 07/26/19 16 Active ONETOUCH DELICA LANCETS [facility] USE 1 LANCET TWICE DAILY TO TEST [...] 23 Active blood-glucose meter (OneTouch Ultra2 Meter) [facility] by Other route 4 [...] FOR PAIN 56 tablet 04/27/19 25 Active Trelegy Ellipta 100-62.5-25 mcg inhaler [...] FOR COPD 20 tablet 08/26/19 25 Active metFORMIN (GLUCOPHAGE) 500 mg tablet TAKE ONE TABLET BY MOUTH TWICE A DAY WITH MEALS 180 tablet 09/15/19 25 Active azithromycin (ZITHROMAX) 250 mg tabletIndicat ions:Centrilo bular emphysema ([facility] V24, [facility] V28) TAKE ONE TABLET BY MOUTH THREE TIMES A WEEK 12 tablet 2 10/27/19 25 Active azithromycin (ZITHROMAX) 250 mg tabletIndicat ions:Centrilo bular emphysema ([facility] V24, [facility] V28) TAKE 1 TABLET BY MOUTH THREE TIMES A WEEK 12 tablet 09/30/19 25 2024 Discontinued Active Problems Problem Noted Date Diagnosed Date Shortness of breath 09/29/2023 Overview (02/10/2024): Last Assessment & Plan: Mostly from a COPD. Lungs sounds quite crackling at the lower third of the lung field. Will check BNP. Will repeat echocardiogram. Iron deficiency anemia 12/04/2021 PVD (peripheral vascular disease) ([facility] V24) 09/16/2018 Hiatal hernia 07/13/2018 Centrilobular emphysema ([facility] V24, [facility] V2 8) 06/11/2017 Nocturnal hypoxia 06/11/2017 KHADRA and COPD overlap syndrome ([facility] V24, [facility] V28) 06/11/2017 Stage 3 severe COPD by GOLD classification ([facility] V24, [facility] V28) 06/11/2017 Asbestos exposure 12/11/2016 Atelectasis 12/11/2016 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 ([facility] V24, [facility] V28) 12/11/2016 Obesity (BMI 30-39.9) 12/11/2016 Overlap syndrome ([facility] V24) 12/11/2016 Smoker 12/11/2016 Overview (02/10/2024): Reformed approx 2017 CAD (coronary artery disease) 01/24/2016 Overview (02/10/2024): Cath in 2016 Erythrocytosis 10/20/2015 Microalbuminuria 04/26/2015 Diabetes mellitus type 2 wit h neurological manifestations ([facility] V24, [facility] V28) 03/20/2015 CKD (chronic kidney disease) stage 1, GFR 90 ml/min or greater 05/10/2014 Type 2 diabetes, controlled, with renal manifestation ([facility] V24, [facility] V28) 12/14/2012 Overview (02/10/2024): Microalbumin 218 on 09/30/2012 Sebaceous cyst 07/31/2012 Sleep apnea 01/06/2012 Overview (02/10/2024): Did not want to use CPAP so ended up with oxygen concentrator at night , usually 3 liter Umbilical hernia 11/12/2011 Chronic back pain 02/13/2010 Colonic polyp 02/13/2010 Depression 02/13/2010 COPD (chronic obstructive pu lmonary disease) ([facility] V24, [facility] V28) 02/13/2010 Overview (02/10/2024): Uses oxygen prn with exertion Hyperlipidemia 02/13/2010 Hypertension 02/13/2010 Immunizations Name Administration Dates Next Due COVID-19 [...] essential hypertension DX:Unspecified essential hypertension Morbid obesity ([facility] V24, [facility] V28) DX:Morbid obesity (HCC) Diabetes mellitus ([facility] V 24, [facility] V28) 11/14/2011 DX:Diabetes mellitus (HCC) Diabetes mellitus ([facility] V 24, [facility] V28) DX:Diabetes mellitus ([facility]); COMMENT: new dx 10/30 COPD (chronic obstructive pu lmonary disease) ([facility] [place], [facility] V28) 02/13/2010 DX:COPD (chronic o bstructive pulmonary disease) ([facility]) Type 2 diabetes, controlled, with renal manifestation ([facility] V24, [facility] V28) 12/14/2012 DX:Type 2 diabetes, controll ed, with renal manifestation ([facility]); COMMENT: Microalbumin 218 on 09/30/2012 Hypertension 02/13/2010 DX:Hypertension Diabetes mellitus type 2 wit h neurological manifestations ([facility] V24, [facility] V28) 03/20/2015 DX:Diabetes mellitus type 2 with neurological manifestations ([facility]) Hyperlipidemia DX:Hyperlipidemi a Family History [...] Annual Urine Albumin-Creatinine Ratio (uACR) 08/13/2024 08/14/2023 Influenza Vaccine (#1) 2024 , 01/28/2023, 12/30/2021, Additional history exists Diabetes: Annual GFR (Glomerular Filtration Rate) 02/09/2025 [...] Aortic Aneurysm (AAA) Screen Completed 07/02/2023, 12/07/2018 HIB Vaccines Aged Out No longer eligi [...] (08/14/2023) Urine Albumin Creatinine Ratio Abstracted Result [facility] Provider HEALTH MAINTENANCE Final Result * Annual BMP Blood Test (08/14/2023) Pathologist [facility] Annual BMP Blood Test Abstracted Result [facility] HEALTH MAINTENANCE Final Result * Hemoglobin A1c (08/14/2023) [facility] Hemoglobin A1C 6.1 <=6.5 % Blood Venous blood specimen / Unknown Result [facility] Provider LAB BLOOD ORDERABLES Diamante l Result * (ABNORMAL) Lipid panel (08/14/2023) [facility] LDL/HDL Ratio 2 0 - 4 Triglycerides 204(A) 0 - 150 mg/dL Cholesterol 175 0 - 200 mg/dL HDL 74 >=40 mg/dL LDL Cholesterol 61 0 - 100 mg/dL Blood Venous blood specimen / Unknown Result [facility] LAB BLOOD ORDERABLES Diamante l Result * Diabetes Foot Exam (08/08/2023) [facility] Diabetes: Annual Foot Exam Abstracted Result [facility] HEALTH MAINTENANCE Final Result * Abdominal Aortic Aneurysm Screen (07/02/2023) [facility] Abdominal Aortic Aneurysm (AAA) Screening Abstracted Anatomical Region Laterality Modality Other Result [facility] HEALTH MAINTENANCE Final Result * Colonoscopy (06/19/2021) [facility] Colonoscopy Abstracted, no interpretation Anatomical Region Laterality Modality Other Result [facility] HEALTH MAINTENANCE Final Result * Hepatitis C Screening (01/03/2013) [facility] Hepatitis C Screening Abstracted Result [facility] HEALTH MAINTENANCE Final Result from Last 3 Months or Most Recently Relevant to Health Maintenance Insurance [place]ICAID [place] [phone] Care Teams Business Process Expert Relationship Specialty Start Date End Date Connor Fletcher PA [address] [place] [address] PCP - General Internal Medicine 12/13/19
== END 2024-10-28 10:26 | disposition home or self-care (01) ==
LOC: HO.HVS 10:12
PROVIDERS: PCP Physician Assistant; Visit Provider Surgery Vascular Surgery
DX: I73.9 Peripheral vascular disease, unspecified (principal)
CPT/HCPCS: 99214

== ENCOUNTER → 2024-10-28 10:11 | Outpatient (BNVA) | payer MEDICARE, MEDICAID, SELFPAY | PROVIDERS: PCP Physician Assistant; Visit Provider Surgery Vascular Surgery | DX: E11.51 Type 2 diabetes mellitus with diabetic peripheral angiopathy without gangrene (principal) | CPT/HCPCS: 99212 ==

== ENCOUNTER 2024-11-22 11:34 | Outpatient (AMB) | payer MEDICARE, MEDICAID, SELFPAY ==
--- NOTE | 2024-11-22 11:36 | MHC.OFFVIS ---
Intake Visit Reasons: New Pt - Right Shoulder Pain Intake Note: Best is a 69 year old right hand dominant male who presents today as a New Patient with complaints of Right Shoulder Pain. Patient reports that he injured it in May- after the injury he was seen with Stefanie. He is unhappy with his care there so he is seeking a second opinion. currently he has pain at all times and he is starting to feel pain in the left arm due to overuse. He was previously told that he has torn all of his tendons and a reverse TSA was reccomended Allergies No Known Allergies Allergy (Verified 11/22/24 11:40) HPI HPI New Pt - Right Shoulder Pain: Details: Best is a 69 year old right hand dominant male who presents today as a New Patient with complaints of Right Shoulder Pain. Patient reports that he injured it in May- after the injury he was seen with Stefanie. He is unhappy with his care there so he is seeking a second opinion. currently he has pain at all times and he is starting to feel pain in the left arm due to overuse. He was previously told that he has torn all of his tendons and a reverse TSA was reccomended. Overall he states he feels okay. He does not have severe pain in his long he does not reach overhead his right shoulder is not too bothersome. He has recently started taking Plavix. He has a history of alcohol abuse, COPD, peripheral artery disease and diabetes. [facility] Medical History (Updated 11/22/24 @ 14:12 by Juan Francisco Griffiths MD) PAD (peripheral artery disease) Nicotine dependence, cigarettes, uncomplicated Erectile dysfunction Diabetes Hypertension History of umbilical hernia History of left heart catheterization COPD (chronic obstructive pulmonary disease) Surgical History (Updated 11/22/24 @ 11:42 by Ling Whitfield CMA) History of cataract surgery History of gastric bypass (~2017) History of arthroscopy of knee H/O angioplasty Social History Housing: Apartment Are you a primary child adolescent care to a significant other at home: No Do you presently have visiting nurse or other home services: No Alcohol intake: current Alcohol intake frequency: a few times a week Patient Tobacco Use Status: Current everyday Tobacco user Tobacco use type: Cigarette Cigarettes Per Day: 2 Years Smoked: (onset 14yo, 2ppd x 54yrs, now 2cig/day - 100pyh) e-Cigarette/Vaping Use: Never Used Second Hand Smoke Exposure: No service: No Current occupational status: retired Current occupation: rt handed Cognitive needs: No Hearing needs: No Vision needs: No Physical Exam Extrem Other: On exam there is crepitus with passive range of motion. Active range of motion to 30 degrees is normal but then he has had migraines proximally in scapular recruitment is required to abduct his arm further. When controlling for scapular rotation he has a 4-/5 strength Assessment & Plan Assessment & Plan (1) Rotator cuff arthropathy of right shoulder: Code(s): M12.811 - Other specific arthropathies, not elsewhere classified, right shoulder Category: Medical Plan: This is a 69-year-old with right rotator cuff arthropathy. His pain is mild in his activity restrictions are also minimal other than overhead lifting. He has multiple medical comorbidities and I recommend activity modification and injections as needed. I do not think surgery is justifiable. I do agree that if surgery were an option reverse right total shoulder arthroplasty would be the indicated surgery. I discussed this with him. I explained that I think he should just try to modify his activities and if his pain worsens we can consider an injection. He seemed accepting of this option and he can follow up on a PRN basis. No intervention warranted at this time. Coding Level of Care Code New Pt Level 4 (68069) Diagnoses Rotator cuff arthropathy of right shoulder M12.811
--- OUTSIDE RECORDS SUMMARY | 2024-11-22 12:24 | XMS_ITS | Clinical Summary ---
Author Organization [facility] Address [address] [place] [address] Phone Care Team Providers Care Aeronautical Products Sales Engineer Name Role Phone Connor Fletcher Primary Care Provider [phone] [phone] Allergies No known active allergies Medications albuterol [...] daily. 07/26/19 16 Active ONETOUCH DELICA LANCETS [facility] USE 1 LANCET [...] 23 Active blood-glucose meter (OneTouch Ultra2 Meter) [facility] by Other route 4 (four) times a [...] (ZITHROMAX) 250 mg tabletIndicat ions:Centrilo bular emphysema ([facility] V24, [facility] V28) TAKE ONE TABLET BY MOUTH THREE TIMES A WEEK 12 tablet 2 10/27/19 25 Active azithromycin (ZITHROMAX) 250 mg tabletIndicat ions:Centrilo bular emphysema ([facility] V24, [facility] V28) TAKE 1 TABLET BY [...] deficiency anemia 12/04/2021 PVD (peripheral vascular disease) ([facility] V24) 09/16/2018 Hiatal hernia 07/13/2018 Centrilobular emphysema ([facility] V24, [facility] V2 8) 06/11/2017 Nocturnal hypoxia 06/11/2017 KHADRA and COPD overlap syndrome ([facility] V24, [facility] V28) 06/11/2017 Stage 3 severe COPD by GOLD classification ([facility] V24, [facility] V28) 06/11/2017 Asbestos exposure 12/11/2016 Atelectasis 12/11/2016 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 ([facility] V24, [facility] V28) 12/11/2016 Obesity (BMI 30-39.9) 12/11/2016 Overlap syndrome ([facility] V24) 12/11/2016 Smoker 12/11/2016 Overview (02/10/2024): Reformed approx 2017 CAD (coronary artery disease) 01/24/2016 Overview (02/10/2024): Cath in 2016 Erythrocytosis 10/20/2015 Microalbuminuria 04/26/2015 Diabetes mellitus type 2 wit h neurological manifestations ([facility] V24, [facility] V28) 03/20/2015 CKD (chronic kidney disease) stage 1, GFR 90 ml/min or greater 05/10/2014 Type 2 diabetes, controlled, with renal manifestation ([facility] V24, [facility] V28) 12/14/2012 Overview (02/10/2024): Microalbumin 218 on 09/30/2012 Sebaceous cyst 07/31/2012 Sleep apnea 01/06/2012 Overview (02/10/2024): Did not want to use CPAP so ended up with oxygen concentrator at night , usually 3 liter Umbilical hernia 11/12/2011 Chronic back pain 02/13/2010 Colonic polyp 02/13/2010 Depression 02/13/2010 COPD (chronic obstructive pu lmonary disease) ([facility] V24, [facility] V28) 02/13/2010 Overview (02/10/2024): Uses [...] CARDIAC CATH OTHER SURGICAL HISTORY 08/08/2016 PROCEDURE: PA GASTRIC RSTCV W/O BYP VERTICAL-BANDED GASTROPLY; COMMENT: Sleeve gastrectomy; Dr. Franco COLONOSCOPY 2012 PROCEDURE: HISTORICAL COLONOSCOPY; COMMENT: hospital based colonoscopy, normal ESOPHAGOGASTRODUODENOSCOPY 2012 PROCEDURE: PA EGD TRANSORAL BIOPSY SINGLE/MULTIPLE; COMMENT: normal COLONOSCOPY [...] essential hypertension DX:Unspecified essential hypertension Morbid obesity ([facility] V24, [facility] V28) DX:Morbid obesity (HCC) Diabetes mellitus ([facility] V 24, [facility] V28) 11/14/2011 DX:Diabetes mellitus (HCC) Diabetes mellitus ([facility] V 24, [facility] V28) DX:Diabetes mellitus ([facility]); COMMENT: new dx 10/30 COPD (chronic obstructive pu lmonary disease) ([facility] V24, [facility] V28) 02/13/2010 DX:COPD (chronic o bstructive pulmonary disease) ([facility]) Type 2 diabetes, controlled, with renal manifestation ([facility] V24, [facility] V28) 12/14/2012 DX:Type 2 diabetes, controll ed, with renal manifestation ([facility]); COMMENT: Microalbumin 218 on 09/30/2012 Hypertension 02/13/2010 DX:Hypertension Diabetes mellitus type 2 wit h neurological manifestations ([facility] V24, [facility] V28) 03/20/2015 DX:Diabetes mellitus type 2 with neurological manifestations ([facility]) Hyperlipidemia DX:Hyperlipidemi a Family History [...] Comments Diabetes: Annual Retina Eye Exam 10/20/1965 Falls Risk Assessment 03/30/2022 Medicare Annual Wellness Visit 03/30/2022 Social Influencers of Health Screening 03/30/2022 Depression Screening 04/21/2024 COVID-19 Vaccine (8 - Pfizer risk season) 2024 01/09/2024, 03/17/2023, 02/23/2022, Additional history exists Diabetes: [...] (08/14/2023) Urine Albumin Creatinine Ratio Abstracted Result [facility] Provider HEALTH MAINTENANCE Final Result * Annual BMP Blood Test (08/14/2023) Pathologist [facility] Annual BMP Blood Test Abstracted Result [facility] HEALTH MAINTENANCE Final Result * Hemoglobin A1c (08/14/2023) [facility] Hemoglobin A1C 6.1 <=6.5 % Blood Venous blood specimen / Unknown Result [facility] Provider LAB BLOOD ORDERABLES Diamante l Result * (ABNORMAL) Lipid panel (08/14/2023) [facility] LDL/HDL Ratio 2 0 - 4 Triglycerides 204(A) 0 - 150 mg/dL Cholesterol 175 0 - 200 mg/dL HDL 74 >=40 mg/dL LDL Cholesterol 61 0 - 100 mg/dL Blood Venous blood specimen / Unknown Result [facility] LAB BLOOD ORDERABLES Diamante l Result * Diabetes Foot Exam (08/08/2023) [facility] Diabetes: Annual Foot Exam Abstracted Result [facility] HEALTH MAINTENANCE Final Result * Abdominal Aortic Aneurysm Screen (07/02/2023) [facility] Abdominal Aortic Aneurysm (AAA) Screening Abstracted Anatomical Region Laterality Modality Other Result [facility] HEALTH MAINTENANCE Final Result * Colonoscopy (06/19/2021) [facility] Colonoscopy Abstracted, no interpretation Anatomical Region Laterality Modality Other Result [facility] HEALTH MAINTENANCE Final Result * Hepatitis C Screening (01/03/2013) [facility] Hepatitis C Screening Abstracted Result [facility] HEALTH MAINTENANCE Final Result from Last 3 Months or Most Recently Relevant to Health Maintenance Insurance [place] [id number] Care Teams Aeronautical Products Sales Engineer Relationship Specialty Start Date End Date Connor Fletcher PA [address] [place] [address] PCP - General Internal Medicine 12/13/19
--- OUTSIDE RECORDS SUMMARY | 2024-11-22 12:24 | XMS_ITS | Patient Health Record ---
Author Organization [facility] Address [address] [address] [place] [address] Care Team Providers Care Dough Cutter Name Role Phone Connor Infante Primary Care Provider Unavail able STAN ESCOBEDO Unavailable [phone] Allergies No Known Allergies Reason For Referral [...] to e ach foot Externally once a day; Duration: 90 days 08/29/2021 Not-Takin g Viagra 100 MG 1 tablet as needed Orally prn Active Multivitamin - 1 tablet Orally Once a day Active Eucerin Intensive Repair - as directed Externally once daily; Duration: 90 days 04/23/2024 Active Vitamin D 25 MCG (1000 UT) 1 tablet Orally Once a day Not-Taking ProAir HFA 108 (90 Base) MCG/ACT 2 puff as needed Inhalation every 6 hrs Not-Takin g Sertraline HCl 25 MG 1 tablet Orally Onc e a day Active Nasal [place] 0.05 % 2 sprays in each nostril as needed Nasally Twice a day Active Aspirin 81 MG 1 tablet Orally Once a day Active Metoprolol Succinate ER 25 MG 1 tablet Orally Once a day Active Umeclidinium [place] 62.5 MCG/INH 1 puff Inhalation Once a day Active tiZANidine HCl 2 MG 1 tablet as needed Orally Three times a day prn Active Combivent Respimat 20-100 MCG/ACT 1 puff as needed Inhalation every 4 hrs Active Ammonium Lactate 12 % 1 application Externally once a day; Duration: 90 days 08/16/2020 Not-Taking Furosemide 20 MG 1 tablet Orally Once a day prn Active Diclofenac Sodium 1 % 1 gram as directed Externally Twice a day; Duration: 90 days 08/16/2020 Not-Taking Lisinopril 5 MG 1 tablet Orally Once a day Active Albuterol Sulfate (5 MG/ML) 0.5% as directed Inhalation Activ e Problems Problem Type SNOMED Code ICD Code Onset Dates Problem Status W/U Status Risk Notes Problem Neurologic disorder associated with type II diabetes mellitus (145117194) 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.49) Active confirmed Problem Peripheral circulatory disorder associated with diabetes mellitus (636511052) Type 2 diabetes mellitus with other circulatory complications (E11.59) Active confirmed Problem Polyneuropathy due to type 2 diabetes mellitus (040634029) Type 2 diabetes mellitus with diabetic polyneuropathy, 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) Active confirmed Vital Signs Height 5ft 10in in 06/23/2024 Weight 204.6 lbs 06/23/2024 BMI 29.35 kg/m2 06/23/2024 Encounters Encounter Location Date Provider Diagnosis [facility] [address] [address] 06/23/2024 STAN ESCOBEDO Type 2 diabetes mellitus with other circulatory complications E11.59 ; Type 2 diabetes mellitus with other diabetic neurological complication E11.49 and Foot callus L84 [facility] [address] [address] 04/22/2024 STAN ESCOBEDO [facility] [address] [address] 07/16/2024 STAN ESCOBEDO Assessments Encounter Date Diagnosis [...] Date Coverage End Date [employer] Medicare Adv-[id number] [address] [address] [place] [address] [phone] [id number] Best Carr Self - patient is the [...] asbestos Z77.090 Atherosclerotic heart diseas e of [place] coronary artery without angina pectoris I25.10 Secondary [...] E11.9 left angioplasty COVID vaccinated X 2 ([employer]) and 3 jaziel ters ([employer]) Surgical History Surgery Date(Month/Year) gastric bypass colonoscopy cardiac catheterization right knee surgery left angioplasty right aneurysm repair behind the knee Hospitalization History Reason Date(Month/Year) angioplasty 05/2024 COPD Flare Up 10/05/2022 gastric bypass right knee surgery
== END 2024-11-22 12:21 | disposition home or self-care (01) ==
LOC: HO.HOS 11:34
PROVIDERS: PCP Physician Assistant; Visit Provider Orthopaedic Surgery
DX: M12.811 Other specific arthropathies, not elsewhere classified, right shoulder (principal)
CPT/HCPCS: 99203

== ENCOUNTER → 2024-11-22 11:34 | Outpatient (BNVA) | payer MEDICARE, MEDICAID, SELFPAY | PROVIDERS: PCP Physician Assistant; Visit Provider Orthopaedic Surgery | DX: M12.811 Other specific arthropathies, not elsewhere classified, right shoulder (principal) | CPT/HCPCS: 99202 ==

== ENCOUNTER 2024-12-08 11:17 | Outpatient (REF) | payer MEDICARE, MEDICAID, SELFPAY ==
[2024-12-08 11:49] LABS: Hemoglobin 18.6 g/dl (14.0-18.0); Mean Corpuscular HGB Conc 33.6 g/dl (31.0-36.0); Mean Corpuscular Hemoglobin 34.4 pg (27.0-33.0); Mean Corpuscular Volume 102.4 fL (80.0-98.0); NRBC Abs Auto 0.000 X10*3/uL (0.0-0.012); NRBC Pct Auto 0.0 /100WBC (0.0-0.2); Platelet Count 118 X10*3/uL (160-400); Red Blood Count 5.41 X10*6/uL (4.60-5.80); White Blood Count 6.9 X10*3/uL (4.8-10.8)
[2024-12-08 11:50] LABS: Hematocrit 55.4 % (42.0-52.0)
[2024-12-08 12:23] LABS: Alanine Aminotransferase 13 U/L (0-40); Albumin Level 4.0 g/dL (3.5-5.0); Alkaline Phosphatase 85 U/L (39-117); Anion Gap 17 (12-20); Aspartate Amino Transferase 28 U/L (5-37); Blood Urea Nitrogen 9 mg/dL (9-16); Calcium 9.0 mg/dL (8.4-10.2); Carbon Dioxide 31 mmol/L (22-29); Chloride 99 mmol/L (96-108); Cholesterol 196 mg/dL (<200); Estimated Glomerular Filt Rate > 60; HDL Cholesterol 75 mg/dL (>40); Potassium 3.9 mmol/L (3.3-5.1); Sodium 143 mmol/L (135-145); Total Protein 6.6 g/dL (6.5-8.0); Triglycerides 191 mg/dL (<150)
--- OUTSIDE RECORDS SUMMARY | 2024-12-08 12:40 | XMS_ITS | Patient Health Record ---
Author Organization [facility] Address [address] [facility] [address] [place] [address] Care Team Providers Care Crate Liner Name Role Phone Connor Infante Primary Care Provider Unavail able STAN ESCOBEDO Unavailable [phone] Allergies No Known Allergies Reason For Referral No Information Medications Medication SIG (Take, Route, Frequency, Duration) Notes Start Date End Date Status Vitamin D 25 MCG (1000 UT) 1 tablet Orally Once a day Not-Taking Eucerin Intensive Repair - as directed Externally once daily; Duration: 90 days 04/23/2024 Active Multivitamin - 1 tablet Orally Once a day Active Viagra 100 MG 1 tablet as needed Orally prn Active Aspirin 81 MG 1 tablet Orally Once a day Active Nasal [place] 0.05 % 2 sprays in each nostril as needed Nasally Twice a day Active Sertraline HCl 25 MG 1 tablet Orally Onc e a day Active Combivent Respimat 20-100 MCG/ACT 1 puff as needed Inhalation every 4 hrs Active tiZANidine HCl 2 MG 1 tablet as needed Orally Three times a day prn Active Umeclidinium [place] 62.5 MCG/INH 1 puff Inhalation Once a day Active Metoprolol Succinate ER 25 MG 1 tablet Orally Once a day Active Albuterol Sulfate (5 MG/ML) 0.5% as directed Inhalation Activ e Lisinopril 5 MG 1 tablet Orally Once a day Active Furosemide 20 MG 1 tablet Orally Once a day prn Active Diclofenac Sodium 1 % 1 gram as directed Externally Twice a day; Duration: 90 days 08/16/2020 Not-Taking Ammonium Lactate 12 % 1 application Externally once a day; Duration: 90 days 08/16/2020 Not-Taking ProAir HFA 108 (90 Base) MCG/ACT 2 puff as needed Inhalation every 6 hrs Not-Takin g metFORMIN HCl 500 MG 1 tablet with a reg l Orally Once a day Active Atorvastatin Calcium 40 MG 1 tablet Orally Once a day Active oxyCODONE HCl 5 MG 1 tablet as needed Orally every 6 hrs Active Symbicort 160-4.5 MCG/ACT 2 puffs Inhala tion Twice a day Not-Taking Metoprolol Tartrate 25 MG 0.5 tablet wit h food Orally daily Not-Taking Ammonium Lactate 12 % 1 application to e ach foot Externally once a day; Duration: 90 days 08/29/2021 Not-Takin g Ammonium Lactate 12 % 1 application Externally daily Not-Taking diazePAM 5 MG 1 tablet as needed Orally 1 tab every 8 hr prn prn Not-Taking Iron 325 (65 Fe) MG 1 tablet Orally Once a day Not-Taking Problems Problem Type SNOMED Code ICD Code Onset Dates Problem Status W/U Status Risk Notes Problem Neurologic disorder associated with type II diabetes mellitus (277684784) 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.49) Active confirmed Problem Peripheral circulatory disorder associated with diabetes mellitus (231084428) Type 2 diabetes mellitus with other circulatory complications (E11.59) Active confirmed Problem Polyneuropathy due to type 2 diabetes mellitus (161286115) Type 2 diabetes mellitus with diabetic polyneuropathy, 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) Active confirmed Vital Signs Height 5ft 10in in 06/23/2024 Weight 204.6 lbs 06/23/2024 BMI 29.35 kg/m2 06/23/2024 Encounters Encounter Location Date Provider Diagnosis [facility] [address] [address] 06/23/2024 STAN ESCOBEDO Type 2 diabetes mellitus with other circulatory complications E11.59 ; Type 2 diabetes mellitus with other diabetic neurological complication E11.49 and Foot callus L84 [facility] [address] [address] 12/03/2024 STAN ESCOBEDO Ingrown right big toenail L60.0 ; Pain in right toe(s) M79.674 ; Type 2 diabetes mellitus with other circulatory complications E11.59 and Type 2 diabetes mellitus with other diabetic neurological complication E11.49 [facility] [address] [address] 04/22/2024 STAN [facility] [address] [facility] [address] [place] [address] 07/16/2024 STAN ESCOBEDO Assessments Encounter Date Diagnosis [...] follows with vascular surgery twice a year. 12/03/2024 Pain in right toe(s) (ICD-10 - M79.674) 12/03/2024 Ingrown right big toenail (ICD-10 - L60.0) I explained to the patient how ingrown toenails form: genetics, improper shoes, trauma, fungus. I reviewed with the patient proper nail care and how to conservatively treat ingrown toenails by cutting the nail straight across, massage the skin away from the edges of the nail, and to soak the feet daily. I explained that the ingrown toenail starts at the root and this is what needs to be removed to make the toenail grow back straight. I reviewed nail avulsions with the patient and also phenol/surgical matrixectomies. Using a nailhead setter and curette, I performed a debridement with lateral wedge resection of the left hallux toenail, patient tolerated well. No bleeding noted. Patient states pain as debridement and wedge resection is 0/10. Patient to follow up next month for his regular appointment. 12/03/2024 Type 2 diabetes mellitus with other circulatory [...] no open lesions of the feet today. 12/03/2024 Type 2 diabetes mellitus with other diabetic neurological complication (ICD-10 - E11.49) Plan Of Treatment Pending Test Test Name Order Date X ray : Foot, left 3v 05/23/2022 Next Appt Details Provider Name:STAN ESCOBEDO, 12/31/2024 11:30:00 AM, [address], [address], Insurance Providers Payer Name Payer Address Payer Phone Subscriber Number Group Number Insured Name Patient Relationship to Insured Coverage Start Date Coverage End Date [employer] Medicare Adv-[id number] [address] [address] [place] [phone] [id number] Best Carr Self - patient is the [...] asbestos Z77.090 Atherosclerotic heart diseas e of [place] coronary artery without angina pectoris I25.10 Secondary [...] E11.9 left angioplasty COVID vaccinated X 2 ([employer]) and 3 jaziel ters ([employer]) Surgical History Surgery Date(Month/Year) gastric bypass colonoscopy cardiac catheterization right knee surgery left angioplasty right aneurysm repair behind the knee Hospitalization History Reason Date(Month/Year) angioplasty 05/2024 COPD Flare Up 10/05/2022 right knee surgery gastric bypass
--- OUTSIDE RECORDS SUMMARY | 2024-12-08 12:40 | XMS_ITS | Clinical Summary ---
Author Organization [facility] Address [address] [place] [address] Phone Care Team Providers Care Tennis Ball Cover Cementer Name Role Phone Connor Fletcher Primary Care Provider [phone] Allergies No known active allergies Medications albuterol HFA (PROAIR HFA ; PROVENTIL HFA ; VENTOLIN HFA) 90 mcg/actuation inhaler INHALE 2 PUFFS INTO THE LUNGS EVERY 4 HOURS NEEDED FOR COUGH OR WHEEZING 3 Active aspirin 81 mg EC tablet Take 1 Tablet by mouth daily. 5 days a week Active calcitonin salmon (MIACALCIN) 200 unit/actuation nasal spray USE 1 SPRAY ALTERNATING NOSTILS ONCE DAILY 4 Active clotrimazole (LOTRIMIN) 1 % cream Apply to affected area twice daily as needed 3 Active ipratropium-al buteroL (Combivent Respimat) 20-100 mcg/actuation inhaler INHALE 1 PUFF INTO THE LUNGS FOUR TIMES A DAY 4 Active ferrous sulfate (IRON ORAL) Take by mouth. Activ e furosemide (LASIX) 20 mg tablet Take 1 Tablet by mouth daily. 4 Active ipratropium-al buteroL (DUONEB) 0.5-2.5 mg/3 mL nebulizer solution INHALE 3 ML INTO THE LUNGS FOUR TIMES A DAY NEEDED FOR SHORTNESS OF BREATH OR WHEEZING 4 Active nicotine (NICODERM CQ) 14 mg/[address] 1 Patch onto the skin every 24 hours. 4 Active MEN'S MULTI-VITAMIN ORAL Take 1 Tab by mouth daily. 6 Active ONETOUCH [place] LANC[place] [facility] [place] 1 LANCET TWICE DAILY TO TEST BLOOD SUGAR 2 Active Oxygen Therapy, Adult Inhale into the lungs. 3 liters at HS and PRN with activity. Active sildenafiL (VIAGRA) 100 mg tablet TAKE ONE TABLET BY MOUTH NEEDED 60 MINUTES BEFORE INTERCOURSE. MAX 100 MGS IN 24 HOURS 4 Active tiZANidine (ZANAFLEX) 2 mg tablet TAKE ONE TABLET BY MOUTH EVERY 8 HOURS NEEDED 3 Active triamcinolone (NASACORT) 55 mcg nasal inhaler INHALE ONE PUFF VIA NASAL ROUTE DAILY 3 Active blood-glucose meter (OneTouch Ultra2 Meter) [facility] [place] Other route 4 (four) times a day. DX E11.9 1 each 4 Active atorvastatin (LIPITOR) 40 mg tablet TAKE ONE TABLET BY MOUTH EVERY DAY 90 tablet 3 4 Active diazePAM (VALIUM) 5 mg tablet TAKE ONE TABLET BY MOUTH EVERY 8 HOURS NEEDED FOR ANXIETY. 60 tablet 5 Active oxyCODONE (ROXICODONE) 5 mg immediate release tablet 1 TO 2 TABLETS BY MOUTH EVERY 6 HOURS NEEDED FOR PAIN 56 tablet 5 Active Trelegy Ellipta 100-62.5-25 mcg inhaler INHALE 1 PUFF INTO THE LUNGS DAILY AT THE SAME TIME EACH DAY. RINSE MOUTH AFTER ADMINISTRATION TO AVOID FUNGAL INFECTION DUE TO USE OF INHALED STEROID 180 each 3 5 Active predniSONE (DELTASONE) 10 mg tablet TAKE 4 TABLETS BY MOUTH DAILY FOR 3 DAYS,THEN 2 TABLETS DAILY FOR 4 DAYS. 20 tablet 5 Active lisinopriL (PRINIVIL,ZEST RIL) 2.5 mg tablet TAKE ONE TABLET BY MOUTH EVERY DAY 90 tablet 3 5 Active sertraline (ZOLOFT) 25 mg tablet TAKE ONE TABLET BY MOUTH EVERY DAY 90 tablet 1 5 Active metoprolol succinate (TOPROL-XL) 25 mg 24 hr tablet TAKE TWO TABLETS BY MOUTH EVERY DAY 180 tablet 1 5 Active fluticasone propionate (FLONASE) 50 mcg/actuation nasal spray APPLY TWO SPRAYS IN EACH NOSTRIL EVERY DAY 48 g 1 5 Active OneTouch Ultra Test test strip USE A NEW STRIP 4 TIMES A DAY TO TEST BLOOD SUGAR 400 strip 1 5 Active predniSONE (DELTASONE) 10 mg tablet TAKE 4 TABLETS BY MOUTH DAILY FOR 3 DAYS,THEN 2 TABLETS BY MOUTH DAILY FOR 4 DAYS NEEDED FOR COPD 20 tablet 5 Active metFORMIN (GLUCOPHAGE) 500 mg tablet TAKE ONE TABLET BY MOUTH TWICE A DAY WITH MEALS 180 tablet 5 Active azithromycin (ZITHROMAX) 250 mg tabletIndicati ons:Centrilobu lar emphysema ([facility] V24, [facility] V28) TAKE ONE TABLET BY MOUTH THREE TIMES A WEEK 12 tablet 2 5 Active Active Problems Problem Noted Date Diagnosed Date Shortness of breath 09/29/2023 Overview (02/10/2024): Last Assessment & Plan: Mostly from a COPD. Lungs sounds quite crackling at the lower third of the lung field. Will check BNP. Will repeat echocardiogram. Iron deficiency anemia 12/04/2021 PVD (peripheral vascular disease) ([facility] V24) 09/16/2018 Hiatal hernia 07/13/2018 Centrilobular emphysema [place] [facility] V2 8) 06/11/2017 Nocturnal hypoxia 06/11/2017 KHADRA and COPD overlap syndrome [place] [place] [facility] V28) 06/11/2017 Stage 3 severe COPD by GOLD classification ([facility] V24, [facility] V28) 06/11/2017 Asbestos exposure 12/11/2016 Atelectasis 12/11/2016 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 ([facility] V24, [facility] V28) 12/11/2016 Obesity (BMI 30-39.9) 12/11/2016 Overlap syndrome ([facility] V24) 12/11/2016 Smoker 12/11/2016 Overview (02/10/2024): Reformed approx 2017 CAD (coronary artery disease) 01/24/2016 Overview (02/10/2024): Cath in 2016 Erythrocytosis 10/20/2015 Microalbuminuria 04/26/2015 Diabetes mellitus type 2 wit h neurological manifestations [place] [place] [facility] [place] 03/20/2015 CKD (chronic kidney disease) stage 1, GFR 90 ml/min or greater 05/10/2014 Type 2 diabetes, controlled, with renal manifestation [place] [place] [facility] V28) 12/14/2012 Overview (02/10/2024): Microalbumin 218 on 09/30/2012 Sebaceous cyst 07/31/2012 Sleep apnea 01/06/2012 Overview (02/10/2024): Did not want to use CPAP so ended up with oxygen concentrator at night , usually 3 liter Umbilical hernia 11/12/2011 Chronic back pain 02/13/2010 Colonic polyp 02/13/2010 Depression 02/13/2010 COPD (chronic obstructive pu lmonary disease) [place] [place] [facility] [place]) 02/13/2010 Overview (02/10/2024): Uses oxygen prn [...] CARDIAC CATH OTHER SURGICAL HISTORY 08/08/2016 PROCEDURE: [place] GASTRIC RSTCV W/O BYP VERTICAL-BANDED GASTROPLY; COMMENT: Sleeve gastrectomy; Dr. Franco COLONOSCOPY 2012 PROCEDURE: HISTORICAL COLONOSCOPY; COMMENT: hospital based colonoscopy, normal ESOPHAGOGASTRODUODENOSCOPY 2012 PROCEDURE: [place]Y EGD TRANSORAL BIOPSY SINGLE/MULTIPLE; COMMENT: normal COLONOSCOPY 01/23/2018 PROCEDURE: HISTORICAL COLONOSCOPY; COMMENT: 2x tubular adenoma, 3 year follow-up recommended COLONOSCOPY 06/19/2021 PROCEDURE: HISTORICAL COLONOSCOPY; COMMENT: dr. swan, normal ANGIOPLASTY PROCEDURE: HISTORICAL ANGIOPLASTY; COMMENT: b/l legs popliteal artery - homero bojra OTHER SURGICAL HISTORY PROCEDURE: SKIN CYST; COMMENT: right shoulder dr. hernández Medical History Medical History Date Comments Heart disease, unspecified DX:He art disease, unspecified Unspecified essential hypertension DX:Unspecified essential hypertension Morbid obesity [place] [place] [facility] [place] DX:Morbid obesity (HCC) Diabetes mellitus [place] [place], [facility] [place]) 11/14/2011 DX:Diabetes mellitus (HCC) Diabetes mellitus ([facility] [place], [facility] [place] DX:Diabetes mellitus ([facility]); COMMENT: new dx 10/30 COPD (chronic obstructive pu lmonary disease) [place] [place] [facility] [place]) 02/13/2010 DX:COPD (chronic o bstructive pulmonary disease) ([facility]) Type 2 diabetes, controlled, with renal manifestation ([facility] [place] [facility] [place]) 12/14/2012 DX:Type 2 diabetes, controll ed, with renal manifestation ([facility]); COMMENT: Microalbumin 218 on 09/30/2012 Hypertension 02/13/2010 DX:Hypertension Diabetes mellitus type 2 wit h neurological manifestations [place] [place] [facility] [place]) 03/20/2015 DX:Diabetes mellitus type 2 with neurological manifestations ([facility]) Hyperlipidemia DX:Hyperlipidemi a Family History Medical History [...] Ratio (08/14/2023) Urine Albumin Creatinine Ratio Abstracted Historical Provider HEALTH MAINTENANCE Final Result * Annual BMP Blood Test (08/14/2023) Annual BMP Blood Test Abstracted us Historical Provider HEALTH MAINTENANCE Final Result * Hemoglobin A1c (08/14/2023) [facility] Hemoglobin A1C 6.1 <=6.5 % Blood Venous blood specimen / Unknown Result [facility] Provider LAB BLOOD ORDERABLES Diamante l Result * (ABNORMAL) Lipid panel (08/14/2023) [facility] LDL/HDL Ratio 2 0 - 4 Triglycerides 204(A) 0 - 150 mg/dL Cholesterol 175 0 - 200 mg/dL HDL 74 >=40 mg/dL LDL Cholesterol 61 0 - 100 mg/dL Blood Venous blood specimen / Unknown Result [facility] Provider LAB BLOOD ORDERABLES Diamante l Result * Diabetes Foot Exam (08/08/2023) [facility] Diabetes: Annual Foot Exam Abstracted Result [facility] Provider HEALTH MAINTENANCE Final Result * Abdominal Aortic Aneurysm Screen (07/02/2023) [facility] Abdominal Aortic Aneurysm (AAA) Screening Abstracted Anatomical Region Laterality Modality Other Result [facility] Provider HEALTH MAINTENANCE Final Result * Colonoscopy (06/19/2021) [facility] Colonoscopy Abstracted, no interpretation Anatomical Region Laterality Modality Other Result [facility] Provider HEALTH MAINTENANCE Final Result * Hepatitis C Screening (01/03/2013) [facility] Hepatitis C Screening Abstracted Result [facility] Provider HEALTH MAINTENANCE Final Result from Last 3 Months or Most Recently Relevant to Health Maintenance Insurance [place] [employer] MEDICARE Care Teams Tennis Ball Cover Cementer Relationship Specialty Start Date End Date Connor Fletcher PA [address] [place] [address] PCP - General Internal Medicine 12/13/19
[2024-12-08 13:15] LABS: Microalbum/Creatinine Ratio Ur 825.5 ug/mg cr (<30)
== END 2024-12-08 11:18 | disposition home or self-care (01) ==
LOC: HO.LAB 11:17
PROVIDERS: PCP Physician Assistant; Visit Provider Physician Assistant
DX: E11.69 Type 2 diabetes mellitus with other specified complication (principal); J43.9 Emphysema, unspecified; Z12.5 Encounter for screening for malignant neoplasm of prostate
CPT/HCPCS: 36415; 80053; 80061; 82043; 82570; 84153; 85027

== ENCOUNTER 2024-12-13 12:37 | Outpatient (AMB) | payer MEDICARE, MEDICAID, SELFPAY ==
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
[2024-12-13 13:28] VITALS: BP 140/100; PULSE 76; TEMP 36.3; O2SAT 92; BMI 29.5
[2024-12-13 13:37] VITALS: BP 120/80
--- OUTSIDE RECORDS SUMMARY | 2024-12-13 13:45 | XMS_ITS | Patient Health Record ---
Author Organization [facility] Address [address] [facility] [address] [place] [address] Care Team Providers Care Process Line Operator Name Role Phone Connor Infante Primary Care Provider Unavail able STAN ESCOBEDO Unavailable [phone] Allergies No Known Allergies Reason For Referral [...] tablet Orally Once a day Active Nasal [place] 0.05 % 2 sprays in each nostril as needed Nasally Twice a day Active Sertraline HCl 25 MG 1 tablet Orally Onc e a day Active Combivent Respimat 20-100 MCG/ACT 1 puff as needed Inhalation every 4 hrs Active tiZANidine HCl 2 MG 1 tablet as needed Orally Three times a day prn Active Umeclidinium [place] 62.5 MCG/INH 1 puff Inhalation Once a [...] disorder associated with type II diabetes mellitus (502674250) 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.49) Active confirmed Problem Peripheral circulatory disorder associated with diabetes mellitus ([id number]) Type 2 diabetes mellitus with other circulatory complications (E11.59) Active confirmed Problem Polyneuropathy due to type 2 diabetes mellitus (002652248) Type 2 diabetes mellitus with diabetic polyneuropathy, 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) Active confirmed Vital Signs Height 5ft 10in in 06/23/2024 Weight 204.6 lbs 06/23/2024 BMI 29.35 kg/m2 06/23/2024 Encounters Encounter Location Date Provider Diagnosis [facility] [address] [address] 06/23/2024 TSAN ESCOBEDO Type 2 diabetes mellitus with other circulatory complications E11.59 ; Type 2 diabetes mellitus with other diabetic neurological complication E11.49 and Foot callus L84 [facility] [address] [address] 12/03/2024 STAN ESCOBEDO Ingrown right big toenail L60.0 ; Pain in right toe(s) M79.674 ; Type 2 diabetes mellitus with other circulatory complications E11.59 and Type 2 diabetes mellitus with other diabetic neurological complication E11.49 [facility] [address] [address] 04/22/2024 STAN [facility] [address] [facility] [address] [place] [address] 07/16/2024 STAN ESCOBEDO Assessments Encounter Date Diagnosis [...] patient and also phenol/surgical matrixectomies. Using a filler leaf cutter long and curette, I performed a debridement with [...] Name:STAN ESCOBEDO, 12/31/2024 11:30:00 AM, [address], [address], Insurance Providers Payer Name Payer Address Payer Phone Subscriber Number Group Number Insured Name Patient Relationship to Insured Coverage Start Date Coverage End Date [employer] Medicare Adv-[id number] [address] [address] [place] [phone] [id number] Best [place] Self - patient is the [...] asbestos Z77.090 Atherosclerotic heart diseas e of [place] coronary artery without angina pectoris I25.10 Secondary [...] E11.9 left angioplasty COVID vaccinated X 2 ([employer]) and 3 jaziel ters ([employer]) Surgical History Surgery Date(Month/Year) gastric bypass colonoscopy cardiac catheterization right knee surgery left angioplasty right aneurysm repair behind the knee Hospitalization History Reason Date(Month/Year) angioplasty 05/2024 COPD Flare Up 10/05/2022 right knee surgery gastric bypass
--- OUTSIDE RECORDS SUMMARY | 2024-12-13 13:45 | XMS_ITS | Clinical Summary ---
Author Organization [facility] Address [address] [place] [address] Phone Care Team Providers Care Color Control Operator Name Role Phone Connor Fletcher Primary Care Provider [phone] Allergies No known active allergies Medications albuterol [...] mouth daily. 6 Active ONETOUCH DELICA LANCETS [facility] USE 1 LANCET [...] 3 Active blood-glucose meter (OneTouch Ultra2 Meter) [facility] Other route 4 (four) times a [...] (ZITHROMAX) 250 mg tabletIndicati ons:Centrilobu lar emphysema ([facility] V24, [facility] V28) TAKE ONE TABLET BY [...] deficiency anemia 12/04/2021 PVD (peripheral vascular disease) ([facility] V24) 09/16/2018 Hiatal hernia 07/13/2018 Centrilobular emphysema ([facility] [place], [facility] V2 8) 06/11/2017 Nocturnal hypoxia 06/11/2017 KHADRA and COPD overlap syndrome ([facility], [facility] V28) 06/11/2017 Stage 3 severe COPD by GOLD classification ([facility] V24, [facility] V28) 06/11/2017 Asbestos exposure 12/11/2016 Atelectasis 12/11/2016 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 ([facility] V24, [facility] V28) 12/11/2016 Obesity (BMI 30-39.9) 12/11/2016 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) 12/11/2016 Smoker 12/11/2016 Overview (02/10/2024): Reformed approx 2017 CAD (coronary artery disease) 01/24/2016 Overview (02/10/2024): Cath in 2016 Erythrocytosis 10/20/2015 Microalbuminuria 04/26/2015 Diabetes mellitus type 2 wit h neurological manifestations ([facility], [facility] V28) 03/20/2015 CKD (chronic kidney disease) stage 1, GFR 90 ml/min or greater 05/10/2014 Type 2 diabetes, controlled, with renal manifestation ([facility], [facility] V28) 12/14/2012 Overview (02/10/2024): Microalbumin 218 on 09/30/2012 Sebaceous cyst 07/31/2012 Sleep apnea 01/06/2012 Overview (02/10/2024): Did not want to use CPAP so ended up with oxygen concentrator at night , usually 3 liter Umbilical hernia 11/12/2011 Chronic back pain 02/13/2010 Colonic polyp 02/13/2010 Depression 02/13/2010 COPD (chronic obstructive pu lmonary disease) ([facility], [facility] V[facility]) 02/13/2010 Overview (02/10/2024): Uses oxygen prn [...] CARDIAC CATH OTHER SURGICAL HISTORY 08/08/2016 PROCEDURE: DE GASTRIC RSTCV W/O BYP VERTICAL-BANDED GASTROPLY; COMMENT: Sleeve gastrectomy; Dr. Franco COLONOSCOPY 2012 PROCEDURE: HISTORICAL COLONOSCOPY; COMMENT: hospital based colonoscopy, normal ESOPHAGOGASTRODUODENOSCOPY 2012 PROCEDURE: DE EGD TRANSORAL BIOPSY SINGLE/MULTIPLE; COMMENT: normal COLONOSCOPY [...] essential hypertension DX:Unspecified essential hypertension Morbid obesity ([facility], [facility] V28) DX:Morbid obesity (HCC) Diabetes mellitus ([facility] V 24, [facility] V28) 11/14/2011 DX:Diabetes mellitus (HCC) Diabetes mellitus ([facility] V 24, [facility] V28) DX:Diabetes mellitus ([facility]); COMMENT: new dx 10/30 COPD (chronic obstructive pu lmonary disease) ([facility], [facility] V[facility]) 02/13/2010 DX:COPD (chronic o bstructive pulmonary disease) ([facility]) Type 2 diabetes, controlled, with renal manifestation ([facility], [facility]) 12/14/2012 DX:Type 2 diabetes, controll ed, with renal manifestation ([facility]); COMMENT: Microalbumin 218 on 09/30/2012 Hypertension 02/13/2010 DX:Hypertension Diabetes mellitus type 2 wit h neurological manifestations ([facility], [facility] V[facility]) 03/20/2015 DX:Diabetes mellitus type 2 with neurological manifestations ([facility] [...] MAINTENANCE Final Result * Hemoglobin A1c (08/14/2023) [facility] Hemoglobin A1C 6.1 <=6.5 % Blood Venous blood specimen / Unknown Result [facility] Provider LAB BLOOD ORDERABLES Diamante l Result * (ABNORMAL) Lipid panel (08/14/2023) [facility] LDL/HDL Ratio 2 0 - 4 Triglycerides 204(A) 0 - 150 mg/dL Cholesterol 175 0 - 200 mg/dL HDL 74 >=40 mg/dL LDL Cholesterol 61 0 - 100 mg/dL Blood Venous blood specimen / Unknown Result [facility] Provider LAB BLOOD ORDERABLES Diamante l Result * Diabetes Foot Exam (08/08/2023) [facility] Diabetes: Annual Foot Exam Abstracted Result [facility] Provider HEALTH MAINTENANCE Final Result * Abdominal Aortic Aneurysm Screen (07/02/2023) [facility] Abdominal Aortic Aneurysm (AAA) Screening Abstracted Anatomical Region Laterality Modality Other Result [facility] Provider HEALTH MAINTENANCE Final Result * Colonoscopy (06/19/2021) [facility] Colonoscopy Abstracted, no interpretation Anatomical Region Laterality Modality Other Result [facility] Provider HEALTH MAINTENANCE Final Result * Hepatitis C Screening (01/03/2013) [facility] Hepatitis C Screening Abstracted Result [facility] Provider HEALTH MAINTENANCE Final Result from Last 3 Months or Most Recently Relevant to Health Maintenance Insurance MEDICAID - [place] [employer] MEDICARE Care Teams Color Control Operator Relationship Specialty Start Date End Date Connor Fletcher PA [address] [place] [address] PCP - General Internal Medicine 12/13/19
== END 2024-12-13 14:12 | disposition home or self-care (01) ==
LOC: HO.HMCH 12:38
PROVIDERS: PCP Physician Assistant; Visit Provider Physician Assistant
DX: J43.9 Emphysema, unspecified (principal); R41.3 Other amnesia; J30.89 Other allergic rhinitis; E11.69 Type 2 diabetes mellitus with other specified complication; F17.210 Nicotine dependence, cigarettes, uncomplicated; M19.011 Primary osteoarthritis, right shoulder; M67.912 Unspecified disorder of synovium and tendon, left shoulder; I73.9 Peripheral vascular disease, unspecified

== ENCOUNTER → 2024-12-13 12:37 | Outpatient (BNVA) | payer MEDICARE, MEDICAID, SELFPAY | PROVIDERS: PCP Physician Assistant; Visit Provider Physician Assistant | DX: J43.9 Emphysema, unspecified (principal); R41.3 Other amnesia; J30.89 Other allergic rhinitis; M19.011 Primary osteoarthritis, right shoulder; M67.912 Unspecified disorder of synovium and tendon, left shoulder; E11.69 Type 2 diabetes mellitus with other specified complication; I73.9 Peripheral vascular disease, unspecified; F17.210 Nicotine dependence, cigarettes, uncomplicated; Z71.6 Tobacco abuse counseling | CPT/HCPCS: 83036; 99212 ==